=== PATIENT | male | born 1965 | race Caucasian/White ===

== ENCOUNTER 2023-10-20 06:35 | Inpatient (IN) | payer OTHER, SELFPAY ==
[2023-10-20] VITALS (21 sets, daily range): BP systolic 109–141; BP diastolic 84–98; PULSE 73–117; RESP 14–25; TEMP 36.6–36.9; O2SAT 97–100; BMI 20.5
--- NOTE | ~2023-10-20 | CT_ITS ---
EXAMINATION: CTA brain carotid DATE: 10/22/2023 08:48 INDICATION: Acute stroke. TECHNIQUE: Computed tomographic angiography (CTA) of the head was performed without and with 100 mL O mnipaque-350 intravenous contrast. CTA of the neck was performed with intravenous contrast. Automated exposure control and iterative reconstruction technique were employed. The dose-length product was 1 521.13 mGy-cm. Maximum intensity projection and volume rendered 3D-reconstructions were created by jean villeda technologist on a separate workstation. COMPARISON: Head CT 10/20/2023, brain MRI 10/20/2023 FINDINGS: HEAD CTA: There is an acute infarct involving the left basal ganglia and left internal capsule. There is an old infarct in the right thalamus. There are scattered areas of low attenuation in the cerebra l white matter. There is no intracranial hemorrhage or abnormal mass lesion. The ventricles are moo l in size. There is mucosal thickening in the paranasal sinuses. The orbits are normal. The mastoid a ir cells are normal. Left vertebral artery is dominant. There is no significant stenosis of basilar a rtery or the posterior cerebral arteries. There is no significant stenosis of the intracranial finance intern al carotid arteries or anterior or middle cerebral arteries. Anterior communicating artery is normal. Posterior communicating arteries are not identified. There is no aneurysm. NECK CTA: There is moderate emphysema. There are patchy airspace opacities in the lungs with cavitati on in left lung upper lobe. There is no cervical lymphadenopathy. There is no significant stenosis of the vertebral arteries. There is plaque in the proximal internal carotid arteries. There is 0% steno sis of the proximal right internal carotid artery relative to normal distal artery lumen diameter (NA SCET criteria). There is 0% stenosis of the proximal left internal carotid artery relative to normal distal artery lumen diameter. There is extensive dental disease. There is severe cervical spondylosis . IMPRESSION: 1. Acute infarct involving the left basal ganglia and left internal capsule. 2. Old infarct in right thalamus. 3. Mild nonspecific cerebral white matter disease, which likely represents chronic small vessel ische mel disease. 4. No aneurysm or significant intracranial calcinosis. 5. 0% stenosis of the proximal internal carotid arteries relative to normal distal artery lumen diame ters (NASCET criteria). 6. Multifocal lung disease, consistent with infection or less likely malignancy. 7. Moderate emphysema. Reviewed, dictated and finalized at location A. IMPRESSION: 1. Acute infarct involving the left basal ganglia and left internal capsule. 2. Old infarct in right thalamus. 3. 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 4. No aneurysm or significant intracranial calcinosis. 5. 0% stenosis of the proximal internal carotid arteries relative to normal dis kelli artery lumen diameters (NASCET criteria). 6. Multifocal lung disease, consistent with infection or less likely malignancy . 7. Moderate emphysema.
--- NOTE | ~2023-10-20 | CT_ITS ---
EXAMINATION: CT diagnostic chest wo con DATE: 10/20/2023 14:54 INDICATION: abnormal findings on CXR TECHNIQUE: Computed tomography (CT) of the chest was performed without intravenous contrast. Addition al 3D reconstructions utilizing coronal maximum intensity projection (MIP) were performed. Automated exposure control and iterative reconstruction technique were employed. The dose-length product was 16 3.19 mGy-cm. COMPARISON: None FINDINGS: Mild to moderate upper lung predominant emphysema. Volume loss in the left upper lobe with elevation the left hemidiaphragm and compensatory hyperexpansion of the left lower lobe. A couple small calcifi ed nodules in the left upper lobe along with calcified right lymph node consistent with old granuloma tous disease. There is a 5.1 x 3.9 cm cavitary mass in the left upper lobe with relatively smooth uni form thickened peripheral wall. There is adjacent left apical pleural-parenchymal scarring with incre ased subpleural fat. There are scattered linear and bandlike regions of discoid atelectasis in both l ungs. Multiple scattered small nodular opacities, many with tree-in-bud pattern most prominent in the left lower and right middle lobes. There are few more discrete larger nodules which include a 1.3 cm nodules in the right middle lobe, a 12 x 6 mm nodule in the right upper lobe and a 1.4 cm nodule in the lingula along a linear band of atelectasis/scarring. There is diffuse bronchial wall thickening t hroughout the lungs. Tiny left pleural effusion. Heart size is normal. Small pericardial effusion. Ec tatic ascending thoracic aorta measuring up to 3.8 cm. There are few mildly prominent but still moo l-sized likely reactive mediastinal lymph nodes, the largest precarinal lymph node measuring 8 mm in maximal short axis diameter. Visualized upper abdomen is unremarkable. Mild thoracic and moderate upp er lumbar spondylosis with chronic appearing mild anterior wedging at L1. IMPRESSION: 1. Mild to moderate emphysema. 2. 5.1 x 3.9 cm thick-walled cavitary mass in the left upper lobe along with multiple scattered bilat eral pulmonary nodules, many with tree-in-bud pattern which are almost infectious/inflammatory in yajaira ology. Difficult to exclude malignancy for any individual lesion and would recommend 3 month follow-u p low-dose noncontrast chest CT. Line 3. Tiny left pleural effusion and small pericardial effusion. Reviewed, dictated and finalized at location A. IMPRESSION: 1. Mild to moderate emphysema. 2. 5.1 x 3.9 cm thick-walled cavitary mass in the left upper lobe along with mu ltiple scattered bilateral pulmonary nodules, many with tree-in-bud pattern whi ch are almost infectious/inflammatory in etiology. Difficult to exclude maligna ncy for any individual lesion and would recommend 3 month follow-up low-dose no ncontrast chest CT. Line 3. Tiny left pleural effusion and small pericardial effusion.
--- NOTE | ~2023-10-20 | MR_ITS ---
EXAMINATION: MR brain/brain stem wo/w con DATE: 10/20/2023 15:25 INDICATION: CVA workup TECHNIQUE: Magnetic resonance imaging (MRI) of the brain and brainstem was performed with 12 mL Multi Mayank intravenous contrast. Sequences included sagittal and axial T1-weighted SE, axial diffusion-asher ghted FS EPI ASSET, axial T2*-weighted GRE, axial T2-weighted FLAIR Propeller, and axial T2-weighted Propeller. Postcontrast axial and coronal T1-weighted SE was obtained. Apparent diffusion coefficient (ADC) maps were created. COMPARISON: CT brain, same date. FINDINGS: Focal diffusion restriction in the posterior aspect of the lentiform nucleus, extending cephalad aashish g the periventricular white matter of the left lateral ventricle. Focal low T1 and T2 signal in the s uperior right thalamus with blooming in the susceptibility weighted sequences, consistent with old he morrhage. Normal white matter signal. No evidence of advanced or lobar predominant parenchymal volume loss. The basilar cisterns are patent. Flow voids are preserved. Ethmoid and maxillary mucosal thick ening. Globes and orbital contents are within normal limits. IMPRESSION: Focal acute left basal ganglia and periventricular white matter infarct. Focal old right thalamic hem orrhage. Reviewed, dictated and finalized at location K. IMPRESSION: Focal acute left basal ganglia and periventricular white matter infarct. 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
--- NOTE | ~2023-10-20 | XR_ITS ---
EXAMINATION: XR chest 1V portable DATE: 10/25/2023 10:39 INDICATION: Pneumonia. TECHNIQUE: A single frontal view of the chest was obtained. COMPARISON: Chest single view 10/20/2023, chest CT 10/20/2023 FINDINGS: There are patchy airspace opacities in right lung. There are airspace opacities in left upp er lung zone with cavitation and volume loss. There are mild airspace opacities in left lower lung zo ne. No pleural effusion or pneumothorax. The heart size is normal. IMPRESSION: 1. Stable diffuse lung disease, likely pneumonia. Reviewed, dictated and finalized at location A.
--- NOTE | ~2023-10-20 | US_ITS ---
EXAMINATION: US carotid duplex BI DATE: 10/20/2023 17:09 INDICATION: Right-sided weakness TECHNIQUE: Grayscale, color Doppler, and pulsed Doppler images of the cervical carotid arteries were obtained. The degree of vessel stenosis is placed in one of the following categories: normal, <50%, 5 0-69%, >=70% but less than near-occlusion, near-occlusion, or total occlusion. Note that percent sten osis relative to normal distal artery lumen diameter is indirectly measured from velocity measurement s as described by Easton, et al. Radiology 2003; 229:340-346. COMPARISON: None. FINDINGS: RIGHT: The right common carotid artery (CCA) peak systolic velocity (PSV) is 85 cm/s. The right internal car otid artery (ICA) PSV is 72 cm/s. The right ICA end-diastolic velocity (EDV) is 27 cm/s. The right IC A/CCA PSV ratio is 0.9. Grayscale and color Doppler images yield an estimate of less than 50% diamete r reduction from plaque in the ICA. The external carotid artery (ECA) PSV is 71 cm/s. There is antegr caryn flow in the right vertebral artery. LEFT: The left CCA PSV is 98 cm/s. The left ICA PSV is 59 cm/s. The left ICA EDV is 24 cm/s. The left ICA/C CA PSV ratio is 0.6. Grayscale and color Doppler images yield an estimate of less than 50% diameter r eduction from plaque in the ICA. The ECA PSV is 82 cm/s. There is antegrade flow in the left vertebra l artery. IMPRESSION: 1. <50% stenosis in the right internal carotid artery. 2. <50% stenosis in the left internal carotid artery. Reviewed, dictated and finalized at location F.
--- NOTE | ~2023-10-20 | CT_ITS ---
EXAMINATION: CT abdomen pelvis w con INDICATION: Hematochezia TECHNIQUE: Computed tomographic images of the abdomen and pelvis were obtained after the administrati on of 100 cc of Omnipaque 350 intravenous contrast. The dose-length product (DLP) was 209.00 mGy-cm. Automated exposure control and iterative reconstruction technique were employed. COMPARISON: 10/20/2023 FINDINGS: Nodules of the visualized lung bases are unchanged from comparison CT. The liver, spleen, p ancreas, gallbladder, and adrenal glands are normal. The kidneys are unremarkable. No pathologically enlarged abdominal or pelvic lymph nodes are identified. No free intraperitoneal gas or evidence of b owel obstruction. There is an approximately 5 cm segment of wall thickening in the rectum. There is m oderate lumbar spondylosis. IMPRESSION: 1. Approximately 5 cm segment of wall thickening in the rectum. Finding could be infectious or inflam matory however malignancy could have a similar appearance. Consider direct visualization. 2. Multiple stable nodules of the visualized lung bases with follow-up recommendations unchanged. Reviewed, dictated and finalized at location A. IMPRESSION: 1. Approximately 5 cm segment of wall thickening in the rectum. Finding could b e infectious or inflammatory however malignancy could have a similar appearance . Consider direct visualization. 2. Multiple stable nodules of the visualized lung bases with follow-up recommen dations unchanged.
--- NOTE | ~2023-10-20 | CT_ITS ---
EXAMINATION: CT brain wo con DATE: 10/20/2023 06:58 INDICATION: Right hemiparesis. Right-sided numbness and tingling. TECHNIQUE: Computed tomography (CT) of the head was performed without intravenous contrast. The mA wa s adjusted according to patient size. Iterative reconstruction technique was employed. The dose-lengt h product was 605.33 mGy-cm. COMPARISON: None FINDINGS: There is no intracranial hemorrhage or abnormal intracranial mass lesion. There is an infar ct in right thalamus. There is an infarct in left caudate nucleus. There are scattered areas of low a ttenuation in the cerebral white matter. The ventricles are normal in size. There is mild mucosal thi ckening in the paranasal sinuses. There is a right optic nerve drusen. The mastoid air cells are norm al. IMPRESSION: 1. Age-indeterminate infarcts in right thalamus and left caudate nucleus. 2. Mild nonspecific cerebral white matter disease, which likely represents chronic small vessel ische mle disease. Reviewed, dictated and finalized at location A. IMPRESSION: 1. Age-indeterminate infarcts in right thalamus and left caudate nucleus. 2. 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
--- NOTE | ~2023-10-20 | XR_ITS ---
EXAMINATION: XR chest 1V DATE: 10/20/2023 07:02 INDICATION: Right hemiparesis. Right-sided numbness and tingling. TECHNIQUE: A single frontal view of the chest was obtained. COMPARISON: None. FINDINGS: There is volume loss of left hemithorax. There are airspace opacities in the upper lobes, l eft worse than right. There are mild airspace opacities at left lung base. A calcified right lung nod ule is consistent with old granulomatous disease. No pleural effusion or pneumothorax. The heart size is normal. IMPRESSION: 1. Airspace opacities in the upper lobes and all left lung base, consistent with pneumonia versus chr onic lung disease. Consider CT. Reviewed, dictated and finalized at location A. IMPRESSION: 1. Airspace opacities in the upper lobes and all left lung base, consistent wit h pneumonia versus chronic lung disease. Consider CT.
--- NOTE | 2023-10-20 06:42 | ECG_ITS ---
Measurements Intervals [place] Rate: 92 P: 76 ID: [id number] QRS: -54 QRSD: 92 T: 78 QT: 362 QTc: 448 Interpretive Statements SINUS RHYTHM LEFT AXIS DEVIATION INCOMPLETE RIGHT BUNDLE BRANCH BLOCK DELAYED PRECORDIAL R/S TRANSITION BORDERLINE ECG NO PREVIOUS ECG AVAILABLE FOR COMPARISON Electronically Signed On 10-20-2023 8:02:56 CDT by Francisco Mullen D.O.
--- NOTE | 2023-10-20 06:53 | PC.NURSE ---
Pt in imaging at this time.
--- NOTE | 2023-10-20 07:08 | ED.GENADULT ---
HPI - General Adult General Chief complaint: Unspecified Stated complaint: neuro symptoms Time Seen by Provider: 10/20/23 07:02 History of Present Illness HPI narrative: Pt awoke this morning with weakness and uncoordination of right arm and leg and some slurred speech. Pt was fine when he went to bed last night at 1999. Pt denies CA. Pt has some numbness in right side as well. Pt has hx of htn and says may have undiagnosed COPD as he is a smoker. Related Data Allergies Allergy/AdvReac Type Severity Reaction Status Date / Time No Known Allergies Allergy Mild Unverified 01/08/09 17:00 Review of Systems Review of Systems: All systems reviewed & are unremarkable except as noted in HPI and below PMFSH Past Medical History Medical History HTN (hypertension) Smoker Family History Family History (Updated 02/21/16 @ 23:19 by DOCTOR UNKNOWN) Father Hypertension Mother Family history of diabetes mellitus in first degree relative Social History Social History Smoking status: Current every day smoker Tobacco type: cigarettes Alcohol intake: current Drinks per week: 63 Substance use: never Substance use type: does not use Do You Feel Safe in your Home?: Yes Lack of Transportation: No Lack of Food: Never True Current Housing: I Have Housing Concerned About Future Housing: No Difficulty Paying Gas/Electric Bills: No Difficulty Paying for Meds: No Currently Unemployed: No Education: High School Diploma/GED Difficulty w/ Childcare or Family Care: No Spiritual care concerns: No Exam Const: General: cooperative, healthy appearing, comfortable and no acute distress Nutritional Appearance: average body habitus Orientation/consciousness: patient oriented x3 Limitations: no limitations HENMT: Head: normal to inspection Mouth: Yes Normal oral and palatal mucosa present Neck: Neck: normal visual inspection Lymphatic: no lymphadenopathy noted Resp: Effort & Inspection: normal respiratory effort and able to speak in complete sentences Auscultation: wheezes Cardio: Rate: tachycardic Rhythm: regular rhythm GI: GI Palp: No abdominal tenderness Auscultation: normal bowel sounds Skin: General skin exam: normal color and no rashes or lesions noted Neuro: General: patient oriented x3, moves all extremities, Normal light touch and pain sensation, no focal motor deficits and CN's II-XI intact bilaterally Cognition (Neuro): normal cognition Speech: Abnormal speech present slurred Details: slurred Extrem: General: normal to inspection and no clubbing, cyanosis or edema Psych: Appearance: grossly normal Mental Status: mental status grossly normal Speech and movement: Slurred speech present Affect: normal affect Attitude: cooperative Thought process: Normal thought process present Thought content: Yes Normal thought content present Insight: Good insight present (Psych) Judgement: Good judgement present (Psych) Course Vital Signs Vital signs: Vital Signs Temperature 98.4 F 10/20/23 06:34 Pulse Rate 105 H 10/20/23 06:34 Respiratory Rate 25 H 10/20/23 06:34 Blood Pressure 109/88 10/20/23 06:34 Pulse Oximetry 99 10/20/23 06:34 Oxygen Delivery Room Air 10/20/23 06:34 Temperature 98.4 F 10/20/23 06:34 Pulse Rate 80 10/20/23 12:00 Respiratory Rate 19 10/20/23 09:45 Blood Pressure 141/84 H 10/20/23 08:15 Pulse Oximetry 97 10/20/23 09:45 Oxygen Delivery Room Air 10/20/23 11:00 Medical Decision Making [facility] Narrative Medical decision making narrative: cva vs tia, pt out of window for tpa and symptoms very mild. will get stroke work up here and admit for further evaluation and neuro consult. CT ekg and labs ok other than mild hyponatremia. discussed with dr diehl and agrees to conslut. discussed with dr rios agrees to admit. Vital Signs Vital Signs: Vital Signs Temperature 98.4 F 10/20/23 06:34 Pulse Rate 105 H 03
--- NOTE | 2023-10-20 07:12 | PC.NURSE ---
Report received from TEREAS Fletcher
[2023-10-20 07:17] LABS: Basophils Absolute Auto 0.1 K/mm3 (0.0-0.1); Basophils Percent Auto 0.8 % (0.2-1.2); Eosinophils Percent Auto 0.3 % (0-4.4); Hematocrit 44.3 % (42.0-52.0); Hemoglobin 14.3 g/dL (14.0-18.0); Immature Granulocyte Absolute 0.03 K/mm3 (0.00-0.031); Immature Granulocyte Percent A 0.4 % (0-0.5); Lymphocytes Absolute Auto 0.78 K/mm3 (0.9-3.2); Lymphocytes Percent Auto 9.9 % (18.3-44.2); Mean Corpuscular HGB Conc 32.3 g/dl (32-36); Mean Corpuscular Volume 86.9 fl (80-100); Mean Platelet Volume 9.3 fl (7.4-10.4); Monocytes Percent Auto 12.4 % (2.6-8.5); Neutrophils Percent Auto 76.2 % (45.5-73.1); Platelet Count Result 307 k/mm3 (150-375); Red Cell Distribution Width 13.1 % (11.5-14.5); White Blood Count 7.8 K/mm3 (4.5-10.0)
[2023-10-20 07:20] LABS: INR 0.8; Prothrombin Time 11.7 Seconds (11.1-14.7)
[2023-10-20 07:21] LABS: Partial Thromboplastin Time 33.6 Seconds (22.3-36.8)
[2023-10-20 08:25] LABS: Alanine Aminotransferase 12 U/L (6-50); Albumin Level 3.8 g/dL (3.5-5.1); Alkaline Phosphatase 67 U/L (38-126); Anion Gap 5 mmol/L (4-12); Aspartate Amino Transferase 27 U/L (17-59); Bilirubin,Total 0.5 mg/dL (0.2-1.3); Blood Urea Nitrogen 8 mg/dL (9-20); Calcium 8.6 mg/dL (8.4-10.2); Carbon Dioxide 25 mmol/L (22-30); Chloride 98 mmol/L (98-107); Estimated CRCL calculation 111 ml/min; Estimated Glomerular Filt Rate > 60; Glucose 100 mg/dL (65-110); Sodium 128 mmol/L (137-145)
[2023-10-20 08:36] LABS: Troponin I < 0.012 ng/mL (0.000-0.034)
--- NOTE | 2023-10-20 11:00 | ADMGEN ---
This patient, Griffin Rodriguez, was admitted to Medical Room 340-01. Patient/family oriented to hospital policies and general routines including ID bracelet, bed and alarms, visiting hours, pain management, procedures, bathroom and other care routines, personal items, smoking policy, room service/diet, and visiting hours. Information on how to activate the Rapid Response Team has been discussed. Patient/Family are encouraged to report perceived risks to care and to ask questions if they do not understand what they are told or what they should do.
--- NOTE | 2023-10-20 11:31 | WPDNEURCNPN ---
Assessment and Plan Assessment and plan (1) Acute CVA (cerebrovascular accident): Code(s): I63.9 - Cerebral infarction, unspecified Status: Acute Plan Admitted to the hospital for the incoordination of the right side with no change in the mental status will benefit from the MRI of the brain, Doppler study of the carotid, echocardiogram, to rule out the possibility of left hemispheric stroke before any further recommendations are made. Initial CT scan did document infarct in right thalamus and left caudate nucleus but no bleed her major space-occupying lesion. Consult date: 10/20/23 HPI: Griffin Rodriguez is a 57 year old male Has been admitted to the hospital through the emergency room where he presented with the complaints of weakness and incoordination of the right upper extremity and right lower extremity in addition to slurred speech reportedly was fine when he went to the bed last night at 8:00 p.m. he gave no history of headaches but also complained of numbness on the right side as well he does have ongoing history of COPD with history of chronic smoking. He is not allergic to any medication. And currently alcohol intake. On initial evaluation in the emergency room his vital signs were with blood pulse rate of 105 blood pressure 141/84 CBC was normal BMP with sodium of 128 was admitted to the hospital with the diagnosis of acute cerebrovascular accident has been taking amlodipine 5mg daily in addition to lisinopril 20mg daily which were co PMFSH Family History Family History (Updated 02/21/16 @ 23:19 by DOCTOR UNKNOWN) Father Hypertension Mother Family history of diabetes mellitus in first degree relative Social History Social History Smoking status: Current every day smoker Tobacco type: cigarettes Alcohol intake: current Drinks per week: 63 Substance use: never Substance use type: does not use Do You Feel Safe in your Home?: Yes Lack of Transportation: No Lack of Food: Never True Current Housing: I Have Housing Concerned About Future Housing: No Difficulty Paying Gas/Electric Bills: No Difficulty Paying for Meds: No Currently Unemployed: No Education: High School Diploma/GED Difficulty w/ Childcare or Family Care: No Spiritual care concerns: No Meds Home Medications and Allergies Allergies Allergy/AdvReac Type Severity Reaction Status Date / Time No Known Allergies Allergy Mild Unverified 01/08/09 17:00 Vital Signs Vital Signs - 24 hr 10/20/23 06:34 10/20/23 07:11 10/20/23 07:11 Temperature 36.9 C Pulse Rate 105 H 95 98 Respiratory Rate 25 H 18 Blood Pressure 109/88 121/98 H Pulse Oximetry 99 97 Oxygen Delivery Room Air 10/20/23 07:09 10/20/23 07:10 10/20/23 07:15 Temperature Pulse Rate 93 98 117 H Respiratory Rate 14 22 H 22 H Blood Pressure 121/98 H Pulse Oximetry 98 98 Oxygen Delivery 10/20/23 07:30 10/20/23 07:45 10/20/23 08:00 Temperature Pulse Rate 104 H 87 99 Respiratory Rate 18 21 H 20 Blood Pressure Pulse Oximetry Oxygen Delivery 10/20/23 08:15 10/20/23 08:30 10/20/23 08:45 Temperature Pulse Rate 97 101 H 99 Respiratory Rate 25 H 18 19 Blood Pressure 141/84 H Pulse Oximetry 99 100 97 Oxygen Delivery 10/20/23 09:00 10/20/23 09:16 10/20/23 09:30 Temperature Pulse Rate 96 101 H 102 H Respiratory Rate 23 H 23 H 25 H Blood Pressure Pulse Oximetry 98 98 Oxygen Delivery 10/20/23 09:45 10/20/23 11:00 Temperature Pulse Rate 91 Respiratory Rate 19 Blood Pressure Pulse Oximetry 97 Oxygen Delivery Room Air Exam Narrative: revealed him to be awake alert cooperative in no obvious acute distress, his speech was rather slurred though he follow the verbal commands appropriately. Head was normocephalic with no cranial bruit ear nose throat examination was normal neck was supple with no cervical bruit no thyromegaly no lymphadenopathy, heart regular
--- NOTE | 2023-10-20 12:23 | PM.IMHP ---
H&P: HPI History of Present Illness Date/Time: 10/20/23 12:23 Chief Complaint: Weakness, Dysarthria Narrative: 57 y/o M presents here with R sided weakness and dysarthria with PMH of HTN and current smoker. Patient presents here with right sided weakness affecting his RUE and RLE as well as dysarthria. Patient went to bed last night (10/19) at 2000 without deficits. Woke this morning at 0430 and noted symptoms at 0500. Patient attempted to lift a coffee cup and had difficulty. Reports some associated numbness - right foot and RUE. Reports some aphasia that is overcome with speaking slowly. Denies choking or difficulty swallowing. Endorsing mild gait disturbance. No previous hx of CVA. Has hx of HTN and believes he has undiagnosed COPD, current smoker - 1-2 PPD x 15 yrs. Patient has baseline SOB and cough. SOB worsens when patient lays flat due to rhinorrhea. No unintentional weight loss. No past history of IVDU. Reports FH of cancer - sister (stomach, breast, third one unknown), great grandma (maternal, unknown type), grandma (maternal, unknown type). Denies night sweats, no long incarcerations (one overnight stay at local group home), and has not needed to utilize a homeless correction before. 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 Initial VS at presentation: 98.4? F, HR 105, RR 25, 109/88, 99% on RA. ED workup showed: No leukocytosis, no anemia, sodium 128, creatinine 0.6, and initial troponin negative. CXR showed airspace opacities in the upper lobes and all left lung base. CT Head showed age-indeterminate infarcts in the right thalamus and left caudate nucleus and mild nonspecific cerebral white matter disease. EKG showed sinus rhythm with a rate of 92, left axis deviation, incomplete RBBB, and delayed precordial RS transition. Review of Systems Review of Systems: All systems reviewed & are unremarkable except as noted in HPI and below PMFSH Past Medical History Medical History HTN (hypertension) Smoker Family History Family History (Updated 02/21/16 @ 23:19 by DOCTOR UNKNOWN) Father Hypertension Mother Family history of diabetes mellitus in first degree relative Social History Social History Smoking status: Current every day smoker Tobacco type: cigarettes Alcohol intake: current Drinks per week: 63 Substance use: never Substance use type: does not use Do You Feel Safe in your Home?: Yes Lack of Transportation: No Lack of Food: Never True Current Housing: I Have Housing Concerned About Future Housing: No Difficulty Paying Gas/Electric Bills: No Difficulty Paying for Meds: No Currently Unemployed: No Education: High School Diploma/GED Difficulty w/ Childcare or Family Care: No Spiritual care concerns: No Meds Home Medications and Allergies Allergies Allergy/AdvReac Type Severity Reaction Status Date / Time No Known Allergies Allergy Mild Unverified 01/08/09 17:00 Vital Signs Vital Signs - 24 hr 10/20/23 06:34 10/20/23 07:11 10/20/23 07:11 Temperature 98.4 F Pulse Rate 105 H 95 98 Respiratory Rate 25 H 18 Blood Pressure 109/88 121/98 H Pulse Oximetry 99 97 Oxygen Delivery Room Air 10/20/23 07:09 10/20/23 07:10 10/20/23 07:15 Temperature Pulse Rate 93 98 117 H Respiratory Rate 14 22 H 22 H Blood Pressure 121/98 H Pulse Oximetry 98 98 Oxygen Delivery 10/20/23 07:30 10/20/23 07:45 10/20/23 08:00 Temperature Pulse Rate 104 H 87 99 Respiratory Rate 18 21 H 20 Blood Pressure Pulse Oximetry Oxygen Delivery 10/20/23 08:15 10/20/23 08:30 10/20/23 08:45 Temperature Pulse Rate 97 101 H 99 Respiratory Rate 25 H 18 19 Blood Pressure 141/84 H Pulse Oximetry 99 100 97 Oxygen Delivery 10/20/23 09:00 10/20/23 09:16 10/20/23 09:30 Temperature Pulse Rate 96 101 H 102 H Respiratory Rate 23 H 23 H 25 H Blood Pressure Pulse Oximetry 98 98 Oxygen Deli
--- NOTE | 2023-10-20 12:42 | ECHO_ITS ---
Patient Info Name: Griffin Rodriguez Age: 57 years : 1965 Gender: Male Ht: 69 in Wt: 150 lbs BSA: 1.82 m2 HR: 91 bpm BP: 141 / 84 mmHg Heart Rhythm: Sinus Rhythm Technical Quality: Fair Exam Date: 10/20/2023 1:15 PM Exam Location: Echo Lab Patient Status: Inpatient Admit Date: 10/20/2023 Staff Ordering Physician: Sandy Tinajero APRN [facility] Clinical Supervisor: Mitch Newberry RDCS Attending Provider: Ismael Bahena MD Referring Physician: Lior ROD; Exam Type: CA echo dop bubble study w con Study Info Indications - CVA workup Complete two-dimensional, color flow and Doppler transthoracic echocardiogram is performed with contrast to opacify the left ventricle and to improve the deliniation of the left ventricle endocardial borders. Complete two-dimensional, color flow and Doppler transthoracic echocardiogram is performed with agitated saline. Contrast/Agitated Saline Contrast/Ag. Saline: Definity Amount: 2.00 ml Summary 1. Definity contrast administered improved wall motion interpretation. 2. Left ventricular chamber dimension is normal. 3. Left ventricular systolic function is normal, estimated at 65-70%. 4. The left ventricular diastolic function is grade I diastolic dysfunction. 5. E/e' 7 is not elevated. 6. There is mild tricuspid valve regurgitation. 7. No pulmonary hypertension, estimated pulmonary arterial systolic pressure is 20 mmHg. Left Ventricle E/e' 7 is not elevated. Definity contrast administered improved wall motion interpretation. Left ventricular chamber dimension is normal. Left ventricular systolic function is normal, estimated at 65-70%. The left ventricular diastolic function is grade I diastolic dysfunction. Right Ventricle Right ventricular systolic function is normal and with normal TAPSE 2.5 cm. Right ventricular chamber dimension is normal. Left Atria Left atrial chamber dimension is normal. Right Atria Right atrial chamber dimension is normal. Atrial Septum Agitated saline injection with and without valsalva maneuver opacified right side cardiac chambers without shunt to left side cardiac chambers. Intact interatrial septum visualized by 2D and agitated saline imaging. Aortic Valve The aortic valve is trileaflet. There is no aortic valve stenosis. There is no aortic valve regurgitation. Pulmonic Valve There is no pulmonic regurgitation. Mitral Valve There is no mitral valve stenosis. There is no mitral valve regurgitation. Tricuspid Valve There is mild tricuspid valve regurgitation. No pulmonary hypertension, estimated pulmonary arterial systolic pressure is 20 mmHg. Pericardium/Pleural There is no pericardial effusion. Inferior Vena Cava Normal inferior vena cava with >50% collapse upon inspiration consistent with normal right atrial pressure, 5 mmHg. Aorta The aortic root size at the sinus of Valsalva is normal. Left Ventricular Outflow Tract Name Value Normal LVOT 2D LVOT Diameter 1.9 cm LVOT Doppler LVOT Peak Gradient 3 mmHg LVOT Mean Gradient 2 mmHg LVOT VTI 18 cm LVOT VTI/AV VTI Ratio 0.9
[2023-10-20] MEDS: SODIUM CHLORIDE 0.9% IV 1,000 ML 125 ML IV CONT (12:46)
[2023-10-20] MEDS: PERFLUTREN LIPID MICROSPHERES 1.5 ML VIAL DILUTED TO 10 ML TOTAL VOLUME IV PUSH (14:00)
--- NOTE | 2023-10-20 14:24 | IVDEFINITY ---
Prior to administration of IV Definity the patient was educated on the risks and benefits of the imaging enhancing agent including potential adverse side effects. The patient verbalized understanding. Allergies were verified. No exclusion criteria were identified and at least one of the following inclusion criteria were met: 1) physician request, 2) patient technically difficult to image (per the [place] [employer] guidelines of two or more segments not discernable within the apical view), or 3) questionable left ventricular function. ?
[2023-10-20] MEDS: ENOXAPARIN 40 MG/0.4 ML SYRINGE SUB-Q (18:42)
[2023-10-20] MEDS: MEROPENEM 1 GM/NS 100 ML 1 GM/100 ML BAG IVPB (20:11)
[2023-10-20] MEDS: VANCOMYCIN 1,500 MG/NS 500 ML 1,500 MG/500 ML BAG 250 MG IVPB (20:12)
[2023-10-20 20:45] LABS: Alanine Aminotransferase 12 U/L (6-50); Albumin Level 3.5 g/dL (3.5-5.1); Alkaline Phosphatase 64 U/L (38-126); Aspartate Amino Transferase 26 U/L (17-59); Bilirubin,Total 0.4 mg/dL (0.2-1.3)
[2023-10-20 21:26] LABS: HIV 1/2 Ab P24 Ag Result Negative (Negative)
--- NOTE | 2023-10-20 23:18 | PC.NURSE ---
UA sent lab. Main lab called, spoke to Joan regarding adding urine drug screen to existing sample. States she will be able to perform with current sample.
[2023-10-20 23:31] LABS: MRSA (PCR) NOT DETECTED (NOT DETECTE)
[2023-10-20 23:53] LABS: Barbiturate Screen Urine Negative (Negative); Benzodiazepines Screen Urine Negative (Negative)
[2023-10-20 23:57] LABS: Amphetamine Screen Urine Negative (Negative); Cannabinoid Screen Urine Negative (Negative); Cocaine Screen Urine Negative (Negative); Methadone Screen Urine Negative (Negative); Opiate Screen Urine Negative (Negative); Phencyclidine Screen Urine Negative (Negative)
[2023-10-21] VITALS (9 sets, daily range): BP systolic 128–162; BP diastolic 87–95; PULSE 65–92; RESP 16–20; TEMP 36.2–36.7; O2SAT 98–99
[2023-10-21] MEDS: MEROPENEM 1 GM/NS 100 ML 1 GM/100 ML BAG IVPB (03:48)
[2023-10-21 06:21] LABS: Basophils Percent Auto 0.5 % (0.2-1.2); Eosinophils Absolute Auto 0.1 K/mm3 (0-0.3); Eosinophils Percent Auto 0.6 % (0-4.4); Hematocrit 40.6 % (42.0-52.0); Hemoglobin 12.6 g/dL (14.0-18.0); Immature Granulocyte Absolute 0.04 K/mm3 (0.00-0.031); Immature Granulocyte Percent A 0.5 % (0-0.5); Lymphocytes Absolute Auto 1.06 K/mm3 (0.9-3.2); Lymphocytes Percent Auto 13.1 % (18.3-44.2); Mean Corpuscular Hemoglobin 27.7 pg (26-34); Mean Corpuscular Volume 89.2 fl (80-100); Monocytes Percent Auto 12.9 % (2.6-8.5); Neutrophils Absolute Auto 5.9 K/mm3 (1.3-6.7); Neutrophils Percent Auto 72.4 % (45.5-73.1); Platelet Count Result 251 k/mm3 (150-375); Red Blood Count 4.55 M/mm3 (4.6-6.20); Red Cell Distribution Width 13.4 % (11.5-14.5); White Blood Count 8.1 K/mm3 (4.5-10.0)
[2023-10-21 06:38] LABS: Alanine Aminotransferase 11 U/L (6-50); Albumin Level 3.1 g/dL (3.5-5.1); Alkaline Phosphatase 60 U/L (38-126); Anion Gap 1 mmol/L (4-12); Aspartate Amino Transferase 25 U/L (17-59); Bilirubin,Total 0.3 mg/dL (0.2-1.3); Blood Urea Nitrogen 9 mg/dL (9-20); Calcium 7.9 mg/dL (8.4-10.2); Carbon Dioxide 28 mmol/L (22-30); Chloride 101 mmol/L (98-107); Cholesterol 100 mg/dL (0-200); Estimated CRCL calculation 92 ml/min; Estimated Glomerular Filt Rate > 60; Glucose 86 mg/dL (65-110); HDL Direct 51 mg/dL; Potassium 3.9 mmol/L (3.4-5.0); Sodium 130 mmol/L (137-145); Triglycerides 100 mg/dL (<150)
[2023-10-21 06:49] LABS: LDL Cholesterol Direct 38 mg/dL
[2023-10-21 07:29] LABS: Hemoglobin A1C 5.2 % (<5.7)
[2023-10-21] MEDS: predniSONE 20 MG TABLET 40 MG PO (08:07)
[2023-10-21] MEDS: ATORVASTATIN 40 MG TABLET PO (08:07)
[2023-10-21] MEDS: CLOPIDOGREL BISULFATE 75 MG TABLET PO (08:07)
[2023-10-21] MEDS: ASPIRIN 81 MG ENTERIC TABLET PO (08:07)
[2023-10-21] MEDS: VANCOMYCIN 1,250 MG/NS 250 ML 1,250 MG/250 ML BAG 166.67 MG IVPB (08:08)
[2023-10-21] MEDS: ENOXAPARIN 40 MG/0.4 ML SYRINGE SUB-Q (08:11)
--- NOTE | 2023-10-21 10:06 | WPDNEUROPN ---
Progress Note: A&P Assessment and Plan (1) Acute CVA (cerebrovascular accident): Code(s): I63.9 - Cerebral infarction, unspecified Status: Acute (2) HTN (hypertension): Code(s): I10 - Essential (primary) hypertension Status: Acute (3) Smoker: Code(s): F17.200 - Nicotine dependence, unspecified, uncomplicated Status: Acute Plan Mr. Rodriguez is a year old male with a history of HTN and chronic smoking presenting for evaluation of acute onset R sided weakness, found to have L basal ganglia lacunar infarct. He is chronic heavy smoker which is likely a contributing factor. His A1c and LDL are within appropriate range, and he has not been particularly hypertensive during the admission. Suspect likely small vessel stroke, but also considering cryptogenic as other than the smoking, other risk factors are fairly well controlled. - Recommend aspirin 81mg daily - Plavix 75mg daily for 3 weeks only - Obtain CTA brain/carotid - If CTA is unrevealing, recommend 30 day event monitor prior to discharge Subjective Date/time seen: 10/21/23 10:06 Interval history: Mr. Rodriguez is a year old male with a history of HTN and chronic smoking presenting for evaluation of acute onset R sided weakness. Patient went to bed the night prior to admission feeling normal. He woke up the following morning and noted new R sided weakness, R sided numbness, and some speech difficulties. He presented to [facility] where he had a CT head which showed age indeterminate infarcts in the R thalamus and L caudate nucleus. Per ED note, he did not receive thrombolytic treatment due to being outside the window of therapy (wake up symptoms and CTH findings), and mild symptoms. EKG showed sinus rhythm. BP at the highest has been 141 systolic, but otherwise has been normotensive during admission. A1c is 5.2 nd LDL is 38. MRI brain confirmed L basal ganglia infarct (about 12x9mm in size). Patient is a chronic smoker, smoking 1-2 ppd for the past 15 years. He does not take any blood thinners or statins. Surface echocardiogram has been done which shows no evidence of shunt. Carotid doppler study shows <50% stenosis bilaterally. Patient continues to have some mild weakness in the RUE. He is right handed. 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 He has decided that he will no longer be smoking. He denies any family history of early stroke or ME. No clotting disorders in the family. No recurrent miscarriages in the family. Review of Systems Review of Systems: All systems reviewed & are unremarkable except as noted in HPI and below Exam Const: General: no acute distress and well nourished Nutritional Appearance: well nourished HENMT: Head: normocephalic and atraumatic Ears: hearing grossly normal bilaterally and external ears normal Face/Nose/Sinus: Normal external nose present and normal facial exam Face and sinus: normal facial exam Mouth: Yes Normal oral and palatal mucosa present Eyes: General: appearance normal, both eyes and all related structures Eyelids: eyelids normal Conjunctivae: conjunctivae normal Pupils: Equal, round and reactive pupils present EOM: EOMs intact bilaterally and No Nystagmus present Neck: Neck: normal visual inspection Resp: Effort & Inspection: normal respiratory effort Skin: General skin exam: normal color and no rashes or lesions noted Neuro: Cranial nerves: Yes Equal, round and reactive pupils present, Yes Bilaterally intact EOM present, Yes Nystagmus not present, Yes Midline tongue present, Yes Normal hearing present and No Nystagmus present Cognition (Neuro): normal cognition Speech: normal speech Gait exam (Neuro): Normal gait present Motor exam (neuro): Normal motor muscle tone present throughout and Motor abnormalities not present Sensory Exam: normal sensation Coordination: [id number] test normal Other: R nasolabial flattening Dysarthria RUE 4+/5, LUE 5/5 bilateral lower extremities 5/5
[2023-10-21] MEDS: AZITHROMYCIN 500 MG/NS 250 ML 500 MG/250 ML BAG 250 MG IVPB (12:18)
[2023-10-21] MEDS: AMPICILLIN SULB 3 GM/NS 100 ML 3 GM/100 ML VIAL IVPB ×2 (12:19→17:12)
--- NOTE | 2023-10-21 12:50 | PM.IMPN ---
Progress Note: A&P Assessment and Plan (1) Acute CVA (cerebrovascular accident): Code(s): I63.9 - Cerebral infarction, unspecified Status: Acute Assessment and Plan: New deficits of RUE weakness, RLE weakness, numbness and dysarthria discovered at 0500 on 10/20/23. LKN: 2000 on 10/20. Imaging showed age-indeterminate infarcts in right thalamus and left caudate nucleus. - not candidate for thrombolytics due to timeframe - CXR: airspace opacities in the upper lobes and all left lung base, consistent with pneumonia versus chronic lung disease.? - neurology consulted and appreciate recommendations. - brain MRI w/wo: Focal acute left basal ganglia and periventricular white matter infarct. 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 - echo w/Bubble no PFO seen, EF of 65-70%, grade 1 diastolic dysfunction - US carotid bilateral less than 50% stenosis bilaterally - neuro checks Q4 - speech/swallow eval and recommended minced moist diet. - PT/OT to eval and treat and has cleared patient - A1c 5.2 and LDL less than 70 - start Plavix 75 mg PO x3 weeks - start ASA 81 mg - consider 30 day event monitoring at discharge if there are abnormalities on tele (2) Abnormal CXR: Code(s): R93.89 - Abnormal findings on diagnostic imaging of other specified body structures Status: Acute Assessment and Plan: - CXR: airspace opacities in the upper lobes and all left lung base, consistent with pneumonia versus chronic lung disease. Consider CT. - Chest CT noncon: Mild to moderate emphysema. 5.1 x 3.9 cm thick-walled cavitary mass in the left upper lobe along with multiple scattered bilateral pulmonary nodules, many with tree-in-bud pattern which are almost infectious/inflammatory in etiology. Difficult to exclude malignancy for any individual lesion and would recommend 3 month follow-up low-dose noncontrast chest CT. Tiny left pleural effusion and small pericardial effusion. - smoking hx: 1-2 PPD x 15 yrs - MRSA (neg) - Sputum culture pending - Urine legionella antigen, Urine pneumococcal antigen, Mycoplasma IgM - Vancomycin and meropenem changed to Unasyn and doxycycline due to negative MRSA swab per [facility] recommendations - DuoNeb PRN and prednisone 40 mg PO x 7 days. - will need follow-up CT in 3 months, schedule outpatient - HIV (Pending), UDS (Neg) - Due to cavitary lesions will consult pulmonology. (3) HTN (hypertension): Code(s): I10 - Essential (primary) hypertension Status: Acute Assessment and Plan: - monitor Subjective Date/time seen: 10/21/23 12:50 Interval history: patient states that he has had increased cough for months but has worsened over the past week or so. He is having increased sputum production causing him to have difficulty sleeping at night. It sounds like he does have somewhat of a chronic cough. 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 He denies any chest pain or shortness of breath. He is ambulating without any issues. He denies any fevers or night sweats. He presented to the ED due to right-sided weakness which has improved. He does have some slurred speech which is new since his stroke diagnosis. Neurology following patient. Consulted with pulmonology about the case and they agreed to follow. Exam Narrative: GENERAL: Comfortable, no acute distress HENMT: moist mucous membranes EYES: EOM intact b/l NECK: no lymphadenopathy RESPIRATORY: diffuse crackles throughout lung zones, no increased respiratory effort CARDIO: Regular rate and rhythm GI: soft, nontender, bowel sounds present SKIN/EXTREMITIES: no rashes, no edema, no redness or tenderness NEURO: PROM intact, answers questions appropriately, A&O x4 Objective Data Vital Signs Vital Signs: Vital Signs - 24 hr 10/20/23 14:00 10/20/23 16:00 10/20/23 21:56 Temperature 97.8 F 98.4 F Pulse Rate 81 75
[2023-10-21] MEDS: SODIUM CHLORIDE 0.9% IV 1,000 ML 125 ML IV CONT (17:12)
[2023-10-21 20:08] LABS: CRP 4.2 mg/dL (<1.0)
[2023-10-21 20:20] LABS: D Dimer 0.59 ug/mL (<0.48)
--- NOTE | 2023-10-21 22:08 | PM.EVENT ---
Event Note Event Note Event Note: Cross Coverage 22:00 -nursing staff reached out to notify team that patient had a large bloody bowel movement. Briefly tachycardic while using restroom, heart rate now 72. Blood pressure 162/88. No prior history of GI bleed. Adding pantoprazole IVP b.i.d., CT brain with contrast ordered previously, adding abdomen/pelvis with contrast, GI consulted. CBC ordered: 14.3 (initial workup) -> 12.6 (this a.m.)-> 12.6 (repeat). Repeat CBC at 5:[address] Holding daily aspirin and Plavix. No prior colonoscopy.
[2023-10-21 22:33] LABS: Hemoglobin 12.6 g/dL (14.0-18.0); Mean Corpuscular HGB Conc 32.3 g/dl (32-36); Mean Corpuscular Hemoglobin 28.2 pg (26-34); Mean Corpuscular Volume 87.2 fl (80-100); Mean Platelet Volume 9.1 fl (7.4-10.4); Platelet Count Result 286 k/mm3 (150-375); Red Blood Count 4.47 M/mm3 (4.6-6.20); Red Cell Distribution Width 13.3 % (11.5-14.5); White Blood Count 8.1 K/mm3 (4.5-10.0)
[2023-10-21] MEDS: PANTOPRAZOLE SODIUM IV 40 MG VIAL IV PUSH (23:49)
--- NOTE | 2023-10-21 23:59 | PC.NURSE ---
pt to ct at this time via wc
[2023-10-22] VITALS (11 sets, daily range): BP systolic 151–159; BP diastolic 76–92; PULSE 65–112; RESP 14–20; TEMP 36.4–36.7; O2SAT 97–99
[2023-10-22] MEDS: AMPICILLIN SULB 3 GM/NS 100 ML 3 GM/100 ML VIAL IVPB ×5 (00:19→23:43)
--- NOTE | 2023-10-22 00:20 | PC.NURSE ---
patient returned from CT.
--- NOTE | 2023-10-22 00:21 | PC.NURSE ---
2345: DIRECTOR NEWS MADE AWARE OF TB WORK UP AIRBORNE ISOLATION ORDER.
--- NOTE | 2023-10-22 03:32 | PC.NURSE ---
0333: Tube Coater spoke with YULIANA Castro. Per Gloria patients condition does not necessitate placement in AII[facility]. Will place isolation kit outside room; N95 encouraged.
[2023-10-22 06:04] LABS: Hematocrit 39.7 % (42.0-52.0); Hemoglobin 12.6 g/dL (14.0-18.0); Mean Corpuscular HGB Conc 31.7 g/dl (32-36); Mean Corpuscular Hemoglobin 27.6 pg (26-34); Mean Corpuscular Volume 87.1 fl (80-100); Mean Platelet Volume 8.9 fl (7.4-10.4); Platelet Count Result 262 k/mm3 (150-375); Red Blood Count 4.56 M/mm3 (4.6-6.20); Red Cell Distribution Width 13.2 % (11.5-14.5); White Blood Count 6.5 K/mm3 (4.5-10.0)
[2023-10-22] MEDS: SODIUM CHLOR 3% 15 ML NEB (RESPIRATORY THERAPY) 6 ML INHALATION (06:09)
[2023-10-22 06:20] LABS: Alanine Aminotransferase 11 U/L (6-50); Albumin Level 3.2 g/dL (3.5-5.1); Alkaline Phosphatase 55 U/L (38-126); Anion Gap 3 mmol/L (4-12); Aspartate Amino Transferase 26 U/L (17-59); Bilirubin,Total 0.5 mg/dL (0.2-1.3); Blood Urea Nitrogen 7 mg/dL (9-20); Carbon Dioxide 28 mmol/L (22-30); Chloride 99 mmol/L (98-107); Estimated CRCL calculation 106 ml/min; Estimated Glomerular Filt Rate > 60; Glucose 90 mg/dL (65-110); Potassium 3.5 mmol/L (3.4-5.0); Sodium 130 mmol/L (137-145)
[2023-10-22] MEDS: SODIUM CHLORIDE 0.9% IV 1,000 ML 125 ML IV CONT ×2 (06:49→17:02)
[2023-10-22] MEDS: ATORVASTATIN 40 MG TABLET PO (09:13)
[2023-10-22] MEDS: ENOXAPARIN 40 MG/0.4 ML SYRINGE SUB-Q (09:13)
[2023-10-22] MEDS: AZITHROMYCIN 500 MG/NS 250 ML 500 MG/250 ML BAG 250 MG IVPB (09:13)
[2023-10-22] MEDS: predniSONE 20 MG TABLET 40 MG PO (09:13)
[2023-10-22] MEDS: PANTOPRAZOLE SODIUM IV 40 MG VIAL IV PUSH ×2 (09:14→21:33)
--- NOTE | 2023-10-22 11:45 | WPDGICN ---
Assessment and Plan Assessment and plan (1) GI bleed: Code(s): K92.2 - Gastrointestinal hemorrhage, unspecified Status: Acute Assessment and Plan: -Episode of hematochezia around 10:00 p.m. last night 10/21/23 after start of plavix and ASA for an acute CVA -CT of the abdomen pelvis with contrast noted 5 cm rectal wall thickening that could be infectious, inflammatory or underlying malignancy should be excluded. No chronic diarrhea to suggest underlying colitis. He has never had a colonoscopy. Had no concerning red flag symptoms prior to admission. -Recommend colonoscopy to assess for underlying malignancy, will plan on this Wednesday. Will have him complete bowel prep Monday 10/23 and NPO after midnight. -Monitor H&H -Plavix and ASA on hold -No further bleeding at this time. Recommend monitoring. (2) Hematochezia: Code(s): K92.1 - Melena Status: Acute Assessment and Plan: -No further bleeding at this time -Likely due to findings noted on CT imaging -Will assess with colonoscopy (3) Acute blood loss anemia: Code(s): D62 - Acute posthemorrhagic anemia Status: Acute Assessment and Plan: -Hgb drop from 14-12, likely due to acute blood loss from rectal bleeding episode -No further bleeding -Monitor H&H (4) Abnormal findings on diagnostic imaging of digestive system: Code(s): R93.3 - Abnormal findings on diagnostic imaging of other parts of digestive tract Status: Acute Assessment and Plan: CT abd/pelvis with 5 cm rectal wall thickening (5) Acute CVA (cerebrovascular accident): Code(s): I63.9 - Cerebral infarction, unspecified Status: Acute Assessment and Plan: -Neurology following -Work up pending (6) Abnormal CXR: Code(s): R93.89 - Abnormal findings on diagnostic imaging of other specified body structures Status: Acute Assessment and Plan: -Has large cavitary mass in left upper lobe, underlying malignancy to be excluded -Work up in progress for etiologies, pulmonology has also been consulted. (7) HTN (hypertension): Code(s): I10 - Essential (primary) hypertension Status: Acute (8) Emphysema lung: Code(s): J43.9 - Emphysema, unspecified Status: Acute (9) Smoker: Code(s): F17.200 - Nicotine dependence, unspecified, uncomplicated Status: Acute GI Consult Note Consult date/time: 10/22/23 11:45 Reason for consult: acute hematochezia HPI: Griffin Rodriguez is a 57 year old male asked to be seen at the request of the hospitalist for acute blood in the stools around 10:00 p.m. last night. He has a past medical history of hypertension. He presented to the ER for acute onset of right-sided weakness and found to have a left basal ganglia lacunar infarct along with CT chest noting 5.1 x 3.9 cm cavitary mass in left upper lobe along with scattered nodules-pulmonology has been consulted. He was started on Asa 81 mg daily and Plavix, neurology is following. Around 10:00 p.m. yesterday evening have patient had a large bright red bloody bowel movement-CT of the abdomen pelvis obtained with contrast that noted 5 cm segment of wall thickening in the rectum, findings could be infectious or inflammatory however malignancy could have similar appearance. He did have acute drop in his hemoglobin from 14-12. He has never had a colonoscopy. Leading up to this event he had not been noticing any bloody stools and denied any changes in bowel habits, chronic constipation, diarrhea, thin-appearing stools, rectal pain or abdominal pain. Has had no further BM since 10 pm last night, plavix is on hold. He denies any unintentional weight loss or appetite loss. No family history of colon cancer that he is aware of. REPLACED BY [facility] Past Medical History Medical History HTN (hypertension) Smoker Family History Family History (Updated 02/21/16 @ 23:19 by DOCTOR UNKNOWN) Father Hypertension Mother Fa
--- NOTE | 2023-10-22 13:23 | WPDNEUROPN ---
Progress Note: A&P Assessment and Plan (1) Left basal ganglia embolic stroke: Code(s): I63.9 - Cerebral infarction, unspecified Status: Acute Plan Has aspirin and Plavix are on hold in view of the lower GI bleed. I agree with this approach for now. He is on statin that he may continue. He needs to stop smoking. Once the issues the bowel are clear we can consider use of at least 1 anti-platelet if okay with GI services. Which should be glad to follow. Subjective Date/time seen: 10/22/23 13:23 Interval history: The patient is 57 years old history of a right-sided weakness predominantly affecting his right upper limb. MRI of the brain has shown a left basal ganglia infarct. CT angiogram head and neck did not show any significant abnormalities. Echocardiogram also did not show any abnormality. He has had some blood in the stool last night and has aspirin and Plavix are on hold. Please refer to the detailed consultation note from Neurology Service earlier. Patient has been a smoker and he had admits that he smokes up to 2 packs of cigarettes a day. He also history of drinking alcohol up to 4-5 beers a day. Carotid Doppler study showed less than 50% narrowing on both sides. At this time he feels that symptoms are slightly better but there is a plan for a colonoscopy or GI workup in view of the lower GI bleed. I believe that there is some finding of a thickening of the rectum rectal wall on the radiological studies awaiting further evaluation. Review of Systems Review of Systems: All systems reviewed & are unremarkable except as noted in HPI and below Exam Narrative: Follicles is alert oriented to self time place and person speech is fluent and articulate. Minimal dysarthria. Extraocular movements and visual pope were within acceptable normal range. Motor system normal power in left upper and both lower limbs however the loss of rapid alternating movement of the right hand compared to the left side. Power grade 4 +over 5. Deep tendon reflexes did not show any significant asymmetry. Plantars downgoing. MRI of the brain was reviewed which shows the basal ganglia infarct in the left side but 9 x 12 mm size. Objective Data Vital Signs Vital Signs: Vital Signs - 24 hr 10/21/23 14:00 10/21/23 16:00 10/21/23 20:31 Temperature 36.2 C L Pulse Rate 79 79 Respiratory Rate 20 Blood Pressure 128/95 H Pulse Oximetry 98 Oxygen Delivery Room Air 10/21/23 20:31 10/21/23 20:00 10/22/23 00:00 Temperature 36.7 C Pulse Rate 72 69 72 Respiratory Rate 18 Blood Pressure 162/88 H Pulse Oximetry 98 Oxygen Delivery 10/22/23 04:57 10/22/23 06:00 10/22/23 06:09 Temperature 36.7 C Pulse Rate 65 76 67 Respiratory Rate 18 18 Blood Pressure 152/76 H Pulse Oximetry 97 Oxygen Delivery 10/22/23 06:19 10/22/23 08:00 Temperature Pulse Rate 73 66 Respiratory Rate Blood Pressure Pulse Oximetry Oxygen Delivery Intake/Output Intake/Output: Intake & Output 10/19/23 10/20/23 10/21/23 10/22/23 23:59 23:59 23:59 23:59 Intake Total 1840 19990 Output Total 192 1700 Balance 1840 75 750 Meds/Results Medications: Active Medications Generic Name Dose Route Start Last Admin Trade Name Freq PRN Reason Stop Dose Admin Albuterol/Ipratropium 3 ml 10/20/23 23:06 Ipratropium 0.5 Mg/Albuterol Sulfate 2.5 Mg Ampul.Neb 3 Ml INHALATION Q6HRT PRN Shortness Of Breath Or Wheezing Aspirin 81 mg 10/21/23 09:00 10/21/23 08:07 Aspirin 81 Mg Enteric Tablet PO 81 mg QAM TIAGO Administration Atorvastatin Calcium 40 mg 10/21/23 09:00 10/22/23 09:13 Atorvastatin 40 Mg Tablet PO 40 mg DAILY TIAGO Administration Bisacodyl 20 mg 10/24/23 16:00 Bisacodyl 5 Mg Tablet Ec PO 10/24/23 16:01 ONCE ONE Clopidogrel Bisulfate 75 mg 10/21/23 09:00 10/21/23 08:07 Clopidogrel Bisulfate 75 Mg Tablet PO 75 mg QAM [facility] Administ
--- NOTE | 2023-10-22 13:55 | PM.CNPUL ---
Assessment and Plan Assessment and plan (1) Cavitary lesion of lung: Code(s): J98.4 - Other disorders of lung Status: Acute Assessment and Plan: RADHA cavitary lesion with satellite nodules; will treated as infection followed by chest CT follow-up in 3 months. Patient is informed that he cannot fail to show up for follow up. IF he does, he might miss a window of opportunity to catch lung cancer. Other options that must be considered include mycobacterial disease; he sent sputum studies, is on treatment for M TB; QuantiFERON gold tomorrow am continue antibiotics; he is on ampicillin and azithromycin; needs anaerobic coverage with the cavity, could be staph (2) Emphysema lung: Code(s): J43.9 - Emphysema, unspecified Status: Acute Assessment and Plan: Probable emphysema due to smoking. alpha-1 testing-sent (3) Smoker: Code(s): F17.200 - Nicotine dependence, unspecified, uncomplicated Status: Acute Assessment and Plan: Not smoking while in the hospital; will need information regarding cessation to avoid relapse after discharge QuantiFERON gold blood test Sputum studies for mycobacteria, fungus, Gram stain C&S CT chest in 3 months no contrast follow-up current chest CT with cavitary RADHA lesion and multiple small nodules in the bases differential diagnosis= infection vs cancer He had hematochezias, getting C-scope Wednesday; has to be off anticoagulants before then, had an ischemic stroke. History of Present Illness History of Present Illness Consult date: 10/22/23 Requesting physician: Francesca Eid PA-C Chief complaint: cavitary lung lesions, nodules, pneumonia Narrative: patient was seen October 22, 2023 at 20:05 Room 340 NEW: Griffin Rodriguez is a 57-year-old man with heavy smoking, admitted with a stroke with R sided weakness dysarthria; has abnormal chest CT with infiltrates RADHA and scattered nodules. He has been a heavy smoker; up to 2 ppd for years. He has had increased shortness of breath and coughing over the last 6 months. His sputum is usually yellow color, sometimes darker. He has never coughed blood. He does not have any pleuritic chest discomfort. He denies any weight loss, fever, chills, night sweats. He very rarely has wheezing. He does not awaken during the night feeling short of breath. 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 He lives alone, has a dog and a cat. He does nto smoke marijuana, does not vape. There is no family history of lung cancer. His dad of emphysema at age 82. The patient does not get recurrent respiratory infections, does not recall ever requiring a visit at an urgent care or ER for respiratory infection, bronchitis or COPD exacerbation. He does not have any difficulty swallowing. Appetite has been stable.He has no exposure to moist environments. He takes care of his sister's chickens from time to time, she has never had infection from exposure to the chickens. No travel. No time in [facility], no exposure to anyone with TB, never mcgregor a TB skin test. He had hematochezia last night, GI consultation recommends C-scope this WednesdayOctober 24. Plavix and asa stopped in anticipation of the colonoscopy. He had hypertension, was on medication through Dr Ball, lisinopril 20 mg and amlodipine 5 mg. He says that the dose was increased by one of Dr Ball's associates, leading to a drop in his blood pressure below normal. 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 His blood pressure remained in the normal range, not high enough to warrant restarting any medication. He has not followed up with Dr. Ball
--- NOTE | 2023-10-22 14:55 | PM.IMPN ---
Progress Note: A&P Assessment and Plan (1) Acute CVA (cerebrovascular accident): Code(s): I63.9 - Cerebral infarction, unspecified Status: Acute Assessment and Plan: New deficits of RUE weakness, RLE weakness, numbness and dysarthria discovered at 0500 on 10/20/23. LKN: 2000 on 10/20. Imaging showed age-indeterminate infarcts in right thalamus and left caudate nucleus. - not candidate for thrombolytics due to timeframe - CXR: airspace opacities in the upper lobes and all left lung base, consistent with pneumonia versus chronic lung disease.? - neurology consulted and appreciate recommendations. - brain MRI w/wo: Focal acute left basal ganglia and periventricular white matter infarct. 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 - echo w/Bubble no PFO seen, EF of 65-70%, grade 1 diastolic dysfunction - US carotid bilateral less than 50% stenosis bilaterally - neuro checks Q4 - speech/swallow eval and recommended minced moist diet. - PT/OT to eval and treat and has cleared patient - A1c 5.2 and LDL less than 70 - start Plavix 75 mg PO x3 weeks - start ASA 81 mg - consider 30 day event monitoring at discharge if there are abnormalities on tele (2) Abnormal CXR: Code(s): R93.89 - Abnormal findings on diagnostic imaging of other specified body structures Status: Acute Assessment and Plan: - CXR: airspace opacities in the upper lobes and all left lung base, consistent with pneumonia versus chronic lung disease. Consider CT. - Chest CT noncon: Mild to moderate emphysema. 5.1 x 3.9 cm thick-walled cavitary mass in the left upper lobe along with multiple scattered bilateral pulmonary nodules, many with tree-in-bud pattern which are almost infectious/inflammatory in etiology. Difficult to exclude malignancy for any individual lesion and would recommend 3 month follow-up low-dose noncontrast chest CT. Tiny left pleural effusion and small pericardial effusion. - smoking hx: 1-2 PPD x 15 yrs - MRSA (neg) - Sputum culture pending - Urine legionella antigen, Urine pneumococcal antigen, Mycoplasma IgM - Vancomycin and meropenem changed to Unasyn and doxycycline due to negative MRSA swab per [facility] recommendations - DuoNeb PRN and prednisone 40 mg PO x 7 days. - will need follow-up CT in 3 months, schedule outpatient - HIV (Neg), UDS (Neg) - Due to cavitary lesions will consult pulmonology. (3) GI bleed: Code(s): K92.2 - Gastrointestinal hemorrhage, unspecified Status: Acute Assessment and Plan: Patient had large bloody bowel movement causing tachycardia up into the 170s. CT of the abdomen pelvis with contrast noted 5 cm rectal wall thickening that could be infectious, inflammatory or underlying malignancy should be excluded.? No chronic diarrhea to suggest underlying colitis. He has never had a colonoscopy. Had no concerning red flag symptoms prior to admission. GI consulted. Recommending colonoscopy to assess underlying malignancy. Monitor H&H Plavix and aspirin on hold. No further symptoms at this time but will continue to monitor. (4) HTN (hypertension): Code(s): I10 - Essential (primary) hypertension Status: Acute Assessment and Plan: - monitor Subjective Date/time seen: 10/22/23 14:55 Interval history: Patient had episode of large bloody stool overnight. Patient's aspirin and Plavix were put on hold. Patient has not had a colonoscopy in the past. GI was consulted and they are recommending colonoscopy in a couple days. Patient continues to have a cough but states that this has improved. He denies any shortness a breath or chest pain. CT of the abdomen pelvis did show some thickening near the rectum rather is concern of malignancy verses infection. Exam Narrative: GENERAL: Comfortable, no acute distress HENMT: moist mucous membranes EYES: EOM intact b/l NECK: no lymphadenopathy RESPIRATORY: diffuse crackles throughout lung zones,
[2023-10-23] VITALS (11 sets, daily range): BP systolic 152–157; BP diastolic 94–107; PULSE 59–88; RESP 16–20; TEMP 36.5–36.7; O2SAT 98–99
[2023-10-23] MEDS: SODIUM CHLOR 3% 15 ML NEB (RESPIRATORY THERAPY) 6 ML INHALATION (02:51)
[2023-10-23] MEDS: AMPICILLIN SULB 3 GM/NS 100 ML 3 GM/100 ML VIAL IVPB ×4 (06:21→23:57)
[2023-10-23] MEDS: predniSONE 20 MG TABLET 40 MG PO (08:27)
[2023-10-23] MEDS: ATORVASTATIN 40 MG TABLET PO (08:27)
[2023-10-23] MEDS: AZITHROMYCIN 500 MG/NS 250 ML 500 MG/250 ML BAG 250 MG IVPB (08:27)
--- NOTE | 2023-10-23 08:29 | PM.IMPN ---
Progress Note: A&P Assessment and Plan (1) Acute CVA (cerebrovascular accident): Code(s): I63.9 - Cerebral infarction, unspecified Status: Acute Assessment and Plan: New deficits of RUE weakness, RLE weakness, numbness and dysarthria discovered at 0500 on 10/20/23. LKN: 2000 on 10/20. Imaging showed age-indeterminate infarcts in right thalamus and left caudate nucleus. - not candidate for thrombolytics due to timeframe - CXR: airspace opacities in the upper lobes and all left lung base, consistent with pneumonia versus chronic lung disease.? - neurology consulted and appreciate recommendations. - brain MRI w/wo: Focal acute left basal ganglia and periventricular white matter infarct. 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 - echo w/Bubble no PFO seen, EF of 65-70%, grade 1 diastolic dysfunction - US carotid bilateral less than 50% stenosis bilaterally - speech/swallow eval and recommended minced moist diet. - PT/OT to eval and treat and has cleared patient - A1c 5.2 and LDL less than 70 - Plavix 75 mg and ASA 81 mg on hold due to hematochezia event. Colonoscopy on Wednesday. - consider 30 day event monitoring at discharge if there are abnormalities on tele - hematologic disorder workup; with possible malignancy, this could have provokes cva. (2) Abnormal CXR: Code(s): R93.89 - Abnormal findings on diagnostic imaging of other specified body structures Status: Acute Assessment and Plan: - CXR: airspace opacities in the upper lobes and all left lung base, consistent with pneumonia versus chronic lung disease. Consider CT. - Chest CT noncon: Mild to moderate emphysema. 5.1 x 3.9 cm thick-walled cavitary mass in the left upper lobe along with multiple scattered bilateral pulmonary nodules, many with tree-in-bud pattern which are almost infectious/inflammatory in etiology. Difficult to exclude malignancy for any individual lesion and would recommend 3 month follow-up low-dose noncontrast chest CT. Tiny left pleural effusion and small pericardial effusion. - smoking hx: 1-2 PPD x 15 yrs - MRSA (neg) - Sputum culture growth of normal oropharyngeal dickson. - Urine legionella antigen, Urine pneumococcal antigen, Mycoplasma IgM pending - Vancomycin and meropenem changed to Unasyn and doxycycline due to negative MRSA swab per [facility] recommendations - DuoNeb PRN and prednisone 40 mg PO x 7 days. - will need follow-up CT in 3 months, schedule outpatient - HIV (Neg), UDS (Neg) - Due to cavitary lesions will consult pulmonology. (3) GI bleed: Code(s): K92.2 - Gastrointestinal hemorrhage, unspecified Status: Acute Assessment and Plan: Patient had large bloody bowel movement causing tachycardia up into the 170s. CT of the abdomen pelvis with contrast noted 5 cm rectal wall thickening that could be infectious, inflammatory or underlying malignancy should be excluded.? No chronic diarrhea to suggest underlying colitis. He has never had a colonoscopy. Had no concerning red flag symptoms prior to admission. GI consulted. Recommending colonoscopy to assess underlying malignancy. Monitor H&H Plavix and aspirin on hold. No further symptoms at this time but will continue to monitor. (4) HTN (hypertension): Code(s): I10 - Essential (primary) hypertension Status: Acute Assessment and Plan: - monitor Subjective Date/time seen: 10/23/23 08:29 Interval history: Patient doing well today. Plan on colonoscopy on Wednesday. Continue antibiotic therapy. Patient continued to have cough and sputum production. Nebulizer therapy helping. Exam Narrative: GENERAL: Comfortable, no acute distress HENMT: moist mucous membranes EYES: EOM intact b/l NECK: no lymphadenopathy RESPIRATORY: Distant breath sounds, no increased respiratory effort CARDIO: Regular rate and rhythm GI: soft, nontender, bowel sounds present SKIN/EXTREMITIES: no rashes, no edema, no re
[2023-10-23] MEDS: PANTOPRAZOLE SODIUM IV 40 MG VIAL IV PUSH ×2 (08:35→20:58)
--- NOTE | 2023-10-23 10:41 | WPDGIPROGNO ---
Progress Note: A&P Assessment and Plan (1) Hematochezia: Code(s): K92.1 - Melena Status: Acute Assessment and Plan: no more rectal bleeding but CT concerning for rectal wall thickening also he needs to be on plavix given acute CVA- on hold for now colonoscopy Wednesday- never had one (2) Left basal ganglia embolic stroke: Code(s): I63.9 - Cerebral infarction, unspecified Status: Acute Assessment and Plan: confirmed by imaging, neurology on board (3) Abnormal findings on diagnostic imaging of digestive system: Code(s): R93.3 - Abnormal findings on diagnostic imaging of other parts of digestive tract Status: Acute Assessment and Plan: colonoscopy (4) GI bleed: Code(s): K92.2 - Gastrointestinal hemorrhage, unspecified Status: Acute (5) Cavitary lesion of lung: Code(s): J98.4 - Other disorders of lung Status: Acute Assessment and Plan: noted by CT scan hiv neg Subjective Date/time seen: 10/23/23 10:41 Interval history: no major changes, speech is better but not back to normal no more rectal bleeding, last BM was normal Review of Systems Review of Systems: All systems reviewed & are unremarkable except as noted in HPI and below Exam Const: General: comfortable and no acute distress HENMT: Other: poor oral dentition Eyes: General: appearance normal, both eyes and all related structures Sclera: sclerae normal Neck: Neck: supple Resp: Auscultation: diminished lung sounds Cardio: Rate: regular rate Rhythm: regular rhythm GI: GI Palp: Yes Soft to palpation, No Tenderness to palpation present (GI) and No Guarding due to palpation present (GI) Auscultation: normal bowel sounds Skin: General skin exam: normal color Neuro: Other: slurred speech Extrem: General: normal to inspection Psych: Mental Status: mental status grossly normal Affect: normal affect Objective Data Vital Signs Vital Signs: Vital Signs - 24 hr 10/22/23 12:00 10/22/23 15:19 10/22/23 16:00 Temperature 97.9 F Pulse Rate 72 74 112 H Respiratory Rate 14 Blood Pressure 151/92 H Pulse Oximetry 98 Oxygen Delivery 10/22/23 21:58 10/22/23 20:00 10/22/23 20:00 Temperature 97.5 F L Pulse Rate 69 70 Respiratory Rate 20 Blood Pressure 159/90 H Pulse Oximetry 99 Oxygen Delivery Room Air 10/23/23 00:00 10/23/23 02:56 10/23/23 03:05 Temperature Pulse Rate 62 69 67 Respiratory Rate 18 18 Blood Pressure Pulse Oximetry Oxygen Delivery 10/23/23 05:26 10/23/23 06:00 Temperature 97.7 F Pulse Rate 62 66 Respiratory Rate 20 Blood Pressure 157/94 H Pulse Oximetry 99 Oxygen Delivery Intake/Output Intake/Output: Intake & Output 10/20/23 10/21/23 10/22/23 10/23/23 23:59 23:59 23:59 23:59 Intake Total 1840 1999 3990 340 Output Total 1925 2300 1700 Balance 1840 75 7180 -5760 Meds/Results Medications: Active Medications Generic Name Dose Route Start Last Admin Trade Name Freq PRN Reason Stop Dose Admin Albuterol/Ipratropium 3 ml 10/20/23 23:06 Ipratropium 0.5 Mg/Albuterol Sulfate 2.5 Mg Ampul.Neb 3 Ml INHALATION Q6HRT PRN Shortness Of Breath Or Wheezing Aspirin 81 mg 10/21/23 09:00 10/21/23 08:07 Aspirin 81 Mg Enteric Tablet PO 81 mg QAM TIAGO Administration Atorvastatin Calcium 40 mg 10/21/23 09:00 10/23/23 08:27 Atorvastatin 40 Mg Tablet PO 40 mg DAILY TIAGO Administration Bisacodyl 20 mg 10/24/23 16:00 Bisacodyl 5 Mg Tablet Ec PO 10/24/23 16:01 ONCE ONE Clopidogrel Bisulfate 75 mg 10/21/23 09:00 10/21/23 08:07 Clopidogrel Bisulfate 75 Mg Tablet PO 75 mg QAM TIAGO Administration Enoxaparin Sodium 40 mg 10/20/23 12:55 10/23/23 07:23 Enoxaparin 40 Mg/0.4 Ml Syringe SUB-Q Not Given DAILY TIAGO Azithromycin 500 mg in 250 mls @ 250 mls/hr 10/21/23 09:00 10/23/23 08:27 Zithromax IVPB
[2023-10-23 13:38] LABS: NIL 0.07 IU/mL; Quantiferon TB Plus, 1T NEGATIVE (NEGATIVE); TB1-NIL 0.09 IU/mL; TB2-NIL 0.06 IU/mL
--- NOTE | 2023-10-23 19:48 | PM.PNPUL ---
Progress Note: A&P Assessment and Plan (1) Cavitary lesion of lung: Code(s): J98.4 - Other disorders of lung Status: Acute Assessment and Plan: RADHA cavitary lesion with satellite nodules; will treated as infection followed by chest CT follow-up in 3 months. Patient is informed that he cannot fail to show up for follow up. IF he does, he might miss a window of opportunity to catch lung cancer. Other options that must be considered include mycobacterial disease; he sent sputum studies, is on treatment for M TB; QuantiFERON gold sent 10/13/2023 continue antibiotics; he is on ampicillin and azithromycin (2) Emphysema lung: Code(s): J43.9 - Emphysema, unspecified Status: Acute Assessment and Plan: Probable emphysema due to smoking. alpha-1 testing-sent (3) Smoker: Code(s): F17.200 - Nicotine dependence, unspecified, uncomplicated Status: Acute Assessment and Plan: Not smoking while in the hospital; will need information regarding cessation to avoid relapse after discharge QuantiFERON gold blood test sent. Sputum studies for mycobacteria, fungus, Gram stain C&S CT chest in 3 months no contrast follow-up current chest CT with cavitary RADHA lesion and multiple small nodules in the bases differential diagnosis= infection vs cancer He had hematochezia yesterday, getting C-scope Wednesday; has to be off anticoagulants before then, had an ischemic stroke. Subjective Date/time seen: 10/23/23 19:48 Interval history: 10/23/2023 He feels better today, was able to expectorate samples of sputum for studies. He is 57 years old, had left basal ganglia embolic stroke, had hematochezia, getting C-scope Wednesday. 10/22/2023 new consult; Griffin Rodriguez is a 57-year-old man with heavy smoking, admitted with a stroke with R sided weakness dysarthria; has abnormal chest CT with infiltrates RADHA and scattered nodules. He has been a heavy smoker; up to 2 ppd for years. He has had increased shortness of breath and coughing over the last 6 months.? His sputum is usually yellow color, sometimes darker.? He has never coughed blood.? He does not have any pleuritic chest discomfort.? He denies any weight loss, fever, chills, night sweats.? He very rarely has wheezing.? He does not awaken during the night feeling short of breath.? 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 He lives alone, has a dog and a cat. He does nto smoke marijuana, does not vape. There is no family history of lung cancer. His dad of emphysema at age 82.? The patient does not get recurrent respiratory infections, does not recall ever requiring a visit at an urgent care or ER for respiratory infection, bronchitis or COPD exacerbation.? He does not have any difficulty swallowing.? Appetite has been stable.He has no exposure to moist environments. He takes care of his sister's chickens from time to time, she has never had infection from exposure to the chickens. No travel. No time in alf, no exposure to anyone with TB, never mcgregor a TB skin test. He had hematochezia last night, GI consultation recommends C-scope this WednesdayOctober 24. Plavix and asa stopped in anticipation of the colonoscopy. He had hypertension, was on medication through Dr Ball, lisinopril 20 mg and amlodipine 5 mg.? He says that the dose was increased by one of Dr Ball's associates, leading to a drop in his blood pressure below normal. 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 His blood pressure remained in the normal range, not high enough to warrant restarting a
[2023-10-23 22:30] LABS: Pneumococcal Antigen Urine Not Detected (Not Detected)
[2023-10-24] VITALS (11 sets, daily range): BP systolic 139–164; BP diastolic 84–103; PULSE 47–98; RESP 16–20; TEMP 36.3–36.7; O2SAT 97–99
[2023-10-24 05:37] LABS: Legionella pneumophila Ag Ur Not Detected (Not Detected)
[2023-10-24] MEDS: AMPICILLIN SULB 3 GM/NS 100 ML 3 GM/100 ML VIAL IVPB ×4 (05:39→23:22)
[2023-10-24] MEDS: SODIUM CHLOR 3% 15 ML NEB (RESPIRATORY THERAPY) 6 ML INHALATION (05:46)
[2023-10-24 06:17] LABS: Hematocrit 40.1 % (42.0-52.0); Hemoglobin 12.6 g/dL (14.0-18.0); Mean Corpuscular HGB Conc 31.4 g/dl (32-36); Mean Corpuscular Hemoglobin 27.5 pg (26-34); Mean Corpuscular Volume 87.4 fl (80-100); Platelet Count Result 282 k/mm3 (150-375); Red Blood Count 4.59 M/mm3 (4.6-6.20); Red Cell Distribution Width 12.9 % (11.5-14.5); White Blood Count 6.7 K/mm3 (4.5-10.0)
[2023-10-24 06:23] LABS: Anion Gap 5 mmol/L (4-12); Blood Urea Nitrogen 9 mg/dL (9-20); Calcium 8.3 mg/dL (8.4-10.2); Carbon Dioxide 30 mmol/L (22-30); Chloride 97 mmol/L (98-107); Estimated CRCL calculation 106 ml/min; Estimated Glomerular Filt Rate > 60; Glucose 92 mg/dL (65-110); Potassium 3.3 mmol/L (3.4-5.0); Sodium 132 mmol/L (137-145)
[2023-10-24] MEDS: predniSONE 20 MG TABLET 40 MG PO (08:12)
[2023-10-24] MEDS: ATORVASTATIN 40 MG TABLET PO (08:12)
[2023-10-24] MEDS: AZITHROMYCIN 500 MG/NS 250 ML 500 MG/250 ML BAG 250 MG IVPB (08:17)
[2023-10-24] MEDS: PANTOPRAZOLE SODIUM IV 40 MG VIAL IV PUSH ×2 (08:17→21:29)
[2023-10-24] MEDS: POTASSIUM CHLORIDE 20 MEQ PACKET (FOR LIQUID) 40 MEQ PO (08:31)
--- NOTE | 2023-10-24 11:37 | PM.PNPUL ---
Progress Note: A&P Assessment and Plan (1) Cavitary lesion of lung: Code(s): J98.4 - Other disorders of lung Status: Acute Assessment and Plan: RADHA cavitary lesion with satellite nodules; will treated as infection followed by chest CT follow-up in 3 months. Patient is informed that he cannot fail to show up for follow up. IF he does, he might miss a window of opportunity to catch lung cancer. Other options that must be considered include mycobacterial disease; he sent sputum studies, is on treatment for M TB; QuantiFERON gold sent 10/13/2023 - negative; continue antibiotics; he is on ampicillin and azithromycin (2) Emphysema lung: Code(s): J43.9 - Emphysema, unspecified Status: Acute Assessment and Plan: Probable emphysema due to smoking. Advair started 10/22. Alpha-1 testing-sent; this evaluates for inherited emphysema. (3) Smoker: Code(s): F17.200 - Nicotine dependence, unspecified, uncomplicated Status: Acute Assessment and Plan: Not smoking while in the hospital; will need information regarding cessation to avoid relapse after discharge QuantiFERON gold blood test is negative. Sputum studies for mycobacteria, fungus, Gram stain C&S - so far are negative. CT chest in 3 months no contrast follow-up current chest CT with cavitary RADHA lesion and multiple small nodules in the bases differential diagnosis= infection vs cancer He had hematochezia 10/21; geting C-scope Wednesday; has to be off anticoagulants before then, had an ischemic stroke. Plan Can switch IV antibiotics to oral; he is on IV Unasyn and IV azithromycin. Needs to have chest CT in 3 months to follow RADHA cavitary lesion with satellite nodules; differential diagnosis includes infection such as bacterial infections, mycobacterial infections or fungal infection as well as malignancy. He will need PFTs when he is an out patient. Subjective Date/time seen: 10/24/23 11:37 Interval history: 10/24/23; Uneventful night, had less sputum today, could not cough any secretions for testing today. Room air. He is having a colonoscopy tomorrow. QuantiFERON gold on 10/19 is negative. Sputum 327 showed rare Gram-positive cocci in chains, AFBs negative. 10/23/23 He feels better today, was able to expectorate samples of sputum for studies. He is 57 years old, had left basal ganglia embolic stroke, had hematochezia, getting C-scope Wednesday. 10/22/23 new consult; Griffin Rodriguez is a 57-year-old man with heavy smoking, admitted with a stroke with R sided weakness dysarthria; has abnormal chest CT with infiltrates RADHA and scattered nodules. He has been a heavy smoker; up to 2 ppd for years. He has had increased shortness of breath and coughing over the last 6 months.? His sputum is usually yellow color, sometimes darker.? He has never coughed blood.? He does not have any pleuritic chest discomfort.? He denies any weight loss, fever, chills, night sweats.? He very rarely has wheezing.? He does not awaken during the night feeling short of breath.? 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 He lives alone, has a dog and a cat. He does nto smoke marijuana, does not vape. There is no family history of lung cancer. His dad of emphysema at age 82.? The patient does not get recurrent respiratory infections, does not recall ever requiring a visit at an urgent care or ER for respiratory infection, bronchitis or COPD exacerbation.? He does not have any difficulty swallowing.? Appetite has been stable.He has no exposure to moist environments. He
--- NOTE | 2023-10-24 13:02 | PM.IMPN ---
Progress Note: A&P Assessment and Plan (1) Acute CVA (cerebrovascular accident): Code(s): I63.9 - Cerebral infarction, unspecified Status: Acute Assessment and Plan: New deficits of RUE weakness, RLE weakness, numbness and dysarthria discovered at 0500 on 10/20/23. LKN: 2000 on 10/20. Imaging showed age-indeterminate infarcts in right thalamus and left caudate nucleus. - not candidate for thrombolytics due to timeframe - CXR: airspace opacities in the upper lobes and all left lung base, consistent with pneumonia versus chronic lung disease.? - neurology consulted and appreciate recommendations. - brain MRI w/wo: Focal acute left basal ganglia and periventricular white matter infarct. 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 - echo w/Bubble no PFO seen, EF of 65-70%, grade 1 diastolic dysfunction - US carotid bilateral less than 50% stenosis bilaterally - speech/swallow eval and recommended minced moist diet. - PT/OT to eval and treat and has cleared patient - A1c 5.2 and LDL less than 70 - Plavix 75 mg and ASA 81 mg on hold due to hematochezia event. Colonoscopy on Wednesday. - consider 30 day event monitoring at discharge if there are abnormalities on tele - hematologic disorder workup; with possible malignancy, this could have provokes cva. (2) Abnormal CXR: Code(s): R93.89 - Abnormal findings on diagnostic imaging of other specified body structures Status: Acute Assessment and Plan: - CXR: airspace opacities in the upper lobes and all left lung base, consistent with pneumonia versus chronic lung disease. Consider CT. - Chest CT noncon: Mild to moderate emphysema. 5.1 x 3.9 cm thick-walled cavitary mass in the left upper lobe along with multiple scattered bilateral pulmonary nodules, many with tree-in-bud pattern which are almost infectious/inflammatory in etiology. Difficult to exclude malignancy for any individual lesion and would recommend 3 month follow-up low-dose noncontrast chest CT. Tiny left pleural effusion and small pericardial effusion. - smoking hx: 1-2 PPD x 15 yrs - MRSA (neg) - Sputum culture growth of normal oropharyngeal dickson. - Urine legionella antigen, Urine pneumococcal antigen, Mycoplasma IgM pending - Vancomycin and meropenem changed to Unasyn and doxycycline due to negative MRSA swab per [facility] recommendations - DuoNeb PRN and prednisone 40 mg PO x 7 days. - will need follow-up CT in 3 months, schedule outpatient - HIV (Neg), UDS (Neg) - Due to cavitary lesions will consult pulmonology. (3) GI bleed: Code(s): K92.2 - Gastrointestinal hemorrhage, unspecified Status: Acute Assessment and Plan: Patient had large bloody bowel movement causing tachycardia up into the 170s. CT of the abdomen pelvis with contrast noted 5 cm rectal wall thickening that could be infectious, inflammatory or underlying malignancy should be excluded.? No chronic diarrhea to suggest underlying colitis. He has never had a colonoscopy. Had no concerning red flag symptoms prior to admission. GI consulted. Monitor H&H Plavix and aspirin on hold. No further symptoms at this time but will continue to monitor. Plan for colonoscopy tomorrow. (4) HTN (hypertension): Code(s): I10 - Essential (primary) hypertension Status: Acute Assessment and Plan: - monitor Subjective Date/time seen: 10/24/23 13:02 Interval history: patient doing well today with no complaints at this time. Plan for colonoscopy tomorrow. If pulmonology and GI cleared the patient he may be able to discharge tomorrow on p.o. antibiotics. Will need to follow up with pulmonology as an outpatient as well as GI. He denies any chest pain, shortness a breath, nausea, vomiting, abdominal pain or change in bowel habits. Exam Narrative: GENERAL: Comfortable, no acute distress HENMT: moist mucous membranes EYES: EOM intact b/l NECK: no lymphadenopathy RESPIRATORY: Dista
--- NOTE | 2023-10-24 13:57 | WPDGIPROGNO ---
Progress Note: A&P Assessment and Plan (1) Hematochezia: Code(s): K92.1 - Melena Status: Acute Assessment and Plan: no more rectal bleeding but CT concerning for rectal wall thickening also he needs to be on plavix given acute CVA- on hold for now colonoscopy tomorrow- never had one (2) Left basal ganglia embolic stroke: Code(s): I63.9 - Cerebral infarction, unspecified Status: Acute Assessment and Plan: confirmed by imaging, neurology on board (3) Abnormal findings on diagnostic imaging of digestive system: Code(s): R93.3 - Abnormal findings on diagnostic imaging of other parts of digestive tract Status: Acute Assessment and Plan: colonoscopy (4) GI bleed: Code(s): K92.2 - Gastrointestinal hemorrhage, unspecified Status: Acute Assessment and Plan: resolved stable h/h (5) Cavitary lesion of lung: Code(s): J98.4 - Other disorders of lung Status: Acute Assessment and Plan: noted by CT scan hiv neg Subjective Date/time seen: 10/24/23 13:57 Interval history: no more episode of GIB since last time he is comfortable still some slurred speech, slowly better Review of Systems Review of Systems: All systems reviewed & are unremarkable except as noted in HPI and below Exam Const: General: comfortable and no acute distress HENMT: Other: poor oral dentition Eyes: General: appearance normal, both eyes and all related structures Sclera: sclerae normal Neck: Neck: supple Resp: Auscultation: diminished lung sounds Cardio: Rate: regular rate Rhythm: regular rhythm GI: GI Palp: Yes Soft to palpation, No Tenderness to palpation present (GI) and No Guarding due to palpation present (GI) Auscultation: normal bowel sounds Skin: General skin exam: normal color Neuro: Other: slurred speech Extrem: General: normal to inspection Psych: Mental Status: mental status grossly normal Affect: normal affect Objective Data Vital Signs Vital Signs: Vital Signs - 24 hr 10/23/23 14:25 10/23/23 16:00 10/23/23 20:59 Temperature 98.0 F Pulse Rate 69 59 L 68 Respiratory Rate 16 20 Blood Pressure 153/107 H 152/98 H Pulse Oximetry 99 98 Oxygen Delivery 10/23/23 20:00 10/23/23 20:00 10/24/23 00:00 Temperature Pulse Rate 77 58 L Respiratory Rate Blood Pressure Pulse Oximetry Oxygen Delivery Room Air 10/24/23 04:00 10/24/23 05:51 10/24/23 05:36 Temperature 98.1 F Pulse Rate 47 L 70 78 Respiratory Rate 20 18 Blood Pressure 164/93 H Pulse Oximetry 97 Oxygen Delivery 10/24/23 08:00 10/24/23 12:00 Temperature Pulse Rate 98 74 Respiratory Rate Blood Pressure Pulse Oximetry Oxygen Delivery Intake/Output Intake/Output: Intake & Output 10/21/23 10/22/23 10/23/23 10/24/23 23:59 23:59 23:59 23:59 Intake Total 1999 3990 1970 1510 Output Total 19240 1999 Balance 75 1690 -30 1510 Meds/Results Medications: Active Medications Generic Name Dose Route Start Last Admin Trade Name Freq PRN Reason Stop Dose Admin Albuterol/Ipratropium 3 ml 10/20/23 23:06 Ipratropium 0.5 Mg/Albuterol Sulfate 2.5 Mg Ampul.Neb 3 Ml INHALATION Q6HRT PRN Shortness Of Breath Or Wheezing Aspirin 81 mg 10/21/23 09:00 10/21/23 08:07 Aspirin 81 Mg Enteric Tablet PO 81 mg QAM TIAGO Administration Atorvastatin Calcium 40 mg 10/21/23 09:00 10/24/23 08:12 Atorvastatin 40 Mg Tablet PO 40 mg DAILY TIAGO Administration Bisacodyl 20 mg 10/24/23 16:00 Bisacodyl 5 Mg Tablet Ec PO 10/24/23 16:01 ONCE ONE Clopidogrel Bisulfate 75 mg 10/21/23 09:00 10/21/23 08:07 Clopidogrel Bisulfate 75 Mg Tablet PO 75 mg QAM TIAGO Administration Enoxaparin Sodium 40 mg 10/20/23 12:55 10/24/23 07:26 Enoxaparin 40 Mg/0.4 Ml Syringe SUB-Q Not Given DAILY [facility] Azithromycin 500 mg in 250 mls @ 250 mls/hr 10/21/23 09:0
[2023-10-24] MEDS: BISACODYL 5 MG TABLET EC 20 MG PO (16:51)
[2023-10-24] MEDS: polyethylene glycoL 3350 238 GM BOTTLE PO (16:52)
[2023-10-24] MEDS: FLUTICASONE/SALMETEROL 115-21 MCG INHALER 1 PUFF 2 PUFF INHALATION (20:30)
[2023-10-24 22:45] LABS: Homocysteine 8.2 umol/L (<11.4)
[2023-10-25] VITALS (16 sets, daily range): BP systolic 84–160; BP diastolic 57–102; PULSE 58–91; RESP 16–25; TEMP 36.2–36.6; O2SAT 96–100
[2023-10-25] MEDS: MAGNESIUM CITRATE 300 ML BTL PO (02:37)
[2023-10-25] MEDS: AMPICILLIN SULB 3 GM/NS 100 ML 3 GM/100 ML VIAL IVPB ×4 (05:14→23:47)
[2023-10-25 06:15] LABS: Hemoglobin 13.6 g/dL (14.0-18.0); Mean Corpuscular HGB Conc 30.9 g/dl (32-36); Mean Corpuscular Hemoglobin 27.2 pg (26-34); Mean Platelet Volume 8.8 fl (7.4-10.4); Platelet Count Result 361 k/mm3 (150-375); Red Cell Distribution Width 12.7 % (11.5-14.5); White Blood Count 7.2 K/mm3 (4.5-10.0)
[2023-10-25 06:33] LABS: Anion Gap 8 mmol/L (4-12); Blood Urea Nitrogen 4 mg/dL (9-20); Calcium 8.4 mg/dL (8.4-10.2); Carbon Dioxide 26 mmol/L (22-30); Chloride 97 mmol/L (98-107); Estimated CRCL calculation 106 ml/min; Estimated Glomerular Filt Rate > 60; Glucose 101 mg/dL (65-110); Potassium 2.8 mmol/L (3.4-5.0); Sodium 131 mmol/L (137-145)
[2023-10-25] MEDS: FLUTICASONE/SALMETEROL 115-21 MCG INHALER 1 PUFF 2 PUFF INHALATION ×2 (07:49→20:28)
[2023-10-25] MEDS: KCL 40 MEQ/D5/0.9% SOD CHL 1,000 ML 100 ML IV CONT ×2 (07:55→18:42)
[2023-10-25] MEDS: ATORVASTATIN 40 MG TABLET PO (08:30)
[2023-10-25] MEDS: PANTOPRAZOLE SODIUM IV 40 MG VIAL IV PUSH ×2 (08:30→21:22)
[2023-10-25] MEDS: AZITHROMYCIN 500 MG/NS 250 ML 500 MG/250 ML BAG 250 MG IVPB (08:30)
[2023-10-25] MEDS: predniSONE 20 MG TABLET 40 MG PO (08:30)
[2023-10-25] MEDS: POTASSIUM CHLORIDE 20 MEQ PACKET (FOR LIQUID) 40 MEQ PO (08:30)
--- NOTE | 2023-10-25 12:48 | PM.PNPUL ---
Progress Note: A&P Assessment and Plan (1) Cavitary lesion of lung: Code(s): J98.4 - Other disorders of lung Status: Acute Assessment and Plan: RADHA cavitary lesion with satellite nodules; will treated as infection followed by chest CT follow-up in 3 months. Patient is informed that he cannot fail to show up for follow up. IF he does, he might miss a window of opportunity to catch lung cancer. Other options that must be considered include mycobacterial disease; he sent sputum studies, is on treatment for M TB; QuantiFERON gold sent 10/13/2023 - negative; continue antibiotics; he is on ampicillin and azithromycin 10/24/23: Plan: Not smoking while in the hospital; will need information regarding cessation to avoid relapse after discharge QuantiFERON gold blood test is negative. Sputum studies for mycobacteria, fungus, Gram stain C&S - so far are negative. CT chest in 3 months no contrast follow-up current chest CT with cavitary RADHA lesion and multiple small nodules in the bases differential diagnosis= infection vs cancer He had hematochezia 10/21; geting C-scope Wednesday; has to be off anticoagulants before then, had an ischemic stroke. 10/25/2023: Patient has no respiratory complaints. He denies fever, chills, rigors, cough, phlegm production or hemoptysis. afebrile, white blood cell count 7.2, creatinine 0.6. Patient with diffuse infiltrates right lung and left upper lobe. With no significant change from 10/20/2023. Today is day 5 of steroids and would discontinue. Plan: From a pulmonary perspective patient can be discharged on these pulmonary medications: Augmentin 875-125 at 1 puff twice a day times 21 days. Beta agonist and muscarinic antagonist that insurance will cover (Anoro Ellipta 62.5/25 at 1 puff Q day, stiolto respimat 2.5/2.5 at 1 puff BID, bevespi aerosphere 9 mcg/4.8 at 2 puffs BID, combivent respimat at 2 puffs Q 4 HR or separate albuterol and atrovent inhalers at 2 puffs Q 4 HR) Rescue albuterol 2 puffs q.4 hours p.r.n. shortness of breath or wheezing follow-up in the Pulmonary [facility] in 3-4 weeks. I gave him our business card and informed our obgyn hospitalist physician. Discussed with Francesca Edi, will sign off, call with questions (2) Emphysema lung: Code(s): J43.9 - Emphysema, unspecified Status: Acute Assessment and Plan: Probable emphysema due to smoking. Advair 115/21 started 10/22. Alpha-1 testing-sent; this evaluates for inherited emphysema. 10/25/23: Patient does not have a history of frequent exacerbations and will discharge on long-acting beta agonist and long-acting muscarinic antagonist combination. (3) Smoker: Code(s): F17.200 - Nicotine dependence, unspecified, uncomplicated Status: Acute Assessment and Plan: 10/24/23: Not smoking while in the hospital; will need information regarding cessation to avoid relapse after discharge QuantiFERON gold blood test is negative. Sputum studies for mycobacteria, fungus, Gram stain C&S - so far are negative. CT chest in 3 months no contrast follow-up current chest CT with cavitary RADHA lesion and multiple small nodules in the bases differential diagnosis= infection vs cancer He had hematochezia 10/21; geting C-scope Wednesday; has to be off anticoagulants before then, had an ischemic stroke. Subjective Date/time seen: 10/25/23 12:48 Interval history: 10/25/2023: Patient has no respiratory complaints. He denies fever, chills, rigors, cough, phlegm production or hemoptysis. afebrile, white blood cell count 7.2, creatinine 0.6. Patient with diffuse infiltrates right lung and left upper lobe. With no significant change from 10/20/2023. 10/24/23; Uneventful night, had less sput
[2023-10-25 13:44] LABS: Potassium 4.3 mmol/L (3.4-5.0)
--- NOTE | 2023-10-25 14:21 | WPDANESEPPF ---
Anes - Initial Pre Proc Eval Procedure: Operation Date: 10/25/23 17:00 Proposed Procedures p Colonoscopy - Eamon Johnson MD Date/Time: 10/25/23 14:21 Surgeon: Ismael Bahena MD Pre Op Diagnosis: cavitary lung lesions, nodules, pneumonia Patient Data Age: 57 Gender: M Height: 1.75 m Weight: 63.2 kg Last Vital Signs Temp 36.2 C L 10/25/23 05:47 Pulse 58 L 10/25/23 08:00 Resp 18 10/25/23 07:49 BP 152/81 H 10/25/23 05:47 Pulse Ox 97 10/25/23 07:49 O2 Del Method Room Air 10/25/23 07:49 FiO2 21 10/25/23 07:49 Allergies Allergy/AdvReac Type Severity Reaction Status Date / Time No Known Allergies Allergy Mild Unverified 10/25/23 15:06 Home Medications Medication Instructions Recorded Confirmed Type No Home Medications 10/21/23 10/21/23 History Laboratory Tests 10/21/23 10/25/23 10/25/23 19:36 05:55 13:32 WBC 7.2 K/mm3 (4.5-10.0) RBC 5.00 M/mm3 (4.6-6.20) Hgb 13.6 L g/dL (14.0-18.0) Hct 44.0 % (42.0-52.0) MCV 88.0 fl (80-100) MCH 27.2 pg (26-34) MCHC 30.9 L g/dl (32-36) RDW 12.7 % (11.5-14.5) Plt Count 361 k/mm3 (150-375) MPV 8.8 fl (7.4-10.4) Sodium 131 L mmol/L (137-145) Potassium 2.8 L* mmol/L 4.3 mmol/L (3.4-5.0) (3.4-5.0) Chloride 97 L mmol/L (98-107) Carbon Dioxide 26 mmol/L (22-30) Anion Gap 8 mmol/L (4-12) BUN 4 L D mg/dL (9-20) Creatinine 0.60 L mg/dL (0.7-1.3) Estim Creat Clear Calc 106 ml/min Estimated GFR > 60 (59 - ) Glucose 101 mg/dL (65-110) Calcium 8.4 mg/dL (8.4-10.2) Homocysteine 8.2 umol/L (<11.4) Patient hx anesthesia problems: none Family hx anesthesia problems: none Results Review: All pre-operative results and documents have been reviewed as part of the pre-operative evaluation. [facility] Past Medical History Medical History COPD (chronic obstructive pulmonary disease) HTN (hypertension) Left basal ganglia embolic stroke Smoker Family History Family History (Updated 02/21/16 @ 23:19 by DOCTOR UNKNOWN) Father Hypertension Mother Family history of diabetes mellitus in first degree relative Social History Social History (Updated 10/25/23 @ 15:27 by Graeme Ramos, ) Smoking status: Current every day smoker Tobacco type: cigarettes Additional smoking assessment comments: 2 PPD x 40 years Alcohol intake: current Alcohol use details: 3-5 drinks/day Substance use: never Substance use type: does not use Do You Feel Safe in your Home?: Yes Lack of Transportation: No Lack of Food: Never True Current Housing: I Have Housing Concerned About Future Housing: No Difficulty Paying Gas/Electric Bills: No Difficulty Paying for Meds: No Currently Unemployed: No Education: High School Diploma/GED Difficulty w/ Childcare or Family Care: No Spiritual care concerns: No Anes - Eval Final PreProcedure Day of Procedure 10/25/23 14:21 Patient weight: normal Heart: regular rate and rhythm Lungs: clear to auscultation and normal air movement Airway: Mallampati scale class II and special considerations poor dentition Neurological: alert and oriented Last oral intake: >/= 8 hours ASA classification: IV Emergent: no Anesthetic plan: proceed Anesthesia type and monitoring: general GIVS and standard monitoring Results Review: All pre-operative results and documents have been reviewed as part of the pre-operative evaluation. Informed Consent: The patient's anesthetic plan and its attendant risks and benefits were discussed with the patient/family/POA. Questions were solicited and answers provided to the satisfaction of the patient/family/POA.
[2023-10-25 14:31] LABS: Mycoplasma IgM Antibody Titer 209 U/mL (<770)
[2023-10-25] MEDS: LACTATED RINGERS 1,000 ML 150 ML IV CONT (15:11)
--- NOTE | 2023-10-25 16:03 | PM.IMPN ---
Progress Note: A&P Assessment and Plan (1) Acute CVA (cerebrovascular accident): Code(s): I63.9 - Cerebral infarction, unspecified Status: Acute Assessment and Plan: New deficits of RUE weakness, RLE weakness, numbness and dysarthria discovered at 0500 on 10/20/23. LKN: 2000 on 10/20. Imaging showed age-indeterminate infarcts in right thalamus and left caudate nucleus. - not candidate for thrombolytics due to timeframe - CXR: airspace opacities in the upper lobes and all left lung base, consistent with pneumonia versus chronic lung disease.? - neurology consulted and appreciate recommendations. - brain MRI w/wo: Focal acute left basal ganglia and periventricular white matter infarct. 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 - echo w/Bubble no PFO seen, EF of 65-70%, grade 1 diastolic dysfunction - US carotid bilateral less than 50% stenosis bilaterally - speech/swallow eval and recommended minced moist diet. - PT/OT to eval and treat and has cleared patient - A1c 5.2 and LDL less than 70 - Plavix 75 mg and ASA 81 mg on hold due to hematochezia event. Restart plavix after colonoscopy. - hematologic disorder workup; with possible malignancy, this could have provokes cva. (2) Abnormal CXR: Code(s): R93.89 - Abnormal findings on diagnostic imaging of other specified body structures Status: Acute Assessment and Plan: - CXR: airspace opacities in the upper lobes and all left lung base, consistent with pneumonia versus chronic lung disease. Consider CT. - Chest CT noncon: Mild to moderate emphysema. 5.1 x 3.9 cm thick-walled cavitary mass in the left upper lobe along with multiple scattered bilateral pulmonary nodules, many with tree-in-bud pattern which are almost infectious/inflammatory in etiology. Difficult to exclude malignancy for any individual lesion and would recommend 3 month follow-up low-dose noncontrast chest CT. Tiny left pleural effusion and small pericardial effusion. - smoking hx: 1-2 PPD x 15 yrs - MRSA (neg) - Sputum culture growth of normal oropharyngeal dickson. - Urine legionella antigen, Urine pneumococcal antigen, Mycoplasma IgM normal - Vancomycin and meropenem changed to Unasyn and doxycycline due to negative MRSA swab per ID Pharm recommendations - DuoNeb PRN and prednisone 40 mg PO x 7 days. - will need follow-up CT in 3 months, schedule outpatient - HIV (Neg), UDS (Neg) - Due to cavitary lesions will consult pulmonology. - Pulmonology recommending 3 weeks of outpatient abx and follow up with them. (3) GI bleed: Code(s): K92.2 - Gastrointestinal hemorrhage, unspecified Status: Acute Assessment and Plan: Patient had large bloody bowel movement causing tachycardia up into the 170s. CT of the abdomen pelvis with contrast noted 5 cm rectal wall thickening that could be infectious, inflammatory or underlying malignancy should be excluded.? No chronic diarrhea to suggest underlying colitis. He has never had a colonoscopy. Had no concerning red flag symptoms prior to admission. GI consulted. Monitor H&H Plavix and aspirin on hold. No further symptoms at this time but will continue to monitor. Plan for colonoscopy today (4) HTN (hypertension): Code(s): I10 - Essential (primary) hypertension Status: Acute Assessment and Plan: - monitor Subjective Date/time seen: 10/25/23 16:03 Interval history: Patient doing well. Colonoscopy today. Can discharge once cleared by GI. Exam Narrative: GENERAL: Comfortable, no acute distress HENMT: moist mucous membranes EYES: EOM intact b/l NECK: no lymphadenopathy RESPIRATORY: Distant breath sounds, no increased respiratory effort CARDIO: Regular rate and rhythm GI: soft, nontender, bowel sounds present SKIN/EXTREMITIES: no rashes, no edema, no redness or tenderness NEURO: PROM intact, answers questions appropriately, A&O x4 Objective Data Vital Signs Vital Sign
[2023-10-25 17:42] LABS: Factor VIII Activity 131 % normal (50-180)
[2023-10-26] VITALS: PULSE 63
[2023-10-26 04:00] VITALS: PULSE 49
[2023-10-26 04:58] LABS: APC Ratio 4.8 ratio (>=2.1)
[2023-10-26] MEDS: AMPICILLIN SULB 3 GM/NS 100 ML 3 GM/100 ML VIAL IVPB ×2 (05:52→12:43)
[2023-10-26 06:04] VITALS: BP 145/85; PULSE 61; RESP 18; TEMP 36.2; O2SAT 100
[2023-10-26 07:19] VITALS: PULSE 78; RESP 20; O2SAT 99
[2023-10-26] MEDS: FLUTICASONE/SALMETEROL 115-21 MCG INHALER 1 PUFF 2 PUFF INHALATION (07:19)
--- NOTE | 2023-10-26 07:41 | WPDANESPN ---
Anes - Prog Note Post-Op Date/Time: 10/26/23 07:41 Cardiovascular status: normal Respiratory status: normal Airway patency: baseline Mental status: baseline Post-Op hydration status: normal Vital Signs: Last Vital Signs Temp 97.1 F L 10/26/23 06:04 Pulse 78 10/26/23 07:19 Resp 20 10/26/23 07:19 BP 145/85 H 10/26/23 06:04 Pulse Ox 99 10/26/23 07:19 O2 Del Method Room Air 10/26/23 07:19 FiO2 21 10/25/23 20:28 Pain Score (VAS): 0/10 I/O: Intake & Output 10/25/23 10/25/23 10/26/23 15:59 23:59 07:59 Intake Total 1050 100 350 Output Total 700 Balance 1050 -600 350 Laboratory Tests 10/25/23 05:55 10/25/23 13:32 10/20/23 10/21/23 10/25/23 20:12 19:36 13:32 Prot C Funct Activity 72 APC Resistance Ratio 4.8 Protein S Activity 65 L Factor VIII Activity 131 Factor IX Activity 100 Potassium 4.3 Mycoplasma pneumon IgM 209 Microbiology 10/24/23 06:30 Sputum Acid Fast Bacilli Culture - Preliminary Post-procedural complaints: none Patient Feedback: Patient satisfied with anesthetic care.
[2023-10-26 09:01] VITALS: PULSE 91
[2023-10-26] MEDS: ENOXAPARIN 40 MG/0.4 ML SYRINGE SUB-Q (09:01)
[2023-10-26] MEDS: predniSONE 20 MG TABLET 40 MG PO (09:01)
[2023-10-26] MEDS: PANTOPRAZOLE SODIUM IV 40 MG VIAL IV PUSH (09:01)
[2023-10-26] MEDS: ATORVASTATIN 40 MG TABLET PO (09:01)
[2023-10-26 10:50] LABS: Alpha-1-Antitrypsin, QN 166 mg/dL (83-199)
--- NOTE | 2023-10-26 12:28 | PM.DS ---
DS: Admitting Diagnosis Discharge Date 10/26/23 Admitting Diagnosis Right-sided numbness and tingling on upper lower extremity DS: Discharge Diagnosis Discharge Diagnosis (1) Acute CVA (cerebrovascular accident): Code(s): I63.9 - Cerebral infarction, unspecified Status: Acute (2) Abnormal CXR: Code(s): R93.89 - Abnormal findings on diagnostic imaging of other specified body structures Status: Acute (3) GI bleed: Code(s): K92.2 - Gastrointestinal hemorrhage, unspecified Status: Acute (4) HTN (hypertension): Code(s): I10 - Essential (primary) hypertension Status: Acute DS: Summary Hospital Course Hospital Course: This is a 57-year-old male that presented to the ED on 10/20/2023 due to right-sided weakness and dysarthria. Patient has past medical history of daily alcohol use, current smoker of 1-2 packs a day and hypertension. Patient had gone to bed the night before and woke up with deficits. Reports some aphasia that is overcome with speaking slowly. Denies choking or difficulty swallowing. Endorsing mild gait disturbance. No previous hx of CVA. Has hx of HTN and believes he has undiagnosed COPD, current smoker - 1-2 PPD x 15 yrs. Patient has baseline SOB and cough.?ED workup showed:? No leukocytosis, no anemia, sodium 128, creatinine 0.6, and initial troponin negative.? CXR showed airspace opacities in the upper lobes and all left lung base CT was recommended.. CT Head showed age-indeterminate infarcts in the right thalamus and left caudate nucleus and mild nonspecific cerebral white matter disease. Brain MRI w/wo: Focal acute left basal ganglia and periventricular white matter infarct. 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 Neurology was consulted. Patient started on Plavix and a 1 mg aspirin. His A1c was 5.2 and LDL less than 70. Speech/ swallow evaluation recommended min 7 moist diet. Bilateral carotid ultrasound with less than 50% stenosis. Echo with bubble study showed EF of 65-70%, grade 1 diastolic dysfunction no PFO. CXR: airspace opacities in the upper lobes and all left lung base, consistent with pneumonia versus chronic lung disease. Consider CT. Chest CT noncon: Mild to moderate emphysema. 5.1 x 3.9 cm thick-walled cavitary mass in the left upper lobe along with multiple scattered bilateral pulmonary nodules, many with tree-in-bud pattern which are almost infectious/inflammatory in etiology. Difficult to exclude malignancy for any individual lesion and would recommend 3 month follow-up low-dose noncontrast chest CT. Tiny left pleural effusion and small pericardial effusion. Patient started on vancomycin and meropenem. Pulmonology consulted due to cavitary lesions. QuantiFERON gold test ordered and came back negative. Sputum cultures with acid-fast bacilli ordered. he was started on prednisone x7 days. HIV and urine drug screen negative. Urine Legionella, pneumococcal antigen and mycoplasma all negative. There was concern for malignancy. Patient's antibiotics were deescalated to Unasyn and doxycycline. MRSA swab was negative. Discussed case with ID pharmacist. Pulmonology recommending outpatient antibiotic therapy for 3 weeks. Overnight on 10/21/2023 patient had a massive bowel movement with hematochezia. CT of the abdomen pelvis with contrast noted 5 cm rectal wall thickening that could be infectious, inflammatory or underlying malignancy should be excluded.? No chronic diarrhea to suggest underlying colitis. He has never had a colonoscopy. Had no concerning red flag symptoms prior to admission. GI was consulted. Patient underwent colonoscopy on 10/25/2023. Patient had 10 large polyps seen during colonoscopy. There was some concern for FAP. Polyps were able to be removed and biopsied. GI will follow up with biopsy results as an outpatient. Patient's hemoglobin remained stable during hospitalization. Patient's labs and vital signs are stable and he is medically cleared fo
[2023-10-26 13:25] LABS: Glucose Point of Care 108 mg/dl (65-105)
[2023-10-26 13:54] LABS: NIL 0.05 IU/mL; Quantiferon TB Plus, 1T NEGATIVE (NEGATIVE); TB1-NIL 0.08 IU/mL; TB2-NIL 0.08 IU/mL
--- NOTE | 2023-10-26 14:01 | WPDGIPROGNO ---
Progress Note: A&P Assessment and Plan (1) Adenomatous colon polyp: Code(s): D12.6 - Benign neoplasm of colon, unspecified Status: Acute Assessment and Plan: large polyps found, largest one at rectosigmoid- removed with EMR and used tattoo. if bx shows malignancy then will refer to surgery, if negative then will need another colonoscopy in 4-5 months recommend to see donation worker- ? wonder if could have FAP, etc (2) Abnormal findings on diagnostic imaging of digestive system: Code(s): R93.3 - Abnormal findings on diagnostic imaging of other parts of digestive tract Status: Acute Assessment and Plan: from large rectosigmoid polyp (3) Hematochezia: Code(s): K92.1 - Melena Status: Acute Assessment and Plan: resolved hold plavix for 7 days (4) Acute CVA (cerebrovascular accident): Code(s): I63.9 - Cerebral infarction, unspecified Status: Acute (5) Cavitary lesion of lung: Code(s): J98.4 - Other disorders of lung Status: Acute Assessment and Plan: by pulmonary Subjective Date/time seen: 10/26/23 14:01 Interval history: multiple and large polyps yesterday, colonoscopy took about 1h45 min no more rectal bleeding he is going home Review of Systems Review of Systems: All systems reviewed & are unremarkable except as noted in HPI and below Exam Const: General: comfortable and no acute distress HENMT: Other: poor oral dentition Eyes: General: appearance normal, both eyes and all related structures Sclera: sclerae normal Neck: Neck: supple Resp: Auscultation: clear to auscultation bilaterally Cardio: Rate: regular rate Rhythm: regular rhythm GI: GI Palp: Yes Soft to palpation, No Tenderness to palpation present (GI) and No Guarding due to palpation present (GI) Auscultation: normal bowel sounds Skin: General skin exam: normal color Neuro: Other: slurred speech Extrem: General: normal to inspection Psych: Mental Status: mental status grossly normal Affect: normal affect Objective Data Vital Signs Vital Signs: Vital Signs - 24 hr 10/25/23 15:08 10/25/23 17:41 10/25/23 17:51 Temperature 97.9 F 97.2 F L Pulse Rate 62 82 91 Respiratory Rate 20 25 H 25 H Blood Pressure 160/96 H 84/57 L 108/72 Pulse Oximetry 100 100 100 Oxygen Delivery Room Air Room Air Room Air Fraction of Inspired Oxygen 10/25/23 18:01 10/25/23 18:11 10/25/23 18:21 Temperature Pulse Rate 84 80 83 Respiratory Rate 23 H 22 H 22 H Blood Pressure 130/99 H 153/97 H 151/92 H Pulse Oximetry 100 100 100 Oxygen Delivery Room Air Room Air Room Air Fraction of Inspired Oxygen 10/25/23 18:26 10/25/23 20:28 10/25/23 20:28 Temperature Pulse Rate 67 84 Respiratory Rate 18 16 Blood Pressure 152/102 H Pulse Oximetry 100 96 Oxygen Delivery Room Air Room Air Fraction of Inspired Oxygen 21 10/25/23 21:26 10/25/23 20:00 10/25/23 20:00 Temperature 97.6 F Pulse Rate 72 75 72 Respiratory Rate 18 18 Blood Pressure 133/77 Pulse Oximetry 100 100 Oxygen Delivery Room Air Fraction of Inspired Oxygen 21 10/26/23 00:00 10/26/23 04:00 10/26/23 06:04 Temperature 97.1 F L Pulse Rate 63 49 L 61 Respiratory Rate 18 Blood Pressure 145/85 H Pulse Oximetry 100 Oxygen Delivery Fraction of Inspired Oxygen 10/26/23 07:19 10/26/23 07:19 10/26/23 09:01 Temperature Pulse Rate 78 91 Respiratory Rate 20 Blood Pressure Pulse Oximetry 99 Oxygen Delivery Room Air Room Air Fraction of Inspired Oxygen Intake/Output Intake/Output: Intake & Output 10/23/23 10/24/23 10/25/23 10/26/23 23:59 23:59 23:59 23:59 Intake Total 1969 2430 1600 830 Output Total 1999 Balance -30 2430 900 830 Meds/Results Medications: Active Medications Generic Name Dose Route Start Last Admin Trade Name Freq PRN Reason Stop Dose Admin Albuterol/Ipratropium 3 ml 10/20/23 23:06
[2023-10-27 12:42] LABS: Lipoprotein A 10 nmol/L (<75)
[2023-10-28 04:24] LABS: Antithrombin III Activity 70 % normal (80-135)
[2023-10-28 12:32] LABS: Anti Cardio Antibody IgM 8.8 MPL-U/mL (<20.0); Anti Cardiolipin Antibody IgA 5.3 APL-U/mL (<20.0); Anti Cardiolipin Antibody IgG <2.0 GPL-U/mL (<20.0)
[2023-10-28 21:38] LABS: Hexagonal Phase Confirm Weak Positive (Negative)
[2023-10-28 22:09] LABS: Lupus dRVVT Screen 33 sec (<=45); PTT-LA Screen 43 sec (<=40)
[2023-10-30 18:27] LABS: Factor V (Leiden) Mutation NEGATIVE
== END 2023-10-26 14:39 | disposition home or self-care (01) | DRG 45 ==
LOC: ANHED 09:00 → ANH3MED 09:29
PROVIDERS: Anesthesiology; Emergency Medicine; Internal Medicine Critical Care Medicine; Internal Medicine Gastroenterology; Student in an Organized Health Care Education/Training Program; Admitting Provider Family Medicine; Emergency Provider Emergency Medicine; PCP Family Medicine; Visit Provider Hospitalist
PROC: 0DJD8ZZ Inspection of Lower Intestinal Tract, Via Natural or Artificial Opening Endoscopic (ICD-10-PCS; CPT 45378; principal; 2023-10-25 17:00)
DX: I63.9 Cerebral infarction, unspecified (principal); R47.81 Slurred speech; R20.0 Anesthesia of skin; R47.1 Dysarthria and anarthria; G81.91 Hemiplegia, unspecified affecting right dominant side; K57.30 Diverticulosis of large intestine without perforation or abscess without bleeding; J18.9 Pneumonia, unspecified organism; K63.5 Polyp of colon; I10 Essential (primary) hypertension; J43.9 Emphysema, unspecified; D62 Acute posthemorrhagic anemia; K62.5 Hemorrhage of anus and rectum; F17.210 Nicotine dependence, cigarettes, uncomplicated; R93.3 Abnormal findings on diagnostic imaging of other parts of digestive tract; R93.89 Abnormal findings on diagnostic imaging of other specified body structures; J98.4 Other disorders of lung; J90 Pleural effusion, not elsewhere classified; I31.39 Other pericardial effusion (noninflammatory)
CPT/HCPCS: 36415; 70450; 70496; 70498; 70553; 71045; 71250; 74177; 80048; 80053; 80061; 80076; 80307; 81240; 81241; 81291; 82103; 82104; 82948; 83036; 83090; 83695; 84132; 84484; 85025; 85027; 85240; 85250; 85260; 85300; 85303; 85306; 85307; 85380; 85610; 85613; 85730; 86140; 86147; 86480; 86703; 86738; 87015; 87070; 87116; 87118; 87205; 87206; 87449; 87641; 87899; 88305; 92507; 92522; 92610; 93005; 93880; 94640; 96361; 96365; 96366; 96367; 96375; 97161; 97165; 99285; A9270; A9577; C8929; C9113; G0378; G0379; G0432; J0295; J0456; J1650; J2185; J2704; J3370; J3480; J7030; J7120; J7512; Q9957; Q9967

== ENCOUNTER 2023-10-28 17:55 | Inpatient (IN) | payer OTHER, SELFPAY ==
[2023-10-28] VITALS (7 sets, daily range): BP systolic 69–151; BP diastolic 57–96; PULSE 80–145; RESP 18–22; TEMP 36.4–36.9; O2SAT 100; BMI 20.1
--- NOTE | ~2023-10-28 | CT_ITS ---
EXAMINATION: CT abdomen pelvis w con DATE: 10/28/2023 19:16 INDICATION: Bloody diarrhea TECHNIQUE: Computed tomography (CT) of the abdomen and pelvis was performed with 100 mL Omnipaque-350 intravenous contrast. Automated exposure control and iterative reconstruction technique were employe d. The dose-length product was 189.50 mGy-cm. COMPARISON: None FINDINGS: Interval appearance of chronic reticulonodular opacities at bilateral lung bases likely sequela of ch ronic infection. Presents inferior heart appears normal. Very small pericardial effusion. No pleural effusion. Small calcification in the spleen consistent with old granulomatous disease. Liver, pancrea s, bilateral adrenal glands and kidneys are normal. Small bowel and appendix are normal. No bowel obs truction. There is fluid throughout the colon consistent with diarrhea. There is some heterogeneous i ncreased attenuation within the lumen of the mid to distal sigmoid colon which could represent clot/h emorrhage in the provided history of bloody diarrhea. There are 3 linear metallic densities, one in t he distal transverse colon, one in the proximal transverse colon and 1 in the proximal sigmoid colon likely representing hemostasis clips placed during recent colonoscopy with polypectomy. See procedure note dated 10/25/23. Bladder and prostate are unremarkable. No pneumatosis or free intraperitoneal gas or fluid. No pathologically enlarged abdominal or pelvic lymphadenopathy. Mild lumbar levocurvature with moderate to severe spondylosis. IMPRESSION: 1. Fluid throughout the colon consistent with reported history of bloody diarrhea with increased atte nuation distally which could represent some intraluminal hemorrhage. 2. 3 linear metallic densities within the mid to distal colon likely hemostasis clips related to repo rted prior colonoscopy with polypectomies. Reviewed, dictated and finalized at location A. IMPRESSION: 1. Fluid throughout the colon consistent with reported history of bloody diarrh ea with increased attenuation distally which could represent some intraluminal hemorrhage. 2. 3 linear metallic densities within the mid to distal colon likely hemostasis clips related to reported prior colonoscopy with polypectomies.
[2023-10-28 18:36] LABS: Basophils Absolute Auto 0.1 K/mm3 (0.0-0.1); Basophils Percent Auto 0.6 % (0.2-1.2); Eosinophils Absolute Auto 0.1 K/mm3 (0-0.3); Hematocrit 35.3 % (42.0-52.0); Hemoglobin 11.2 g/dL (14.0-18.0); Immature Granulocyte Absolute 0.23 K/mm3 (0.00-0.031); Immature Granulocyte Percent A 1.8 % (0-0.5); Lymphocytes Absolute Auto 1.58 K/mm3 (0.9-3.2); Lymphocytes Percent Auto 12.5 % (18.3-44.2); Mean Corpuscular HGB Conc 31.7 g/dl (32-36); Mean Corpuscular Hemoglobin 27.8 pg (26-34); Mean Corpuscular Volume 87.6 fl (80-100); Mean Platelet Volume 8.8 fl (7.4-10.4); Monocytes Absolute Auto 1.5 K/mm3 (0.1-0.6); Monocytes Percent Auto 12.2 % (2.6-8.5); Neutrophils Absolute Auto 9.1 K/mm3 (1.3-6.7); Neutrophils Percent Auto 71.9 % (45.5-73.1); Platelet Count Result 453 k/mm3 (150-375); Red Blood Count 4.03 M/mm3 (4.6-6.20); Red Cell Distribution Width 12.6 % (11.5-14.5); White Blood Count 12.7 K/mm3 (4.5-10.0)
[2023-10-28] MEDS: SODIUM CHLORIDE 0.9% IV 500 ML 999 ML IV CONT (18:38)
--- NOTE | 2023-10-28 18:43 | ED.GIBLEED ---
HPI - GI Bleed General Chief complaint: GI Bleed Stated complaint: blood in stool Time Seen by Provider: 10/28/23 18:10 Source: patient Mode of arrival: EMS Limitations: no limitations History of Present Illness HPI Narrative: This is a 57-year-old male that presents to the emergency department for blood in his stool. Reports to bloody bowel movements since this afternoon. Reports bright red blood. He was recently hospitalized for a CVA and started on Plavix and baby aspirin. He was also having trouble with GI bleeding during the admission. He had a colonoscopy a couple of days ago. This showed some polyps that were removed. Denies fevers or vomiting. Related Data Allergies Allergy/AdvReac Type Severity Reaction Status Date / Time No Known Allergies Allergy Mild Unverified 10/28/23 18:06 Review of Systems Review of Systems: CONSTITUTIONAL: Denies fever GASTROINTESTINAL: Reports diarrhea. Denies abdominal pain, nausea, vomiting All systems reviewed & are unremarkable except as noted in HPI and below PMFSH Past Medical History Medical History Adenomatous colon polyp COPD (chronic obstructive pulmonary disease) HTN (hypertension) Left basal ganglia embolic stroke Smoker Family History Family History (Updated 02/21/16 @ 23:19 by DOCTOR UNKNOWN) Father Hypertension Mother Family history of diabetes mellitus in first degree relative Social History Social History (Updated 10/25/23 @ 15:27 by Graeme Ramos DO) Smoking status: Current every day smoker Tobacco type: cigarettes Additional smoking assessment comments: 2 PPD x 40 years Alcohol intake: current Alcohol use details: 3-5 drinks/day Substance use: never Substance use type: does not use Do You Feel Safe in your Home?: Yes Lack of Transportation: No Lack of Food: Never True Current Housing: I Have Housing Concerned About Future Housing: No Difficulty Paying Gas/Electric Bills: No Difficulty Paying for Meds: No Currently Unemployed: No Education: High School Diploma/GED Difficulty w/ Childcare or Family Care: No Spiritual care concerns: No Exam Narrative: GENERAL: Well-appearing, well-nourished, and in no acute distress. HEAD: Normocephalic, atraumatic. EYES: EOMI. CHEST: Clear to auscultation. No respiratory distress. No wheezes rales or rhonchi HEART: Regular rate and rhythm. No murmur heard. Normal peripheral pulses. ABDOMEN: Soft, nontender, nondistended, normal active bowel sounds. EXTREMITIES: Normal range of motion. No edema. SKIN: Warm, dry, no rash. NEURO: No focal deficits. Alert and oriented x3. PSYCH: Normal mood and affect RECTAL: Bright red blood in the rectum, without active bleeding Course Course Emergency Course: Patient updated on his workup and recommendation for admission Consultations Consultation #1: Spoke with Dr. Johnson about patient and workup who will consult Date: 10/28/23 Consultation #2: Spoke with hospitalist about patient and workup who accepts admission Date: 10/28/23 Vital Signs Vital signs: Vital Signs Temperature 97.5 F L 10/28/23 18:06 Pulse Rate 114 H 10/28/23 18:06 Respiratory Rate 20 10/28/23 18:06 Blood Pressure 111/92 H 10/28/23 18:06 Pulse Oximetry 100 10/28/23 18:06 Oxygen Delivery Room Air 10/28/23 18:06 Temperature 98.4 F 10/28/23 18:43 Pulse Rate 114 H 10/28/23 18:43 Respiratory Rate 20 10/28/23 18:43 Blood Pressure 97/72 L 10/28/23 18:43 Pulse Oximetry 100 10/28/23 18:43 Oxygen Delivery Room Air 10/28/23 18:06 MDM - GI Bleed MDM Narrative Medical decision making narrative: Patient presents to the ER for GI bleeding. Recently admitted for CVA. Started on Aspirin and Plavix. He did experience GI bleeding while inpatient and had colonoscopy 2 days ago which showed polyps that he had removed. Patient orthostatic upon arrival. Given IV fluids with improvement. He is afebrile and
[2023-10-28 18:47] LABS: INR 0.9; Prothrombin Time 12.8 Seconds (11.1-14.7)
[2023-10-28 18:48] LABS: Partial Thromboplastin Time 25.3 Seconds (22.3-36.8)
[2023-10-28 18:50] LABS: Alanine Aminotransferase 26 U/L (6-50); Albumin Level 3.2 g/dL (3.5-5.1); Alkaline Phosphatase 47 U/L (38-126); Anion Gap 6 mmol/L (4-12); Aspartate Amino Transferase 28 U/L (17-59); Bilirubin,Total 0.5 mg/dL (0.2-1.3); Blood Urea Nitrogen 12 mg/dL (9-20); Calcium 8.2 mg/dL (8.4-10.2); Carbon Dioxide 22 mmol/L (22-30); Chloride 97 mmol/L (98-107); Estimated CRCL calculation 74 ml/min; Estimated Glomerular Filt Rate > 60; Glucose 123 mg/dL (65-110); Potassium 3.6 mmol/L (3.4-5.0); Sodium 125 mmol/L (137-145)
[2023-10-28] MEDS: SODIUM CHLORIDE 0.9% IV 1,000 ML 999 ML IV CONT (19:40)
--- NOTE | 2023-10-28 20:54 | PM.IMHP ---
H&P: HPI History of Present Illness Date/Time: 10/28/23 20:54 Chief Complaint: Rectal bleeding Narrative: Patient is a 57-year-old male with history of COPD, history of CVA, history of GI bleed in the past had a colonoscopy done which was negative patient was discharged home on aspirin Plavix due to his CVA came back to the hospital 3 weeks after complaining of bloody s denies nausea no vomiting no fever chills no headaches no dizziness. On the colonoscopy patient was found to have large polyp which was nonmalignant patient was advised to follow-up with the GI for a colonoscopy 4-5 months after. Patient castro appears comfortable in bed no new complaints has been compliant with medications Review of Systems Review of Systems: No fevers chills nausea vomiting. No double vision no blurry vision. No difficulty hearing or sinus complaints. No chest pain shortness of breath fever palpitation dizziness ankle swelling. No coughing wheezing chills. No nausea constipation complains of blood in the stool No urgency frequency of urination. No hematuria. No skin rash eczema. No anxiety depression difficulty sleeping. No bleeding gums enlarged glands. No muscle ache back pain joint stiffness. No loss of strength numbness headache tremor or loss of memory. PMFSH Past Medical History Medical History Adenomatous colon polyp COPD (chronic obstructive pulmonary disease) HTN (hypertension) Left basal ganglia embolic stroke Smoker Family History Family History (Updated 02/21/16 @ 23:19 by DOCTOR UNKNOWN) Father Hypertension Mother Family history of diabetes mellitus in first degree relative Social History Social History (Updated 10/25/23 @ 15:27 by Graeme Ramos, ) Smoking status: Current every day smoker Tobacco type: cigarettes Additional smoking assessment comments: 2 PPD x 40 years Alcohol intake: current Alcohol use details: 3-5 drinks/day Substance use: never Substance use type: does not use Do You Feel Safe in your Home?: Yes Lack of Transportation: No Lack of Food: Never True Current Housing: I Have Housing Concerned About Future Housing: No Difficulty Paying Gas/Electric Bills: No Difficulty Paying for Meds: No Currently Unemployed: No Education: High School Diploma/GED Difficulty w/ Childcare or Family Care: No Spiritual care concerns: No Meds Home Medications and Allergies Home Medications Medication Instructions Recorded Confirmed Type albuterol sulfate 90 mcg/actuation 1 inh inhalation QID PRN shortness 10/25/23 Rx aerosol inhaler of breath or wheezing #8.5 grams amoxicillin 875 mg-potassium 1 tablet PO Q12H 3 weeks #42 tabs 10/25/23 Rx clavulanate 125 mg tablet aspirin 81 mg tablet,delayed 81 mg PO QAM #30 tabs 10/25/23 Rx release clopidogrel 75 mg tablet 75 mg PO QAM #21 tabs 10/25/23 Rx prednisone 20 mg tablet 40 mg PO DAILY@0800 #2 tabs 10/25/23 Rx fluticasone propionate 115 2 puff inhalation Q12H #12 grams 10/27/23 Rx mcg-salmeterol 21 mcg/actuation HFA inhaler (Advair HFA) Allergies Allergy/AdvReac Type Severity Reaction Status Date / Time No Known Allergies Allergy Mild Unverified 10/28/23 18:06 Vital Signs Vital Signs - 24 hr 10/28/23 18:06 10/28/23 18:29 10/28/23 18:29 Temperature 36.4 C L Pulse Rate 114 H 117 H 135 H Respiratory Rate 20 Blood Pressure 111/92 H 88/73 L 83/58 L Pulse Oximetry 100 Oxygen Delivery Room Air 10/28/23 18:30 10/28/23 18:43 Temperature 36.9 C Pulse Rate 145 H 114 H Respiratory Rate 20 Blood Pressure 69/57 L 97/72 L Pulse Oximetry 100 Oxygen Delivery Exam Narrative: GENERAL: Well appearing, no acute distress. HEAD: Normocephalic, atraumatic. NECK: Supple. No adenopathy, no masses. RESPIRATORY: respirations nonlabored. , no rales, wheezing. CARDIOVASCULAR: Regular rate and rhythm without murmurs, . Peripheral pulses 2+
[2023-10-28] MEDS: DEXTROSE 5%/0.45% SOD CHL 1,000 ML 100 ML IV CONT (21:00)
[2023-10-28] MEDS: PANTOPRAZOLE SODIUM IV 40 MG VIAL IV PUSH (21:07)
[2023-10-29] VITALS (37 sets, daily range): BP systolic 71–122; BP diastolic 40–104; PULSE 55–114; RESP 16–35; TEMP 35.9–37.2; O2SAT 91–100
[2023-10-29 00:47] LABS: Hematocrit 29.2 % (42.0-52.0); Hemoglobin 9.4 g/dL (14.0-18.0)
--- NOTE | 2023-10-29 01:01 | ADMGEN ---
This patient, Griffin Rodriguez, was admitted to 3 Med Surg Room 307-02. Patient/family oriented to hospital policies and general routines including ID bracelet, bed and alarms, visiting hours, pain management, procedures, bathroom and other care routines, personal items, smoking policy, room service/diet, and visiting hours. Information on how to activate the Rapid Response Team has been discussed. Patient/Family are encouraged to report perceived risks to care and to ask questions if they do not understand what they are told or what they should do.
[2023-10-29] MEDS: IPRATROPIUM 0.5 MG/ALBUTEROL SULFATE 2.5 MG AMPUL.NEB 3 ML INHALATION ×4 (02:11→21:27)
--- NOTE | 2023-10-29 03:45 | PC.NURSE ---
Pt sitting on the toilet, pale in face, body started to tense up and shake, no loss of consciousness, rapid response called and assisted back into bed via wheelchair.
[2023-10-29] MEDS: SODIUM CHLORIDE 0.9% IV 1,000 ML 999 ML IV CONT (03:59)
[2023-10-29 04:03] LABS: Hematocrit 28.1 % (42.0-52.0); Hemoglobin 8.4 g/dL (14.0-18.0); Mean Corpuscular HGB Conc 29.9 g/dl (32-36); Mean Corpuscular Hemoglobin 27.5 pg (26-34); Mean Corpuscular Volume 91.8 fl (80-100); Mean Platelet Volume 8.6 fl (7.4-10.4); Platelet Count Result 412 k/mm3 (150-375); Red Blood Count 3.06 M/mm3 (4.6-6.20); Red Cell Distribution Width 12.8 % (11.5-14.5); White Blood Count 11.8 K/mm3 (4.5-10.0)
--- NOTE | 2023-10-29 04:18 | PM.IMPN ---
Progress Note: A&P Assessment and Plan (1) Orthostatic hypotension: Code(s): I95.1 - Orthostatic hypotension Status: Acute (2) Acute GI bleeding: Code(s): K92.2 - Gastrointestinal hemorrhage, unspecified Status: Acute Assessment and Plan: Patient was given a bolus of IV fluids of normal saline. 2 units of blood transfusion type and crossmatch are being given right now. Also a drip for octreotide has been started continues A GI has been consulted. Dr. Dyer on the case has been notified Continue to monitor H&H last hemoglobin 8.4 hematocrit 28.1 Time Spent With Patient Time: 45 minutes [id number] right and the rapid response Subjective Date/time seen: 10/29/23 04:18 Interval history: Rapid response was called in for this patient because patient became very hypotensive and unresponsive while he was sitting on his bathroom seat. Patient has been to the toilet about 3 times since morning with fresh rectal bleeding. Exam Narrative: GENERAL: Well appearing, no acute distress. HEAD: Normocephalic, atraumatic. NECK: Supple. No adenopathy, no masses. RESPIRATORY: respirations nonlabored. , no rales, wheezing. CARDIOVASCULAR: Regular rate and rhythm without murmurs, . Peripheral pulses 2+ and equal bilaterally. ABDOMINAL: Soft, nontender, nondistended, no hepatosplenomegaly. Normoactive BS. MUSCULOSKELETAL: no Epigastric and no hypochondrial tenderness SKIN: Warm, dry, patient appears pale NEURO: A&O X3. Moves all extremities Objective Data Vital Signs Vital Signs: Vital Signs - 24 hr 10/28/23 18:06 10/28/23 18:29 10/28/23 18:29 Temperature 36.4 C L Pulse Rate 114 H 117 H 135 H Respiratory Rate 20 Blood Pressure 111/92 H 88/73 L 83/58 L Pulse Oximetry 100 Oxygen Delivery Room Air 10/28/23 18:30 10/28/23 18:43 10/28/23 21:27 Temperature 36.9 C Pulse Rate 145 H 114 H 80 Respiratory Rate 20 20 Blood Pressure 69/57 L 97/72 L 120/85 Pulse Oximetry 100 100 Oxygen Delivery 10/28/23 21:52 10/28/23 23:15 10/29/23 01:50 Temperature 36.8 C Pulse Rate 81 98 Respiratory Rate 18 22 H Blood Pressure 125/79 151/96 H Pulse Oximetry 100 100 Oxygen Delivery Room Air 10/29/23 02:12 10/29/23 02:20 10/29/23 03:40 Temperature Pulse Rate 86 88 55 L Respiratory Rate 18 18 28 H Blood Pressure 110/80 Pulse Oximetry 91 Oxygen Delivery 10/29/23 03:53 Temperature Pulse Rate 86 Respiratory Rate 16 Blood Pressure 108/66 Pulse Oximetry 98 Oxygen Delivery Intake/Output Intake/Output: Intake & Output 10/26/23 10/27/23 10/28/23 10/29/23 23:59 23:59 23:59 23:59 Intake Total 1500 Output Total 201 Balance 1500 -201 Meds/Results Medications: Active Medications Generic Name Dose Route Start Last Admin Trade Name Freq PRN Reason Stop Dose Admin Albuterol/Ipratropium 3 ml 10/29/23 02:00 10/29/23 02:11 Ipratropium 0.5 Mg/Albuterol Sulfate 2.5 Mg Ampul.Neb 3 Ml INHALATION 3 ml Q6HRT TIAGO Administration Dextrose/Sodium Chloride 1,000 mls @ 100 mls/hr 10/28/23 20:50 10/28/23 21:00 Dextrose 5% Sodium Chloride 0.45% IV CONT 100 mls/hr .Q10H TIAGO Administration Sodium Chloride 250 mls @ 30 mls/hr 10/29/23 03:57 Normal Saline Iv IV CONT 10/29/23 12:16 .Q8H20M STA Sodium Chloride 1,000 mls @ 999 mls/hr 10/29/23 03:58 10/29/23 03:59 Normal Saline Iv IV CONT 10/29/23 04:58 999 mls/hr .Q1H1M ONE Administration Octreotide Acetate 500 mcg/ 100 mls @ 10 mls/hr 10/29/23 04:05 Dextrose IV CONT .Q10H TIAGO 50 MCG/HR Morphine Sulfate 2 mg 10/28/23 20:48 Morphine Sulfate (*Crx) 2 Mg/Ml Inj IV PUSH Q4H PRN Pain Rated 7-10 Pantoprazole Sodium 40 mg 10/28/23 21:00 10/28/23 21:07 Pantoprazole Sodium Iv 40 Mg Vial IV PUSH 40 mg Q12HR TIAGO Administration Radiology Results: ITS Impressions Abdomen/Pelvis CT 10/28/23 19:32 IMPRESSION:
[2023-10-29 04:36] LABS: Alanine Aminotransferase 21 U/L (6-50); Albumin Level 2.6 g/dL (3.5-5.1); Alkaline Phosphatase 42 U/L (38-126); Anion Gap 7 mmol/L (4-12); Aspartate Amino Transferase 26 U/L (17-59); Bilirubin,Total 0.4 mg/dL (0.2-1.3); Blood Urea Nitrogen 9 mg/dL (9-20); Calcium 7.3 mg/dL (8.4-10.2); Carbon Dioxide 21 mmol/L (22-30); Chloride 101 mmol/L (98-107); Estimated CRCL calculation 90 ml/min; Estimated Glomerular Filt Rate > 60; Glucose 150 mg/dL (65-110); Potassium 3.4 mmol/L (3.4-5.0); Sodium 129 mmol/L (137-145)
[2023-10-29] MEDS: TUBING, BLOOD PLUM PUMP TUBING 1 EACH XX (05:03)
[2023-10-29] MEDS: SODIUM CHLORIDE 0.9% IV 250 ML 30 ML IV CONT ×2 (05:03→16:20)
[2023-10-29 07:10] LABS: Anion Gap 11 mmol/L (4-12); Blood Urea Nitrogen 10 mg/dL (9-20); Calcium 7.6 mg/dL (8.4-10.2); Carbon Dioxide 17 mmol/L (22-30); Chloride 100 mmol/L (98-107); Estimated CRCL calculation 80 ml/min; Estimated Glomerular Filt Rate > 60; Glucose 155 mg/dL (65-110); Potassium 3.3 mmol/L (3.4-5.0); Sodium 128 mmol/L (137-145)
[2023-10-29 07:16] LABS: Glucose Point of Care 143 mg/dl (65-105)
[2023-10-29] MEDS: SODIUM CHLORIDE 0.9% IV 1,000 ML 150 ML IV CONT ×3 (08:04→21:24)
[2023-10-29] MEDS: PANTOPRAZOLE SODIUM IV 40 MG VIAL IV PUSH ×2 (08:04→21:22)
--- NOTE | 2023-10-29 10:00 | PC.NURSE ---
Pt. down to GI lab for colonoscopy.
[2023-10-29] MEDS: LACTATED RINGERS 1,000 ML 150 ML IV CONT ×2 (10:17→14:20)
--- NOTE | 2023-10-29 10:48 | SUR.PREOP ---
Patient brought down to GI lab. Blood pressure low and ordered to give second unit of blood.
--- NOTE | 2023-10-29 12:36 | WPDANESEPPF ---
Anes - Initial Pre Proc Eval Procedure: Operation Date: 10/29/23 14:30 Proposed Procedures p Colonoscopy - Eamon Johnson MD Date/Time: 10/29/23 12:36 Surgeon: Stevo Bentley MD Pre Op Diagnosis: GI Bleed,Anemia Patient Data Age: 57 Gender: M Height: 1.75 m Weight: 61.9 kg Last Vital Signs Temp 97.3 F L 10/29/23 11:28 Pulse 95 10/29/23 11:28 Resp 18 10/29/23 11:28 BP 75/48 L 10/29/23 11:28 Pulse Ox 100 10/29/23 11:28 O2 Del Method Room Air 10/29/23 10:18 Allergies Allergy/AdvReac Type Severity Reaction Status Date / Time No Known Allergies Allergy Mild Verified 10/29/23 10:18 Home Medications Medication Instructions Recorded Confirmed Type albuterol sulfate 90 mcg/actuation 1 inh inhalation QID PRN shortness 10/25/23 10/28/23 Rx aerosol inhaler of breath or wheezing #8.5 grams amoxicillin 875 mg-potassium 1 tablet PO Q12H 3 weeks #42 tabs 10/25/23 10/28/23 Rx clavulanate 125 mg tablet aspirin 81 mg tablet,delayed 81 mg PO QAM #30 tabs 10/25/23 10/28/23 Rx release clopidogrel 75 mg tablet 75 mg PO QAM #21 tabs 10/25/23 10/28/23 Rx fluticasone propionate 115 2 puff inhalation Q12H #12 grams 10/27/23 10/28/23 Rx mcg-salmeterol 21 mcg/actuation HFA inhaler (Advair HFA) Laboratory Tests 10/28/23 10/29/23 10/29/23 18:26 00:39 03:49 WBC 12.7 H K/mm3 (4.5-10.0) RBC 4.03 L M/mm3 (4.6-6.20) Hgb 11.2 L g/dL 9.4 L g/dL (14.0-18.0) (14.0-18.0) Hct 35.3 L % 29.2 L % (42.0-52.0) (42.0-52.0) MCV 87.6 fl (80-100) MCH 27.8 pg (26-34) MCHC 31.7 L g/dl (32-36) RDW 12.6 % (11.5-14.5) Plt Count 453 H k/mm3 (150-375) MPV 8.8 fl (7.4-10.4) Immature Gran % (Auto) 1.8 H % (0-0.5) Neut % (Auto) 71.9 % (45.5-73.1) Lymph % (Auto) 12.5 L % (18.3-44.2) Garrett % (Auto) 12.2 H % (2.6-8.5) Eos % (Auto) 1.0 % (0-4.4) Baso % (Auto) 0.6 % (0.2-1.2) Lymph # (Auto) 1.58 K/mm3 (0.9-3.2) Garrett # (Auto) 1.5 H K/mm3 (0.1-0.6) Eos # (Auto) 0.1 K/mm3 (0-0.3) Baso # (Auto) 0.1 K/mm3 (0.0-0.1) Abs Immat Gran (auto) 0.23 H K/mm3 (0.00-0.031) Absolute Neuts (auto) 9.1 H K/mm3 (1.3-6.7) Absolute Nucleated RBC 0.000 K/mm3 (0.0-0.012) Nucleated RBC % 0.0 % (0.0-0.2) PT 12.8 Seconds (11.1-14.7) INR 0.9 APTT 25.3 Seconds (22.3-36.8) Sodium 125 L mmol/L (137-145) Potassium 3.6 mmol/L (3.4-5.0) Chloride 97 L mmol/L (98-107) Carbon Dioxide 22 mmol/L (22-30) Anion Gap 6 mmol/L (4-12) BUN 12 D mg/dL (9-20) Creatinine 0.80 mg/dL (0.7-1.3) Estim Creat Clear Calc 74 ml/min Estimated GFR > 60 (59 - ) Glucose 123 H mg/dL (65-110) POC Capillary Glucose 143 H mg/dl (65-105) Calcium 8.2 L mg/dL (8.4-10.2) Total Bilirubin 0.5 mg/dL (0.2-1.3) AST 28 U/L (17-59) ALT 26 U/L (6-50) Alkaline Phosphatase 47 U/L (38-126) Total Protein 6.0 L g/dL (6.3-8.2) Albumin 3.2 L g/dL (3.5-5.1) Blood Type A Positive Antibody Screen Negative Crossmatch See Detail 10/29/23 10/29/23 10/29/23 03:59 03:59 03:59 WBC 11.8 H K/mm3 (4.5-10.0) RBC 3.06 L M/mm3 (4.6-6.20) Hgb Cancelled 8.4 L g/dL (14.0-18.0) Hct Cancelled 28.1 L % (42.0-52.0) MCV 91.8 fl (80-100) MCH 27.5 pg (26-34) MCHC 29.9 L g/dl (32-36) RDW 12.8 % (11.5-14.5) Plt Count 412 H k/mm3 (150-375) MPV 8.6 fl (7.4-10.4) Immature Gran % (Auto) Neut % (Auto)
[2023-10-29 13:30] LABS: Hematocrit 23.8 % (42.0-52.0); Hemoglobin 7.7 g/dL (14.0-18.0); Mean Corpuscular HGB Conc 32.4 g/dl (32-36); Mean Corpuscular Hemoglobin 28.8 pg (26-34); Mean Corpuscular Volume 89.1 fl (80-100); Mean Platelet Volume 9.1 fl (7.4-10.4); Platelet Count Result 288 k/mm3 (150-375); Red Blood Count 2.67 M/mm3 (4.6-6.20); Red Cell Distribution Width 13.5 % (11.5-14.5); White Blood Count 11.7 K/mm3 (4.5-10.0)
--- NOTE | 2023-10-29 14:20 | WPDGICN ---
Assessment and Plan Assessment and plan (1) Orthostatic hypotension: Code(s): I95.1 - Orthostatic hypotension Status: Acute Assessment and Plan: this is from rectal bleeding, most likely from recent large polypectomies (patient initially came to hospital last week with new symptom of stroke then started on plavix, colonoscopy revealed large polyps that were removed- I used clips to prevent bleeding) will proceed with urgent colonoscopy fluid resuscitation and already received blood transfusion (2) Acute GI bleeding: Code(s): K92.2 - Gastrointestinal hemorrhage, unspecified Status: Acute Assessment and Plan: s/p blood transfusion monitor for more signs of bleeding (3) Hematochezia: Code(s): K92.1 - Melena Status: Acute (4) Acute blood loss anemia: Code(s): D62 - Acute posthemorrhagic anemia Status: Acute Assessment and Plan: keep hgb>7 (5) Adenomatous colon polyp: Code(s): D12.6 - Benign neoplasm of colon, unspecified Status: Acute Assessment and Plan: path reviewed, no cancer but multiple TA polyps (6) Acute CVA (cerebrovascular accident): Code(s): I63.9 - Cerebral infarction, unspecified Status: Acute Assessment and Plan: plavix will need to be on hold GI Consult Note Consult date/time: 10/29/23 14:20 Reason for consult: rectal bleeding, syncope HPI: Griffin Rodriguez is a 57 year old male with recent hospitalization after acute CVA, he was started on plavix but then developed rectal bleeding and I was consulted, he had never had a colonoscopy, CT scan revealed thickening of rectum. Colonoscopy revealed multiple large polyps some pedunculated, after using hot snare I used clips to prevent bleeding, largest polyp at rectosigmoid about 5 cm size, removed with EMR/piece-meal hot snare. He came here with rectal bleeding again, last night he almost passed out and rapid response was called, hgb ~7 (baseline 13) and received blood transfusion, he is still passing clots with brbpr. Review of Systems Constitutional: Constitutional: Reports weakness Eyes: Eyes: Denies blurry vision ENT: Reports Normal hearing present Cardiovascular: Cardiovascular: Denies chest pain and Reports lightheadedness Respiratory: Respiratory: Denies cough Gastrointestinal: Gastrointestinal: Reports hematochezia Genitourinary: Genitourinary: Denies hematuria Musculoskeletal: Musculoskeletal: Denies neck pain Integumentary/Breasts: Skin/Breast: Denies rash Neurologic: Denies confusion Psychiatric: Psychiatric: Denies anxiety [facility] Past Medical History Medical History Adenomatous colon polyp COPD (chronic obstructive pulmonary disease) HTN (hypertension) Left basal ganglia embolic stroke Smoker Family History Family History (Updated 02/21/16 @ 23:19 by DOCTOR UNKNOWN) Father Hypertension Mother Family history of diabetes mellitus in first degree relative Social History Social History (Updated 10/25/23 @ 15:27 by Graeme Ramos, DO) Smoking status: Former smoker Tobacco type: cigarettes Smoking end date: 10/26/23 Additional smoking assessment comments: 2 PPD x 40 years Alcohol intake: former Alcohol use details: 3-5 drinks/day Substance use: never Substance use type: does not use Do You Feel Safe in your Home?: Yes Lack of Transportation: No Lack of Food: Never True Current Housing: I Have Housing Concerned About Future Housing: No Difficulty Paying Gas/Electric Bills: No Difficulty Paying for Meds: No Currently Unemployed: No Education: Trade/Vocational Certificate Difficulty w/ Childcare or Family Care: No Spiritual care concerns: No Meds Home Medications and Allergies Home Medications Medication Instructions Recorded Confirmed Type albuterol sulfate 90 mcg/actuation 1 inh inhalation QID PRN shortness 10/25/23 10/28/23 Rx aerosol inhaler of br
[2023-10-29] MEDS: EPINEPHrine INJ 1 MG/10 ML SYRINGE XX (14:43)
--- NOTE | 2023-10-29 15:22 | PM.IMPN ---
Progress Note: A&P Assessment and Plan (1) Acute GI bleeding: Code(s): K92.2 - Gastrointestinal hemorrhage, unspecified Status: Acute Assessment and Plan: 10/28/23: Patient was given a bolus of IV fluids of normal saline. 2 units of blood transfusion type and crossmatch are being given right now. Also a drip for octreotide has been started continues A GI has been consulted. Dr. Dyer on the case has been notified Continue to monitor H&H last hemoglobin 8.4 hematocrit 28.1 10/29/23: Patient was taken back to the GI lab and fentanyl for bleeding ulcers that were injected with epi and clipped Patient received a total of 3 units PRBC Continue Protonix, stop octreotide Blood pressure ranging 98/54 to 100/74 which is much improved her mid 70s over 40s earlier today GI following Most recent hemoglobin is 7.7 Will recheck a CBC 1 hour after last unit of blood Continue IV fluids Can advance diet as tolerated to full liquid (2) Orthostatic hypotension: Code(s): I95.1 - Orthostatic hypotension Status: Acute Assessment and Plan: See above Time Spent With Patient Time with patient: Greater than 35 minutes Subjective Date/time seen: 10/29/23 15:22 Interval history: This is a 57-year-old male who presented to the emergency room for evaluation of blood in his stool. He was recently hospitalized for CVA and started on Plavix and baby aspirin. During that admission he did have some issues with GI bleeding and had a colonoscopy a few days ago and had some polyps removed at that time. Initial labs shown a white blood cell count of 12.7, hemoglobin of 11.2, sodium 125, chloride 97. Abdomen pelvis CT showed fluid throughout the colon consistent with reported history of bloody diarrhea with increased attenuation distally which could represent some intraluminal hemorrhage. Patient was a rapid response on the floor due to hypotension. Blood pressures were running 70s over 40s. Patient was given IV fluids, magnesium citrate, started on octreotide and Protonix. He was given 3 units of blood today. He was taken back to the GI lab for colonoscopy and it showed 2 ulcers in the transverse colon which had blood clot or clots present in which they placed 4 resolution clips to control the bleeding, a single ulcer was visualized in the descending colon, that also had blood clots present as well and it was injected with epi and resolution clip x3 was placed, a single ulcer was visualized in the sigmoid colon and had presence of a blood clot which was injected with epi in the used 3 resolution clips there, a single ulcer was visualized in the recto sigmoid-post polypectomy ulcer with a blood clot present epi was injected and the ulcer was clipped x2, a few small diverticula were present in the sigmoid colon however those were not actively bleeding. Blood pressures are now ranging 98/54-100/74. Review of Systems Review of Systems: All systems reviewed & are unremarkable except as noted in HPI and below Constitutional: Constitutional: Reports as per HPI and Reports no additional constitutional complaints Eyes: Eyes: Reports as per HPI and Reports no additional eye complaints ENT: Reports system reviewed and no additional complaints, except as documented and Reports as per HPI Cardiovascular: Cardiovascular: Reports as per HPI and Reports no additional cardiovascular complaints Respiratory: Respiratory: Reports as per HPI and Reports no additional respiratory complaints Gastrointestinal: Gastrointestinal: Reports as per HPI and Reports no additional gastrointestinal complaints Genitourinary: Genitourinary: Reports no additional male genitourinary complaints and Reports as per HPI Musculoskeletal: Musculoskeletal: Reports no additional musculoskeletal complaints and Reports as per HPI Integumentary/Breasts: Skin/Breast: Reports system reviewed and no additional complaints, except as docu and Reports as per HPI N
--- NOTE | 2023-10-29 15:30 | SUR.OPER ---
1450: A TOTAL OF 11ML (1.1MG) EPINEPHRINE INJECTED DURING COLONOSCOPY.
[2023-10-29 18:35] LABS: Hematocrit 24.4 % (42.0-52.0); Mean Corpuscular HGB Conc 32.8 g/dl (32-36); Mean Corpuscular Hemoglobin 28.6 pg (26-34); Mean Corpuscular Volume 87.1 fl (80-100); Platelet Count Result 293 k/mm3 (150-375); Red Cell Distribution Width 13.7 % (11.5-14.5); White Blood Count 14.9 K/mm3 (4.5-10.0)
[2023-10-29] MEDS: AMOXICILLIN/CLAVULANATE K 875-125 MG TAB 1 TABLET PO (22:06)
[2023-10-30] VITALS (16 sets, daily range): BP systolic 108–115; BP diastolic 62–78; PULSE 55–90; RESP 18–20; TEMP 36.6–36.8; O2SAT 98–100
[2023-10-30] MEDS: IPRATROPIUM 0.5 MG/ALBUTEROL SULFATE 2.5 MG AMPUL.NEB 3 ML INHALATION ×4 (03:00→20:11)
[2023-10-30] MEDS: SODIUM CHLORIDE 0.9% IV 1,000 ML 150 ML IV CONT (04:58)
[2023-10-30] MEDS: FLUTICASONE/SALMETEROL 115-21 MCG INHALER 1 PUFF 2 PUFF INHALATION ×2 (07:13→20:11)
[2023-10-30] MEDS: PANTOPRAZOLE SODIUM IV 40 MG VIAL IV PUSH ×2 (08:17→20:43)
[2023-10-30] MEDS: AMOXICILLIN/CLAVULANATE K 875-125 MG TAB 1 TABLET PO ×2 (08:17→20:43)
[2023-10-30] MEDS: FERROUS SULFATE 325 MG TABLET DR PO (08:17)
--- NOTE | 2023-10-30 09:09 | PM.IMPN ---
Progress Note: A&P Assessment and Plan (1) Acute GI bleeding: Code(s): K92.2 - Gastrointestinal hemorrhage, unspecified Status: Acute Assessment and Plan: 10/28/23: Patient was given a bolus of IV fluids of normal saline. 2 units of blood transfusion type and crossmatch are being given right now. Also a drip for octreotide has been started continues A GI has been consulted. Dr. Dyer on the case has been notified Continue to monitor H&H last hemoglobin 8.4 hematocrit 28.1 10/29/23: Patient was taken back to the GI lab and fentanyl for bleeding ulcers that were injected with epi and clipped Patient received a total of 3 units PRBC Continue Protonix, stop octreotide Blood pressure ranging 98/54 to 100/74 which is much improved her mid 70s over 40s earlier today GI following Most recent hemoglobin is 7.7 Will recheck a CBC 1 hour after last unit of blood Continue IV fluids Can advance diet as tolerated to full liquid 10/30/23: Patient states that he has had a few bowel movements that look like old blood, he is not passing any bright red blood at this time. Blood pressure stable, hemoglobin 7.6 today Ferrous sulfate ordered Will go ahead and get rid of IV fluids today and advance his diet as tolerated Continue Protonix (2) Orthostatic hypotension: Code(s): I95.1 - Orthostatic hypotension Status: Acute Assessment and Plan: See above Time Spent With Patient Time with patient: 25 - 35 minutes Subjective Date/time seen: 10/30/23 09:09 Interval history: 10/29/23: This is a 57-year-old male who presented to the emergency room for evaluation of blood in his stool. He was recently hospitalized for CVA and started on Plavix and baby aspirin. During that admission he did have some issues with GI bleeding and had a colonoscopy a few days ago and had some polyps removed at that time. Initial labs shown a white blood cell count of 12.7, hemoglobin of 11.2, sodium 125, chloride 97. Abdomen pelvis CT showed fluid throughout the colon consistent with reported history of bloody diarrhea with increased attenuation distally which could represent some intraluminal hemorrhage. Patient was a rapid response on the floor due to hypotension. Blood pressures were running 70s over 40s. Patient was given IV fluids, magnesium citrate, started on octreotide and Protonix. He was given 3 units of blood today. He was taken back to the GI lab for colonoscopy and it showed 2 ulcers in the transverse colon which had blood clot or clots present in which they placed 4 resolution clips to control the bleeding, a single ulcer was visualized in the descending colon, that also had blood clots present as well and it was injected with epi and resolution clip x3 was placed, a single ulcer was visualized in the sigmoid colon and had presence of a blood clot which was injected with epi in the used 3 resolution clips there, a single ulcer was visualized in the recto sigmoid-post polypectomy ulcer with a blood clot present epi was injected and the ulcer was clipped x2, a few small diverticula were present in the sigmoid colon however those were not actively bleeding. Blood pressures are now ranging 98/54-100/74. 10/30/23: Patient denies any new complaints today. Labs today show white blood cell count of 11.4, hemoglobin is 7.6, sodium is 131. Blood pressure improved to 115/78 with maps in the 90s. We will go ahead and increase his diet to a soft diet and see how he tolerates. Review of Systems Review of Systems: All systems reviewed & are unremarkable except as noted in HPI and below Constitutional: Constitutional: Reports as per HPI and Reports no additional constitutional complaints Eyes: Eyes: Reports as per HPI and Reports no additional eye complaints ENT: Reports system reviewed and no additional complaints, except as documented and Reports as per HPI Cardiovascular: Cardiovascular: Reports as per HPI and Reports no a
[2023-10-30 09:43] LABS: Basophils Absolute Auto 0.1 K/mm3 (0.0-0.1); Basophils Percent Auto 0.6 % (0.2-1.2); Eosinophils Absolute Auto 0.2 K/mm3 (0-0.3); Eosinophils Percent Auto 1.6 % (0-4.4); Hematocrit 23.9 % (42.0-52.0); Hemoglobin 7.6 g/dL (14.0-18.0); Immature Granulocyte Absolute 0.23 K/mm3 (0.00-0.031); Lymphocytes Absolute Auto 1.77 K/mm3 (0.9-3.2); Lymphocytes Percent Auto 15.5 % (18.3-44.2); Mean Corpuscular HGB Conc 31.8 g/dl (32-36); Mean Corpuscular Hemoglobin 28.4 pg (26-34); Mean Corpuscular Volume 89.2 fl (80-100); Mean Platelet Volume 8.9 fl (7.4-10.4); Monocytes Absolute Auto 1.2 K/mm3 (0.1-0.6); Monocytes Percent Auto 10.9 % (2.6-8.5); Neutrophils Absolute Auto 7.9 K/mm3 (1.3-6.7); Neutrophils Percent Auto 69.4 % (45.5-73.1); Platelet Count Result 313 k/mm3 (150-375); Red Blood Count 2.68 M/mm3 (4.6-6.20); Red Cell Distribution Width 14.2 % (11.5-14.5); White Blood Count 11.4 K/mm3 (4.5-10.0)
[2023-10-30 09:58] LABS: Alanine Aminotransferase 17 U/L (6-50); Albumin Level 2.4 g/dL (3.5-5.1); Alkaline Phosphatase 37 U/L (38-126); Anion Gap 1 mmol/L (4-12); Aspartate Amino Transferase 20 U/L (17-59); Bilirubin,Total 0.4 mg/dL (0.2-1.3); Blood Urea Nitrogen 4 mg/dL (9-20); Calcium 7.5 mg/dL (8.4-10.2); Carbon Dioxide 25 mmol/L (22-30); Chloride 105 mmol/L (98-107); Estimated CRCL calculation 90 ml/min; Estimated Glomerular Filt Rate > 60; Glucose 74 mg/dL (65-110); Potassium 3.6 mmol/L (3.4-5.0); Sodium 131 mmol/L (137-145)
[2023-10-30 09:59] LABS: Magnesium 1.9 mg/dL (1.6-2.3)
--- NOTE | 2023-10-30 12:29 | WPDGIPROGNO ---
Progress Note: A&P Assessment and Plan (1) Hematochezia: Code(s): K92.1 - Melena Status: Acute Assessment and Plan: from post polypectomy ulcers- treated with clips and epi he had large size polyps removed just few days ago, one in particular almost 5 cm in rectosigmoid- this was cause of previous bleeding and what triggered first colonoscopy to begin with wonder if genetic condition to have large size polyps- needs genetic evaluation as outpatient hold any blood thinner for 7 days colonoscopy in 4-5 months to reassess polypectomies site ok to advance diet (2) Acute blood loss anemia: Code(s): D62 - Acute posthemorrhagic anemia Status: Acute Assessment and Plan: no more bleeding he received blood transfusion (3) Adenomatous colon polyp: Code(s): D12.6 - Benign neoplasm of colon, unspecified Status: Acute (4) Orthostatic hypotension: Code(s): I95.1 - Orthostatic hypotension Status: Acute Assessment and Plan: resolved (5) Acute CVA (cerebrovascular accident): Code(s): I63.9 - Cerebral infarction, unspecified Status: Acute Subjective Date/time seen: 10/30/23 12:29 Interval history: colonoscopy yesterday, noted post polypectomy ulcers with stigmata of bleeding, used more clips and epi injection no more episodes of hematochezia and he is doing great today Review of Systems Review of Systems: All systems reviewed & are unremarkable except as noted in HPI and below Exam Const: General: comfortable and no acute distress HENMT: Face/Nose/Sinus: Normal nares present Eyes: General: appearance normal, both eyes and all related structures Neck: Neck: supple Resp: Auscultation: clear to auscultation bilaterally Cardio: Rate: regular rate Rhythm: regular rhythm GI: Inspection: non-distended GI Palp: Yes Soft to palpation and No Tenderness to palpation present (GI) Auscultation: normal bowel sounds Skin: General skin exam: no rashes or lesions noted Neuro: Motor exam (neuro): 5/5 motor strength present throughout Extrem: General: normal to inspection Psych: Mental Status: mental status grossly normal Objective Data Vital Signs Vital Signs: Vital Signs - 24 hr 10/29/23 13:14 10/29/23 15:00 10/29/23 15:48 Temperature 97.1 F L Pulse Rate 78 79 81 Respiratory Rate 18 35 H 20 Blood Pressure 93/60 L 116/55 L 107/68 Pulse Oximetry 100 99 94 Oxygen Delivery Room Air Room Air 10/29/23 15:10 10/29/23 15:18 10/29/23 15:08 Temperature 97.6 F Pulse Rate 85 83 85 Respiratory Rate 23 H 23 H 23 H Blood Pressure 98/54 L 88/53 L 98/54 L Pulse Oximetry 99 99 98 Oxygen Delivery Room Air Room Air 10/29/23 15:23 10/29/23 15:28 10/29/23 15:38 Temperature 97.2 F L Pulse Rate 83 68 74 Respiratory Rate 21 H 22 H 21 H Blood Pressure 88/53 L 100/74 122/104 H Pulse Oximetry 100 99 94 Oxygen Delivery Room Air Room Air 10/29/23 15:38 10/29/23 15:57 10/29/23 15:38 Temperature 98.9 F 97.6 F Pulse Rate 74 72 74 Respiratory Rate 21 H 20 21 H Blood Pressure 122/104 H 96/62 L 122/104 H Pulse Oximetry 94 95 94 Oxygen Delivery Room Air 10/29/23 15:53 10/29/23 16:08 10/29/23 16:08 Temperature 97.6 F 97.6 F 97.6 F Pulse Rate 72 69 69 Respiratory Rate 20 20 20 Blood Pressure 98/62 L 94/55 L 94/55 L Pulse Oximetry 95 100 100 Oxygen Delivery 10/29/23 17:02 10/29/23 21:27 10/29/23 20:15 Temperature 97.7 F 98.4 F Pulse Rate 65 95 67 Respiratory Rate 18 18 20 Blood Pressure 98/70 L 98/67 L Pulse Oximetry 100 100 Oxygen Delivery 10/29/23 20:00 10/29/23 20:00 10/30/23 00:00 Temperature Pulse Rate 70 63 Respiratory Rate Blood Pressure Pulse Oximetry Oxygen Delivery Room Air 10/30/23 03:02 10/30/23 04:00 10/30/23 04:30 Temperature 98.3 F Pulse Rate 75 55 L 68 Respiratory Rate 18 20 Blood Pressure 115/78 Pulse Oximetry 100 Oxygen Delivery 10/30/23 07:13
--- NOTE | 2023-10-30 18:22 | WPDANESPN ---
Anes - Prog Note Post-Op Date/Time: 10/30/23 18:22 Cardiovascular status: normal Respiratory status: normal Airway patency: baseline Mental status: baseline Post-Op hydration status: normal Vital Signs: Last Vital Signs Temp 36.6 C 10/30/23 13:41 Pulse 90 10/30/23 16:00 Resp 18 10/30/23 13:41 BP 111/62 10/30/23 13:41 Pulse Ox 100 10/30/23 13:41 O2 Del Method Room Air 10/30/23 08:00 Pain Score (VAS): 0 I/O: Intake & Output 10/30/23 10/30/23 10/30/23 07:59 15:59 23:59 Intake Total 1110 580 220 Output Total 1050 1000 Balance 60 580 -780 Laboratory Tests 10/30/23 09:19 10/30/23 09:19 10/29/23 10/30/23 18:27 09:19 WBC 14.9 H 11.4 H RBC 2.80 L 2.68 L Hgb 8.0 L 7.6 L Hct 24.4 L 23.9 L MCV 87.1 89.2 MCH 28.6 28.4 MCHC 32.8 31.8 L RDW 13.7 14.2 Plt Count 293 313 MPV 9.0 8.9 Immature Gran % (Auto) 2.0 H Neut % (Auto) 69.4 Lymph % (Auto) 15.5 L [place] % (Auto) 10.9 H Eos % (Auto) 1.6 Baso % (Auto) 0.6 Lymph # (Auto) 1.77 [place] # (Auto) 1.2 H Eos # (Auto) 0.2 Baso # (Auto) 0.1 Abs Immat Gran (auto) 0.23 H Absolute Neuts (auto) 7.9 H Absolute Nucleated RBC 0.000 Nucleated RBC % 0.0 Sodium 131 L Potassium 3.6 Chloride 105 Carbon Dioxide 25 Anion Gap 1 L BUN 4 L D Creatinine 0.70 Estim Creat Clear Calc 90 Estimated GFR > 60 Glucose 74 Calcium 7.5 L Magnesium 1.9 Total Bilirubin 0.4 AST 20 ALT 17 Alkaline Phosphatase 37 L Total Protein 5.0 L Albumin 2.4 L Post-procedural complaints: none Patient Feedback: Patient satisfied with anesthetic care.
[2023-10-30] MEDS: SODIUM CHLORIDE 0.9% INJ 10 ML (20:44)
[2023-10-31] VITALS (15 sets, daily range): BP systolic 103–111; BP diastolic 66–81; PULSE 75–100; RESP 18–20; TEMP 36.4–36.9; O2SAT 94–100
[2023-10-31] MEDS: IPRATROPIUM 0.5 MG/ALBUTEROL SULFATE 2.5 MG AMPUL.NEB 3 ML INHALATION ×4 (02:02→20:15)
[2023-10-31 06:21] LABS: Alanine Aminotransferase 15 U/L (6-50); Albumin Level 2.5 g/dL (3.5-5.1); Alkaline Phosphatase 44 U/L (38-126); Anion Gap -1 mmol/L (4-12); Aspartate Amino Transferase 18 U/L (17-59); Bilirubin,Total 0.2 mg/dL (0.2-1.3); Blood Urea Nitrogen 7 mg/dL (9-20); Calcium 7.5 mg/dL (8.4-10.2); Carbon Dioxide 29 mmol/L (22-30); Chloride 101 mmol/L (98-107); Estimated CRCL calculation 80 ml/min; Estimated Glomerular Filt Rate > 60; Glucose 94 mg/dL (65-110); Magnesium 2.2 mg/dL (1.6-2.3); Potassium 3.5 mmol/L (3.4-5.0); Sodium 129 mmol/L (137-145)
[2023-10-31 06:31] LABS: Basophils Absolute Auto 0.1 K/mm3 (0.0-0.1); Basophils Percent Auto 0.4 % (0.2-1.2); Eosinophils Absolute Auto 0.2 K/mm3 (0-0.3); Eosinophils Percent Auto 1.3 % (0-4.4); Hemoglobin 7.2 g/dL (14.0-18.0); Immature Granulocyte Absolute 0.17 K/mm3 (0.00-0.031); Immature Granulocyte Percent A 1.4 % (0-0.5); Lymphocytes Absolute Auto 1.25 K/mm3 (0.9-3.2); Lymphocytes Percent Auto 10.6 % (18.3-44.2); Mean Corpuscular HGB Conc 32.7 g/dl (32-36); Mean Corpuscular Hemoglobin 28.9 pg (26-34); Mean Corpuscular Volume 88.4 fl (80-100); Mean Platelet Volume 8.9 fl (7.4-10.4); Neutrophils Absolute Auto 9.2 K/mm3 (1.3-6.7); Neutrophils Percent Auto 78.3 % (45.5-73.1); Platelet Count Result 346 k/mm3 (150-375); Red Blood Count 2.49 M/mm3 (4.6-6.20); Red Cell Distribution Width 14.1 % (11.5-14.5); White Blood Count 11.8 K/mm3 (4.5-10.0)
[2023-10-31] MEDS: FLUTICASONE/SALMETEROL 115-21 MCG INHALER 1 PUFF 2 PUFF INHALATION ×2 (07:09→20:18)
[2023-10-31] MEDS: AMOXICILLIN/CLAVULANATE K 875-125 MG TAB 1 TABLET PO ×2 (08:26→20:25)
[2023-10-31] MEDS: FERROUS SULFATE 325 MG TABLET DR PO (08:26)
[2023-10-31] MEDS: PANTOPRAZOLE SODIUM IV 40 MG VIAL IV PUSH ×2 (08:26→20:24)
--- NOTE | 2023-10-31 14:45 | PM.IMPN ---
Progress Note: A&P Assessment and Plan (1) Acute GI bleeding: Code(s): K92.2 - Gastrointestinal hemorrhage, unspecified Status: Acute Assessment and Plan: 10/28/23: Patient was given a bolus of IV fluids of normal saline. 2 units of blood transfusion type and crossmatch are being given right now. Also a drip for octreotide has been started continues A GI has been consulted. Dr. Dyer on the case has been notified Continue to monitor H&H last hemoglobin 8.4 hematocrit 28.1 10/29/23: Patient was taken back to the GI lab and fentanyl for bleeding ulcers that were injected with epi and clipped Patient received a total of 3 units PRBC Continue Protonix, stop octreotide Blood pressure ranging 98/54 to 100/74 which is much improved her mid 70s over 40s earlier today GI following Most recent hemoglobin is 7.7 Will recheck a CBC 1 hour after last unit of blood Continue IV fluids Can advance diet as tolerated to full liquid 10/30/23: Patient states that he has had a few bowel movements that look like old blood, he is not passing any bright red blood at this time. Blood pressure stable, hemoglobin 7.6 today Ferrous sulfate ordered Will go ahead and get rid of IV fluids today and advance his diet as tolerated Continue Protonix 10/31/23: Hemoglobin 7.2 today Blood pressure remains stable Continue with Protonix and ferrous sulfate GI following Tolerating advancement in his diet No bloody stools overnight. (2) Orthostatic hypotension: Code(s): I95.1 - Orthostatic hypotension Status: Acute Assessment and Plan: See above Time Spent With Patient Time with patient: 25 - 35 minutes Subjective Date/time seen: 10/31/23 14:45 Interval history: 10/29/23: This is a 57-year-old male who presented to the emergency room for evaluation of blood in his stool. He was recently hospitalized for CVA and started on Plavix and baby aspirin. During that admission he did have some issues with GI bleeding and had a colonoscopy a few days ago and had some polyps removed at that time. Initial labs shown a white blood cell count of 12.7, hemoglobin of 11.2, sodium 125, chloride 97. Abdomen pelvis CT showed fluid throughout the colon consistent with reported history of bloody diarrhea with increased attenuation distally which could represent some intraluminal hemorrhage. Patient was a rapid response on the floor due to hypotension. Blood pressures were running 70s over 40s. Patient was given IV fluids, magnesium citrate, started on octreotide and Protonix. He was given 3 units of blood today. He was taken back to the GI lab for colonoscopy and it showed 2 ulcers in the transverse colon which had blood clot or clots present in which they placed 4 resolution clips to control the bleeding, a single ulcer was visualized in the descending colon, that also had blood clots present as well and it was injected with epi and resolution clip x3 was placed, a single ulcer was visualized in the sigmoid colon and had presence of a blood clot which was injected with epi in the used 3 resolution clips there, a single ulcer was visualized in the recto sigmoid-post polypectomy ulcer with a blood clot present epi was injected and the ulcer was clipped x2, a few small diverticula were present in the sigmoid colon however those were not actively bleeding. Blood pressures are now ranging 98/54-100/74. 10/30/23: Patient denies any new complaints today. Labs today show white blood cell count of 11.4, hemoglobin is 7.6, sodium is 131. Blood pressure improved to 115/78 with maps in the 90s. We will go ahead and increase his diet to a soft diet and see how he tolerates. 10/31/23: Patient has no new complaints today. His hemoglobin today is 7.2 and stable. He is tolerating advancement in his diet. He denies any bloody stools overnight. GI continues to follow Review of Systems Review of Systems: All systems reviewed & are unremarkable
--- NOTE | 2023-10-31 17:19 | WPDGIPROGNO ---
Progress Note: A&P Assessment and Plan (1) Acute GI bleeding: Code(s): K92.2 - Gastrointestinal hemorrhage, unspecified Status: Acute Assessment and Plan: treated with colonoscopy- cause was post polypectomy ulcers after multiple large polyps removed resolved home soon (2) Post-polypectomy bleeding: Status: Acute Assessment and Plan: no more gib (3) Acute blood loss anemia: Code(s): D62 - Acute posthemorrhagic anemia Status: Acute Assessment and Plan: hgb low but stable iron supplement (4) Hematochezia: Code(s): K92.1 - Melena Status: Acute (5) Adenomatous colon polyp: Code(s): D12.6 - Benign neoplasm of colon, unspecified Status: Acute Assessment and Plan: colonoscopy again in 4-5 months (6) Acute CVA (cerebrovascular accident): Code(s): I63.9 - Cerebral infarction, unspecified Status: Acute Assessment and Plan: hold plavix for 7 days after last colonoscopy Subjective Date/time seen: 10/31/23 17:19 Interval history: no more bleeding, last BM normal and brown color Review of Systems Review of Systems: All systems reviewed & are unremarkable except as noted in HPI and below Exam Const: General: comfortable and no acute distress HENMT: Face/Nose/Sinus: Normal nares present Eyes: General: appearance normal, both eyes and all related structures Neck: Neck: supple Resp: Auscultation: clear to auscultation bilaterally Cardio: Rate: regular rate Rhythm: regular rhythm GI: Inspection: non-distended GI Palp: Yes Soft to palpation and No Tenderness to palpation present (GI) Auscultation: normal bowel sounds Skin: General skin exam: no rashes or lesions noted Neuro: Motor exam (neuro): 5/5 motor strength present throughout Extrem: General: normal to inspection Psych: Mental Status: mental status grossly normal Objective Data Vital Signs Vital Signs: Vital Signs - 24 hr 10/30/23 20:11 10/30/23 20:15 10/30/23 20:23 Temperature Pulse Rate 75 75 78 Respiratory Rate 18 18 Blood Pressure Pulse Oximetry 98 Oxygen Delivery Room Air 10/30/23 20:20 10/30/23 20:00 10/31/23 00:00 Temperature 97.9 F Pulse Rate 88 86 79 Respiratory Rate 18 Blood Pressure 108/70 Pulse Oximetry 98 Oxygen Delivery 10/30/23 20:00 10/31/23 02:02 10/31/23 02:10 Temperature Pulse Rate 86 81 Respiratory Rate 18 18 Blood Pressure Pulse Oximetry Oxygen Delivery Room Air 10/31/23 04:00 10/31/23 04:30 10/31/23 07:09 Temperature 97.6 F Pulse Rate 77 75 84 Respiratory Rate 20 18 Blood Pressure 111/66 Pulse Oximetry 98 Oxygen Delivery 10/31/23 07:45 10/31/23 08:58 10/31/23 08:00 Temperature 97.8 F Pulse Rate 91 78 78 Respiratory Rate 20 20 Blood Pressure 103/74 Pulse Oximetry 94 98 98 Oxygen Delivery Room Air Room Air 10/31/23 13:06 Temperature Pulse Rate 82 Respiratory Rate 18 Blood Pressure Pulse Oximetry Oxygen Delivery Intake/Output Intake/Output: Intake & Output 10/28/23 10/29/23 10/30/23 10/31/23 23:59 23:59 23:59 23:59 Intake Total 1500 6657 2060 920 Output Total 901 2050 Balance 1500 5756 10 920 Meds/Results Medications: Active Medications Generic Name Dose Route Start Last Admin Trade Name Freq PRN Reason Stop Dose Admin Albuterol/Ipratropium 3 ml 10/29/23 02:00 10/31/23 13:06 Ipratropium 0.5 Mg/Albuterol Sulfate 2.5 Mg Ampul.Neb 3 Ml INHALATION 3 ml Q6HRT TIAGO Administration Amoxicillin/Clavulanate Potassium 1 tablet 10/29/23 21:45 10/31/23 08:26 Amoxicillin/Clavulanate K 875-125 Mg Tab PO 1 tablet Q12HR TIAGO Administration Ferrous Sulfate 325 mg 10/30/23 09:00 10/31/23 08:26 Ferrous Sulfate [address] PO 325 mg DAILY TIAGO Administration Morphine Sulfate 2 mg 10/28/23 20:48 Morphine Sulfate (*Crx) 2 Mg/Ml Inj IV PUSH Q4H PRN Pain Rated 7-10
[2023-11-01] VITALS (10 sets, daily range): BP systolic 103; BP diastolic 74; PULSE 60–99; RESP 18; TEMP 36.7; O2SAT 99–100
[2023-11-01] MEDS: IPRATROPIUM 0.5 MG/ALBUTEROL SULFATE 2.5 MG AMPUL.NEB 3 ML INHALATION ×3 (03:06→13:20)
[2023-11-01 06:22] LABS: Basophils Absolute Auto 0.1 K/mm3 (0.0-0.1); Basophils Percent Auto 0.7 % (0.2-1.2); Eosinophils Absolute Auto 0.2 K/mm3 (0-0.3); Eosinophils Percent Auto 2.3 % (0-4.4); Hematocrit 23.3 % (42.0-52.0); Hemoglobin 7.3 g/dL (14.0-18.0); Immature Granulocyte Absolute 0.14 K/mm3 (0.00-0.031); Immature Granulocyte Percent A 1.7 % (0-0.5); Lymphocytes Absolute Auto 1.43 K/mm3 (0.9-3.2); Mean Corpuscular HGB Conc 31.3 g/dl (32-36); Mean Corpuscular Hemoglobin 28.5 pg (26-34); Mean Platelet Volume 8.8 fl (7.4-10.4); Monocytes Absolute Auto 0.9 K/mm3 (0.1-0.6); Monocytes Percent Auto 10.3 % (2.6-8.5); Neutrophils Absolute Auto 5.7 K/mm3 (1.3-6.7); Platelet Count Result 377 k/mm3 (150-375); Red Blood Count 2.56 M/mm3 (4.6-6.20); Red Cell Distribution Width 13.9 % (11.5-14.5); White Blood Count 8.4 K/mm3 (4.5-10.0)
[2023-11-01 06:32] LABS: Alanine Aminotransferase 16 U/L (6-50); Albumin Level 2.9 g/dL (3.5-5.1); Alkaline Phosphatase 45 U/L (38-126); Anion Gap 1 mmol/L (4-12); Aspartate Amino Transferase 18 U/L (17-59); Bilirubin,Total 0.2 mg/dL (0.2-1.3); Blood Urea Nitrogen 5 mg/dL (9-20); Calcium 7.9 mg/dL (8.4-10.2); Carbon Dioxide 30 mmol/L (22-30); Chloride 100 mmol/L (98-107); Estimated CRCL calculation 90 ml/min; Estimated Glomerular Filt Rate > 60; Glucose 101 mg/dL (65-110); Potassium 3.3 mmol/L (3.4-5.0); Sodium 131 mmol/L (137-145)
[2023-11-01] MEDS: FLUTICASONE/SALMETEROL 115-21 MCG INHALER 1 PUFF 2 PUFF INHALATION (08:04)
--- NOTE | 2023-11-01 08:36 | PM.DS ---
DS: Admitting Diagnosis Discharge Date 11/01/23 Admitting Diagnosis Acute GI bleed Antithrombin deficiency Acute blood loss anemia Emphysema lung Left basal ganglia embolic stroke DS: Discharge Diagnosis Discharge Diagnosis (1) Acute GI bleeding: Code(s): K92.2 - Gastrointestinal hemorrhage, unspecified Status: Acute (2) Orthostatic hypotension: Code(s): I95.1 - Orthostatic hypotension Status: Acute DS: Summary Hospital Course Reason for hospitalization: Acute GI bleed Antithrombin deficiency Acute blood loss anemia Emphysema lung Left basal ganglia embolic stroke Hospital Course: 10/29/23: This is a 57-year-old male who presented to the emergency room for evaluation of blood in his stool.? He was recently hospitalized for CVA and started on Plavix and baby aspirin.? During that admission he did have some issues with GI bleeding and had a colonoscopy a few days ago and had some polyps removed at that time.? Initial labs shown a white blood cell count of 12.7, hemoglobin of 11.2, sodium 125, chloride 97.? Abdomen pelvis CT showed fluid throughout the colon consistent with reported history of bloody diarrhea with increased attenuation distally which could represent some intraluminal hemorrhage.? Patient was a rapid response on the floor due to hypotension.? Blood pressures were running 70s over 40s.? Patient was given IV fluids, magnesium citrate, started on octreotide and Protonix.? He was given 3 units of blood today.? He was taken back to the GI lab for colonoscopy and it showed 2 ulcers in the transverse colon which had blood clot or clots present in which they placed 4 resolution clips to control the bleeding, a single ulcer was visualized in the descending colon, that also had blood clots present as well and it was injected with epi and resolution clip x3 was placed, a single ulcer was visualized in the sigmoid colon and had presence of a blood clot which was injected with epi in the used 3 resolution clips there, a single ulcer was visualized in the recto sigmoid-post polypectomy ulcer with a blood clot present epi was injected and the ulcer was clipped x2, a few small diverticula were present in the sigmoid colon however those were not actively bleeding.? Blood pressures are now ranging 98/54-100/74. 10/30/23: Patient denies any new complaints today.? Labs today show white blood cell count of 11.4, hemoglobin is 7.6, sodium is 131.? Blood pressure improved to 115/78 with maps in the 90s.? We will go ahead and increase his diet to a soft diet and see how he tolerates. 10/31/23: Patient has no new complaints today.? His hemoglobin today is 7.2 and stable.? He is tolerating advancement in his diet.? He denies any bloody stools overnight.? GI continues to follow 11/01/23: Patient denies any new complaints today. Labs today show a hemoglobin of 7.3, hematocrit 23.3, sodium 131, potassium 3.3. He is stable for discharge at this time. He will need to get a repeat CBC in 1 week and follow up with his primary care physician as well as GI in 2 weeks. He will continue on ferrous sulfate and Protonix. Final diagnosis: Acute GI bleed, acute blood loss anemia Status at Discharge Cognitive/behavioral status at discharge: Alert oriented x4 Functional status at discharge: independent ambulation Overall status at discharge: patient is progressing back to baseline Time Spent with Patient Time attestation: Total time spent providing and/or coordinating discharge services: Time spent: Greater than 30 minutes Exam Narrative: General: In no acute distress, well nourished Head: atraumatic, no encephalopathy Eyes: EOMI, PERRLA, sclera clear ENT: moist mucous membranes, nasal passages clear Neck: supple, no JVD, no adenopathy, trachea midline Cardiac: Normal S1 and S2., RRR, No murmur, gallops or friction rubs, peripheral pulses intact. Respiratory: Lungs clear to auscultation, no adventitious lung sounds, currently on room air Gas
[2023-11-01] MEDS: FERROUS SULFATE 325 MG TABLET DR PO (09:14)
[2023-11-01] MEDS: POTASSIUM CHLORIDE 20 MEQ ER TABLET 40 MEQ PO (09:14)
[2023-11-01] MEDS: AMOXICILLIN/CLAVULANATE K 875-125 MG TAB 1 TABLET PO (09:14)
[2023-11-01] MEDS: PANTOPRAZOLE SODIUM IV 40 MG VIAL IV PUSH (09:16)
--- NOTE | 2023-11-01 16:07 | WPDGIPROGNO ---
Progress Note: A&P Assessment and Plan (1) Acute GI bleeding: Code(s): K92.2 - Gastrointestinal hemorrhage, unspecified Status: Acute Assessment and Plan: treated with colonoscopy- cause was post polypectomy ulcers after multiple large polyps removed no more bleeding since day of colonoscopy home today (2) Post-polypectomy bleeding: Status: Acute Assessment and Plan: no more gib (3) Acute blood loss anemia: Code(s): D62 - Acute posthemorrhagic anemia Status: Acute Assessment and Plan: hgb low but stable iron supplement (4) Hematochezia: Code(s): K92.1 - Melena Status: Acute (5) Adenomatous colon polyp: Code(s): D12.6 - Benign neoplasm of colon, unspecified Status: Acute Assessment and Plan: will arrange another colonoscopy in 4-5 months (6) Acute CVA (cerebrovascular accident): Code(s): I63.9 - Cerebral infarction, unspecified Status: Acute Assessment and Plan: hold plavix for 7 days after last colonoscopy Subjective Date/time seen: 11/01/23 10:07 Interval history: no bleeding, he is going home today Review of Systems Review of Systems: All systems reviewed & are unremarkable except as noted in HPI and below Exam Const: General: comfortable and no acute distress HENMT: Face/Nose/Sinus: Normal nares present Eyes: General: appearance normal, both eyes and all related structures Neck: Neck: supple Resp: Auscultation: clear to auscultation bilaterally Cardio: Rate: regular rate Rhythm: regular rhythm GI: Inspection: non-distended GI Palp: Yes Soft to palpation and No Tenderness to palpation present (GI) Auscultation: normal bowel sounds Skin: General skin exam: no rashes or lesions noted Neuro: Motor exam (neuro): 5/5 motor strength present throughout Extrem: General: normal to inspection Psych: Mental Status: mental status grossly normal Objective Data Vital Signs Vital Signs: Vital Signs - 24 hr 10/31/23 20:18 10/31/23 20:18 10/31/23 20:29 Temperature Pulse Rate 84 84 100 Respiratory Rate 18 20 Blood Pressure Pulse Oximetry 99 Oxygen Delivery Room Air 10/31/23 21:24 10/31/23 20:00 11/01/23 03:06 Temperature 98.4 F Pulse Rate 99 60 Respiratory Rate 18 18 Blood Pressure 106/81 Pulse Oximetry 100 Oxygen Delivery Room Air 11/01/23 03:15 11/01/23 06:06 10/31/23 20:00 Temperature 98.0 F Pulse Rate 66 71 84 Respiratory Rate 18 18 Blood Pressure 103/74 Pulse Oximetry 100 Oxygen Delivery 11/01/23 00:00 11/01/23 04:00 11/01/23 08:05 Temperature Pulse Rate 70 71 Respiratory Rate Blood Pressure Pulse Oximetry 99 Oxygen Delivery Room Air 11/01/23 08:05 11/01/23 08:18 11/01/23 08:00 Temperature Pulse Rate 73 90 90 Respiratory Rate 18 18 18 Blood Pressure Pulse Oximetry 99 Oxygen Delivery Room Air 11/01/23 13:20 11/01/23 13:29 Temperature Pulse Rate 90 99 Respiratory Rate 18 18 Blood Pressure Pulse Oximetry Oxygen Delivery Intake/Output Intake/Output: Intake & Output 10/29/23 10/30/23 10/31/23 11/01/23 23:59 23:59 23:59 23:59 Intake Total 6657 2060 1808 898 Output Total 901 2050 Balance 5756 10 1808 898 Meds/Results Radiology Results: ITS Impressions Abdomen/Pelvis CT 10/28/23 19:32 IMPRESSION: 1. Fluid throughout the colon consistent with reported history of bloody diarrhea with increased attenuation distally which could represent some intraluminal hemorrhage. 2. 3 linear metallic densities within the mid to distal colon likely hemostasis clips related to reported prior colonoscopy with polypectomies. Labs Labs: Laboratory Results - last 24 hr 11/01/23 05:48 WBC 8.4 RBC 2.56 L Hgb 7.3 L Hct 23.3 L MCV 91.0 MCH 28.5 MCHC 31.3 L RDW 13.9 Plt Count 377 H MPV 8.8 Immature Gran % (Auto) 1.7 H Neut % (Auto) 68.0 Lymph % (Auto)
== END 2023-11-01 13:50 | disposition home or self-care (01) | DRG 810 ==
LOC: ANHED 21:02 → ANH3MEDSUR 21:48
PROVIDERS: Internal Medicine Gastroenterology; Admitting Provider Internal Medicine; Emergency Provider Physician Assistant; PCP Family Medicine; Visit Provider Nurse Practitioner Acute Care
PROC: 0DJD8ZZ Inspection of Lower Intestinal Tract, Via Natural or Artificial Opening Endoscopic (ICD-10-PCS; CPT 45378; principal; 2023-10-29 14:30)
DX: K91.840 Postprocedural hemorrhage of a digestive system organ or structure following a digestive system procedure (principal); I95.1 Orthostatic hypotension; E87.1 Hypo-osmolality and hyponatremia; J43.9 Emphysema, unspecified; D68.59 Other primary thrombophilia; D62 Acute posthemorrhagic anemia; F17.210 Nicotine dependence, cigarettes, uncomplicated; I10 Essential (primary) hypertension; D12.6 Benign neoplasm of colon, unspecified; K63.3 Ulcer of intestine; K57.30 Diverticulosis of large intestine without perforation or abscess without bleeding; Z86.73 Personal history of transient ischemic attack (TIA), and cerebral infarction without residual deficits
CPT/HCPCS: 36415; 36430; 74177; 80048; 80053; 82948; 83735; 85014; 85018; 85025; 85027; 85610; 85730; 86850; 86900; 86901; 86923; 94640; 96361; 96374; 96375; 96376; 99285; A9270; C9113; G0378; G0379; J0171; J2354; J2704; J7030; J7040; J7050; J7120; P9016; Q9967

== ENCOUNTER 2024-02-22 13:31 | Outpatient (CLI) | payer OTHER, SELFPAY ==
--- NOTE | ~2024-02-22 | CT_ITS ---
CT diagnostic chest wo con Ordering provider: Daria New MD History: 58 years Male with . J98.4 - Other disorders of lung . Comparison: October 20, 2023 Technique: CT chest without IV contrast. Radiation reduction technique utilized. The dose-length product was 179.93 mGy-cm. FINDINGS: VISUALIZED THORACIC INLET: Normal. MEDIASTINUM: Aorta/coronary arteries: Mild atheromatous disease. Heart/other: The heart is not enlarged. Trace of pericardial effusion. Lymph nodes: No mediastinal or hilar adenopathy. Paratracheal lymph node seen the largest measures 1. 6 cm. Prevascular lymph nodes are also noted with the largest 1.1 cm. LUNGS: Cavitary lesion is seen in the left upper lobe area unchanged from previous examination and me asures 3.6 x 4.6 cm. Scarring in the left upper lobe areas seen. nodule in the right upper lobe measures 1.1 cm. Another one is seen measuring 0.8 cm. Nodule seen in the right upper lobe which may be a scar measuring 4 cm. Nodule is also seen in the middle lobe levi uring 0.9 cm. Other nodules are seen in the middle and lower lobe. Cavitary lesion is seen in the lef t lower lobe posteriorly which measures 1.2 x1.7 cm. Scarring is seen bilaterally. Bilateral tiny nod ules are also seen. No infiltrates or effusions. No pneumothorax. VISUALIZED UPPER ABDOMEN: Othe PSV visualized upper abdomen is normal. MUSCULOSKELETAL: Soft tissues: The superficial soft tissues are normal. Bones: Age appropriate degenerative changes of the spine. IMPRESSION: 1. Cavitary lesion in the left upper lobe minimally changed. 2. Multiple nodules bilaterally unchanged. Cavitary Nodule is seen in the left lower lobe which is n ew. Reviewed, dictated and finalized at location A. IMPRESSION: 1. Cavitary lesion in the left upper lobe minimally changed. 2. Multiple nodules bilaterally unchanged. Cavitary Nodule is seen in the left lower lobe which is new.
--- NOTE | 2024-02-22 16:11 | WPDSIXMINUTE ---
Six Minute Walk Procedure Procedure Performed Pulmonary Stress Test (6 min walk) Six Minute Walk Six Minute Walk: This is a 6 minute walk test. The test was performed and interpreted in accordance with the 2014 ERS/ATS task force guidelines. Findings: The patient's resting room air oxygen saturation measured by pulse oximetry was 99% and heart rate was 73 bpm. Patient ambulated for 396 meters and oxygen saturation remained 96%. Heart rate at the end of the study was 114 bpm. The patient did not qualify for supplemental oxygen at rest or with ambulation. There are no prior studies for comparison.
--- NOTE | 2024-02-22 16:13 | WPDPFTINT ---
PFT Procedure Performed PFT Procedure Performed Spirometry with Pre/Post Bronchodilator Plethysmography (Lung Vol) Diffusing Cap (DLCO) Flow Vol Loop PFT Interpretation This is a pulmonary function test with pre and post-bronchodilator spirometry, plethysmography and diffusing capacity. The test was performed and results interpreted in accordance with the 2019 and 2005 ATS/ERS Task Force guidelines respectively using the Global Lung Function Initiative-2012 reference equations. Patient demonstrated good effort and cooperation. Reproducibility criteria were met. The quality of the pre bronchodilator spirometry maneuver was Grade A and post bronchodilator spirometry maneuver was Grade A. Findings: Spirometry: There is decreased maximal expiratory airflow at all lung volumes with concave expiratory flow tracing. The contour the inspiratory flow tracing is normal. The pre bronchodilator FVC is 3.38 L, 75% predicted. The pre bronchodilator FEV1 is 1.61 L, 46% predicted. The pre bronchodilator FEV1: FVC ratio is 48%. The post bronchodilator FVC is 3.66 L, representing an 8% increase. The post bronchodilator FEV1 is 1.62 L, representing 1% increase. The post bronchodilator FEV1: FVC ratio is 44%. Plethysmography: The total lung capacity is 7.51 L, 114% predicted. The functional residual capacity is 5.14 L, 152% predicted. The residual volume is 3.84 L, 187% predicted. The residual volume: Total lung capacity ratio is 51%. Diffusing capacity: The diffusing capacity unadjusted for hemoglobin and carboxyhemoglobin is 12.5, 44% predicted. The diffusing capacity adjusted for alveolar volume is 2.93, 65% predicted. Impression: There is a severe obstructive abnormality. There is no significant improvement after inhaling a single dose of albuterol. The increase in residual volume to total lung volume ratio is consistent with hyperinflation from an obstructive abnormality. The diffusing capacity unadjusted for hemoglobin and carboxyhemoglobin is moderately decreased and remains mildly decreased when adjusted for alveolar volume. There are no prior studies for comparison
== END 2024-02-22 13:32 | disposition home or self-care (01) ==
PROVIDERS: PCP Family Medicine; Visit Provider Internal Medicine Critical Care Medicine
DX: J98.4 Other disorders of lung (principal); R94.2 Abnormal results of pulmonary function studies; R91.8 Other nonspecific abnormal finding of lung field
CPT/HCPCS: 71250; 94060; 94618; 94726; 94729

== ENCOUNTER 2024-04-24 12:06 | Outpatient (CLI) | payer OTHER, SELFPAY ==
[2024-04-24 14:01] LABS: Folic Acid > 20.0 ng/mL (2.76->20)
[2024-04-27 01:49] LABS: Vitamin B1 165 nmol/L (8-30)
== END 2024-04-24 12:07 | disposition home or self-care (01) ==
LOC: ANHLAB 12:07
PROVIDERS: PCP Family Medicine; Visit Provider Family Medicine
DX: E46 Unspecified protein-calorie malnutrition (principal)
CPT/HCPCS: 36415; 82607; 82746; 84425

== ENCOUNTER 2024-04-30 13:43 | Emergency (ER) | payer OTHER, SELFPAY ==
[2024-04-30 13:59] VITALS: BP 119/87; PULSE 91; RESP 15; TEMP 36.6; O2SAT 100
--- NOTE | 2024-04-30 19:20 | ED.GENADULT ---
HPI - General Adult General Chief complaint: Recheck/Abnormal Lab/Rx Stated complaint: feeding tube came out Time Seen by Provider: 04/30/24 19:07 History of Present Illness HPI narrative: Patient is a 58-year-old gentleman who presents emergency department with chief complaint of pulled G-tube out. Patient reports that he had a CVA several months ago and has had a G-tube the patient states that he failed a swallow study about a month ago but has transition back to eating everything in taking all of his medications orally the patient states that he has not used his G-tube and about 3-4 weeks and states that he is scheduled to have a new swallow eval later this month patient states that he snagged his G-tube on a wheelchair and reports that it was pulled out the patient states that they dressed the wound and debated on whether to come to the emergency department decided to come to the emergency department to be evaluated the patient states that he is not using his G-tube and does not want G-tube replaced. Related Data Allergies Allergy/AdvReac Type Severity Reaction Status Date / Time No Known Allergies Allergy Mild Verified 04/24/24 11:25 Review of Systems Review of Systems: A 10 system review of systems was completed on the patient and is negative except for what is stated in the HPI. Nursing and ancillary documentation was reviewed. PMFSH Past Medical History Medical History Adenomatous colon polyp COPD (chronic obstructive pulmonary disease) Expressive aphasia History of stroke with current residual effects History of tobacco abuse HTN (hypertension) Left basal ganglia embolic stroke Post-polypectomy bleeding Smoker Family History Family History Father Hypertension Mother Family history of diabetes mellitus in first degree relative Sibling Hypertension Grandparent , 4 days before 101 birthday Hypertension Social History Social History Smoking status: Former smoker Tobacco type: cigarettes Smoking end date: 10/20/23 Additional smoking assessment comments: 2 PPD x 40 years Alcohol intake: former Alcohol use details: 3-5 drinks/day Substance use: never Substance use type: does not use Do You Feel Safe in your Home?: Yes Lack of Transportation: No Lack of Food: Never True Current Housing: I Have Housing Concerned About Future Housing: No Difficulty Paying Gas/Electric Bills: No Difficulty Paying for Meds: No Currently Unemployed: No Education: Trade/Vocational Certificate Difficulty w/ Childcare or Family Care: No Occupation/Education: retired Gender identity (if verbalized by the patient): Male Sexual Orientation (if Verbalized by the Patient): Straight or Heterosexual Spiritual care concerns: No Exam Narrative: GENERAL: Well-appearing, well-nourished, and in no acute distress. HEAD: Normocephalic, atraumatic. EYES: PERRLA and EOMI. ENT: Nares clear, no rhinorrhea or epistaxis. Mucous membranes moist. NECK: Supple. CHEST: Clear to auscultation. No respiratory distress. HEART: Regular rate and rhythm. No murmur heard. Normal peripheral pulses. ABDOMEN: Soft, nontender, nondistended, normal active bowel sounds. EXTREMITIES: Normal range of motion. No edema. SKIN: Warm, dry, no rash. NEURO: No new focal deficits. Alert and oriented x3. PSYCH: Normal mood and affect. Course Vital Signs Vital signs: Vital Signs Temperature 36.6 C 04/30/24 13:59 Pulse Rate 91 04/30/24 13:59 Respiratory Rate 15 04/30/24 13:59 Blood Pressure 119/87 04/30/24 13:59 Pulse Oximetry 100 04/30/24 13:59 Temperature 36.6 C 04/30/24 13:59 Pulse Rate 91 04/30/24 13:59 Respiratory Rate 15 04/30/24 13:59 Blood Pressure 119/87 04/30/24 13:59 Pulse Oximetry 100 04/30/24 13:59 Medical
[2024-04-30 19:33] VITALS: RESP 18; O2SAT 100
[2024-04-30 20:35] VITALS: BP 130/74; PULSE 82; RESP 17; TEMP 36.8; O2SAT 88
== END 2024-04-30 19:50 | disposition home or self-care (01) ==
PROVIDERS: Emergency Provider Emergency Medicine; PCP Family Medicine
DX: Z43.1 Encounter for attention to gastrostomy (principal); I10 Essential (primary) hypertension; J44.9 Chronic obstructive pulmonary disease, unspecified; I69.320 Aphasia following cerebral infarction; Z87.891 Personal history of nicotine dependence
CPT/HCPCS: 99281

== ENCOUNTER 2024-12-27 11:55 | Outpatient (CLI) | payer OTHER, SELFPAY ==
--- OUTSIDE RECORDS SUMMARY | 2024-12-27 11:58 | XMS_ITS | Clinical Summary ---
Author Organization [facility] Address [address] [place] [address] Care Team Providers Care Engineering Vice President Name Role Phone Mike Ball MD Primary Care Provider [phone] Source Comments [facility],non-owned Affiliates and Associated Physician Practices is amultiple site organization consisting of ambulatory clinics and hospital sitesin [place], [place], [place] and [place]. This disclosure is being madepursuant to the Care Everywhere program and may not contain all information available regarding this patient. Last updated 18.[facility] Allergies No known active allergies Medications * Be aware that medications may not be up to date on this document. Alwaysverify current medications with the patient. budesonide-form oterol (Symbicort) 160-4.5 MCG/ACT inhaler Inhale 2 (two) puffs by mouth 2 times daily 4 Active Additional Information Patient not taking.Reported on 05/24/2024 albuterol HFA (Proventil; Ventolin; Proair) 108 (90 Base) MCG/ACT inhaler Inhale 1 (one) puff by mouth every 4 hours as needed for Shortness of Breath or Wheezing 4 Active atorvastatin (Lipitor) 40 MG tablet 1 (one) tablet by Enteral Tube route at bedtime 4 Active Additional Information Patient taking differently:40 mgOralAT BEDTIME, Reported on 05/24/2024 multiple vitamins with minerals tablet 1 (one) tablet by Enteral Tube route once daily 4 Active Additional Information Patient taking differently:1 tabletOralDAILY, Reported on 05/24/2024 thiamine (Vitamin B-1) 100 MG tablet 1 (one) tablet by Enteral Tube route once daily 4 Active Additional Information Patient taking differently:100 mgOralDAILY, Reported on 05/24/2024 baclofen (Lioresal) 5 MG TABS Take 1 (one) tablet by mouth 3 times daily 4 Active albuterol-iprat ropium (Duo-Neb) 0.5-2.5 (3) MG/3ML nebulizer solution USE 1 AMPULE IN NEBULIZER EVERY 8 HOURS 4 Active Active Problems Problem Noted Date Diagnosed Date Thalamic hemorrhage 03/06/2024 Hemorrhagic stroke 03/05/2024 Midline shift of brain with brain compression Muscle weakness of left upper extremity 03/04/20 Cerebrovascular accident (CVA), unspecified mech anism 03/04/2024 HTN (hypertension) 03/04/2024 Left-sided weakness 03/04/2024 Facial droop 03/04/2024 Dysarthria 03/04/2024 Social History Tobacco Use Types Packs/Day Years Used Date Smoking Tobacco: Former Cigarettes Smokeless Tobacco: Never Tobacco Cessation:Counseling Given: Not Answered Alcohol Use Standard Drinks/Week Comments Yes 0 (1 standard drink = 0.6 oz pur e alcohol) daily AUDIT-C Answer Date Recorded Q1: How often do you have a drink containing alc ohol? Monthly or less 03/04/2024 Q2: How many drinks containi ng alcohol do you have on a typical day when you are drinking? 1 or 2 03/04/2024 Q3: How often do you have si x or more drinks on one occasion? Less than monthly 03/04/2024 Overall Financial Resource Strain (CARDIA) Answe r Date Recorded How hard is it for you to pa y for the very basics like food, housing, medical care, and heating? Not hard at all 03/04/2024 PHQ-2 Answer Date Recorded Patient Health Questionnaire-2 Score 0 03/12/2024 [facility] of Occupat ional Health - Occupational Stress Questionnaire Answer Date Recorded Do you feel stress - tense, restless, nervous, or anxious, or unable to sleep at night because your mind is troubled all the time - these days? Not at all 03/04/2024 Hunger Vital Sign Answer Date Recorded Within the past 12 months, y ou worried that your food would run out before you got the money to buy more. Never true 03/04/20 24 Within the past 12 months, t he food you bought just didn't last and you didn't have money to get more. Never true 03/04/2024 PRAPARE - Transportation Answer Date Re corded In the past 12 months, has l ack of transportation kept you from medical appointments or from getting medications? No 02/23 In the past 12 months, has l ack of transportation kept you from meetings, work, or from getting things needed for daily living? No 03/04/2024 Housing Stability Vital Sign Answer Rojas e Recorded In the last 12 months, was t here a time when you were not able to pay the mortgage or rent on time? No 03/04/2024 In the last 12 months, how many places have you lived? 1 03/04/2024 In the last 12 months, was t here a time when you did not have a steady place to sleep or slept in a assisted (including now)? No 03/04/2024 Sex and Gender Information Value Date Recorded Sex Assigned at Not on file Legal Sex Male 7:04 AM CDT Gender Identity Not on file Sexual Orientation Not on file Last Filed Vital Signs Vital Sign Reading Time Taken Comments Blood Pressure 125/84 05/24/2024 2:39 PM CDT Pulse 103 05/24/2024 2:39 PM CDT Temperature 36.6 C (97.9 F) 04/20/2024 1:59 PM CDT Respiratory Rate 12 05/24/2024 2:39 PM CDT Oxygen Saturation 98% 04/20/2024 1:59 PM CDT Inhaled Oxygen Concentration - - Weight 61.2 kg (135 lb) 05/24/2024 2:39 PM CDT Height 172.7 cm (5' 8) 05/24/2024 2:39 PM CDT Body Mass Index 20.53 05/24/2024 2:39 PM CDT Plan of Treatment Health Maintenance Due Date Last Done Comments COLOGUARD (AGES 45-75) - COL ON CA SCREENING 1967 COLON MONITORING 1967 COLONOSCOPY - COLON CA SCREENING 1967 CT COLONOGRAPHY - COLON CA SCREENING 1967 Colorectal Cancer Screening 1967 FIT - COLON CA SCREENING 1967 FLEX SIG - COLON CA SCREENING 1967 HIV SCREENING 11/17/1982 HEPATITIS C SCREENING 11/13/1985 DTAP/TDAP/TD VACCINES (1 - Tdap) 11/17/1986 HEPATITIS B VACCINE (1 of 3 - 19+ 3-dose series) 11/17/1986 PNEUMOCOCCAL VACCINE 50+ (1 of 1 - PCV) 11/17/2017 ZOSTER VACCINE (1 of 2) 11/17/2017 COVID-19 VACCINE (3 - 2023-2 5 season) 2024 08/09/2021, 10/06/2020 DEPRESSION SCREENING 07/26/2024 03/04/2024 INFLUENZA VACCINE (Season Ended) 2025 HIB VACCINE Aged Out No longer eligi ble based on patient's age to complete this topic HPV VACCINE Aged Out No longer eligi ble based on patient's age to complete this topic MENINGOCOCCAL (Group B) VACCINE SHARED DECISION-MAKING Aged Out No longer eligible based on patient's age to complete this topic MENINGOCOCCAL GROUPS A/C/Y/W VACCINE Aged Out No longer eligible b ased on patient's age to complete this topic Insurance [facility] Advance Directives Documents on File Type Date Recorded Patient Tip Fixer Expl anation Adv Directive/Living Will/POA 03/14/2024 11:11 AM * Full Code (Latest Code Status on File) Date Activated Date Inactivated Comments 03/04/2024 12:15 PM 03/13/2024 7:01 PM Care Teams Engineering Vice President Relationship Specialty Start Date End Date Mike Ball MD [address] [place] [address] PCP - General Family Medicine 03/09/24
[2024-12-27 12:25] LABS: Hematocrit 43.7 % (42.0-52.0); Mean Corpuscular HGB Conc 29.7 g/dl (32-36); Mean Corpuscular Hemoglobin 25.1 pg (26-34); Mean Corpuscular Volume 84.5 fl (80-100); Mean Platelet Volume 9.4 fl (7.4-10.4); Platelet Count Result 384 k/mm3 (150-375); Red Blood Count 5.17 M/mm3 (4.6-6.20); Red Cell Distribution Width 14.6 % (11.5-14.5)
[2024-12-27 12:37] LABS: Alanine Aminotransferase 19 U/L (6-50); Albumin Level 4.3 g/dL (3.5-5.1); Alkaline Phosphatase 88 U/L (38-126); Anion Gap 6 mmol/L (4-12); Aspartate Amino Transferase 25 U/L (17-59); Bilirubin,Total 0.5 mg/dL (0.2-1.3); Blood Urea Nitrogen 17 mg/dL (9-20); Calcium 9.5 mg/dL (8.4-10.2); Carbon Dioxide 30 mmol/L (22-30); Chloride 104 mmol/L (98-107); Cholesterol 92 mg/dL (0-200); Estimated Glomerular Filt Rate > 60; Glucose 90 mg/dL (65-110); HDL Direct 47 mg/dL; Sodium 140 mmol/L (137-145); Triglycerides 78 mg/dL (<150)
[2024-12-27 13:09] LABS: Prostate Specific Antigen 1.4 ng/mL (< OR = 4.0)
[2024-12-27 14:00] LABS: LDL Cholesterol Direct < 30 mg/dL
== END 2024-12-27 11:56 | disposition home or self-care (01) ==
LOC: ANHLAB 11:56
PROVIDERS: PCP Family Medicine; Visit Provider Family Medicine
DX: Z00.00 Encounter for general adult medical examination without abnormal findings (principal); I10 Essential (primary) hypertension; R35.1 Nocturia; E78.5 Hyperlipidemia, unspecified
CPT/HCPCS: 36415; 80053; 80061; 84153; 84443; 85027

== ENCOUNTER 2025-03-23 10:28 | Outpatient (CLI) | payer OTHER, SELFPAY ==
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
--- OUTSIDE RECORDS SUMMARY | 2025-03-22 11:30 | XMS_ITS | Encounter Summary ---
Author Organization [facility] Address [address] [place] [address] Care Team Providers Care Research Assoc Name Role Phone Mike Ball MD Primary Care Provider Reason for Visit * Reason Comments PT Treatment * Physical Therapy (Routine) - Authorized Specialty Diagnoses / Procedures Referred By Contac t Referred To Contact Physical Therapy Diagnoses Hemiplegia, unspecified etiology, unspecified hemiplegia type, unspecified laterality (HCC) Cerebral infarction, unspecified mechanism (HCC) Unspecified sequelae of cerebral infarction Unsteadiness on feet Other abnormalities of gait and mobility Weakness Kristian Lofton PA [address] [facility] [address] [place] [address] Phone: tel: fax: [facility] OP Physical Therapy [address] [place] [id number] Phone: tel: fax: Referral ID Status Reason Start Date Expiration Date Visits Requested Visits Authorized [id number] Authorized Evaluate and Treat 02/06/2025 04/22/2025 16 9 Encounter Details Date Type Department Care Team (Late st Contact Info) Description 03/22/2025 11:30 AM CDT Therapy [facility] Physical Therapy [address] [place] [id number] Sydney Dacosta PTA Hemiplegia, unspecified etiology, unspecified hemiplegia type, unspecified laterality (HCC) (Primary Dx); Cerebral infarction, unspecified mechanism (HCC); Unsteadiness on feet; Other abnormalities of gait and mobility Social History Tobacco Use Types Packs/Day Years Used Date Smoking Tobacco: Former Cigarettes 1 30 S tarted: 1993 Passive Smoke Exposure: Past Smokeless Tobacco: Never [facility] Utilities Answer Date Recorded In the past 12 months has th e electric, gas, oil, or water company threatened to shut off services in your home? No 02/28/2025 Social Connection and Isolation Panel Answer Date Recorded In a typical week, how many times do you talk on the phone with family, friends, or neighbors? More than three times a week 02/28/2025 How often do you get togethe r with friends or relatives? More than three times a week 02/28/2025 How often do you attend chur ch or islam services? Never 02/28/2025 Do you belong to any clubs o r organizations such as episcopalian groups, unions, fraternal or athletic groups, or school groups? No 02/28/2025 How often do you attend meet ings of the clubs or organizations you belong to? Never 02/28/2025 Are you , , di vorced, , never , or living with a partner? Never 02/28/2025 AUDIT-C Answer Date Recorded Q1: How often do you have a drink containing alcohol? Never 02/15/2025 Q2: How many drinks containi ng alcohol do you have on a typical day when you are drinking? Patient does not drink Frequency of Binge Drinking Not on file 01/24 Overall Financial Resource Strain (CARDIA) Answe r Date Recorded How hard is it for you to pa y for the very basics like food, housing, medical care, and heating? Not hard at all 02/28/2025 Hunger Vital Sign Answer Date Recorded Within the past 12 months, y ou worried that your food would run out before you got the money to buy more. Never true 02/29/20 25 Within the past 12 months, t he food you bought just didn't last and you didn't have money to get more. Never true 02/28/2025 PRAPARE - Transportation Answer Date Re corded In the past 12 months, has l ack of transportation kept you from medical appointments or from getting medications? No 12/2024 In the past 12 months, has l ack of transportation kept you from meetings, work, or from getting things needed for daily living? No 02/28/2025 Housing Stability Vital Sign Answer Rojas e Recorded In the last 12 months, was t here a time when you were not able to pay the mortgage or rent on time? No 02/28/2025 In the past 12 months, how m any times have you moved where you were living? 0 02/28/2025 At any time in the past 12 m [facility], were you homeless or living in a fdc (including now)? No 02/28/2025 Personal Safety Answer Date Recorded Have you ever been in or are you currently in a harmful physical or emotional relationship or is someone making you feel afraid or unsafe? 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 Hemiplegia, unspecified etiology, unspecified hemiplegia type, unspecified laterality (HCC) G81.90 2. Cerebral infarction, unspecified mechanism (HCC) I63.9 3. Unsteadiness on feet R26.81 4. 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 Patient will increase R LE ROM to within 10 degrees of L LE for improved ability to perform double limb support tasks in home. Long-Term Goals: to be met by 04/10/2025 Patient will be independent in HEP (new and revised). Patient will increase DGI to 07/18 with SC with new AFO donned for increased safety and independence in community ambulation. Patient will decrease FES-I to 27/64 for decreased fear of falling in home and community. Patient Goal: improved walking with lesser AD PT Eval Date: 02/13/2025 Orders : 04/10/2025 INITIAL CERTIFICATION DATES: From 02/13/2025 to 04/10/2025 (8 weeks) Date Date Date Date Date 03/13/25 03/15/25 03/20/25 03/22/25 Visit Number 2 3 4 5 ADDITIONAL HEP SHEETS ISSUED EXERCISES TO BE PERFORMED IN ORDER TIME ALLOWS: Sitting on sudanese ball: Marching Cross crawls Chopping/reaching Blue ball 15x 15x 15x/done Red ball 10x each with min cues for upright posture Red Kyrgyz x10 each Supine RTB left hip ER 10x2 Left hip: flexor and ADD stretches Tall kneeling: Reaching Double UE reaching and chopping Done with blue ball in front of pt Chopping with YTB 10x each way. N/A additional d/t SOB. SpO2, on room air 79-97% with pulse 75-112 bpm. Reaching Chopping x10 BI Chopping with RTB 15x each each direction Half kneeling (weightbearing in L LE with R LE lead) Reaching and chopping Nt tired from tall kneeling N/A 1/2 kneeling LLE lead 1/2 kneeling reaching with BUEs across midline and to improve left weight shift Theraband wall in standing: Extension Row Core pulls Palloff Press nt Back extension nt HS curls nt Leg press nt Hip machine nt Step up with L LE leading Step down lateral with R LE leading 4 in step up 10x Standing balance: Rhomberg (EO firm) Rhomberg (EC firm) Rhomberg (EO Foam) Tandem SLS Sidestepping on foam Carioca/grapevine Side step no foam 2x Gait training: Obstacle navigation/stepping over Progress Note/Re-Cert * Sydney Dacosta PTA - 03/22/2025 11:30 AM CDT Images from the original note were not included. Physical Therapy Visit/Daily Note 03/22/2025 Griffin Rodriguez 1965 ICD-10-CM 1. Hemiplegia, unspecified etiology, unspecified hemiplegia type, unspecified laterality ([facility]) G81.90 2. Cerebral infarction, unspecified mechanism (HCC) I63.9 3. Unsteadiness on feet R26.81 4. Other abnormalities of gait and mobility R26.89 KRISTIAN LOFTON Correction Officer Head Services Utilized: NO Patient is identified by name and date of on this visit. Subjective: Pt reports feeling better.following last visit. Pt reports daily compliance with HEP, most of them.I do my squats and step ups daily. Pt is reporting continued difficulty with prolonged walking. Pain today is 0/10 Changes since last visit include, I feel I can walk farther without getting short of breath. Objective: Objective Measurement/Observation: Pt ambulates with wheeled walker with left hip hike and IR, stepto sequencing and left hip ADD and needing moderate verbal cues from clinician for gait technique. Pt had audible SOB and his SpO2, on room air, ranged 85-93% with pulse of 79-110 bpm. He required 1 min for recovery during the initial gait and 20 sec during second gait. Pt received left hip stretches to decrease tone and improve mobility. He reported feeling less stiff post rx. Pt also completed supine clamshells with RTB and decreased AROM with left hip. Pt required several short therapeutic rest breaks d/t SOB. Specific exercises and treatment interventions are outlined on exercise worksheet document. Treatment Performed on This Visit: Manual Therapy (body part and techniques): none. Therapeutic Procedure/Exercise: refer to exercise flowsheet. Modalities: none. HEP given: continue with current HEP and added supine clamshells. Patient education: Correct ex and gait technique. Assessment: The patient demonstrated a good response to today's treatment as evidenced by these objective findings: Pt was able to demonstrate improved gait technique post rx. The patient is making expected progress toward STG # 2 as evidenced by changes in ability to initiate tall kneeling chops with red TB.The patient continues to demonstrate deficits with endurance and LE strength. 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 Patient will increase R LE ROM to within 10 degrees of L LE for improved ability to perform double limb support tasks in home. Long-Term Goals: to be met by 04/10/2025 Patient will be independent in HEP (new and revised). Patient will increase DGI to 07/18 with SC with new AFO donned for increased safety and independence in community ambulation. Patient will decrease FES-I to 27/64 for decreased fear of falling in home and community. Patient Goal: improved walking with lesser AD Plan: Patient would benefit from the following modification on next visit: Continue to progress as tolerated with current POC. Recommend continued therapy to focus on strengthening of BLEs and continued therapy to focus on core strengthening. If this is the last physical therapy visit, this note will serve as the discharge summary. Sydney Dacosta PTA [facility] ATTENTION PHYSICIAN If you are unable to electronically sign this document, please print this document and sign below to certify this plan of care/treatment plan. By signing this document, I certify that I have reviewedthis plan of care and support the treatment. Please fax back to . Thank you. Provider Signature: Date: documented in this encounter Plan of Treatment Not on file documented as of this encounter Visit Diagnoses Diagnosis Hemiplegia, unspecified etiology, unspecified hemiplegia type, unspecified laterality (HCC)- Primary Cerebral infarction, unspecified mechanism (HCC) Unsteadiness on feet Other abnormalities of gait and mobility documented in this encounter Care Teams Research Assoc Relationship Specialty Start Date End Date Mike Ball MD [address] [facility] [address] [place] [address] PCP - General Family Medicine 03/31/24 documented as of this encounter
--- OUTSIDE RECORDS SUMMARY | 2025-03-23 10:35 | XMS_ITS | Clinical Summary ---
Author Organization [facility] Address [address] [place] [address] Care Team Providers Care Atmospheric Physicist Name Role Phone Mike Ball MD Primary Care Provider [phone] Source Comments [facility],non-owned Affiliates and Associated Physician Practices is amultiple site organization consisting of ambulatory clinics and hospital sitesin [place], [place], [place] and [place]. This disclosure is being madepursuant to the Care Everywhere program and may not contain all information available regarding this patient. Last updated 18.[facility] Allergies No known active allergies Medications * [...] Recorded Patient Health Questionnaire-2 Score 0 03/12/2024 [facility] of Occupat ional Health - Occupational Stress [...] place to sleep or slept in a half-way (including now)? No 03/04/2024 Sex and Gender [...] 10/06/2020 DEPRESSION SCREENING 07/26/2024 03/04/2024 INFLUENZA VACCINE (#1) 2025 HIB VACCINE Aged Out No longer [...] patient's age to complete this topic Insurance [facility] Advance Directives Documents on File Type Date Recorded Patient Waiter/Waitress Formal Expl anation Adv Directive/Living Will/POA 03/14/2024 11:11 AM * Full Code (Latest Code Status on File) Date Activated Date Inactivated Comments 03/04/2024 12:15 PM 03/13/2024 7:01 PM Care Teams Atmospheric Physicist Relationship Specialty Start Date End Date Mike Ball MD [address] [place] [address] PCP - General Family Medicine 03/09/24
--- OUTSIDE RECORDS SUMMARY | 2025-03-23 10:35 | XMS_ITS | Encounter Summary ---
Author Organization [facility] Address [address] [place] [address] Care Team Providers Care Material Handler Loader Name Role Phone Mike Ball MD Primary Care Provider Encounter Details Date Type Department Care Team (Late st Contact Info) Description 02/19/2025 Results Follow-Up [facility] Pulmonology [address] [place] [address] Aileen Mcdonald MD [address] [place] [address] [address] [place] [address] CBC with auto differential, Basic metabolic panel, Protime-INR, Additional followed-up results: 19 Social History Tobacco Use Types Packs/Day Years Used Date Smoking Tobacco: Former Cigarettes 1 30 S tarted: 1993 Passive Smoke Exposure: Past Smokeless Tobacco: Never [facility] Utilities Answer Date Recorded In the past 12 months has [employer], gas, oil, or water [employer] threatened to shut off services in your home? No 12/29/2024 Social Connection and Isolation Panel Answer Date Recorded In a typical week, how many times do you talk on the phone with family, friends, or neighbors? Three times a week 12/29/2024 How often do you get togethe r with friends or relatives? Three times a week 12/29/2024 How often do you attend chur ch or yarsanism services? Never 12/29/2024 Do you belong to any clubs o r organizations such as amish groups, unions, fraternal or athletic groups, or school groups? No 12/29/2024 How often do you attend meet ings of the clubs or organizations you belong to? Never 12/29/2024 Are you , , di vorced, , never , or living with a partner? Never 12/29/2024 AUDIT-C Answer Date Recorded Q1: How often [...] food, housing, medical care, and heating? Not very hard 12/29/2024 Hunger Vital Sign Answer Date Recorded Within the past 12 months, y ou worried that your food would run out before you got the money to buy more. Never true 12/30/19 25 Within the past 12 months, t he food you bought just didn't last and you didn't have money to get more. Never true 12/29/2024 PRAPARE - Transportation Answer Date Re corded In the past 12 months, has l ack of transportation kept you from medical appointments or from getting medications? No 12/2024 In the past 12 months, has l ack of transportation kept you from meetings, work, or from getting things needed for daily living? No 12/29/2024 Housing Stability Vital Sign Answer Rojas e Recorded In the last 12 months, was t here a time when you were not able to pay the mortgage or rent on time? No 12/29/2024 In the past 12 months, how m any times have you moved where you were living? 0 12/29/2024 At any time in the past 12 m [facility], were you homeless or living in a custodial (including now)? No 12/29/2024 Personal Safety Answer Date Recorded Have you ever been in or are you currently in a harmful physical or emotional relationship or is someone making you feel afraid or unsafe? 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
--- OUTSIDE RECORDS SUMMARY | 2025-03-23 10:35 | XMS_ITS | Encounter Summary ---
Author Organization [facility] Address [address] [place] [address] Care Team Providers Care Lumber Tripper Name Role Phone Mike Ball MD Primary Care Provider Encounter Details Date Type Department Care Team (Late st Contact Info) Description 07/05/2024 Documentation [facility] OP Occup Therapy [address] [facility] [address] [place] [address] Felecia Torres, OT Social History Tobacco Use Types Packs/Day Years Used Date Smoking Tobacco: Never Assessed Sex and Gender Information Value Date Recorded Sex Assigned at Not on file Legal Sex Male 5:59 PM [employer] Gender Identity Not on file Sexual Orientation Not on file documented as of this encounter Plan of Treatment Not on file documented as of this encounter Visit Diagnoses Not on filedocumented in this encounter Additional Health Concerns Infection Onset Date Last Indicated Resolved Time COVID: Suspected 12/28/2024 12/28/2024 12/28/2024 5:51 PM CDT Ring Surveillance: C. 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 Patient may require a screening swab/n.moll 01/01/2025 01/01/2025 01/09/20 7:26 PM CDT documented as of this encounter Care Teams Lumber Tripper Relationship Specialty Start Date End Date Mike Ball MD [address] [facility] [address] [place] [address] PCP - General Family Medicine 9/6/24 documented as of this encounter
--- OUTSIDE RECORDS SUMMARY | 2025-03-23 10:36 | XMS_ITS | Clinical Summary ---
Author Organization [facility] [place] Address [address] [place] [address] Care Team Providers Care Prosthetic Dentist Name Role Phone Mike Ball MD Primary Care Provider Allergies No known active allergies Medications atorvastatin (LIPITOR) 40 mg tablet Take 1 tablet (40 mg total) by mouth daily Active baclofen (LIORESAL) 10 mg tablet Take 1 tablet (10 mg total) by mouth 3 (three) times a day 12/15/19 25 Active traMADoL (ULTRAM) 50 mg tablet Take 1 tablet (50 mg total) by mouth 2 (two) times a day as needed for pain 12/28/19 25 Active aspirin 81 mg enteric coated tablet Take 1 tablet (81 mg total) by mouth daily Active multivitamin with minerals tablet Take 1 tablet by mouth daily Active apixaban (ELIQUIS) 5 mg tablet Take 1 tablet (5 mg total) by mouth 2 (two) times a day 60 tablet 5 01/08/20 25 Active famotidine (PEPCID) 20 mg tablet Take 1 tablet (20 mg total) by mouth daily Active albuterol HFA (PROVENTIL HFA,VENTOLIN HFA,PROAIR HFA) 90 mcg/actuation inhaler Inhale 1 puff every 6 (six) hours as needed for wheezing or shortness of breath 1 each 2 03/02/20 25 Active tiotropium-ol odateroL (Stiolto Respimat) 2.5-2.5 mcg/actuation inhaler Inhale 1 puff daily 3 each 3 03/08/20 25 026 Active ipratropium-a lbuteroL (DUO-NEB) 0.5-2.5 mg/3 mL nebulizer solution Take 3 mL by nebulization every 6 (six) hours 360 mL 03/08/20 026 Active azithromycin (ZITHROMAX) 500 mg tablet Take 1 tablet (500 mg total) by mouth daily 30 tablet 11 03/08/20 026 Active rifAMPin (RIFADIN) 300 mg capsule Take 2 capsules (600 mg total) by mouth daily 60 capsule 03/08/20 25 Active ethambutoL (MYAMBUTOL) 400 mg tabletIndicat ions:Mycobact eriosis Take 2 tablets (800 mg total) by mouth daily 60 tablet 03/16/20 25 025 Active enoxaparin (LOVENOX) 80 mg/0.8 mL syringe 03/19/20 25 Active warfarin (COUMADIN) 5 mg tablet 03/19/20 25 Active albuterol HFA (PROVENTIL HFA,VENTOLIN HFA,PROAIR HFA) 90 mcg/actuation inhaler Inhale 1 puff every 6 (six) hours as needed for wheezing or shortness of breath 025 Discontinued famotidine (PEPCID) 20 mg tablet Take 1 tablet (20 mg total) by mouth daily 12/27/19 025 Discontinued(D uplicate order) apixaban (ELIQUIS) 5 mg tablet Take 2 tablets (10 mg total) by mouth 2 (two) times a day for 7 days 28 tablet 12/31/19 025 Discontinued(A lternate therapy) ipratropium-a lbuteroL (DUO-NEB) 0.5-2.5 mg/3 mL nebulizer solution USE 1 AMPULE IN NEBULIZER EVERY 8 HOURS 04/03/20 24 025 Discontinued(S top Taking at Discharge) levoFLOXacin (LEVAQUIN) 750 mg tabletIndicat ions:Pneumoni a, Community Acquired Take 1 tablet (750 mg total) by 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 Do not swallow. 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 Baseline exam and testing today. Pt unable to complete visual field. Will plan to follow up with patient in 2-3 mos to ensure no impact on vision. Call with any decline in acuity. Pneumonia of both upper lobes due to infectious organism 02/27/2025 Acute respiratory failure with hypoxia Lesion of lung 02/06/2025 COPD exacerbation 12/29/2024 Hypotension 12/29/2024 Near syncope 12/28/2024 Multifocal pneumonia 12/28/2024 Dysphagia following cerebrovascular accident (CV A) 05/12/2024 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 03/06/2024 Hemorrhagic stroke 03/05/2024 Midline shift of brain with brain compression Cerebrovascular accident (CVA) 03/04/2024 Facial droop 03/04/2024 Dysarthria 03/04/2024 HTN (hypertension) 03/04/2024 Left-sided weakness 03/04/2024 Muscle weakness of left upper extremity 03/04/20 24 Encounters Date Type Department Care Team Description 03/22/2025 11:30 AM CDT Therapy [facility] OP Physical Therapy [address] [place] [address] Sydney Dacosta, TRADEMARK ATTORNEY Hemiplegia, unspecified etiology, unspecified hemiplegia type, unspecified laterality (HCC) (Primary Dx); Cerebral infarction, unspecified mechanism (HCC); Unsteadiness on feet; Other abnormalities of gait and mobility 03/21/2025 9:00 AM CDT Office Visit [facility] Op[facility]mology [address] 2nd [address] [place] [address] Simon Wilhelm, HEBER High risk medication use (Primary Dx); Pneumonia of both upper lobes due to infectious organism 03/20/2025 11:30 AM CDT Therapy [facility] OP Physical Therapy [address] [place] [address] Maryuri Hansen, TRADEMARK ATTORNEY Hemiplegia, unspecified etiology, unspecified hemiplegia type, unspecified laterality (HCC) (Primary Dx) 03/15/2025 10:00 AM CDT Therapy [facility] OP Physical Therapy [address] [place] [address] Sydney Dacosta, TRADEMARK ATTORNEY Hemiplegia, unspecified etiology, unspecified hemiplegia type, unspecified laterality (HCC) (Primary Dx) 03/13/2025 10:45 AM CDT Therapy [facility] OP Physical Therapy [address] [place] [address] Mattie Brantley, PT Hemiplegia, unspecified etiology, unspecified hemiplegia type, unspecified laterality (HCC) (Primary Dx); Cerebral infarction, unspecified mechanism (HCC); Unsteadiness on feet; Other abnormalities of gait and mobility; Weakness 03/13/2025 10:45 AM CDT Therapy [facility] OP Physical Therapy [address] [place] [address] Cheri Cunningham, TRADEMARK ATTORNEY Hemiplegia, unspecified etiology, unspecified hemiplegia type, unspecified laterality (HCC) (Primary Dx); Weakness 03/09/2025 Orders Only [facility] [address] [place] [address] [place] [phone] Es Philip MD 03/08/2025 11:30 AM CDT Office Visit [facility] [address] [place] [phone] Aileen Mcdonald MD Mycobacterium kansasii infection (HCC) (Primary Dx); Acute pulmonary embolism, unspecified pulmonary embolism type, unspecified whether acute cor pulmonale present (HCC); Cavitary lung disease 03/08/2025 Telephone [facility] [address] [place] [phone] Dulce Messina RN 02/27/2025 4:55 PM CDT - 03/02/2025 5:00 PM CDT Hospital Encounter [address] [address] Og Mane, Mk Alvares MD Santillana, Cesar, MD Lun, Yu, MD Pneumonia of both upper lobes due to infectious organism (Primary Dx); Acute respiratory failure with hypoxia (HCC) Discharge Disposition: Discharge to home or self care 02/27/2025 10:00 AM CDT Therapy [facility] OP Occup Therapy [address] [place] [address] Vanesa Todd COTA Nontraumatic subcortical hemorrhage of cerebral hemisphere, unspecified laterality (HCC) (Primary Dx); 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); Nontraumatic intraventricular intracerebral hemorrhage, unspecified laterality (HCC) 02/27/2025 Telephone [facility] [address] [place] [phone] Aileen Mcdonald MD 02/20/2025 11:00 AM CDT Therapy [facility] OP Occup Therapy [address] [place] [address] Vanesa Todd, HERNANDEZ Nontraumatic subcortical hemorrhage of cerebral hemisphere, unspecified laterality (HCC) (Primary Dx); 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 [address] [place] [address] [place] [address] Jamie Novak MD PhD 02/17/2025 Plan of Care Documentation [facility] OP Physical Therapy [address] [place] [address] 02/16/2025 Documentation [facility] Medical [facility] Pulmonology [address] [place] [address] Dulce Messina RN 02/15/2025 11:21 AM CDT Anesthesia Event [facility] [place] [address] [place] [phone] Laurie Decker MD Taylor-White, Carlotta A., NP 02/15/2025 11:00 AM CDT - 02/15/2025 12:15 PM CDT Surgery [facility] [place] [address] [place] [address] Aileen Mcdonald MD BRONCHOSCOPY WITH BRONCHOALVEOLAR LAVAGE 02/15/2025 8:59 AM CDT - 02/15/2025 11:59 PM CDT Hospital Encounter [facility] ED CT [address] [place] [phone] Cavitary lesion of lung; Multifocal pneumonia Discharge Disposition: Discharge to home or self care 02/15/2025 8:52 AM CDT - 02/15/2025 2:35 PM CDT Hospital Encounter [facility] [place] [address] [place] [address] Aileen Mcdonald MD Lesion of lung Discharge Disposition: Discharge to home or self care 02/13/2025 11:30 AM CDT Therapy [facility] OP Physical Therapy [address] [place] [address] Mattie Brantley, PT Hemiplegia, unspecified etiology, unspecified hemiplegia type, unspecified laterality (HCC); Cerebral infarction, unspecified mechanism (HCC); Unspecified sequelae of cerebral infarction; Unsteadiness on feet; Other abnormalities of gait and mobility; Weakness 02/12/2025 9:00 AM CDT Therapy [facility] OP Occup Therapy [address] [place] [address] Vanesa Todd COTA Nontraumatic subcortical hemorrhage of cerebral hemisphere, unspecified laterality (HCC) (Primary Dx); 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); Nontraumatic intraventricular intracerebral hemorrhage, unspecified laterality (HCC) 02/07/2025 11:00 AM CDT Therapy [facility] OP Occup Therapy [address] [place] [address] Felecia Torres, OT Nontraumatic subcortical hemorrhage of cerebral hemisphere, unspecified laterality (HCC) (Primary Dx); 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) 02/07/2025 Orders Only [facility] Orthopaedic Surgery [facility] [address]th [place] [address] [place] [address] Mike Ball MD Cerebrovascular accident (CVA), unspecified mechanism (HCC) (Primary Dx); Dysphagia following cerebrovascular accident (CVA); Hemorrhagic stroke (HCC); Left-sided weakness; Muscle weakness of left upper extremity; Spasticity as late effect of cerebrovascular accident (CVA) 02/06/2025 2:15 PM CDT Office Visit [facility] Pul[facility] [address] [place] [phone] Aileen Mcdonald MD Cavitary lesion of lung (Primary Dx); Multifocal pneumonia 02/06/2025 Orders Only [facility] Pul[facility] [address] [place] [address] Aileen Mcdonald MD 02/05/2025 9:00 AM CDT Therapy [facility] OP Occup Therapy [address] [place] [address] Marcellus Snowden, OT Nontraumatic subcortical hemorrhage of cerebral hemisphere, unspecified laterality (HCC) (Primary Dx); 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); Nontraumatic intraventricular intracerebral hemorrhage, unspecified laterality (HCC) 02/01/2025 1:30 PM CDT - 02/01/2025 11:59 PM CDT Hospital [facility] [address] [place] [address] Multifocal pneumonia Discharge Disposition: Discharge to home or self care 02/01/2025 10:00 AM CDT Therapy [facility] OP Occup Therapy [address] [place] [address] Marcellus Snowden, OT Nontraumatic subcortical hemorrhage of cerebral hemisphere, unspecified laterality (HCC) (Primary Dx); 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) 01/30/2025 9:00 AM CDT Therapy [facility] OP Occup Therapy [address] [place] [address] Marcellus Snowden, OT Nontraumatic subcortical hemorrhage of cerebral hemisphere, unspecified laterality (HCC) (Primary Dx); 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); Nontraumatic intraventricular intracerebral hemorrhage, unspecified laterality (HCC) 01/24/2025 11:00 AM CDT Therapy [facility] OP Occup Therapy [address] [place] [address] Vanesa Todd, HERNANDEZ Nontraumatic subcortical hemorrhage of cerebral hemisphere, unspecified laterality (HCC) (Primary Dx); 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); Nontraumatic intraventricular intracerebral hemorrhage, unspecified laterality (HCC) 01/16/2025 2:15 PM CDT Office Visit [facility] Pul[facility]ology [address] [place] [phone] Aileen Mcdonald MD Cavitary lesion of lung (Primary Dx); Multifocal pneumonia; Acute pulmonary embolism, unspecified pulmonary embolism type, unspecified whether acute cor pulmonale present (HCC); Aspiration into airway, sequela 01/16/2025 10:00 AM CDT Therapy [facility] OP Occup Therapy [address] [place] [address] Vanesa Todd, HERNANDEZ Nontraumatic subcortical hemorrhage of cerebral hemisphere, unspecified laterality (HCC) (Primary Dx); 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); Nontraumatic intraventricular intracerebral hemorrhage, unspecified laterality (HCC) 01/11/2025 11:00 AM CDT Therapy [facility] OP Occup Therapy [address] [place] [address] Felecia Torres, OT Nontraumatic subcortical hemorrhage of cerebral hemisphere, unspecified laterality (HCC) (Primary Dx); 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) 01/11/2025 Plan of Care Documentation [facility] OP Occup Therapy [address] [place] [address] 01/09/2025 10:00 AM CDT Therapy [facility] OP Occup Therapy [address] [place] [address] Marcellus Snowden, OT Nontraumatic subcortical hemorrhage of cerebral hemisphere, unspecified laterality (HCC) (Primary Dx); 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); Nontraumatic intraventricular intracerebral hemorrhage, unspecified laterality (HCC) 12/28/2024 11:15 AM CDT - 01/01/2025 3:54 PM CDT Hospital Encounter [facility] [address] [address] Nikita Llanos MD Paruchuri, Tharun, MD Potluri, Sobhana Krishna, MD Multifocal pneumonia (Primary Dx); Near syncope; Hypotension, unspecified hypotension type; COPD exacerbation (HCC); Other acute pulmonary embolism without acute cor pulmonale (HCC) Discharge Disposition: Discharge to home or self care 12/28/2024 10:00 AM CDT Therapy [facility] OP Occup Therapy [address] [place] [address] Torres, Felecia, OT Nontraumatic subcortical hemorrhage of cerebral hemisphere, unspecified laterality (HCC) (Primary Dx); 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) 12/26/2024 10:00 AM CDT Therapy [facility] OP Occup Therapy [address] [place] [address] Torres, Felecia, OT Nontraumatic subcortical hemorrhage of cerebral hemisphere, unspecified laterality (HCC) (Primary Dx); 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) 12/21/2024 11:00 AM CDT Therapy [facility] OP Occup Therapy [address] [place] [address] Torres, Felecia, OT Nontraumatic subcortical hemorrhage of cerebral hemisphere, unspecified laterality (HCC) (Primary Dx); 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) from Last 3 Months Surgical History Surgery Date Site/Laterality Comments COLONOSCOPY 2020 PEG TUBE PLACEMENT PEG TUBE REMOVAL Medical History Medical History Date Comments COPD (chronic obstructive pulmonary disease) Hypertension history of; not on any meds Hemorrhagic stroke (HCC) 09/2023 and 02/2024 History of pneumonia Wears glasses to drive Difficulty swallowing history of aspiration Uses roller walker Cavitary lesion of lung History of pulmonary embolism History of alcohol abuse used to drink daily; quit 02/2024 Missing teeth, acquired has some missing teeth Social History Tobacco Use Types Packs/Day Years Used Date Smoking Tobacco: Former Cigarettes 1 30 S tarted: 1993 Passive Smoke Exposure: Past Smokeless Tobacco: Never Tobacco Cessation:Counseling Given: Not Answered [facility] Utilities Answer Date Recorded In the past 12 months has th e [employer], [employer], oil, or water [employer] threatened to shut off services in your [...] often do you attend chur ch or orthodox services? Never 02/28/2025 Do you belong to any clubs o r organizations such as taoism groups, unions, fraternal or athletic groups, or [...] any time in the past [facility], were you homeless or living in a [place] facility (including now)? No 02/28/2025 Personal Safety Answer Date Recorded Have you ever been in or are you currently in a harmful physical or emotional relationship or is someone making you feel afraid or unsafe? Denies 02/27/2025 Sex and Gender Information Value Date Recorded Sex Assigned at Not on file Legal Sex Male 5:59 PM [employer] Gender Identity Not on file Sexual Orientation Not on file Obstetrics History Last Filed Vital Signs Vital Sign Reading Time Taken Comments Blood Pressure 110/85 03/08/2025 11:10 AM CDT Pulse 46 03/08/2025 11:10 AM CDT Temperature 36.1 C (97 F) 03/08/2025 11:10 AM CDT Respiratory Rate 16 03/08/2025 11:10 AM CDT Oxygen Saturation 92% 03/08/2025 11:10 AM CDT Inhaled Oxygen Concentration - - Weight 57.6 kg (127 lb) 03/08/2025 11:10 AM CDT Height 172.7 cm (5' 8) 03/08/2025 11:10 AM CDT Body Mass Index 19.31 03/08/2025 11:10 AM CDT Plan of Treatment Health Maintenance Due Date Last Done Comments Colon Cancer Screening-Colonoscopy 1965 Depression Screening 1965 Hepatitis C Screening 1965 Prostate Cancer Screening-PSA 1967 DTaP/Tdap/Td Vaccine (1 - Tdap) 11/17/1978 Hepatitis B Screening 11/17/1985 Regular Well Visit/Exam 18-64 11/17/1985 Pneumococcal vaccine <65 (1 of 2 - PCV) 11/17/1986 Zoster Vaccine (1 of 2) 11/17/2017 Covid-19 Vaccine (3 - season) 2024, 10/06/2020 Influenza Vaccine (#1) 2025 Procedures Procedure Name Priority Date/Time Associated Diagnosis Comments OCT, OPTIC NERVE - OU - BOTH EYES Routine 03/21/2025 10:57 AM CDT High risk medication use Pneumonia of both upper lobes due to infectious organism ECG 12-LEAD STAT 03/02/2025 12:14 PM CDT EGFR Routine 03/02/2025 7:14 AM CDT DIFFERENTIAL AUTO Routine 03/02/2025 7:1 4 AM CDT MAGNESIUM Routine 03/02/2025 7:14 AM CDT BASIC METABOLIC PANEL Routine 03/02/2025 7:14 AM CDT CBC WITH AUTO DIFFERENTIAL Routine 03/02/2025 7:14 AM CDT EGFR Routine 03/01/2025 7:06 AM CDT DIFFERENTIAL AUTO Routine 03/01/2025 7:0 6 AM CDT BASIC METABOLIC PANEL Routine 03/01/2025 7:06 AM CDT CBC WITH AUTO DIFFERENTIAL Routine 03/01/2025 7:[address] CHEST WO CONTRAST IP Routine 02/28/2025 2:04 PM CDT ECG 12-LEAD Routine 02/28/2025 10:00 AM CDT EGFR Routine 02/28/2025 5:58 AM CDT DIFFERENTIAL AUTO Routine 02/28/2025 5:5 8 AM CDT BASIC METABOLIC PANEL Routine 02/28/2025 5:58 AM CDT CBC WITH AUTO DIFFERENTIAL Routine 02/28/2025 5:58 AM CDT STREP PNEUMONIAE AG, URINE Routine 02/28/2025 5:50 AM CDT LEGIONELLA ANTIGEN, URINE Routine 02/28/2025 5:50 AM CDT INFLUENZA A/B, RSV, AND COVID-19 PCR Routine 02/28/2025 12:49 AM CDT MRSA ONLY (STAPHYLOCOCCUS AUREUS) PCR Routine 02/28/2025 12:49 AM CDT SEPSIS LACTATE WITH REFLEX Timed 02/27/2025 10:06 PM CDT TROPONIN T HIGH-SENSITIVITY 6-HOUR Timed 02/27/2025 10:06 PM CDT BLOOD CULTURE STAT 02/27/2025 6:28 PM CDT BLOOD CULTURE STAT 02/27/2025 6:21 PM CDT MRSA ONLY (STAPHYLOCOCCUS AUREUS) PCR Routine 02/27/2025 6:19 PM CDT SEPSIS LACTATE WITH REFLEX STAT 02/27/2025 5:30 PM CDT TROPONIN T HIGH-SENSITIVITY 4-HR Timed 02/27/2025 5:30 PM CDT PRO B-TYPE NATRIURETIC PEPTIDE STAT 02/27/2025 1:53 PM CDT EGFR STAT 02/27/2025 1:53 PM CDT DIFFERENTIAL AUTO STAT 02/27/2025 1:5 3 PM CDT TROPONIN T HIGH-SENSITIVITY SERIES (BASELINE, 2HR, 4HR, 6HR) STAT 02/27/2025 1:53 PM CDT CBC WITH AUTO DIFFERENTIAL STAT 02/27/2025 1:53 PM CDT COMPREHENSIVE METABOLIC PANEL STAT 02/27/2025 1:53 PM CDT XR CHEST 1 VIEW ED 02/27/2025 1:50 PM CDT ECG 12-LEAD STAT 02/27/2025 1:42 PM CDT RI AN PROCEDURE PLACEHOLDER Routine 02/15/2025 12:15 PM CDT RI AN ELECTIVE ENDOTRACHEAL AIRWAY Routine 02/15/2025 12:15 PM CDT CYTOLOGY Routine 02/15/2025 11:46 AM CDT Lesion of lung CELL DIFFERENTIAL, BODY FLUID Routine 02/15/2025 11:38 AM CDT CELL COUNT W/REFLEX DIFFERENTIAL, BODY FLUID Routine 02/15/2025 11:38 AM CDT MYCOBACTERIUM TUBERCULOSIS PCR Routine 02/15/2025 11:38 AM CDT PNEUMONIA PCR Routine 02/15/2025 11:38 AM CDT PNEUMONIA PCR WITH AEROBIC CULTURE AND GRAM STAIN Routine 02/15/2025 11:38 AM CDT PNEUMOCYSTIS DFA Routine 02/15/2025 11:38 AM CDT MYCOLOGY (FUNGAL) CULTURE Routine 02/15/2025 11:38 AM CDT MYCOBACTERIOLOGY AFB CULTURE AND ACID-FAST STAIN Routine 02/15/2025 11:38 AM CDT CELL DIFFERENTIAL, BODY FLUID Routine 02/15/2025 11:35 AM CDT CELL COUNT W/REFLEX DIFFERENTIAL, BODY FLUID Routine 02/15/2025 11:35 AM CDT MYCOBACTERIUM TUBERCULOSIS PCR Routine 02/15/2025 11:35 AM CDT PNEUMONIA PCR Routine 02/15/2025 11:35 AM CDT PNEUMONIA PCR WITH AEROBIC CULTURE AND GRAM STAIN Routine 02/15/2025 11:35 AM CDT PNEUMOCYSTIS DFA Routine 02/15/2025 11:35 AM CDT MYCOLOGY (FUNGAL) CULTURE Routine 02/15/2025 11:35 AM CDT MYCOBACTERIOLOGY AFB CULTURE AND ACID-FAST STAIN Routine 02/15/2025 11:35 AM CDT BRONCHOSCOPY 02/15/2025 11:19 AM CDT Lesion of lung EGFR Routine 02/15/2025 9:35 AM CDT DIFFERENTIAL AUTO Routine 02/15/2025 9:3 5 AM CDT APTT Routine 02/15/2025 9:35 AM CDT PROTIME-INR Routine 02/15/2025 9:35 AM CDT BASIC METABOLIC PANEL Routine 02/15/2025 9:35 AM CDT CBC WITH AUTO DIFFERENTIAL Routine 02/15/2025 9:[address] CHEST WO CONTRAST Schedule Routine, Read Routine (OP Routine) 02/15/2025 9:07 AM CDT Cavitary lesion of lung Multifocal pneumonia CT CHEST WO CONTRAST Schedule Routine, Read Routine (OP Routine) 02/01/2025 1:39 PM CDT Multifocal pneumonia [place] MODIFIED BARIUM SWALLOW W VIDEO IP Routine 01/01/2025 9:53 AM CDT EGFR Routine 01/01/2025 6:15 AM CDT DIFFERENTIAL AUTO Routine 01/01/2025 6:1 5 AM CDT COMPREHENSIVE METABOLIC PANEL Routine 01/01/2025 6:15 AM CDT CBC WITH AUTO DIFFERENTIAL Routine 01/01/2025 6:15 AM CDT PEP THERAPY Routine 12/31/2024 6:00 PM CDT PEP THERAPY Routine 12/31/2024 12:00 PM CDT EGFR Routine 12/31/2024 8:39 AM CDT DIFFERENTIAL AUTO Routine 12/31/2024 8:3 9 AM CDT COMPREHENSIVE METABOLIC PANEL Routine 12/31/2024 8:39 AM CDT CBC WITH AUTO DIFFERENTIAL Routine 12/31/2024 8:39 AM CDT PEP THERAPY Routine 12/31/2024 6:00 AM CDT PEP THERAPY Routine 12/30/2024 6:00 PM CDT PEP THERAPY Routine 12/30/2024 12:00 PM CDT EGFR Routine 12/30/2024 5:05 AM CDT DIFFERENTIAL AUTO Routine 12/30/2024 5:0 5 AM CDT COMPREHENSIVE METABOLIC PANEL Routine 12/30/2024 5:05 AM CDT CBC WITH AUTO DIFFERENTIAL Routine 12/30/2024 5:05 AM CDT POCT GLUCOSE DEVICE Routine 12/29/2024 8 :42 PM CDT PEP THERAPY Routine 12/29/2024 6:00 PM CDT HEPARIN ANTI FACTOR XA ACTIVITY Timed 12/29/2024 4:20 PM CDT PEP THERAPY Routine 12/29/2024 12:00 PM CDT US VEIN DUPLEX LOWER EXTREMITY BILATERAL COMPLETE IP Routine 12/29/2024 11:31 AM CDT HEPARIN ANTI FACTOR XA ACTIVITY Timed 12/29/2024 10:16 AM CDT TRANSTHORACIC ECHO (TTE) COMPLETE W DOPPLER/CF WO CONTRAST Routine 12/29/2024 8:48 AM CDT PEP THERAPY Routine 12/29/2024 6:01 AM CDT EGFR Routine 12/29/2024 4:01 AM CDT DIFFERENTIAL AUTO Routine 12/29/2024 4:0 1 AM CDT HEPARIN ANTI FACTOR XA ACTIVITY Timed 12/29/2024 4:01 AM CDT MAGNESIUM Routine 12/29/2024 4:01 AM CDT COMPREHENSIVE METABOLIC PANEL Routine 12/29/2024 4:01 AM CDT CBC WITH AUTO DIFFERENTIAL Routine 12/29/2024 4:01 AM CDT POCT GLUCOSE DEVICE Routine 12/28/2024 11:12 PM CDT MRSA ONLY (STAPHYLOCOCCUS AUREUS) PCR Routine 12/28/2024 11:00 PM CDT PNEUMONIA PCR WITH AEROBIC CULTURE AND GRAM STAIN STAT 12/28/2024 11:00 PM CDT HEPARIN ANTI FACTOR XA ACTIVITY Timed 12/28/2024 10:11 PM CDT HISTOPLASMA ANTIGEN Routine 12/28/2024 8 :48 PM CDT STREP PNEUMONIAE AG, URINE STAT 12/28/2024 8:48 PM CDT LEGIONELLA ANTIGEN, URINE STAT 12/28/2024 8:48 PM CDT POCT GLUCOSE DEVICE Routine 12/28/2024 8 :33 PM CDT RI CRITICAL CARE ILL/INJURED PATIENT INIT 30-74 MIN Routine 12/28/2024 5:05 PM CDT BLASTOMYCES ANTIBODIES Routine 4:49 PM CDT BLASTOMYCES ANTIBODY, EIA, S Routine 12/28/2024 4:49 PM CDT COCCIDIOIDES ANTIBODY SCREEN W/REFLEX Routine 12/28/2024 4:49 PM CDT HIV 1/2 ANTIBODY PLUS P24 ANTIGEN Routine 12/28/2024 4:49 PM CDT PROTIME-INR STAT 12/28/2024 3:36 PM CDT APTT STAT 12/28/2024 3:36 PM CDT HEPARIN ANTI FACTOR XA ACTIVITY STAT 12/28/2024 3:[address] CHEST PE W CONTRAST ED 2:11 PM CDT TROPONIN T HIGH-SENSITIVITY 2-HOUR Timed 12/28/2024 1:10 PM CDT DRUGS OF ABUSE SCREEN, URINE WITHOUT CONFIRMATION STAT 12/28/2024 12:54 PM CDT RESPIRATORY PATHOGEN PANEL STAT 12/28/2024 12:54 PM CDT URINALYSIS AND REFLEX TO MICROSCOPIC AND CULTURE STAT 12/28/2024 12:54 PM CDT XR CHEST 1 VIEW ED 12/28/2024 11:54 AM CDT BLOOD CULTURE STAT 12/28/2024 11:47 AM CDT BLOOD CULTURE STAT 12/28/2024 11:47 AM CDT POCT GLUCOSE DEVICE Routine 12/28/2024 11:37 AM CDT EGFR STAT 12/28/2024 11:31 AM CDT DIFFERENTIAL AUTO STAT 12/28/2024 11:31 AM CDT TROPONIN T HIGH-SENSITIVITY SERIES (BASELINE, 2HR, 4HR, 6HR) STAT 12/28/2024 11:31 AM CDT PRO B-TYPE NATRIURETIC PEPTIDE STAT 12/28/2024 11:31 AM CDT PHOSPHORUS STAT 12/28/2024 11:31 AM CDT MAGNESIUM STAT 12/28/2024 11:31 AM CDT SEPSIS LACTATE WITH REFLEX STAT 12/28/2024 11:31 AM CDT COMPREHENSIVE METABOLIC PANEL STAT 12/28/2024 11:31 AM CDT CBC WITH AUTO DIFFERENTIAL STAT 12/28/2024 11:31 AM CDT ECG 12-LEAD STAT 12/28/2024 11:23 AM CDT from Last 3 Months Results * OCT, Optic Nerve - OU - Both Eyes (03/21/2025 10:57 AM CDT) Anatomical Region Laterality Modality Head Optical Coherenc e Tomography Narrative 03/21/2025 10:57 AM CDT Right Eye Reliability was good. Left Eye Reliability was good. Notes Baseline scan prior to starting ethambutol. us Simon Wilhelm OD OPHTH TOMOGRAPHY Final Resu lt * ECG 12 lead (03/02/2025 12:14 PM CDT) Pathologist [facility] Ventricular Rate EKG/Min 83 BPM [facility] Atrial Rate 83 BPM [facility] RI-Interval (MSEC) 160 ms [facility] QRS-Interval (MSEC) 88 ms [facility] QT-Interval (MSEC) 394 ms [facility] QTc 462 ms [facility] P Morgan 66 degrees [facility] R Morgan 10 degrees [facility] T Morgan 60 degrees [facility] Diagnosis Normal sinus rhythm Normal ECG When compared with ECG of 28-FEB-2025 10:00, Criteria for Septal infarct are no longer Present QT has shortened Confirmed by Matt Zamora M.D. ([id number]) on 03/05/2025 8:40:12 AM [facility] 03/02/2025 12:1 4 PM CDT 03/05/2025 8:40 AM CDT us Sabi Shah MD ECG ORDERABLES Final Result [facility] * eGFR (03/02/2025 7:14 AM CDT) eGFR >90 >=60 mL/min/1. 73 m2 Comment: Interpretive Data Reference Interval Normal >/= 90 mL/min/1.73m2 Mildly decreased* 60 - 89 mL/min/1.73m2 Mildly to moderately decreased 45 - 59 mL/min/1.73m2 Moderately to severely decreased 30 - 44 mL/min/1.73m2 Severely decreased 15 - 29 mL/min/1.73m2 Kidney Failure < 15 mL/min/1.73m2 *Relative to young adult level Estimated glomerular filtration rate is determined by the 2020 CKD-EPI equation recommended by the National Kidney Foundation (A Unifying Approach to GFR Estimation: Recommendations of the NKF-ASK Task Force on Reassessing the Inclusion of Race in Diagnosing Kidney Disease, JASN 2020). The CKD-EPI equation should not be used for patients with unstable renal function and has not been validated in children and those over 70. Current interpretive data was last reviewed 2021. Blood 03/02/2025 7:14 AM CDT 03/02/2025 7:32 AM CDT us Mk Manzano MD LAB BLOOD ORDERABLES Final Resul t [facility] [address] [facility] [facility] [place] [address] * (ABNORMAL) Differential, auto (03/02/2025 7:14 AM CDT) Neutrophil abs 6.88(H) 1.50 - 6.50 K/cumm Imm gran abs 0.05 0.00 - 0.10 K/cumm [facility] Lymphocyte abs 1.13 0.80 - 3.30 K/cumm [facility] Monocyte abs 1.11(H) 0.20 - 0.80 K/cumm [facility] Eosinophil abs 0.28 0.00 - 0.50 K/cumm [facility] Basophil abs 0.04 0.00 - 0.10 K/cumm [facility] Neutrophil pct 72.5 % [facility] Comment: Interpretive Data Percent cell count reference ranges are not reported, since discordance with absolute values may lead to misinterpretation of CBC data. Current Interpretive Data was last revised on 2017. Imm gran pct 0.5 % [facility] Comment: Interpretive Data Percent cell count reference ranges are not reported, since discordance with absolute values may lead to misinterpretation of CBC data. Current Interpretive Data was last revised on 2017. Lymphocyte pct 11.9 % [facility] Comment: Interpretive Data Percent cell count reference ranges are not reported, since discordance with absolute values may lead to misinterpretation of CBC data. Current Interpretive Data was last revised on 2017. Monocyte pct 11.7 % [facility] Comment: Interpretive Data Percent cell count reference ranges are not reported, since discordance with absolute values may lead to misinterpretation of CBC data. Current Interpretive Data was last revised on 2017. Eosinophil pct 3.0 % [facility] Comment: Interpretive Data Percent cell count reference ranges are not reported, since discordance with absolute values may lead to misinterpretation of CBC data. Current Interpretive Data was last revised on 2017. Basophil pct 0.4 % [facility] Comment: Interpretive Data Percent cell count reference ranges are not reported, since discordance with absolute values may lead to misinterpretation of CBC data. Current Interpretive Data was last revised on 2017. Blood 03/02/2025 7:14 AM CDT 03/02/2025 7:31 AM CDT Mk Manzano MD LAB BLOOD ORDERABLES Final Resul t Performing Organization Address [facility] Co de Phone Number [address] [address] * (ABNORMAL) CBC with auto differential (03/02/2025 7:14 AM CDT) WBC 9.49 3.80 - 9.90 K/cumm Hgb 11.7(L) 13.0 - 17.5 g/dL [facility] Hct 38.5(L) 38.9 - 50.3 % [facility] Plt 500(H) 150 - 400 K/cumm [facility] MPV 9.5 9.1 - 12.3 fL [facility] RBC 4.69 4.30 - 5.80 M/cumm [facility] MCV 82.1 81.3 - 96.4 fL [facility] MCH 24.9(L) 27.1 - 33.3 pg [facility] MCHC 30.4(L) 32.3 - 35.7 g/dL [facility] RDW CV 14.3 11.1 - 14.9 % [facility] RDW SD 42.0 35.7 - 48.1 fL [facility] NRBC abs 0.00 0.00 - 0.01 K/cumm [facility] Blood 03/02/2025 7:14 AM CDT 03/02/2025 7:31 AM CDT Mk Manzano MD LAB BLOOD ORDERABLES Final Resul t Performing Organization Address [facility] Co de Phone Number [address] [address] * Magnesium (03/02/2025 7:14 AM CDT) Magnesium 2.3 1.4 - 2.5 mg/dL Blood 03/02/2025 7:14 AM CDT 03/02/2025 7:31 AM CDT Sabi Shah MD LAB BLOOD ORDERABLES Final Resul t Performing Organization Address [facility] de Phone Number [address] Department [place] [address] * (ABNORMAL) Basic metabolic panel (03/02/2025 7:14 AM CDT) [facility] Sodium 137 135 - 145 mmol/L Potassium, pl 3.8 3.3 - 4.9 mmol/L [facility] Chloride 103 97 - 110 mmol/L [facility] CO2 24 22 - 32 mmol/L [facility] Anion gap 10 2 - 15 mmol/L [facility] BUN 12 6 - 25 mg/dL [facility] Creatinine 0.62(L) 0.80 - 1.30 mg/dL [facility] Glucose 105 70 - 199 mg/dL [facility] Comment: Interpretive Data Fasting glucose >/= 126 mg/dl is diagnostic for diabetes. Fasting is defined as no caloric intake for at least 8 hours. Fasting glucose between 100 mg/dl to 125 mg/dl is diagnostic of prediabetes. In a patient with classic symptoms of hyperglycemia or hyperglycemic crisis, a random glucose >/= 200 mg/dl is diagnostic for diabetes. In the absence of unequivocal hyperglycemia, results should be confirmed by repeat testing. The classification and Diagnosis of Diabetes Diabetes Care 202; 46: S19-S40. Current interpretive data was last revised 2022. Calcium 8.5 8.5 - 10.3 mg/dL [facility] Blood 03/02/2025 7:14 AM CDT 03/02/2025 7:31 AM CDT Mk Manzano MD LAB BLOOD ORDERABLES Final Resul t Performing Organization Address [facility] de Phone Number [address] [place] [address] * eGFR (03/01/2025 7:06 AM CDT) [facility] eGFR >90 >=60 mL/min/1. 73 m2 Comment: Interpretive Data Reference Interval Normal >/= 90 mL/min/1.73m2 Mildly decreased* 60 - 89 mL/min/1.73m2 Mildly to moderately decreased 45 - 59 mL/min/1.73m2 Moderately to severely decreased 30 - 44 mL/min/1.73m2 Severely decreased 15 - 29 mL/min/1.73m2 Kidney Failure < 15 mL/min/1.73m2 *Relative to young adult level Estimated glomerular filtration rate is determined by the 2020 CKD-EPI equation recommended by the National Kidney Foundation (A Unifying Approach to GFR Estimation: Recommendations of the NKF-ASK Task Force on Reassessing the Inclusion of Race in Diagnosing Kidney Disease, JASN 202). The CKD-EPI equation should not be used for patients with unstable renal function and has not been validated in children and those over 70. Current interpretive data was last reviewed 2021. Blood 03/01/2025 7:06 AM CDT 03/01/2025 7:49 AM CDT us Mk Manzano MD LAB BLOOD ORDERABLES Final Resul t [place] [id number] [facility] Department [place] [address] * (ABNORMAL) Differential, auto (03/01/2025 7:06 AM CDT) Neutrophil abs 8.57(H) 1.50 - 6.50 K/cumm Imm gran abs 0.05 0.00 - 0.10 K/cumm [facility] Lymphocyte abs 1.12 0.80 - 3.30 K/cumm [facility] Monocyte abs 1.24(H) 0.20 - 0.80 K/cumm [facility] Eosinophil abs 0.30 0.00 - 0.50 K/cumm [facility] Basophil abs 0.05 0.00 - 0.10 K/cumm [facility] Neutrophil pct 75.8 % [facility] Comment: Interpretive Data Percent cell count reference ranges are not reported, since discordance with absolute values may lead to misinterpretation of CBC data. Current Interpretive Data was last revised on 2017. Imm gran pct 0.4 % [facility] Comment: Interpretive Data Percent cell count reference ranges are not reported, since discordance with absolute values may lead to misinterpretation of CBC data. Current Interpretive Data was last revised on 2017. Lymphocyte pct 9.9 % [facility] Comment: Interpretive Data Percent cell count reference ranges are not reported, since discordance with absolute values may lead to misinterpretation of CBC data. Current Interpretive Data was last revised on 2017. Monocyte pct 10.9 % [facility] Comment: Interpretive Data Percent cell count reference ranges are not reported, since discordance with absolute values may lead to misinterpretation of CBC data. Current Interpretive Data was last revised on 2017. Eosinophil pct 2.6 % [facility] Comment: Interpretive Data Percent cell count reference ranges are not reported, since discordance with absolute values may lead to misinterpretation of CBC data. Current Interpretive Data was last revised on 2017. Basophil pct 0.4 % [facility] Comment: Interpretive Data Percent cell count reference ranges are not reported, since discordance with absolute values may lead to misinterpretation of CBC data. Current Interpretive Data was last revised on 2017. Blood 03/01/2025 7:06 AM CDT 03/01/2025 7:49 AM CDT us Mk Manzano MD LAB BLOOD ORDERABLES Final Resul t [facility] [address] [facility] [facility] Department [place] [address] * (ABNORMAL) CBC with auto differential (03/01/2025 7:06 AM CDT) WBC 11.33(H) 3.80 - 9.90 K/cumm Hgb 12.2(L) 13.0 - 17.5 g/dL [facility] Hct 40.9 38.9 - 50.3 % [facility] Plt 504(H) 150 - 400 K/cumm [facility] MPV 9.6 9.1 - 12.3 fL [facility] RBC 4.91 4.30 - 5.80 M/cumm [facility] MCV 83.3 81.3 - 96.4 fL [facility] MCH 24.8(L) 27.1 - 33.3 pg [facility] MCHC 29.8(L) 32.3 - 35.7 g/dL [facility] RDW CV 14.2 11.1 - 14.9 % [facility] RDW SD 43.3 35.7 - 48.1 fL [facility] NRBC abs 0.00 0.00 - 0.01 K/cumm [facility] Blood 03/01/2025 7:06 AM CDT 03/01/2025 7:49 AM CDT us Mk Manzano MD LAB BLOOD ORDERABLES Final Resul t [facility] [address] [facility] Department [place] [address] * (ABNORMAL) Basic metabolic panel (03/01/2025 7:06 AM CDT) Sodium 138 135 - 145 mmol/L Potassium, pl 3.8 3.3 - 4.9 mmol/L [facility] Chloride 103 97 - 110 mmol/L [facility] CO2 23 22 - 32 mmol/L [facility] Anion gap 12 2 - 15 mmol/L [facility] BUN 10 6 - 25 mg/dL [facility] Creatinine 0.61(L) 0.80 - 1.30 mg/dL [facility] Glucose 93 70 - 199 mg/dL [facility] Comment: Interpretive Data Fasting glucose >/= 126 mg/dl is diagnostic for diabetes. Fasting is defined as no caloric intake for at least 8 hours. Fasting glucose between 100 mg/dl to 125 mg/dl is diagnostic of prediabetes. In a patient with classic symptoms of hyperglycemia or hyperglycemic crisis, a random glucose >/= 200 mg/dl is diagnostic for diabetes. In the absence of unequivocal hyperglycemia, results should be confirmed by repeat testing. The classification and Diagnosis of Diabetes Diabetes Care 202; 46: S19-S40. Current interpretive data was last revised 2022. Calcium 8.4(L) 8.5 - 10.3 mg/dL [facility] Blood 03/01/2025 7:06 AM CDT 03/01/2025 7:49 AM CDT us Mk Manzano MD LAB BLOOD ORDERABLES Final Resul t [facility] [address] [facility] Department [place] [address] * CT Chest WO Contrast (02/28/2025 2:04 PM CDT) Anatomical Region Laterality Modality Body N/A Computed Tomogra phy 03/01/2025 1:05 AM CDT Narrative 03/01/2025 1:19 AM CDT EXAM DESCRIPTION: CT CHEST WO CONTRAST REASON FOR STUDY: Pneumonia, complication suspected, xray done Pneumonia, complication suspected, xray done TECHNIQUE: CT scan of the chest performed without intravenous contrast using helical scanning technique. Reconstructed coronal and sagittal MPR images reviewed. All images stored on PACS. Automated mA/kV exposure control was utilized as a dose optimization technique for this examination, performed in strict accordance with principles of ALARA. COMPARISON: CT of the chest of February 15, 2025. REFERENCE: Per ACR white paper recommendations, unless otherwise specified no follow-up imaging is recommended for incidental renal and adrenal lesions per consensus recommendations based on imaging criteria. Further lab evaluation could be pursued based on clinical findings. FINDINGS: The sensitivity for detection of solid visceral lesions is diminished without the use of intravenous contrast. NECK BASE: Evaluation of the neck base is somewhat limited secondary to patient motion. No gross abnormality is seen on this noncontrast enhanced exam. HARDWARE/LINES/TUBES: None. LYMPH NODES: No axillary, mediastinal or hilar lymphadenopathy is seen by CT size criteria on this non-contrast CT. There are calcified nodes. MEDIASTINUM/CINDY: No masses seen. There is minimal atherosclerosis of the aorta. There is no significant coronary artery calcification. Heart size is normal. There is a small pericardial effusion, unchanged from previous. PLEURA: There is a small left pleural effusion, increased as compared to previous study. No pneumothorax. LUNGS: There is a thick walled cavitary lesion centrally within the left upper lobe measuring 5.9 x 4.7 cm, slightly increased in size as compared to previous study (previously 5 x 4.1 cm measured at the same level). There is surrounding spiculated nodularity, not significantly changed from previous. There are multiple scattered spiculated solid nodules and reticulonodular infiltrates through out the left lung, the largest measuring 2.3 x 1.4 cm in the left lower lobe, new from previous. There is increasing peripheral consolidation in the left lower lobe posteriorly. There is a thick walled cavitary lesion in the right upper lobe measuring 4.3 x 1.8 cm (previously measuring 3.6 x 1.6 cm at the same level. There are multiple adjacent spiculated nodules scattered through out the left upper lobe measuring up to 1.4 cm in diameter, not significantly changed from previous. There are extensive reticulonodular infiltrates through out the right upper, right middle and right lower lobes, significantly progressed as compared to previous study. There are multiple spiculated solid nodules scattered through out the right middle and right lower lobe measuring up to 1 cm in diameter, not significantly changed from previous. There is bronchial wall thickening seen of the lower lobes bilaterally, greater on the left than the right, progressed from previous. There is debris layering within the left mainstem bronchus. The central airways are otherwise unremarkable. MUSCULOSKELETAL: There is mild diffuse degenerative change of the thoracic spine. There is no acute abnormality. CHEST WALL/BREAST: Unremarkable. UPPER ABDOMEN: No significant abnormality. OTHER: No other significant abnormality. IMPRESSION: 1. Bilateral thick-walled cavitary lesions, slightly increased in size as compared to previous study. This may represent cavitation related to infection or malignancy. 2. Extensive reticulonodular infiltrates through out the right upper, right middle and right lower lobes, significantly progressed as compared to previous study, compatible with infection or inflammation. 3. Multiple spiculated solid nodules scattered through out the left lung, the largest measuring 2.3 x 1.4 cm in the left lower lobe, new from previous. This may represent infection, inflammation or metastasis. 4. Increasing peripheral consolidation in the left lower lobe posteriorly, consistent with pneumonia. 5. Bronchial wall thickening of the lower lobes bilaterally, greater on the left than the right, progressed from previous. 6. Small left pleural effusion, increased as compared to previous study, suggestive of a parapneumonic effusion. 7. Small pericardial effusion, unchanged from previous. 8. Mild diffuse degenerative change of the thoracic spine. THIS IS AN ELECTRONICALLY VERIFIED FINAL REPORT 03/01/2025 1:19 AM - Electronically signed by Abby Rene M.D. SN T: Report ID: [id number] Reading Location: [id number] Procedure Note Abby Rene MD - 03/01/2025 EXAM DESCRIPTION: CT CHEST WO CONTRAST REASON FOR STUDY: Pneumonia, complication suspected, xray done Pneumonia, complication suspected, xray done TECHNIQUE: CT scan of the chest performed without intravenous contrastusing helical scanning technique. Reconstructed coronal and sagittal MPR images reviewed. All images stored on PACS. Automated mA/kV exposure controlwas utilized as a dose optimization technique for this examination, performedin strict accordance with principles of ALARA. COMPARISON: CT of the chest of February 15, 2025. REFERENCE: Per ACR white paper recommendations, unless otherwise specifiedno follow-up imaging is recommended for incidental renal and adrenal lesionsper consensus recommendations based on imaging criteria. Further labevaluation could be pursued based on clinical findings. FINDINGS: The sensitivity for detection of solid visceral lesions is diminished without the use of intravenous contrast. NECK BASE: Evaluation of the neck base is somewhat limited secondary to patient motion. No gross abnormality is seen on this noncontrast enhanced exam. HARDWARE/LINES/TUBES: None. LYMPH NODES: No axillary, mediastinal or hilar lymphadenopathy is seen byCT size criteria on this non-contrast CT. There are calcified nodes. MEDIASTINUM/CINDY: No masses seen. There is minimal atherosclerosis ofthe aorta. There is no significant coronary artery calcification. Heartsize is normal. There is a small pericardial effusion, unchanged fromprevious. PLEURA: There is a small left pleural effusion, increased as compared to previous study. No pneumothorax. LUNGS: There is a thick walled cavitary lesion centrally within the left upper lobe measuring 5.9 x 4.7 cm, slightly increased in size as comparedto previous study (previously 5 x 4.1 cm measured at the same level). Thereis surrounding spiculated nodularity, not significantly changed fromprevious. There are multiple scattered spiculated solid nodules and reticulonodular infiltrates through out the left lung, the largest measuring 2.3 x 1.4 cmin the left lower lobe, new from previous. There is increasing peripheral consolidation in the left lower lobe posteriorly. There is a thick walled cavitary lesion in the right upper lobe measuring 4.3 x 1.8 cm (previously measuring 3.6 x 1.6 cm at the same level. There are multiple adjacent spiculated nodules scattered through out the left upper lobe measuring upto 1.4 cm in diameter, not significantly changed from previous. There are extensive reticulonodular infiltrates through out the right upper, right middle and right lower lobes, significantly progressed as compared toprevious study. There are multiple spiculated solid nodules scattered through outthe right middle and right lower lobe measuring up to 1 cm in diameter, not significantly changed from previous. There is bronchial wall thickening seen of the lower lobes bilaterally, greater on the left than the right, progressed from previous. There is debris layering within the leftmainstem bronchus. The central airways are otherwise unremarkable. MUSCULOSKELETAL: There is mild diffuse degenerative change of thethoracic spine. There is no acute abnormality. CHEST WALL/BREAST: Unremarkable. UPPER ABDOMEN: No significant abnormality. OTHER: No other significant abnormality. IMPRESSION: 1. Bilateral thick-walled cavitary lesions, slightly increased in sizeas compared to previous study. This may represent cavitation related to infection or malignancy. 2. Extensive reticulonodular infiltrates through out the right upper,right middle and right lower lobes, significantly progressed as compared toprevious study, compatible with infection or inflammation. 3. Multiple spiculated solid nodules scattered through out the leftlung, the largest measuring 2.3 x 1.4 cm in the left lower lobe, new fromprevious. This may represent infection, inflammation or metastasis. 4. Increasing peripheral consolidation in the left lower lobeposteriorly, consistent with pneumonia. 5. Bronchial wall thickening of the lower lobes bilaterally, greater onthe left than the right, progressed from previous. 6. Small left pleural effusion, increased as compared to previous study, suggestive of a parapneumonic effusion. 7. Small pericardial effusion, unchanged from previous. 8. Mild diffuse degenerative change of the thoracic spine. THIS IS AN ELECTRONICALLY VERIFIED FINAL REPORT 03/01/2025 1:19 AM - Electronically signed by Abby Rene M.D. SN T: Report ID: [id number] Reading Location: [place] [address] us Aileen Mcdonald MD IMG CT PROCEDURES Final R esult * ECG 12 lead (02/28/2025 10:00 AM CDT) Ventricular Rate EKG/Min 94 BPM [facility] Atrial Rate 94 BPM [facility] RI-Interval (MSEC) 154 ms [facility] QRS-Interval (MSEC) 90 ms [facility] QT-Interval (MSEC) 424 ms [facility] QTc 530 ms [facility] P Morgan 65 degrees [facility] R Morgan -8 degrees [facility] T Morgan 64 degrees [facility] Diagnosis Normal sinus rhythm Septal infarct , age undetermined Prolonged QT Abnormal ECG Confirmed by STEVE VAZQUEZ M.D. ([id number]) on 02/28/2025 5:47:47 PM [facility] 02/28/2025 10:0 0 AM CDT 02/28/2025 5:47 PM CDT us Kranthi Leonard MD ECG ORDERABLES Final Result [facility] [place] * eGFR (02/28/2025 5:58 AM CDT) eGFR >90 >=60 mL/min/1. 73 m2 Comment: Interpretive Data Reference Interval Normal >/= 90 mL/min/1.73m2 Mildly decreased* 60 - 89 mL/min/1.73m2 Mildly to moderately decreased 45 - 59 mL/min/1.73m2 Moderately to severely decreased 30 - 44 mL/min/1.73m2 Severely decreased 15 - 29 mL/min/1.73m2 Kidney Failure < 15 mL/min/1.73m2 *Relative to young adult level Estimated glomerular filtration rate is determined by the 2020 CKD-EPI equation recommended by the National Kidney Foundation (A Unifying Approach to GFR Estimation: Recommendations of the NKF-ASK Task Force on Reassessing the Inclusion of Race in Diagnosing Kidney Disease, JASN 2020). The CKD-EPI equation should not be used for patients with unstable renal function and has not been validated in children and those over 70. Current interpretive data was last reviewed 2021. Blood 02/28/2025 5:58 AM CDT 02/28/2025 6:37 AM CDT us Mk Manzano MD LAB BLOOD ORDERABLES Final Resul t [facility] [address] [facility] [place] [address] * (ABNORMAL) Differential, auto (02/28/2025 5:58 AM CDT) Neutrophil abs 7.96(H) 1.50 - 6.50 K/cumm Imm gran abs 0.04 0.00 - 0.10 K/cumm [facility] Lymphocyte abs 1.11 0.80 - 3.30 K/cumm [facility] Monocyte abs 1.33(H) 0.20 - 0.80 K/cumm [facility] Eosinophil abs 0.28 0.00 - 0.50 K/cumm [facility] Basophil abs 0.05 0.00 - 0.10 K/cumm [facility] Neutrophil pct 73.9 % [facility] Comment: Interpretive Data Percent cell count reference ranges are not reported, since discordance with absolute values may lead to misinterpretation of CBC data. Current Interpretive Data was last revised on 2017. Imm gran pct 0.4 % [facility] Comment: Interpretive Data Percent cell count reference ranges are not reported, since discordance with absolute values may lead to misinterpretation of CBC data. Current Interpretive Data was last revised on 2017. Lymphocyte pct 10.3 % [facility] Comment: Interpretive Data Percent cell count reference ranges are not reported, since discordance with absolute values may lead to misinterpretation of CBC data. Current Interpretive Data was last revised on 2017. Monocyte pct 12.3 % [facility] Comment: Interpretive Data Percent cell count reference ranges are not reported, since discordance with absolute values may lead to misinterpretation of CBC data. Current Interpretive Data was last revised on 2017. Eosinophil pct 2.6 % [facility] Comment: Interpretive Data Percent cell count reference ranges are not reported, since discordance with absolute values may lead to misinterpretation of CBC data. Current Interpretive Data was last revised on 2017. Basophil pct 0.5 % [facility] Comment: Interpretive Data Percent cell count reference ranges are not reported, since discordance with absolute values may lead to misinterpretation of CBC data. Current Interpretive Data was last revised on 2017. Blood 02/28/2025 5:58 AM CDT 02/28/2025 6:37 AM CDT Mk Manzano MD LAB BLOOD ORDERABLES Final Resul t Performing Organization Address [facility] de Phone Number [address] [employer] [place] [address] * (ABNORMAL) CBC with auto differential (02/28/2025 5:58 AM CDT) WBC 10.77(H) 3.80 - 9.90 K/cumm Hgb 11.3(L) 13.0 - 17.5 g/dL [facility] Hct 37.2(L) 38.9 - 50.3 % [facility] Plt 415(H) 150 - 400 K/cumm [facility] MPV 9.8 9.1 - 12.3 fL [facility] RBC 4.42 4.30 - 5.80 M/cumm [facility] MCV 84.2 81.3 - 96.4 fL [facility] MCH 25.6(L) 27.1 - 33.3 pg [facility] MCHC 30.4(L) 32.3 - 35.7 g/dL [facility] RDW CV 14.3 11.1 - 14.9 % [facility] RDW SD 44.4 35.7 - 48.1 fL [facility] NRBC abs 0.00 0.00 - 0.01 K/cumm [facility] Blood 02/28/2025 5:58 AM CDT 02/28/2025 6:37 AM CDT us Mk Manzano MD LAB BLOOD ORDERABLES Final Resul t Performing Organization Address [facility] Co de Phone Number CLARISSA [address] [employer] [place] [address] * (ABNORMAL) Basic metabolic panel (02/28/2025 5:58 AM CDT) [facility] Sodium 141 135 - 145 mmol/L Potassium, pl 4.1 3.3 - 4.9 mmol/L [facility] Comment:Hemolyzed; Potassium value may be falsely elevated by as much as 1.0 mmol/L. Suggest redraw and reanalysis. Chloride 106 97 - 110 mmol/L [facility] CO2 22 22 - 32 mmol/L [facility] Anion gap 13 2 - 15 mmol/L [facility] BUN 12 6 - 25 mg/dL [facility] Creatinine 0.60(L) 0.80 - 1.30 mg/dL [facility] Glucose 94 70 - 199 mg/dL [facility] Comment: Interpretive Data Fasting glucose >/= 126 mg/dl is diagnostic for diabetes. Fasting is defined as no caloric intake for at least 8 hours. Fasting glucose between 100 mg/dl to 125 mg/dl is diagnostic of prediabetes. In a patient with classic symptoms of hyperglycemia or hyperglycemic crisis, a random glucose >/= 200 mg/dl is diagnostic for diabetes. In the absence of unequivocal hyperglycemia, results should be confirmed by repeat testing. The classification and Diagnosis of Diabetes Diabetes Care 2021; 46: S19-S40. Current interpretive data was last revised 2022. Calcium 8.1(L) 8.5 - 10.3 mg/dL [facility] Blood 02/28/2025 5:58 AM CDT 02/28/2025 6:37 AM CDT Mk Manzano MD LAB BLOOD ORDERABLES Final Resul t [facility] [address] [facility] Department [place] [address] * Strep pneumoniae antigen, urine Urine (02/28/2025 5:50 AM CDT) [facility] S. pneumoniae Ag Negative Negative Comment: Interpretive Data A positive result is indicative of pneumococcal pneumonia in patients with severe CAP. Cross-reactivity with closely related Streptococcus bacteria may occur. A negative result suggests no current or recent pneumococcal infection but cannot rule out infection with S. pneumoniae. The results of this testing should be used in conjunction with clinical findings and other diagnostic testing, including microbiologic culture. Current Interpretive Data was last revised on 2022 Urine 02/28/2025 5:50 AM CDT 02/28/2025 6:00 AM CDT Mk Manzano MD LAB MICROBIOLOGY - GENERAL ORDER FOX Final Result Performing Organization Address [facility] Co de Phone Number [address] [address] * Legionella antigen Urine (02/28/2025 5:50 AM CDT) Legionella Ag Negative Negative Comment: Interpretive Data This test detects only Legionella pneumophila serogroup 1 antigen. Testing performed by [facility] ([phone]). Current interpretive data was last revised on 2019. Testing performed by: [facility], [address] [place]., [address] Urine 02/28/2025 5:50 AM CDT 02/28/2025 10:40 AM CDT Mk Manzano MD LAB MICROBIOLOGY - GENERAL ORDER FOX Final Result Performing Organization Address [facility] de Phone Number [address] [address] * Influenza A/B, RSV, and COVID-19 PCR Nasopharyngeal (02/28/2025 12:49 AM CDT) COVID-19 RNA Negative Negative Influenza A RNA Negative Negative [facility] Influenza B RNA Negative Negative [facility] RSV RNA Negative Negative [facility] Comment: Interpretive data: Testing performed by [facility]. This test is performed using the [employer] Xpert Xpress CoV-2/Flu/RSV plus assay. This is a multiplex, real-time reverse transcriptase PCR assay intended for the qualitative detection of nucleic acid from SARS-CoV-2, influenza A, influenza B, and respiratory syncytial virus. This assay has been cleared by the [place] Food and Drug administration. The performance characteristics have been verified by the [facility]. Results must be considered in the clinical context, and a negative result does not rule out infection. Interpretive Data last revised 2023 Nasopharyngeal 02/28/2025 12 :49 AM CDT 02/28/2025 12:59 AM CDT Narrative [facility] - 02/28/2025 1:51 AM CDT Is the Patient experiencing symptoms consistent with COVID?->No Mk Manzano MD LAB MICROBIOLOGY - GENERAL ORDER FOX Final Result Performing Organization Address [facility] de Phone Number [address] [address] * MRSA Only (Staphylococcus aureus) PCR Nasal (02/28/2025 12:49 AM CDT) PCR Scrn, Methicillin resistant Staphylococcus aureus (MRSA) Not Detected Not Detected Comment: Interpretive Data Testing performed using Nucleic Acid Amplification with the [employer] Xpert MRSA NxG Assay. This assay detects target DNA from mecA, mecC and the SCCmec insertion site of Staphylococcus aureus using Real-Time PCR and has been cleared by the FDA. Performance characteristics have been verified by the [facility]. Current Interpretive Data was last revised on 2023 Nasal 02/28/2025 12:4 9 AM CDT 02/28/2025 12:59 AM CDT Mk Manzano MD LAB MICROBIOLOGY - GENERAL ORDER FOX Final Result Performing Organization Address [facility] de Phone Number [address] [address] * Troponin T high-sensitivity 6-hour (02/27/2025 10:06 PM CDT) Trop T hs 15 <=22 ng/L Comment: Interpretive Data For further hscTnT resources including the diagnostic algorithm and an aid in interpretation, copy and paste this link: [email or web address] Current Interpretive Data last revised 2020. Trop T hs delta See Comment ng/L [facility] Comment:Inappropriate collec tion time to report a delta. Trop T hs pct delta See Comment % CL[facility]ISSA Comment:Inappropriate collec tion time to report a delta. Trop T hs interp See Comment [facility]ISSA Comment:Inappropriate collec tion time to report a delta. Blood 02/27/2025 10:0 6 PM CDT 02/27/2025 10:20 PM CDT [employer] PA LAB BLOOD ORDERABLES Final Re sult [address] [place] [address] * Sepsis Lactate w/ Reflex (02/27/2025 10:06 PM CDT) Sepsis Lactate 1.6 0.7 - 2.0 mmol/L Blood 02/27/2025 10:0 6 PM CDT 02/27/2025 10:11 PM CDT [employer] PA LAB BLOOD ORDERABLES Final Re sult Performing Organization Address City/[facility]/ZIP Co de Phone Number [address] [place] [address] * Blood culture Blood Peripheral (02/27/2025 6:28 PM CDT) Report Final Report: No growth Comment:Testing performed by : [facility], [address] [facility], [place]., [address] Blood (Peripheral) 02/27/2025 6:28 PM CDT 02/27/2025 9:08 PM CDT Narrative CL[facility]ISSA - 03/04/2025 7:00 AM CDT From a different site than #1. Draw Blood cultures before administration of Antibiotics Collection->Peripheral Received only aerobic blood culture bottle 1. Blood cultures are incubated for 4 days on a continuously monitored blood culture system. The first report of a negative culture is issued within 24 hours of receipt of the specimen in the laboratory. 2. Positive culture results are reported as soon as they are detected. 3. The most important factor for detection of microbes in the setting of bloodstream infection is the volume of blood submitted for culture. Failure to collect an optimal blood volume can result in false negative blood cultures. 4. For pediatric patients, the recommended blood volume to collect follows a weight based strategy. See the electronic test catalog for collection instructions. 5. For positive blood cultures, a rapid molecular test may be performed for organism identification using the maynor ePlex blood culture identification panel for gram positive (BCID-GP) and gram negative (BCID-GN) organisms. This nucleic acid amplification test detects microbial DNA in positive blood culture broth. This assay has been cleared by the [place] Food and Drug Administration and its performance characteristics have been verified by the [facility]. For questions about this culture, contact the Microbiology Laboratory at [phone]. Interpretive data was last revised on 24. Og Mane DO LAB MICROBIOLOGY - GENERAL ORD ERABLES Final Result [facility] [address] [facility] [place] [address] * Blood culture Blood Peripheral (02/27/2025 6:21 PM CDT) Report Final Report: No growth Comment:Testing performed by : [facility], [address] [facility] [place]., [address] Blood (Peripheral) 02/27/2025 6:21 PM CDT 02/27/2025 9:07 PM CDT [facility] 03/04/2025 7:00 AM CDT Draw Blood cultures before administration of Antibiotics Collection->Peripheral Received only aerobic blood culture bottle 1. Blood cultures are incubated for 4 days on a continuously monitored blood culture system. The first report of a negative culture is issued within 24 hours of receipt of the specimen in the laboratory. 2. Positive culture results are reported as soon as they are detected. 3. The most important factor for detection of microbes in the setting of bloodstream infection is the volume of blood submitted for culture. Failure to collect an optimal blood volume can result in false negative blood cultures. 4. For pediatric patients, the recommended blood volume to collect follows a weight based strategy. See the electronic test catalog for collection instructions. 5. For positive blood cultures, a rapid molecular test may be performed for organism identification using the maynor ePlex blood culture identification panel for gram positive (BCID-GP) and gram negative (BCID-GN) organisms. This nucleic acid amplification test detects microbial DNA in positive blood culture broth. This assay has been cleared by the [place] Food and Drug Administration and its performance characteristics have been verified by the [facility]. For questions about this culture, contact the Microbiology Laboratory at [phone]. Interpretive data was last revised on 24. Og Mane [facility] MICROBIOLOGY - GENERAL ORD ERABLES Final Result Performing Organization Address City/[facility] Co de Phone Number CLARISSA [address] [place] [address] * MRSA Only (Staphylococcus aureus) PCR Nasal (02/27/2025 6:19 PM CDT) PCR Scrn, Methicillin resistant Staphylococcus aureus (MRSA) Not Detected Not Detected Comment: Interpretive Data Testing performed using Nucleic Acid Amplification with the [employer] Xpert MRSA NxG Assay. This assay detects target DNA from mecA, mecC and the SCCmec insertion site of Staphylococcus aureus using Real-Time PCR and has been cleared by the FDA. Performance characteristics have been verified by the [facility]. Current Interpretive Data was last revised on 2023 Nasal 02/27/2025 6:19 PM CDT 02/27/2025 6:22 PM CDT Og Mane [facility] MICROBIOLOGY - GENERAL ORD ERABLES Final Result Performing Organization Address City/[facility]/ZIP Co de Phone Number CLARISSA [address] [address] * Troponin T high-sensitivity 4-hour (02/27/2025 5:30 PM CDT) Trop T hs 14 <=22 ng/L Comment: Interpretive Data For further hscTnT resources including the diagnostic algorithm and an aid in interpretation, copy and paste this link: [email or web address] Current Interpretive Data last revised 2020. Trop T hs delta 0 ng/L [facility]SA Trop T hs interp Insignificant [facility] Blood 02/27/2025 5:30 PM CDT 02/27/2025 5:35 PM CDT [employer] LAB BLOOD ORDERABLES Final Re sult CLARISSA [address] [place] [address] * (ABNORMAL) Sepsis Lactate w/ Reflex (02/27/2025 5:30 PM CDT) [facility] Sepsis Lactate 2.1(H) 0.7 - 2.0 mmol/L Blood 02/27/2025 5:30 PM CDT 02/27/2025 5:34 PM CDT [employer] PA LAB BLOOD ORDERABLES Final Re sult CLARISSA [address] [place] [address] * Troponin T high-sensitivity series (baseline, 2hr, 4hr, 6hr) (02/27/2025 1:53 PM CDT) Pathologist [facility] Trop T hs 14 <=22 ng/L Comment: Interpretive Data For further hscTnT resources including the diagnostic algorithm and an aid in interpretation, copy and paste this link: [email or web address] Current Interpretive Data last revised 2020. Blood 02/27/2025 1:53 PM CDT 02/27/2025 1:56 PM CDT Og Mane DO LAB BLOOD ORDERABLES Final Res ult Performing Organization Address [facility] de Phone Number CLARISSA [address] [address] * eGFR (02/27/2025 1:53 PM CDT) Pathologist [facility] eGFR >90 >=60 mL/min/1. 73 m2 Comment: Interpretive Data Reference Interval Normal >/= 90 mL/min/1.73m2 Mildly decreased* 60 - 89 mL/min/1.73m2 Mildly to moderately decreased 45 - 59 mL/min/1.73m2 Moderately to severely decreased 30 - 44 mL/min/1.73m2 Severely decreased 15 - 29 mL/min/1.73m2 Kidney Failure < 15 mL/min/1.73m2 *Relative to young adult level Estimated glomerular filtration rate is determined by the 2020 CKD-EPI equation recommended by the National Kidney Foundation (A Unifying Approach to GFR Estimation: Recommendations of the NKF-ASK Task Force on Reassessing the Inclusion of Race in Diagnosing Kidney Disease, JASN 2020). The CKD-EPI equation should not be used for patients with unstable renal function and has not been validated in children and those over 70. Current interpretive data was last reviewed 2021. Blood 02/27/2025 1:53 PM CDT 02/27/2025 1:56 PM CDT Og Mane DO LAB BLOOD ORDERABLES Final Res ult Performing Organization Address [facility] Co de Phone Number CLARISSA [address] [place] [address] * (ABNORMAL) Differential, auto (02/27/2025 1:53 PM CDT) [facility] Neutrophil abs 11.83(H) 1.50 - 6.50 K/cumm Imm gran abs 0.05 0.00 - 0.10 K/cumm [facility] Lymphocyte abs 0.95 0.80 - 3.30 K/cumm [facility] Monocyte abs 1.36(H) 0.20 - 0.80 K/cumm [facility] Eosinophil abs 0.07 0.00 - 0.50 K/cumm [facility] Basophil abs 0.05 0.00 - 0.10 K/cumm [facility] Neutrophil pct 82.8 % [facility] Comment: Interpretive Data Percent cell count reference ranges are not reported, since discordance with absolute values may lead to misinterpretation of CBC data. Current Interpretive Data was last revised on 2017. Imm gran pct 0.3 % [facility] Comment: Interpretive Data Percent cell count reference ranges are not reported, since discordance with absolute values may lead to misinterpretation of CBC data. Current Interpretive Data was last revised on 2017. Lymphocyte pct 6.6 % [facility] Comment: Interpretive Data Percent cell count reference ranges are not reported, since discordance with absolute values may lead to misinterpretation of CBC data. Current Interpretive Data was last revised on 2017. Monocyte pct 9.5 % [facility] Comment: Interpretive Data Percent cell count reference ranges are not reported, since discordance with absolute values may lead to misinterpretation of CBC data. Current Interpretive Data was last revised on 2017. Eosinophil pct 0.5 % [facility] Comment: Interpretive Data Percent cell count reference ranges are not reported, since discordance with absolute values may lead to misinterpretation of CBC data. Current Interpretive Data was last revised on 2017. Basophil pct 0.3 % [facility] Comment: Interpretive Data Percent cell count reference ranges are not reported, since discordance with absolute values may lead to misinterpretation of CBC data. Current Interpretive Data was last revised on 2017. Blood 02/27/2025 1:53 PM CDT 02/27/2025 1:55 PM CDT us Og Mane DO LAB BLOOD ORDERABLES Final Res ult [facility]SA DAVENPORT [address] [facility] [place] [address] * (ABNORMAL) Pro B-type natriuretic peptide (02/27/2025 1:53 PM CDT) NT-proBNP 415(H) <=300 pg/mL Comment: Interpretive Comments: A. Dyspnea in Acute Care Setting All Ages: < 300 pg/ml, acute heart failure unlikely. < 50 yrs: 300 - 450 pg/ml, further investigation warranted. > 450 pg/ml, acute heart failure likely. 50 - 74 yrs: 300 - 900 pg/ml, further investigation warranted. > 900 pg/ml, acute heart failure likely . > or = 75 yrs: 450 - 1800 pg/ml, further investigation warranted. > 1800 pg/ml, acute heart failure likely. B. Non-acute Setting < 75 yrs < 125 pg/ml, rules out heart failure. > or = 125 pg/ml, further investigation warranted. > or = 75 yrs < 450 pg/ml, rules out heart failure. > or = 450 pg/ml, further investigation warranted. - Knowledge of each individual patient's NT-proBNP range may be more useful than using similar cut-points for every patient. Please note that marked elevations in NT-proBNP levels may be observed in state other than Left Ventricular Congestive Failure, including: acute coronary syndromes, right heart strain/failure (including pulmonary embolism and cor pulmonale), critical illness, renal failure, as well as advanced age. - References: 1. Jaden CHOWDHURY et.al. Eur Heart J. 2006:27:330-337. 2. Ham RW, Eveline AM. J. AM Nica Cardiol: Cardiovasc Imag. 2009;2: 216- 225. Interpretive Data Last Revised Date: 2018. Blood 02/27/2025 1:53 PM CDT 02/27/2025 1:56 PM CDT us Maggie FOSTER LAB BLOOD ORDERABLES Final Re sult CL[facility]ISSA [address] [facility] [place] [address] * (ABNORMAL) CBC with auto differential (02/27/2025 1:53 PM CDT) Pathologist [facility] WBC 14.31(H) 3.80 - 9.90 K/cumm Hgb 13.2 13.0 - 17.5 g/dL [facility] Hct 44.0 38.9 - 50.3 % [facility] Plt 523(H) 150 - 400 K/cumm [facility] MPV 9.1 9.1 - 12.3 fL [facility] RBC 5.30 4.30 - 5.80 M/cumm [facility] MCV 83.0 81.3 - 96.4 fL [facility] MCH 24.9(L) 27.1 - 33.3 pg [facility] MCHC 30.0(L) 32.3 - 35.7 g/dL [facility] RDW CV 14.4 11.1 - 14.9 % [facility] RDW SD 43.4 35.7 - 48.1 fL [facility] NRBC abs 0.00 0.00 - 0.01 K/cumm [facility] Blood 02/27/2025 1:53 PM CDT 02/27/2025 1:55 PM CDT us Og Mane DO LAB BLOOD ORDERABLES Final Res ult [facility] [address] [facility] [place] [address] * (ABNORMAL) Comprehensive metabolic panel (02/27/2025 1:53 PM CDT) Sodium 133(L) 135 - 145 mmol/L Potassium, pl 3.6 3.3 - 4.9 mmol/L [facility] Chloride 97 97 - 110 mmol/L [facility] CO2 25 22 - 32 mmol/L [facility] Anion gap 11 2 - 15 mmol/L [facility] BUN 14 6 - 25 mg/dL [facility] Creatinine 0.77(L) 0.80 - 1.30 mg/dL [facility] Glucose 100 70 - 199 mg/dL [facility] Comment: Interpretive Data Fasting glucose >/= 126 mg/dl is diagnostic for diabetes. Fasting is defined as no caloric intake for at least 8 hours. Fasting glucose between 100 mg/dl to 125 mg/dl is diagnostic of prediabetes. In a patient with classic symptoms of hyperglycemia or hyperglycemic crisis, a random glucose >/= 200 mg/dl is diagnostic for diabetes. In the absence of unequivocal hyperglycemia, results should be confirmed by repeat testing. The classification and Diagnosis of Diabetes Diabetes Care 2021; 46: S19-S40. Current interpretive data was last revised 2022. Calcium 8.8 8.5 - 10.3 mg/dL [facility] Bilirubin, total 0.5 0.1 - 1.2 mg/dL [facility] Protein, pl 7.6 6.5 - 8.5 g/dL [facility] Albumin 3.5 3.5 - 5.0 g/dL [facility] Alk phos 128 40 - 130 Units/L [facility] ALT 18 7 - 55 Units/L [facility] AST 26 10 - 50 Units/L [facility] Blood 02/27/2025 1:53 PM CDT 02/27/2025 1:56 PM CDT us Og Mane DO LAB BLOOD ORDERABLES Final Res ult [facility] [address] [facility] [place] [address] * XR Chest 1 View (02/27/2025 1:50 PM CDT) Anatomical Region Laterality Modality Body, Chest N/A Computed Radiogr aphy 02/27/2025 1:59 PM CDT Narrative 02/27/2025 2:02 PM CDT EXAM DESCRIPTION: XR CHEST 1 VIEW REASON FOR STUDY: Shortness of breath Pt states to having increased SOB for the last 2 days. Today while at PT pt O2 dropped to 81% with ambulation and got dizzy. With rest got back up to 94%. TECHNIQUE: Single radiographic view(s) of the chest. COMPARISON: Prior x-rays 12/28/[address] 02/15/2025 and 02/01/2025 FINDINGS: There is prominence of pulmonary vascularity and interstitial markings which have increased in the interval. Superimposed are more confluent opacities of the lower 3rd of the left chest. Again seen is a cavitary lesion of the left lung apex unchanged from the prior exam. Small left effusion possible. Senescent change of the aorta. Otherwise, normal cardiomediastinal silhouette. IMPRESSION: 1. There is pulmonary edema and interstitial prominence which has increased in the interval. Findings favor edema with other interstitial infiltrate difficult to exclude. 2. Superimposed are more confluent opacities of the lower 3rd of the left chest new in the interval as well. Findings favor more confluent pneumonia. Follow-up recommended in 6 weeks to ensure resolution. 3. Again seen is a cavitary lesion of the left lung apex unchanged from the prior exam. Continued follow-up recommended. THIS IS AN ELECTRONICALLY VERIFIED FINAL REPORT 02/27/2025 2:02 PM - Electronically signed by Rg Chavez M.D. MJ T: Report ID: [id number] Reading Location: [place] [address] Procedure Note Rg Chavez MD - 02/27/2025 EXAM DESCRIPTION: XR CHEST 1 VIEW REASON FOR STUDY: Shortness of breath Pt states to having increased SOB for the last 2 days. Today while atPT pt O2 dropped to 81% with ambulation and got dizzy. With rest got back upto 94%. TECHNIQUE: Single radiographic view(s) of the chest. COMPARISON: Prior x-rays 12/28/[address] 02/15/2025 and 02/01/2025 FINDINGS: There is prominence of pulmonary vascularity and interstitial markings which have increased in the interval. Superimposed are more confluent opacities of the lower 3rd of the left chest. Again seen is a cavitary lesion of the left lung apex unchanged from the prior exam.Small left effusion possible. Senescent change of the aorta. Otherwise, normal cardiomediastinal silhouette. IMPRESSION: 1. There is pulmonary edema and interstitial prominence which hasincreased in the interval. Findings favor edema with other interstitial infiltrate difficult to exclude. 2. Superimposed are more confluent opacities of the lower 3rd of theleft chest new in the interval as well. Findings favor more confluentpneumonia. Follow-up recommended in 6 weeks to ensure resolution. 3. Again seen is a cavitary lesion of the left lung apex unchanged fromthe prior exam. Continued follow-up recommended. THIS IS AN ELECTRONICALLY VERIFIED FINAL REPORT 02/27/2025 2:02 PM - Electronically signed by Rg Fierroin M.D. MJ T: Report ID: [id number] Reading Location: [id number] Maggie FOSTER IMG XR PROCEDURES Final Resul t * ECG 12 lead (02/27/2025 1:42 PM CDT) Ventricular Rate EKG/Min 113 BPM [facility] Atrial Rate 113 BPM [facility] RI-Interval (MSEC) 150 ms [facility] QRS-Interval (MSEC) 86 ms [facility] QT-Interval (MSEC) 374 ms [facility] QTc 513 ms [facility] P Morgan 70 degrees [facility] R Morgan -72 degrees [facility] T Morgan 64 degrees [facility] Diagnosis Sinus tachycardia Possible Left atrial enlargement Pulmonary disease pattern Left anterior fascicular block Confirmed by STEVE VAZQUEZ M.D. ([id number]) on 02/27/2025 4:01:09 PM [facility] 02/27/2025 1:42 PM CDT 02/27/2025 4:01 PM CDT Og Mane DO ECG ORDERABLES Final Result [facility] * RI AN ELECTIVE ENDOTRACHEAL AIRWAY, RI AN PROCEDURE PLACEHOLDER (02/15/2025 12:15 PM CDT) Narrative Laurie Decker MD - 02/15/2025 12:15 PM CDT Laurie Decker MD 02/15/2025 12:16 PM Airway Patient location: OR Urgency: elective Date/time: 02/15/2025 11:26 AM Indications for airway management: anesthesia Difficult airway: no Staff: Placed by: Anesthesiologist: Laurie Decker MD Emergent airway documentation: Risks and benefits discussed: yes Consent obtained: yes Airway prep: Preoxygenated: yes Patient position: sniffing MILS maintained throughout: yes Mask difficulty assessment: 1 - vent by mask Spontaneous ventilation during airway: absent Sedation level during airway: GA Final airway details: Final airway type: endotracheal airway Tube type: ETT ETT size: 8.0 mm Cuffed: yes Technique used for successful ETT placement: direct laryngoscopy Devices/Methods used in placement: intubating stylet Insertion site: oral Blade type: Giorgi Blade size: 4 Cormack-Lehane (direct): grade IIa - partial view of glottis Cuff inflated with: air Placement verified by: auscultation, bronchoscopy and CO2 detection Airway secured with: other (pink tape) Number of attempts: 1 us Laurie Decker MD ANESTHESIA ORDERABLES Final Re sult * Cytology (02/15/2025 11:46 AM CDT) Fluid (Bronch Lavage (Cytology)) 02/15/2025 11:46 AM CDT Narrative PATHOLOGY [facility] - 02/19/2025 4:48 PM CDT EPIC results best viewed via link to PDF [facility] [place] [address] Note to Patients: This report may contain a detailed description of human tissue sent by a health care provider to the laboratory for pathologic evaluation. The content of this report is essential for diagnosis and may provide important critical findings. This information may be unfamiliar to patients to review without a medical professional present. It is advised that the patient review this report in the presence of a health care provider who can answer questions and explain the details. CYTOPATHOLOGY REPORT FINAL Patient Name: FREDDY SUMMERS Gender: M : 1965 (Age: 59) Address: [place] [id number] Hospital #: [id number] Taken:02/15/2025 Received:02/15/2025 Reported: 02/19/2025 Patient Type: B [facility] Service: Surgery Location: Physician(s): MD Mike Marshall M.D. FINAL DIAGNOSIS A. Lung, left upper lobe, bronchoalveolar lavage: - Negative for malignancy Comments The cytologic preparations show alveolar macrophages, occasional benign bronchial cells, and acute inflammatory cells. No microrganisms are seen. Correlation with the concurrent microbiology studies is recommended. pfm/02/19/2025 12:27 By this signature, I attest that the above diagnosis is based upon my personal examination of the slides(and/or other material indicated in the diagnosis). Alex Mane MD Report Electronically Reviewed and Signed Out By Alex Mane MD 02/19/2025 16:48:19 Edwin You [facility](ASCP) Gross Description A. Left upper lobe: 10 ml cloudy fluid - 1 Pap stained ThinPrep. (ep) Clinical Diagnosis and History The patient is a 59-year-old man with a lung lesion (thick-walled cavitary masses), concerning for infection. Microscopic slide review and interpretation for this case was performed at [facility], Department of Surgical Pathology, [address] [facility] [id number], [place] [address] CLIA # [id number] REPORT IMAGES AND SCANNED DOCUMENTS, IF INCLUDED, ONLY VIEWABLE IN PDF VERSION OF REPORT The performance characteristics of some immunohistochemical stains, in-situ hybridization and fluorescence in-situ hybridization tests and immunophenotyping by flow cytometry cited in this report (if any) were determined by the Surgical Pathology and Flow Cytometry Departments at [facility] as part of an ongoing quality assurance intern program and in compliance with federally mandated regulations drawn from the Clinical Laboratory Improvement Act of 1988 (CLIA '88). Some of these tests rely on the use of analyte specific reagents and are subject to specific labeling requirements by the US Food and Drug Administration. Such diagnostic tests may only be performed in a facility that is certified by the Department of Health and Human Services as a high complexity laboratory under CLIA '88. The FDA has determined that such clearance or approval is not necessary. This test is used for clinical purposes. It should not be regarded as investigational or for research. Nevertheless, federal rules concerning the medical use of analyte specific reagents require that the following disclaimer be attached to the report: This test was developed and its performance characteristics determined by the Surgical Pathology and Flow Cytometry Departments of [facility]. It has not been cleared or approved by the U. S. Food and Drug Administration. Aileen Mcdonald MD LAB CYTOLOGY ORDERABLES F inal Result PATHOLOGY [facility] * Pneumonia PCR Bronchoalveolar lavage Lobe, right upper (02/15/2025 11:38 AM CDT) C. pneumoniae DNA Not Detected Not Detected Comment:Testing performed by : [facility], [address] [facility], [address] Legionella pneumophila DNA Not Detected Not Detected CERJOANNA Comment:Testing performed by : [facility], [address] [facility], [address] M. pneumoniae DNA Not Detected Not Detected [facility]ER[facility]NA Comment:Testing performed by : [facility], [address] [facility], [address] Adenovirus DNA Not Detected Not Detected [facility]ERJOANNA Comment:Testing performed by : [facility], [address] [facility], [address] Coronavirus (229E, OC43, HKU1, NL63) RNA Not Detected Not Detected [facility]ER[facility]NA Comment:Testing performed by : [facility], [address] [facility], [address] Metapneumovirus RNA Not Detected Not Detected [facility]ER[facility]NA Comment:Testing performed by : [facility], [address] [facility], [address] Rhinovirus/Enterov irus RNA Not Detected Not Detected [facility]ER[facility] Comment:Testing performed by : [facility], [address] [place]., [address] Influenza A RNA Not Detected Not Detected [facility]ER[facility]NA Comment:Testing performed by : [facility], [address] [place] [address], [address] Influenza B RNA Not Detected Not Detected [facility]ER[facility]NA Comment:Testing performed by : [facility], [address] [place]., [address] Parainfluenza virus (1-4) RNA Not Detected Not Detected [facility]ER[facility]NA Comment:Testing performed by : [facility], [address] [facility], [address] RSV RNA Not Detected Not Detected [facility]ER[facility]NA Comment:Testing performed by : [facility], [address] [facility], [place]., [address] Bronchoalveolar lavage (Lobe, right upper) 02/15/2025 11:38 AM CDT 02/15/2025 5:41 PM CDT Narrative ISSAJOANNA DAVENPORT - 02/15/2025 7:26 PM CDT The [employer] Pneumonia Panel is a multiplexed nucleic acid test capable of simultaneous detection and identification of multiple respiratory viruses and bacteria. This panel detects Adenovirus, coronaviruses (Coronavirus HKU1, Coronavirus NL63, Coronavirus 229E, and Coronavirus OC43), Influenza A, Influenza B, Human metapneumovirus, Parainfluenza (1-4), RSV, Rhinovirus/Enterovirus, Chlamydia pneumoniae, Mycoplasma pneumoniae, and Legionella pneumophila. Additional aerobic bacterial targets are reported with the accompanying culture results with the same accession number. Rhinovirus and Enterovirus are genetically similar and cannot be reliably differentiated with this method. Negative adenovirus results should be confirmed by an alternative methodology (i.e. standalone PCR) if the suspicion for adenovirus infection is high. The results of this test must be considered in the clinical context of the patient and should not be used as the sole basis for diagnosis, treatment, or other management decisions. Negative results in the setting of a respiratory illness may be due to infection with pathogens that are not detected by this test. Positive results do not rule out infection/co-infection with other organisms. The [employer] Pneumonia Panel is FDA cleared for lower respiratory tract specimens. The performance characteristics of this assay have been determined by [facility]. Current interpretive data was last revised on 2024. us Aileen Mcdonald MD LAB MICROBIOLOGY - GENERA L ORDERABLES Final Result [facility] DAVENPORT [address] [facility] [place] [address] * Pneumonia PCR with aerobic culture and Gram stain Bronchoalveolar lavage Lobe, right upper (02/15/2025 11:38 AM CDT) Direct Specimen Exam Molecular Analysis: No bacterial targets detected by molecular analysis. A negative molecular panel strongly supports discontinuation of anti-MRSA and anti-pseudomonal therapy for the treatment of pneumonia due to MRSA and P. aeruginosa (refer to interpretive data for full list of targets evaluated). Correlation of molecular analysis with culture results is recommended. Comment:Testing performed by : [facility], [address] [place]., [address] Direct Specimen Exam Stain: Cytospin Gram stain shows: Abundant polymorphonuclear leukocytes seen. No squamous epithelial cells seen. Rare Mixed bacterial pam seen on Gram stain. CLARISSA Comment:Testing performed by : [facility], [address] [place]., [address] Report Final Report: Growth indicates upper respiratory pam. CLARISSA Comment:Testing performed by : [facility], [address] [place]., [address] Organism GROWTH INDICATES UPPER RESPIRATORY PAM. [facility] Bronchoalveolar lavage (Lobe, right upper) 02/15/2025 11:38 AM CDT 02/15/2025 4:35 PM CDT Narrative [facility] - 02/17/2025 9:38 AM CDT When rapid molecular testing results are reported, testing completed using the [employer] Pneumonia Panel. This molecular assay detects: Acinetobacter calcoaceticus-baumannii complex, Enterobacter cloacae complex, Escherichia coli, Haemophilus influenzae, Enterobacter (Klebsiella) aerogenes, Klebsiella oxytoca, Klebsiella pneumoniae group, Moraxella catarrhalis, Proteus spp., Pseudomonas aeruginosa, Serratia marcescens, Staphylococcus aureus, Streptococcus agalactiae, Streptococcus pneumoniae, and Streptococcus pyogenes. These bacteria are detected and reported semi-quantitatively with bins representing approximately 10^4, 10^5, 10^6, or greater than or equal to 10^7 genomic copies of bacterial nucleic acid per mL (copies/mL) of specimen. These quantities are reported to aid in estimating the relative abundance of organism(s) detected within the specimen and to correlate these results with culture results. For Staphylococcus aureus, mecA/C and MREJ genes are evaluated to predict methicillin resistance or susceptibility. For Gram-negative bacteria, the beta-lactamases CTX-M, IMP, KPC, NDM, VIM and OXA-48-like are evaluated and reported if detected. For Gram-negative organisms, the absence of detection of resistance markers does not exclude resistance. Correlation with final culture results and susceptibility testing is recommended. The [employer] Pneumonia Panel is cleared by the [place] Food and Drug Administration and its performance characteristics have been confirmed by the [facility]. The performance of the [employer] Pneumonia Panel has not been established for monitoring treatment of infection and bacterial nucleic acids may persist independent of organism viability. Aileen Mcdonald MD LAB MICROBIOLOGY - GENERA L ORDERABLES Final Result Performing Organization Address [facility] de Phone Number CLARISSA [address] [place] [address] * Cell Differential, Body Fluid (02/15/2025 11:38 AM CDT) Total cells diffed 100 % Comment: Interpretive Data Unless otherwise specified, the reference range and other method performance specifications have not been established for CSF/Body Fluid tests. The test results should be integrated into the clinical context for interpretation. Current interpretive data was last revised on 2019. Neutrophils, fld 72 % [facility] Lymphs, fld 11 % [facility] Monocyte, fld 2 % [facility] Macrophages, fld 3 % [facility] Bronch Lining Cells Fld 12 % [facility] Fluid 02/15/2025 11:3 8 AM CDT 02/15/2025 11:56 AM CDT Aileen Mcdonald MD LAB BODY FLUIDS AND STOOL S ORDERABLES Final Result Performing Organization Address [facility] de Phone Number CLARISSA [address] [place] [address] * Cell count w/rflx diff, body fluid (02/15/2025 11:38 AM CDT) Specimen type, fld Bronchial Body site, fld Bronch Lavage [facility] Color, fld #CLESS [facility] Clarity, fld Clear [facility] Nucleated cells, fld 252 /cumm [facility] Comment: Interpretive Data Unless otherwise specified, the reference range and other method performance specifications have not been established for CSF/Body Fluid tests. The test results should be integrated into the clinical context for interpretation. Current interpretive data was last revised on 2019. RBC, fld <2,000 /cumm CLARISSA Fluid 02/15/2025 11:3 8 AM CDT 02/15/2025 11:56 AM CDT Aileen Mcdonald MD LAB BODY FLUIDS AND STOOL S ORDERABLES Final Result Performing Organization Address [facility] Co de Phone Number [address] [address] * Mycology (fungal) culture Bronchoalveolar lavage Lobe, right upper (02/15/2025 11:38 AM CDT) Report Final Report: No growth of fungus Comment:Testing performed by : [facility], [address] [place] [address]., [address] Bronchoalveolar lavage (Lobe, right upper) 02/15/2025 11:38 AM CDT 02/15/2025 4:36 PM CDT Narrative [facility] - 03/15/2025 7:34 AM CDT Testing performed by [facility] ([phone]). us Aileen Mcdonald MD LAB MICROBIOLOGY - GENERA L ORDERABLES Final Result Performing Organization Address [facility] de Phone Number [address] [address] * Mycobacterium tuberculosis PCR Bronchoalveolar lavage (02/15/2025 11:38 AM CDT) Report Final Report: Target not detected Comment:Testing performed by : [address] [place] [address] Organism TARGET NOT DETECTED [facility] Bronchoalveolar lavage 02/15 11:38 AM CDT 02/16/2025 12:45 PM CDT Narrative [facility] - 02/16/2025 4:44 PM CDT 1. Nucleic acid amplification for detection of Mycobacterium tuberculosis complex is performed using the [employer] GeneXpert MTB/RIF assay. This assay has been approved by the [place] Food and Drug administration for detection of M. tuberculosis in sputum samples. The performance characteristics of this test have been verified by the [facility]biology laboratory for sputum samples and lower respiratory tract samples. 2. A negative result does not rule out an infection with Mycobacterium tuberculosis complex. 3. During clinical trials, this assay was found to be 99% sensitive for detection of M. tuberculosis in smear positive samples and 76% sensitive for detection of M. tuberculosis in smear negative samples. Sensitivity is enhanced by testing up to three specimens obtained on separate days. 4. This test should not be used to test samples from patients who have received greater than three days of anti-tuberculous therapy. 5. This assay detects Mycobacterium tuberculosis complex, which includes: M. tuberculosis, M. bovis, M. africanum, M. canettii, M. microti, M. caprae, M. pinnipedi, M. mungi, and M. orygis. 6. All samples will be reflexed to culture-based analysis. 7. This assay has not been evaluated for use with samples from pediatric patients. Current interpretive data was last revised on 2013. us Aileen Mcdonald MD LAB MICROBIOLOGY - GENERA L ORDERABLES Final Result [facility] [address] [facility] [place] [address] * Pneumocystis DFA Bronchoalveolar lavage (02/15/2025 11:38 AM CDT) Report Direct Stain Examination - Final: Negative for: Pneumocystis jirovecii Comment:Testing performed by : [facility], [address] [facility], [place]., [address] Bronchoalveolar lavage 02/15 11:38 AM CDT 02/15/2025 4:37 PM CDT Tena [facility] 02/16/2025 2:54 PM CDT The Pneumocystis organisms found in humans were originally referred to as P. carinii f. sp. Hominis, the subspecies name used to distinguish the Pneumocystis organisms found in humans from the Pneumocystis organisms found in other mammals. Recently the Pneumocystis organisms found in humans was recognized as a distinct species and renamed Pneumocystis jirovecii. Current interpretive data was last revised on 07. us Aileen Mcdonald MD LAB MICROBIOLOGY - GENERA L ORDERABLES Final Result [facility] [address] [facility] Department [place] [address] * Pneumonia PCR Bronchoalveolar lavage Lobe, left upper (02/15/2025 11:35 AM CDT) C. pneumoniae DNA Not Detected Not Detected Comment:Testing performed by : [facility], [address] [place] [address]., [id number] Legionella pneumophila DNA Not Detected Not Detected CLARISSA Comment:Testing performed by : [facility], [address] [place] [address]., [id number] M. pneumoniae DNA Not Detected Not Detected CLARISSA Comment:Testing performed by : [facility], [address] [place] [address]., [id number] Adenovirus DNA Not Detected Not Detected CLARISSA Comment:Testing performed by : [facility], [address] [place] [address]., [id number] Coronavirus (229E, OC43, HKU1, NL63) RNA Not Detected Not Detected CLARISSA Comment:Testing performed by : [facility], [address] [place] [address]., [id number] Metapneumovirus RNA Not Detected Not Detected CLARISSA Comment:Testing performed by : [facility], [address] [place] [address]., [address] Rhinovirus/Enterov irus RNA Not Detected Not Detected CLARISSA Comment:Testing performed by : [facility], [address] [place] [address]., [id number] Influenza A RNA Not Detected Not Detected CLARISSA Comment:Testing performed by : [facility], [address] [place]., [address] Influenza B RNA Not Detected Not Detected CLARISSA Comment:Testing performed by : [facility], [address] [place]., [address] Parainfluenza virus (1-4) RNA Not Detected Not Detected CLARISSA Comment:Testing performed by : [facility], [address] [place]., [address] RSV RNA Not Detected Not Detected CLARISSA Comment:Testing performed by : [facility], [address] [place]., [address] Bronchoalveolar lavage (Lobe, left upper) 02/15/2025 11:35 AM CDT 02/15/2025 5:41 PM CDT Narrative [facility] - 02/15/2025 7:31 PM CDT The BioFire Pneumonia Panel is a multiplexed nucleic acid test capable of simultaneous detection and identification of multiple respiratory viruses and bacteria. This panel detects Adenovirus, coronaviruses (Coronavirus HKU1, Coronavirus NL63, Coronavirus 229E, and Coronavirus OC43), Influenza A, Influenza B, Human metapneumovirus, Parainfluenza (1-4), RSV, Rhinovirus/Enterovirus, Chlamydia pneumoniae, Mycoplasma pneumoniae, and Legionella pneumophila. Additional aerobic bacterial targets are reported with the accompanying culture results with the same accession number. Rhinovirus and Enterovirus are genetically similar and cannot be reliably differentiated with this method. Negative adenovirus results should be confirmed by an alternative methodology (i.e. standalone PCR) if the suspicion for adenovirus infection is high. The results of this test must be considered in the clinical context of the patient and should not be used as the sole basis for diagnosis, treatment, or other management decisions. Negative results in the setting of a respiratory illness may be due to infection with pathogens that are not detected by this test. Positive results do not rule out infection/co-infection with other organisms. The BioFire Pneumonia Panel is FDA cleared for lower respiratory tract specimens. The performance characteristics of this assay have been determined by [facility]. Current interpretive data was last revised on 2024. us Aileen Mcdonald MD LAB MICROBIOLOGY - GENERA L ORDERABLES Final Result [facility] [address] [facility] Department [place] [address] * Pneumonia PCR with aerobic culture and Gram stain Bronchoalveolar lavage Lobe, left upper (02/15/2025 11:35 AM CDT) Direct Specimen Exam Molecular Analysis: No bacterial targets detected by molecular analysis. A negative molecular panel strongly supports discontinuation of anti-MRSA and anti-pseudomonal therapy for the treatment of pneumonia due to MRSA and P. aeruginosa (refer to interpretive data for full list of targets evaluated). Correlation of molecular analysis with culture results is recommended. Comment:Testing performed by : [facility], [address] [place]., [address] Direct Specimen Exam Stain: Cytospin Gram stain shows: Rare polymorphonuclear leukocytes seen. No squamous epithelial cells seen. No organisms seen. CLARISSA Comment:Testing performed by : [facility], [address] [place]., [address] Report Final Report: Growth indicates upper respiratory pam. CLARISSA Comment:Testing performed by : [facility], [address] [place]., [address] Organism GROWTH INDICATES UPPER RESPIRATORY PAM. CL[facility]ISSA Bronchoalveolar lavage (Lobe, left upper) 02/15/2025 11:35 AM CDT 02/15/2025 4:41 PM CDT [facility] CL[facility]ISSA - 02/19/2025 12:51 PM CDT When rapid molecular testing results are reported, testing completed using the [employer] Pneumonia Panel. This molecular assay detects: Acinetobacter calcoaceticus-baumannii complex, Enterobacter cloacae complex, Escherichia coli, Haemophilus influenzae, Enterobacter (Klebsiella) aerogenes, Klebsiella oxytoca, Klebsiella pneumoniae group, Moraxella catarrhalis, Proteus spp., Pseudomonas aeruginosa, Serratia marcescens, Staphylococcus aureus, Streptococcus agalactiae, Streptococcus pneumoniae, and Streptococcus pyogenes. These bacteria are detected and reported semi-quantitatively with bins representing approximately 10^4, 10^5, 10^6, or greater than or equal to 10^7 genomic copies of bacterial nucleic acid per mL (copies/mL) of specimen. These quantities are reported to aid in estimating the relative abundance of organism(s) detected within the specimen and to correlate these results with culture results. For Staphylococcus aureus, mecA/C and MREJ genes are evaluated to predict methicillin resistance or susceptibility. For Gram-negative bacteria, the beta-lactamases CTX-M, IMP, KPC, NDM, VIM and OXA-48-like are evaluated and reported if detected. For Gram-negative organisms, the absence of detection of resistance markers does not exclude resistance. Correlation with final culture results and susceptibility testing is recommended. The [employer] Pneumonia Panel is cleared by the [place] Food and Drug Administration and its performance characteristics have been confirmed by the [facility]. The performance of the FilmArray Pneumonia Panel has not been established for monitoring treatment of infection and bacterial nucleic acids may persist independent of organism viability. Aileen Mcdonald MD LAB MICROBIOLOGY - GENERA L ORDERABLES Final Result Performing Organization Address [facility] Co de Phone Number [address] [address] * Cell Differential, Body Fluid (02/15/2025 11:35 AM CDT) Total cells diffed 100 % Comment: Interpretive Data Unless otherwise specified, the reference range and other method performance specifications have not been established for CSF/Body Fluid tests. The test results should be integrated into the clinical context for interpretation. Current interpretive data was last revised on 2019. Neutrophils, fld 96 % [facility] Lymphs, fld 4 % [facility] Fluid 02/15/2025 11:3 5 AM CDT 02/15/2025 11:56 AM CDT Aileen Mcdonald MD LAB BODY FLUIDS AND STOOL S ORDERABLES Final Result Performing Organization Address [facility] Co de Phone Number [address] [place] [address] * Cell count w/rflx diff, body fluid (02/15/2025 11:35 AM CDT) Specimen type, fld Bronchial Body site, fld Bronch Lavage [facility] Color, fld White [facility] Clarity, fld Turbid [facility] Nucleated cells, fld 8,448 /cumm [facility] Comment: Interpretive Data Unless otherwise specified, the reference range and other method performance specifications have not been established for CSF/Body Fluid tests. The test results should be integrated into the clinical context for interpretation. Current interpretive data was last revised on 2019. RBC, fld <2,000 /cumm [facility] Fluid 02/15/2025 11:3 5 AM CDT 02/15/2025 11:56 AM CDT Aileen Mcdonald MD LAB BODY FLUIDS AND STOOL S ORDERABLES Final Result [facility] [address] [facility] Department [place] [address] * Mycobacterium tuberculosis PCR Bronchoalveolar lavage (02/15/2025 11:35 AM CDT) Report Final Report: Target not detected Comment:Testing performed by : [facility], [address] [facility] [address] Organism TARGET NOT DETECTED [facility] Bronchoalveolar lavage 02/15 11:35 AM CDT 02/16/2025 12:48 PM CDT Narrative [facility] - 02/16/2025 4:44 PM CDT 1. Nucleic acid amplification for detection of Mycobacterium tuberculosis complex is performed using the [employer] GeneXpert MTB/RIF assay. This assay has been approved by the [place] Food and Drug administration for detection of M. tuberculosis in sputum samples. The performance characteristics of this test have been verified by the [facility] laboratory for sputum samples and lower respiratory tract samples. 2. A negative result does not rule out an infection with Mycobacterium tuberculosis complex. 3. During clinical trials, this assay was found to be 99% sensitive for detection of M. tuberculosis in smear positive samples and 76% sensitive for detection of M. tuberculosis in smear negative samples. Sensitivity is enhanced by testing up to three specimens obtained on separate days. 4. This test should not be used to test samples from patients who have received greater than three days of anti-tuberculous therapy. 5. This assay detects Mycobacterium tuberculosis complex, which includes: M. tuberculosis, M. bovis, M. africanum, M. canettii, M. microti, M. caprae, M. pinnipedi, M. mungi, and M. orygis. 6. All samples will be reflexed to culture-based analysis. 7. This assay has not been evaluated for use with samples from pediatric patients. Current interpretive data was last revised on 2013. Aileen Mcdonald MD LAB MICROBIOLOGY - MongoSluice L ORDERABLES Final Result Performing Organization Address City/[facility] Co de Phone Number [address] [employer] [place] [address] * Pneumocystis DFA Bronchoalveolar lavage Lobe, left upper (02/15/2025 11:35 AM CDT) Report Direct Stain Examination - Final: Negative for: Pneumocystis jirovecii Comment:Testing performed by : [facility], [address] [facility], [place]., [address] Bronchoalveolar lavage (Lobe, left upper) 02/15/2025 11:35 AM CDT 02/15/2025 4:43 PM CDT [facility] 02/16/2025 2:54 PM CDT The Pneumocystis organisms found in humans were originally referred to as P. carinii f. sp. Hominis, the subspecies name used to distinguish the Pneumocystis organisms found in humans from the Pneumocystis organisms found in other mammals. Recently the Pneumocystis organisms found in humans was recognized as a distinct species and renamed Pneumocystis jirovecii. Current interpretive data was last revised on 07. Aileen Mcdonald MD LAB MICROBIOLOGY - MongoSluice L ORDERABLES Final Result Performing Organization Address [facility] Co de Phone Number [address] [employer] [place] [address] * eGFR (02/15/2025 9:35 AM CDT) [facility] eGFR >90 >=60 mL/min/1. 73 m2 Comment: Interpretive Data Reference Interval Normal >/= 90 mL/min/1.73m2 Mildly decreased* 60 - 89 mL/min/1.73m2 Mildly to moderately decreased 45 - 59 mL/min/1.73m2 Moderately to severely decreased 30 - 44 mL/min/1.73m2 Severely decreased 15 - 29 mL/min/1.73m2 Kidney Failure < 15 mL/min/1.73m2 *Relative to young adult level Estimated glomerular filtration rate is determined by the 2020 CKD-EPI equation recommended by the National Kidney Foundation (A Unifying Approach to GFR Estimation: Recommendations of the NKF-ASK Task Force on Reassessing the Inclusion of Race in Diagnosing Kidney Disease, JASN 2020). The CKD-EPI equation should not be used for patients with unstable renal function and has not been validated in children and those over 70. Current interpretive data was last reviewed 2021. Blood 02/15/2025 9:35 AM CDT 02/15/2025 9:38 AM CDT us Aileen Mcdonald MD LAB BLOOD ORDERABLES Isabela govea Result [facility] [address] [facility] [place] [address] * Differential, auto (02/15/2025 9:35 AM CDT) [facility] Neutrophil abs 5.91 1.50 - 6.50 K/cumm Imm gran abs 0.02 0.00 - 0.10 K/cumm [facility] Lymphocyte abs 1.42 0.80 - 3.30 K/cumm [facility] Monocyte abs 0.73 0.20 - 0.80 K/cumm [facility] Eosinophil abs 0.21 0.00 - 0.50 K/cumm [facility] Basophil abs 0.07 0.00 - 0.10 K/cumm [facility] Neutrophil pct 70.8 % [facility] Comment: Interpretive Data Percent cell count reference ranges are not reported, since discordance with absolute values may lead to misinterpretation of CBC data. Current Interpretive Data was last revised on 2017. Imm gran pct 0.2 % [facility] Comment: Interpretive Data Percent cell count reference ranges are not reported, since discordance with absolute values may lead to misinterpretation of CBC data. Current Interpretive Data was last revised on 2017. Lymphocyte pct 17.0 % [facility] Comment: Interpretive Data Percent cell count reference ranges are not reported, since discordance with absolute values may lead to misinterpretation of CBC data. Current Interpretive Data was last revised on 2017. Monocyte pct 8.7 % [facility] Comment: Interpretive Data Percent cell count reference ranges are not reported, since discordance with absolute values may lead to misinterpretation of CBC data. Current Interpretive Data was last revised on 2017. Eosinophil pct 2.5 % [facility] Comment: Interpretive Data Percent cell count reference ranges are not reported, since discordance with absolute values may lead to misinterpretation of CBC data. Current Interpretive Data was last revised on 2017. Basophil pct 0.8 % [facility] Comment: Interpretive Data Percent cell count reference ranges are not reported, since discordance with absolute values may lead to misinterpretation of CBC data. Current Interpretive Data was last revised on 2017. Blood 02/15/2025 9:35 AM CDT 02/15/2025 9:38 AM CDT us Aileen Mcdonald MD LAB BLOOD ORDERABLES Isabela xuan Result [facility] [address] [facility] [place] [address] * (ABNORMAL) CBC with auto differential (02/15/2025 9:35 AM CDT) WBC 8.36 3.80 - 9.90 K/cumm Hgb 12.8(L) 13.0 - 17.5 g/dL [facility] Hct 41.3 38.9 - 50.3 % [facility] Plt 310 150 - 400 K/cumm [facility] MPV 9.5 9.1 - 12.3 fL [facility] RBC 4.97 4.30 - 5.80 M/cumm [facility] MCV 83.1 81.3 - 96.4 fL [facility] MCH 25.8(L) 27.1 - 33.3 pg [facility] MCHC 31.0(L) 32.3 - 35.7 g/dL [facility] RDW CV 14.6 11.1 - 14.9 % [facility] RDW SD 44.2 35.7 - 48.1 fL [facility] NRBC abs 0.00 0.00 - 0.01 K/cumm [facility] Blood 02/15/2025 9:35 AM CDT 02/15/2025 9:38 AM CDT Aileen Mcdonald MD LAB BLOOD ORDERABLES Isabela l Result Performing Organization Address [facility] Co de Phone Number [address] [place] [address] * (ABNORMAL) aPTT (02/15/2025 9:35 AM CDT) aPTT 41(H) 22 - 37 sec Comment: Ref Range High Interpretive data aPTT test has not been evaluated for monitoring heparin therapy. The anti-Xa is the preferred test. Current interpretive data was last revised on 2019. Blood 02/15/2025 9:35 AM CDT 02/15/2025 9:38 AM CDT Aileen Mcdonald MD LAB BLOOD ORDERABLES Isabela l Result Performing Organization Address City/[facility] Co de Phone Number [address] [place] [address] * (ABNORMAL) Protime-INR (02/15/2025 9:35 AM CDT) PT 16.00(H) 12.00 - 14.60 sec Comment:Ref Range High INR 1.26(H) 0.90 - 1.20 [facility] Comment: Ref Range High Interpretive data Oral anticoagulant therapeutic ranges: Venous thromboembolism prophylaxis or treatment: 2.0-3.0 CARDIOLOGY Standard range: 2.0-3.0 High-intensity range: 2.5-3.5 Refer to indication-specific guidelines for appropriate target ranges for prosthetic heart valve replacement. Current interpretive data was last revised on 2019. Blood 02/15/2025 9:35 AM CDT 02/15/2025 9:38 AM CDT Aileen Mcdonald MD LAB BLOOD ORDERABLES Isabela l Result [facility] [address] [facility] [place] [address] * (ABNORMAL) Basic metabolic panel (02/15/2025 9:35 AM CDT) Sodium 140 135 - 145 mmol/L Potassium, pl 4.0 3.3 - 4.9 mmol/L [facility] Chloride 104 97 - 110 mmol/L [facility] CO2 27 22 - 32 mmol/L [facility] Anion gap 9 2 - 15 mmol/L [facility] BUN 16 6 - 25 mg/dL [facility] Creatinine 0.75(L) 0.80 - 1.30 mg/dL [facility] Glucose 92 70 - 199 mg/dL [facility] Comment: Interpretive Data Fasting glucose >/= 126 mg/dl is diagnostic for diabetes. Fasting is defined as no caloric intake for at least 8 hours. Fasting glucose between 100 mg/dl to 125 mg/dl is diagnostic of prediabetes. In a patient with classic symptoms of hyperglycemia or hyperglycemic crisis, a random glucose >/= 200 mg/dl is diagnostic for diabetes. In the absence of unequivocal hyperglycemia, results should be confirmed by repeat testing. The classification and Diagnosis of Diabetes Diabetes Care 202; 46: S19-S40. Current interpretive data was last revised 2022. Calcium 8.9 8.5 - 10.3 mg/dL [facility] Blood 02/15/2025 9:35 AM CDT 02/15/2025 9:38 AM CDT Aileen Mcdonald MD LAB BLOOD ORDERABLES Isabela govea Result [facility] [address] [facility] [place] [address] * CT Chest WO Contrast (02/15/2025 9:07 AM CDT) Anatomical Region Laterality Modality Body N/A Computed Tomogra phy 02/27/2025 2:08 PM CDT Narrative 02/27/2025 2:30 PM CDT EXAM DESCRIPTION: CT CHEST WO CONTRAST REASON FOR STUDY: Dyspnea, chronic, unclear etiology ION Chest. Cavitary lesion of lung, multifocal pneumonia. Dyspnea, chronic, unclear etiology. Hx of COPD TECHNIQUE: CT scan of the chest performed without intravenous contrast using helical scanning technique. Reconstructed coronal and sagittal MPR images reviewed. All images stored on PACS. Automated exposure control was used as a dose optimization technique for this examination. COMPARISON: Prior CT chest 02/01/2025 and 12/28/2024 FINDINGS: The sensitivity for detection of solid visceral lesions is diminished without the use of intravenous contrast. LUNGS: Lung windows demonstrate a patent central airway. Debris is seen dependently along the more distal trachea extending into the left mainstem bronchus and into the more distal mainstem bronchus. This is new compared to the immediate prior exam. Again seen is a thick walled cavitary lesion of the left upper lobe extending toward the apex. This currently measures 4.2 x 4.2 cm previously measuring 4.5 by 4.5 cm utilizing similar measurement technique. There are prominent areas of linear stranding extending from this lesion to the pleural surfaces of the left lung apex and upper lobe as was seen on the prior exam. A more solid component of the nodule extends along the more posteroinferior aspect of the lesion. See axial image 44 of series 3 with irregular margins measuring 1.5 cm. No change from the prior exam. There are scattered small spiculated nodules of the lungs 11.5 mm nodule lateral aspect left upper lobe, image 53. No change 8.4 mm nodule anterior aspect left upper lobe image 67, unchanged. 5.9 mm nodule left upper lobe, image 57, unchanged. 9.6 mm spiculated nodule posterior aspect left lower lobe image 126, unchanged 5.3 mm nodule lateral aspect left lower lobe, image 133, unchanged. 9 mm spiculated nodule posterior aspect left lower lobe image 133, unchanged. Cavitary lesion is again seen of the right upper lobe with thick peters. Cavitary component measures 2.5 x 1.6 cm, unchanged from the prior exam. Abutting this posteriorly is a more nodular component on axial image 45 measuring 1.7 cm., Unchanged. Spiculated nodule more anteriorly image 46 measures 9 mm, unchanged. Spiculated lesion lateral right upper lobe axial image 56 measuring 1.4 by 0.8 cm, unchanged. Spiculated lesion anterior aspect right middle lobe image 80 measuring 1.2 cm, unchanged. Nodule of the more lateral posterior right middle lobe image 83 measures 9 mm, unchanged. Spiculated nodule right lower lobe measuring 8 mm on image 101, unchanged Numerous smaller scattered nodules are again seen quite similar to prior. This is all superimposed on moderate to severe emphysematous change. PLEURA: Trace left pleural effusion. MEDIASTINUM/CINDY: Mediastinal windows demonstrate a normal appearance of the thyroid gland. There are several small subcentimeter short axis lymph nodes seen about the mediastinum. These have not significantly changed in size. HEART: Heart size is normal with no pericardial effusion. CORONARY ARTERY CALCIFICATION: No significant calcification. VASCULATURE: Atherosclerotic change thoracic aorta. No aneurysmal dilatation. AXILLA: No adenopathy. CHEST WALL: No masses. No subcutaneous air. HARDWARE/LINES/TUBES: None. UPPER ABDOMEN: No significant abnormality. MUSCULOSKELETAL: No significant abnormality. OTHER: No other significant abnormality. IMPRESSION: 1. Again seen is a thick walled cavitary lesion of the left upper lobe extending toward the apex. This currently measures 4.2 x 4.2 cm previously measuring 4.5 x 4.5 cm utilizing similar measurement technique. There are prominent areas of linear stranding extending from this lesion to the pleural surfaces of the left lung apex and upper lobe as was seen on the prior exam. A more solid component of the nodule extends along the more posteroinferior aspect of the lesion. This is unchanged from the prior exam. 2. Again seen is a cavitary lesion of the right upper lobe with thick peters. Cavitary component measures 2.5 x 1.6 cm, unchanged from the prior exam. Abutting this posteriorly is a more nodular component measuring 1.7 cm also unchanged. 3. Numerous other spiculated nodules are seen of the lungs quite similar to the prior exam. 4. Moderate to severe emphysematous change of the lungs. 5. Trace left pleural effusion. 6. Debris is seen dependently along the more distal trachea extending into the left mainstem bronchus and into the more distal mainstem bronchus. This is new compared to the immediate prior exam. 7. The differential diagnosis includes infectious and inflammatory etiology given the numerous spiculated nodules and cavitary lesions of the upper lobes. However, malignancy remains in the differential diagnosis. THIS IS AN ELECTRONICALLY VERIFIED FINAL REPORT 02/27/2025 2:30 PM - Electronically signed by Rg Chavez M.D. MJ T: Report ID: [id number] Reading Location: [id number] Procedure Note Rg Chavez MD - 02/27/2025 EXAM DESCRIPTION: CT CHEST WO CONTRAST REASON FOR STUDY: Dyspnea, chronic, unclear etiology ION Chest. Cavitary lesion of lung, multifocal pneumonia. Dyspnea,chronic, unclear etiology. Hx of COPD TECHNIQUE: CT scan of the chest performed without intravenous contrastusing helical scanning technique. Reconstructed coronal and sagittal MPR images reviewed. All images stored on PACS. Automated exposure control was usedas a dose optimization technique for this examination. COMPARISON: Prior CT chest 02/01/2025 and 12/28/2024 FINDINGS: The sensitivity for detection of solid visceral lesions is diminished without the use of intravenous contrast. LUNGS: Lung windows demonstrate a patent central airway. Debris is seen dependently along the more distal trachea extending into the left mainstem bronchus and into the more distal mainstem bronchus. This is new comparedto the immediate prior exam. Again seen is a thick walled cavitary lesion of the left upper lobeextending toward the apex. This currently measures 4.2 x 4.2 cm previouslymeasuring 4.5 by 4.5 cm utilizing similar measurement technique. There areprominent areas of linear stranding extending from this lesion to the pleuralsurfaces of the left lung apex and upper lobe as was seen on the prior exam. Monica solid component of the nodule extends along the more posteroinferioraspect of the lesion. See axial image 44 of series 3 with irregular marginsmeasuring 1.5 cm. No change from the prior exam. There are scattered small spiculated nodules of the lungs 11.5 mm nodule lateral aspect left upper lobe, image 53. No change 8.4 mm nodule anterior aspect left upper lobe image 67, unchanged. 5.9 mm nodule left upper lobe, image 57, unchanged. 9.6 mm spiculated nodule posterior aspect left lower lobe image 126,unchanged 5.3 mm nodule lateral aspect left lower lobe, image 133, unchanged. 9 mm spiculated nodule posterior aspect left lower lobe image 133,unchanged. Cavitary lesion is again seen of the right upper lobe with thick peters. Cavitary component measures 2.5 x 1.6 cm, unchanged from the prior exam. Abutting this posteriorly is a more nodular component on axial image 45 measuring 1.7 cm., Unchanged. Spiculated nodule more anteriorly image 46 measures 9 mm, unchanged. Spiculated lesion lateral right upper lobe axial image 56 measuring 1.4 by0.8 cm, unchanged. Spiculated lesion anterior aspect right middle lobe image 80 measuring 1.2cm, unchanged. Nodule of the more lateral posterior right middle lobe image83 measures 9 mm, unchanged. Spiculated nodule right lower lobe measuring 8 mm on image 101,unchanged Numerous smaller scattered nodules are again seen quite similar to prior. This is all superimposed on moderate to severe emphysematous change. PLEURA: Trace left pleural effusion. MEDIASTINUM/CINDY: Mediastinal windows demonstrate a normal appearance ofthe thyroid gland. There are several small subcentimeter short axis lymphnodes seen about the mediastinum. These have not significantly changed in size. HEART: Heart size is normal with no pericardial effusion. CORONARY ARTERY CALCIFICATION: No significant calcification. VASCULATURE: Atherosclerotic change thoracic aorta. No aneurysmal dilatation. AXILLA: No adenopathy. CHEST WALL: No masses. No subcutaneous air. HARDWARE/LINES/TUBES: None. UPPER ABDOMEN: No significant abnormality. MUSCULOSKELETAL: No significant abnormality. OTHER: No other significant abnormality. IMPRESSION: 1. Again seen is a thick walled cavitary lesion of the left upper lobe extending toward the apex. This currently measures 4.2 x 4.2 cm previously measuring 4.5 x 4.5 cm utilizing similar measurement technique. There are prominent areas of linear stranding extending from this lesion to thepleural surfaces of the left lung apex and upper lobe as was seen on the priorexam. A more solid component of the nodule extends along the more posteroinferior aspect of the lesion. This is unchanged from the prior exam. 2. Again seen is a cavitary lesion of the right upper lobe with thickwalls. Cavitary component measures 2.5 x 1.6 cm, unchanged from the prior exam. Abutting this posteriorly is a more nodular component measuring 1.7 cmalso unchanged. 3. Numerous other spiculated nodules are seen of the lungs quite similarto the prior exam. 4. Moderate to severe emphysematous change of the lungs. 5. Trace left pleural effusion. 6. Debris is seen dependently along the more distal trachea extendinginto the left mainstem bronchus and into the more distal mainstem bronchus.This is new compared to the immediate prior exam. 7. The differential diagnosis includes infectious and inflammatoryetiology given the numerous spiculated nodules and cavitary lesions of the upperlobes. However, malignancy remains in the differential diagnosis. THIS IS AN ELECTRONICALLY VERIFIED FINAL REPORT 02/27/2025 2:30 PM - Electronically signed by Rg Chavez M.D. MJ T: Report ID: [id number] Reading Location: [id number] us Aileen Mcdonald MD IMG CT PROCEDURES Final R esult * CT Chest WO Contrast (02/01/2025 1:39 PM CDT) Anatomical Region Laterality Modality Body N/A Computed Tomogra phy 02/06/2025 12:4 6 PM CDT Narrative 02/06/2025 12:56 PM CDT EXAM DESCRIPTION: CT CHEST WO CONTRAST REASON FOR STUDY: Dyspnea, chronic, unclear etiology Pt states pneumonia dx December 2024. Pt denies chest pain, cough, SOB. Hx COPD TECHNIQUE: CT scan of the chest performed without intravenous contrast using helical scanning technique. Reconstructed coronal and sagittal MPR images reviewed. All images stored on PACS. Automated exposure control was used as a dose optimization technique for this examination. COMPARISON: 12/28/2024. FINDINGS: The sensitivity for detection of solid visceral lesions is diminished without the use of intravenous contrast. LUNGS/PLEURA: Severe emphysema. Persistent thick walled cavitary masses in the apices are again noted, the primary considerations are in infection with neoplasm not excluded. In the left apex the masslike cavitary opacity is 4.5 x 4.6 cm, the previous fluid in the cavitary mass is no longer seen. Previously this was 4.6 x 3.8 cm. There are tubular and linear striations extending peripherally from the mass. There are areas of tree-in-bud opacities and nodularity, an example is a left upper lobe nodule 1.2 cm (image 36) which is grossly unchanged. Several tree-in-bud opacities and nodularity in the left lower lobe, example 1.1 cm (series 3, image 84), previously 1.2 cm. Other small nodules measuring up to a cm appear unchanged. The previous left pleural effusion has decreased. The cavitary nodule in the right upper lobe now 4.7 x 1.8 cm (image 31), previously 4.0 x 2 cm. Other spiculated areas of nodular opacity, for example right upper lobe 1.2 x 0.7 cm (image 31) and 1.2 x 0.9 cm (image 33), previously the largest 1.3 x 0.8 cm as remeasured. A more lateral spiculated right upper lobe nodule now 1.5 x 0.8 cm (series 4, image 39), previously 1.7 x 0.8 cm). Several areas of nodularity in the right middle lobe measuring up to 0.9 cm (series 3, image 57) grossly unchanged. Adjacent area of nodularity right middle lobe 1.3 cm (image 55) unchanged. Similar areas of nodularity in the right lower lobe 0.8 cm (image 67) unchanged. Several areas of tree-in-bud opacity and nodularity right lower lobe slightly improved. No pneumothorax. Mild cylindrical bronchiectasis and mild bronchial wall thickening unchanged. Previously there was debris within the trachea and main bronchi this has significantly improved with a small remaining amount of debris in the left lower lobe bronchi centrally. MEDIASTINUM/CINDY: Several mildly prominent mediastinal lymph nodes are most likely reactive. HEART: Heart size normal. No pericardial effusion. CORONARY ARTERY CALCIFICATION: No significant coronary artery calcification. VASCULATURE: Thoracic aorta nonaneurysmal. AXILLA: No axillary lymphadenopathy. CHEST WALL: No chest wall mass or subcutaneous emphysema. HARDWARE/LINES/TUBES: None. UPPER ABDOMEN: In the included upper abdomen, no significant abnormalities are seen. MUSCULOSKELETAL: Bone windows demonstrate no acute or aggressive osseous abnormality. OTHER: No other significant abnormality. IMPRESSION: 1. Persistent thick walled cavitary masses in the apices, the primary considerations remain infection with neoplasm not excluded. 2. Other smaller areas of bilateral pulmonary parenchymal nodularity grossly stable over the interval. These will need continued follow-up to ensure stability. 3. Previous fluid within the left upper lobe cavitary mass resolved and the previous left pleural effusion improved. 4. Less debris within the central airways. 5. Multiple areas of tree-in-bud opacity and nodularity throughout the lungs, some of which are slightly improved. By morphology these are characteristic of a component of infection. 6. Decreased left pleural effusion. 7. Severe emphysema. 8. Mildly prominent mediastinal lymph nodes are most likely reactive. THIS IS AN ELECTRONICALLY VERIFIED FINAL REPORT 02/06/2025 12:56 PM - Electronically signed by Ha Regalado M.D. T: Report ID: [id number] Reading Location: [place] [id number] Procedure Note Ha Regalado Jr., MD - 02/06/2025 EXAM DESCRIPTION: CT CHEST WO CONTRAST REASON FOR STUDY: Dyspnea, chronic, unclear etiology Pt states pneumonia dx December 2024. Pt denies chest pain, cough, SOB. HxCOPD TECHNIQUE: CT scan of the chest performed without intravenous contrastusing helical scanning technique. Reconstructed coronal and sagittal MPR images reviewed. All images stored on PACS. Automated exposure control was usedas a dose optimization technique for this examination. COMPARISON: 12/28/2024. FINDINGS: The sensitivity for detection of solid visceral lesions is diminished without the use of intravenous contrast. LUNGS/PLEURA: Severe emphysema. Persistent thick walled cavitary massesin the apices are again noted, the primary considerations are in infectionwith neoplasm not excluded. In the left apex the masslike cavitary opacity is4.5 x 4.6 cm, the previous fluid in the cavitary mass is no longer seen. Previously this was 4.6 x 3.8 cm. There are tubular and linear striations extending peripherally from the mass. There are areas of tree-in-bud opacities and nodularity, an example is a left upper lobe nodule 1.2 cm(image 36) which is grossly unchanged. Several tree-in-bud opacities andnodularity in the left lower lobe, example 1.1 cm (series 3, image 84), previously1.2 cm. Other small nodules measuring up to a cm appear unchanged. Theprevious left pleural effusion has decreased. The cavitary nodule in the right upper lobe now 4.7 x 1.8 cm (image 31), previously 4.0 x 2 cm. Other spiculated areas of nodular opacity, forexample right upper lobe 1.2 x 0.7 cm (image 31) and 1.2 x 0.9 cm (image 33), previously the largest 1.3 x 0.8 cm as remeasured. A more lateralspiculated right upper lobe nodule now 1.5 x 0.8 cm (series 4, image 39), previously1.7 x 0.8 cm). Several areas of nodularity in the right middle lobe measuringup to 0.9 cm (series 3, image 57) grossly unchanged. Adjacent area ofnodularity right middle lobe 1.3 cm (image 55) unchanged. Similar areas ofnodularity in the right lower lobe 0.8 cm (image 67) unchanged. Several areas of tree-in-bud opacity and nodularity right lower lobe slightly improved. No pneumothorax. Mild cylindrical bronchiectasis and mild bronchial wall thickening unchanged. Previously there was debris within the trachea and main bronchi this has significantly improved with a small remaining amount of debris in the left lower lobe bronchi centrally. MEDIASTINUM/CINDY: Several mildly prominent mediastinal lymph nodes aremost likely reactive. HEART: Heart size normal. No pericardial effusion. CORONARY ARTERY CALCIFICATION: No significant coronary arterycalcification. VASCULATURE: Thoracic aorta nonaneurysmal. AXILLA: No axillary lymphadenopathy. CHEST WALL: No chest wall mass or subcutaneous emphysema. HARDWARE/LINES/TUBES: None. UPPER ABDOMEN: In the included upper abdomen, no significantabnormalities are seen. MUSCULOSKELETAL: Bone windows demonstrate no acute or aggressive osseous abnormality. OTHER: No other significant abnormality. IMPRESSION: 1. Persistent thick walled cavitary masses in the apices, the primary considerations remain infection with neoplasm not excluded. 2. Other smaller areas of bilateral pulmonary parenchymal nodularitygrossly stable over the interval. These will need continued follow-up to ensure stability. 3. Previous fluid within the left upper lobe cavitary mass resolved andthe previous left pleural effusion improved. 4. Less debris within the central airways. 5. Multiple areas of tree-in-bud opacity and nodularity throughout the lungs, some of which are slightly improved. By morphology these are characteristic of a component of infection. 6. Decreased left pleural effusion. 7. Severe emphysema. 8. Mildly prominent mediastinal lymph nodes are most likely reactive. THIS IS AN ELECTRONICALLY VERIFIED FINAL REPORT 02/06/2025 12:56 PM - Electronically signed by Ha Regalado M.D. T: Report ID: [id number] Reading Location: [id number] us Aileen Mcdonald MD IMG CT PROCEDURES Final R esult * FL Modified Barium Swallow W Video (01/01/2025 9:53 AM CDT) Anatomical Region Laterality Modality Head and Neck N/A Computed Radiogr aphy, Computed Radiography 01/01/2025 10:3 0 AM CDT Narrative 01/01/2025 10:33 AM CDT EXAM DESCRIPTION: FL MODIFIED BARIUM SWALLOW EVALUATION WITH SPEECH THERAPIST REASON FOR STUDY: DIFFICULTY SWALLOWING RADIATION DOSE: Dose: 12.6 mGy Reference Air Kerma (Ka,r) TECHNIQUE: Fluoroscopic assistance provided to Speech Pathology Department who performed the exam. The patient was brought into the fluoro room and placed upright on a modified barium swallow chair. The patient was then given multiple consistencies mixed with barium to swallow under live fluoroscopic video guidance. COMPARISON: 08/30/2024 FINDINGS: Penetration of nectar, soft solids and thin consistencies. Suspected aspiration of penetrated residuals. IMPRESSION: Penetration of nectar, soft solids and thin consistencies. Suspected aspiration of penetrated residuals. Please refer to the speech pathology report for full findings and recommendations. THIS IS AN ELECTRONICALLY VERIFIED FINAL REPORT 01/01/2025 10:33 AM - Electronically signed by Dutch Broderick M.D. MM T: Report ID: [id number] Reading Location: [id number] Procedure Note Dutch Broderick MD - 01/01/2025 EXAM DESCRIPTION: FL MODIFIED BARIUM SWALLOW EVALUATION WITH SPEECH THERAPIST REASON FOR STUDY: DIFFICULTY SWALLOWING RADIATION DOSE: Dose: 12.6 mGy Reference Air Kerma (Ka,r) TECHNIQUE: Fluoroscopic assistance provided to Speech Pathology Departmentwho performed the exam. The patient was brought into the fluoro room and placed upright on amodified barium swallow chair. The patient was then given multiple consistenciesmixed with barium to swallow under live fluoroscopic video guidance. COMPARISON: 08/30/2024 FINDINGS: Penetration of nectar, soft solids and thin consistencies. Suspected aspiration of penetrated residuals. IMPRESSION: Penetration of nectar, soft solids and thin consistencies. Suspected aspiration of penetrated residuals. Please refer to the speech pathology report for full findings and recommendations. THIS IS AN ELECTRONICALLY VERIFIED FINAL REPORT 01/01/2025 10:33 AM - Electronically signed by Dutch Broderick M.D. MM T: Report ID: [id number] Reading Location: [place] [id number] Prema Plata MD IMG FLUOROSCOPY HINA CURRYDEISI Final Result * eGFR (01/01/2025 6:15 AM CDT) eGFR >90 >=60 mL/min/1. 73 m2 Comment: Interpretive Data Reference Interval Normal >/= 90 mL/min/1.73m2 Mildly decreased* 60 - 89 mL/min/1.73m2 Mildly to moderately decreased 45 - 59 mL/min/1.73m2 Moderately to severely decreased 30 - 44 mL/min/1.73m2 Severely decreased 15 - 29 mL/min/1.73m2 Kidney Failure < 15 mL/min/1.73m2 *Relative to young adult level Estimated glomerular filtration rate is determined by the 2020 CKD-EPI equation recommended by the National [employer] (A Unifying Approach to GFR Estimation: Recommendations of the NKF-ASK Task Force on Reassessing the Inclusion of Race in Diagnosing Kidney Disease, JASN 202). The CKD-EPI equation should not be used for patients with unstable renal function and has not been validated in children and those over 70. Current interpretive data was last reviewed 2021. Blood 01/01/2025 6:15 AM CDT 01/01/2025 6:43 AM CDT Jaison Posey MD LAB BLOOD ORDERABLES Final R esult [facility] [address] [facility] [place] [address] * (ABNORMAL) Differential, auto (01/01/2025 6:15 AM CDT) Pathologist [facility] Neutrophil abs 5.02 1.50 - 6.50 K/cumm Imm gran abs 0.05 0.00 - 0.10 K/cumm [facility] Lymphocyte abs 2.16 0.80 - 3.30 K/cumm [facility] Monocyte abs 0.92(H) 0.20 - 0.80 K/cumm [facility] Eosinophil abs 0.51(H) 0.00 - 0.50 K/cumm [facility] Basophil abs 0.07 0.00 - 0.10 K/cumm [facility] Neutrophil pct 57.6 % [facility] Comment: Interpretive Data Percent cell count reference ranges are not reported, since discordance with absolute values may lead to misinterpretation of CBC data. Current Interpretive Data was last revised on 2017. Imm gran pct 0.6 % [facility] Comment: Interpretive Data Percent cell count reference ranges are not reported, since discordance with absolute values may lead to misinterpretation of CBC data. Current Interpretive Data was last revised on 2017. Lymphocyte pct 24.7 % [facility] Comment: Interpretive Data Percent cell count reference ranges are not reported, since discordance with absolute values may lead to misinterpretation of CBC data. Current Interpretive Data was last revised on 2017. Monocyte pct 10.5 % [facility] Comment: Interpretive Data Percent cell count reference ranges are not reported, since discordance with absolute values may lead to misinterpretation of CBC data. Current Interpretive Data was last revised on 2017. Eosinophil pct 5.8 % [facility] Comment: Interpretive Data Percent cell count reference ranges are not reported, since discordance with absolute values may lead to misinterpretation of CBC data. Current Interpretive Data was last revised on 2017. Basophil pct 0.8 % [facility] Comment: Interpretive Data Percent cell count reference ranges are not reported, since discordance with absolute values may lead to misinterpretation of CBC data. Current Interpretive Data was last revised on 2017. Blood 01/01/2025 6:15 AM CDT 01/01/2025 6:43 AM CDT Jaison Posey MD LAB BLOOD ORDERABLES Final R esult Performing Organization Address [facility] Co de Phone Number [facility] [address] [employer] [place] [address] * (ABNORMAL) CBC with auto differential (01/01/2025 6:15 AM CDT) WBC 8.73 3.80 - 9.90 K/cumm Hgb 13.4 13.0 - 17.5 g/dL [facility] Hct 44.1 38.9 - 50.3 % [facility] Plt 339 150 - 400 K/cumm [facility] MPV 9.6 9.1 - 12.3 fL [facility] RBC 5.39 4.30 - 5.80 M/cumm [facility] MCV 81.8 81.3 - 96.4 fL [facility] MCH 24.9(L) 27.1 - 33.3 pg [facility] MCHC 30.4(L) 32.3 - 35.7 g/dL [facility] RDW CV 15.0(H) 11.1 - 14.9 % [facility] RDW SD 44.3 35.7 - 48.1 fL [facility] NRBC abs 0.00 0.00 - 0.01 K/cumm [facility] Blood 01/01/2025 6:15 AM CDT 01/01/2025 6:43 AM CDT Jaison Posey MD LAB BLOOD ORDERABLES Final R esult Performing Organization Address City/[facility] Co de Phone Number CLARISSA [address] [place] [address] * (ABNORMAL) Comprehensive metabolic panel (01/01/2025 6:15 AM CDT) Sodium 139 135 - 145 mmol/L Potassium, pl 4.0 3.3 - 4.9 mmol/L [facility] Chloride 103 97 - 110 mmol/L [facility] CO2 25 22 - 32 mmol/L [facility] Anion gap 11 2 - 15 mmol/L [facility] BUN 14 6 - 25 mg/dL [facility] Creatinine 0.75(L) 0.80 - 1.30 mg/dL [facility] Glucose 91 70 - 199 mg/dL [facility] Comment: Interpretive Data Fasting glucose >/= 126 mg/dl is diagnostic for diabetes. Fasting is defined as no caloric intake for at least 8 hours. Fasting glucose between 100 mg/dl to 125 mg/dl is diagnostic of prediabetes. In a patient with classic symptoms of hyperglycemia or hyperglycemic crisis, a random glucose >/= 200 mg/dl is diagnostic for diabetes. In the absence of unequivocal hyperglycemia, results should be confirmed by repeat testing. The classification and Diagnosis of Diabetes Diabetes Care 202; 46: S19-S40. Current interpretive data was last revised 2022. Calcium 9.0 8.5 - 10.3 mg/dL [facility] Bilirubin, total 0.3 0.1 - 1.2 mg/dL [facility] Protein, pl 7.1 6.5 - 8.5 g/dL [facility] Albumin 3.7 3.5 - 5.0 g/dL [facility] Alk phos 85 40 - 130 Units/L [facility] ALT 56(H) 7 - 55 Units/L [facility] AST 76(H) 10 - 50 Units/L [facility] Blood 01/01/2025 6:15 AM CDT 01/01/2025 6:43 AM CDT us Jaison Posey MD LAB BLOOD ORDERABLES Final R esult [facility] [address] [facility] [place] [address] * eGFR (12/31/2024 8:39 AM CDT) [facility] eGFR >90 >=60 mL/min/1. 73 m2 Comment: Interpretive Data Reference Interval Normal >/= 90 mL/min/1.73m2 Mildly decreased* 60 - 89 mL/min/1.73m2 Mildly to moderately decreased 45 - 59 mL/min/1.73m2 Moderately to severely decreased 30 - 44 mL/min/1.73m2 Severely decreased 15 - 29 mL/min/1.73m2 Kidney Failure < 15 mL/min/1.73m2 *Relative to young adult level Estimated glomerular filtration rate is determined by the 2020 CKD-EPI equation recommended by the National Kidney Foundation (A Unifying Approach to GFR Estimation: Recommendations of the NKF-ASK Task Force on Reassessing the Inclusion of Race in Diagnosing Kidney Disease, JASN 2020). The CKD-EPI equation should not be used for patients with unstable renal function and has not been validated in children and those over 70. Current interpretive data was last reviewed 2021. Blood 12/31/2024 8:39 AM CDT 12/31/2024 9:02 AM CDT us Jaison Posey MD LAB BLOOD ORDERABLES Final R esult [facility] [address] [facility] Department [place] [address] * (ABNORMAL) Differential, auto (12/31/2024 8:39 AM CDT) [facility] Neutrophil abs 6.41 1.50 - 6.50 K/cumm Imm gran abs 0.02 0.00 - 0.10 K/cumm [facility] Lymphocyte abs 1.74 0.80 - 3.30 K/cumm [facility] Monocyte abs 0.84(H) 0.20 - 0.80 K/cumm [facility] Eosinophil abs 0.38 0.00 - 0.50 K/cumm [facility] Basophil abs 0.07 0.00 - 0.10 K/cumm [facility] Neutrophil pct 67.8 % [facility] Comment: Interpretive Data Percent cell count reference ranges are not reported, since discordance with absolute values may lead to misinterpretation of CBC data. Current Interpretive Data was last revised on 2017. Imm gran pct 0.2 % [facility] Comment: Interpretive Data Percent cell count reference ranges are not reported, since discordance with absolute values may lead to misinterpretation of CBC data. Current Interpretive Data was last revised on 2017. Lymphocyte pct 18.4 % [facility] Comment: Interpretive Data Percent cell count reference ranges are not reported, since discordance with absolute values may lead to misinterpretation of CBC data. Current Interpretive Data was last revised on 2017. Monocyte pct 8.9 % [facility] Comment: Interpretive Data Percent cell count reference ranges are not reported, since discordance with absolute values may lead to misinterpretation of CBC data. Current Interpretive Data was last revised on 2017. Eosinophil pct 4.0 % [facility] Comment: Interpretive Data Percent cell count reference ranges are not reported, since discordance with absolute values may lead to misinterpretation of CBC data. Current Interpretive Data was last revised on 2017. Basophil pct 0.7 % [facility] Comment: Interpretive Data Percent cell count reference ranges are not reported, since discordance with absolute values may lead to misinterpretation of CBC data. Current Interpretive Data was last revised on 2017. Blood 12/31/2024 8:39 AM CDT 12/31/2024 9:02 AM CDT Jaison Posey MD LAB BLOOD ORDERABLES Final R esult [facility] [address] [facility] Department [place] [address] * (ABNORMAL) CBC with auto differential (12/31/2024 8:39 AM CDT) WBC 9.46 3.80 - 9.90 K/cumm Hgb 13.8 13.0 - 17.5 g/dL [facility] Hct 45.0 38.9 - 50.3 % [facility] Plt 402(H) 150 - 400 K/cumm [facility] MPV 9.5 9.1 - 12.3 fL [facility] RBC 5.46 4.30 - 5.80 M/cumm [facility] MCV 82.4 81.3 - 96.4 fL [facility] MCH 25.3(L) 27.1 - 33.3 pg [facility] MCHC 30.7(L) 32.3 - 35.7 g/dL [facility] RDW CV 15.1(H) 11.1 - 14.9 % [facility] RDW SD 45.1 35.7 - 48.1 fL [facility] NRBC abs 0.00 0.00 - 0.01 K/cumm [facility] Blood 12/31/2024 8:39 AM CDT 12/31/2024 9:02 AM CDT Jaison Posey MD LAB BLOOD ORDERABLES Final R esult [facility] [address] [facility] [place] [address] * (ABNORMAL) Comprehensive metabolic panel (12/31/2024 8:39 AM CDT) Sodium 137 135 - 145 mmol/L Potassium, pl 3.9 3.3 - 4.9 mmol/L [facility] Chloride 101 97 - 110 mmol/L [facility] CO2 25 22 - 32 mmol/L [facility] Anion gap 11 2 - 15 mmol/L [facility] BUN 15 6 - 25 mg/dL [facility] Creatinine 0.73(L) 0.80 - 1.30 mg/dL [facility] Glucose 109 70 - 199 mg/dL [facility] Comment: Interpretive Data Fasting glucose >/= 126 mg/dl is diagnostic for diabetes. Fasting is defined as no caloric intake for at least 8 hours. Fasting glucose between 100 mg/dl to 125 mg/dl is diagnostic of prediabetes. In a patient with classic symptoms of hyperglycemia or hyperglycemic crisis, a random glucose >/= 200 mg/dl is diagnostic for diabetes. In the absence of unequivocal hyperglycemia, results should be confirmed by repeat testing. The classification and Diagnosis of Diabetes Diabetes Care 2021; 46: S19-S40. Current interpretive data was last revised 2022. Calcium 9.3 8.5 - 10.3 mg/dL [facility] Bilirubin, total 0.4 0.1 - 1.2 mg/dL [facility] Protein, pl 7.6 6.5 - 8.5 g/dL [facility] Albumin 4.0 3.5 - 5.0 g/dL [facility] Alk phos 94 40 - 130 Units/L [facility] ALT 21 7 - 55 Units/L [facility] AST 30 10 - 50 Units/L [facility] Blood 12/31/2024 8:39 AM CDT 12/31/2024 9:02 AM CDT us Jaison Posey MD LAB BLOOD ORDERABLES Final R esult [facility] [address] [facility] Department [place] [address] * eGFR (12/30/2024 5:05 AM CDT) eGFR >90 >=60 mL/min/1. 73 m2 Comment: Interpretive Data Reference Interval Normal >/= 90 mL/min/1.73m2 Mildly decreased* 60 - 89 mL/min/1.73m2 Mildly to moderately decreased 45 - 59 mL/min/1.73m2 Moderately to severely decreased 30 - 44 mL/min/1.73m2 Severely decreased 15 - 29 mL/min/1.73m2 Kidney Failure < 15 mL/min/1.73m2 *Relative to young adult level Estimated glomerular filtration rate is determined by the 2020 CKD-EPI equation recommended by the National Kidney Foundation (A Unifying Approach to GFR Estimation: Recommendations of the NKF-ASK Task Force on Reassessing the Inclusion of Race in Diagnosing Kidney Disease, JASN 2020). The CKD-EPI equation should not be used for patients with unstable renal function and has not been validated in children and those over 70. Current interpretive data was last reviewed 2021. Blood 12/30/2024 5:05 AM CDT 12/30/2024 5:14 AM CDT us Jaison Posey MD LAB BLOOD ORDERABLES Final R esult [facility] [address] [facility] Department [place] [address] * (ABNORMAL) Differential, auto (12/30/2024 5:05 AM CDT) Neutrophil abs 6.80(H) 1.50 - 6.50 K/cumm Imm gran abs 0.05 0.00 - 0.10 K/cumm [facility] Lymphocyte abs 2.18 0.80 - 3.30 K/cumm [facility] Monocyte abs 0.80 0.20 - 0.80 K/cumm [facility] Eosinophil abs 0.28 0.00 - 0.50 K/cumm [facility] Basophil abs 0.06 0.00 - 0.10 K/cumm [facility] Neutrophil pct 66.8 % [facility] Comment: Interpretive Data Percent cell count reference ranges are not reported, since discordance with absolute values may lead to misinterpretation of CBC data. Current Interpretive Data was last revised on 2017. Imm gran pct 0.5 % [facility] Comment: Interpretive Data Percent cell count reference ranges are not reported, since discordance with absolute values may lead to misinterpretation of CBC data. Current Interpretive Data was last revised on 2017. Lymphocyte pct 21.4 % [facility] Comment: Interpretive Data Percent cell count reference ranges are not reported, since discordance with absolute values may lead to misinterpretation of CBC data. Current Interpretive Data was last revised on 2017. Monocyte pct 7.9 % [facility] Comment: Interpretive Data Percent cell count reference ranges are not reported, since discordance with absolute values may lead to misinterpretation of CBC data. Current Interpretive Data was last revised on 2017. Eosinophil pct 2.8 % [facility] Comment: Interpretive Data Percent cell count reference ranges are not reported, since discordance with absolute values may lead to misinterpretation of CBC data. Current Interpretive Data was last revised on 2017. Basophil pct 0.6 % [facility] Comment: Interpretive Data Percent cell count reference ranges are not reported, since discordance with absolute values may lead to misinterpretation of CBC data. Current Interpretive Data was last revised on 2017. Blood 12/30/2024 5:05 AM CDT 12/30/2024 5:14 AM CDT Jaison Posey MD LAB BLOOD ORDERABLES Final R esult Performing Organization Address City/[facility] Co de Phone Number [facility] [address] [place] [address] * (ABNORMAL) CBC with auto differential (12/30/2024 5:05 AM CDT) WBC 10.17(H) 3.80 - 9.90 K/cumm Hgb 12.2(L) 13.0 - 17.5 g/dL [facility] Hct 40.3 38.9 - 50.3 % [facility] Plt 341 150 - 400 K/cumm [facility] MPV 9.1 9.1 - 12.3 fL [facility] RBC 4.83 4.30 - 5.80 M/cumm [facility] MCV 83.4 81.3 - 96.4 fL [facility] MCH 25.3(L) 27.1 - 33.3 pg [facility] MCHC 30.3(L) 32.3 - 35.7 g/dL [facility] RDW CV 15.0(H) 11.1 - 14.9 % [facility] RDW SD 45.2 35.7 - 48.1 fL [facility] NRBC abs 0.00 0.00 - 0.01 K/cumm [facility] Blood 12/30/2024 5:05 AM CDT 12/30/2024 5:14 AM CDT Jaison Posey MD LAB BLOOD ORDERABLES Final R esult Performing Organization Address City/[facility]/ZIP Co de Phone Number [facility] [address] [place] [address] * Comprehensive metabolic panel (12/30/2024 5:05 AM CDT) Sodium 140 135 - 145 mmol/L Potassium, pl 4.2 3.3 - 4.9 mmol/L [facility] Chloride 104 97 - 110 mmol/L [facility] CO2 26 22 - 32 mmol/L [facility] Anion gap 10 2 - 15 mmol/L [facility] BUN 17 6 - 25 mg/dL [facility] Creatinine 0.91 0.80 - 1.30 mg/dL [facility] Glucose 82 70 - 199 mg/dL [facility] Comment: Interpretive Data Fasting glucose >/= 126 mg/dl is diagnostic for diabetes. Fasting is defined as no caloric intake for at least 8 hours. Fasting glucose between 100 mg/dl to 125 mg/dl is diagnostic of prediabetes. In a patient with classic symptoms of hyperglycemia or hyperglycemic crisis, a random glucose >/= 200 mg/dl is diagnostic for diabetes. In the absence of unequivocal hyperglycemia, results should be confirmed by repeat testing. The classification and Diagnosis of Diabetes Diabetes Care 2021; 46: S19-S40. Current interpretive data was last revised 2022. Calcium 8.9 8.5 - 10.3 mg/dL [facility] Bilirubin, total 0.3 0.1 - 1.2 mg/dL [facility] Protein, pl 6.9 6.5 - 8.5 g/dL [facility] Albumin 3.7 3.5 - 5.0 g/dL [facility] Alk phos 82 40 - 130 Units/L [facility] ALT 10 7 - 55 Units/L [facility] AST 25 10 - 50 Units/L [facility] Blood 12/30/2024 5:05 AM CDT 12/30/2024 5:14 AM CDT Jaison Posey MD LAB BLOOD ORDERABLES Final R esult [facility] [address] [facility] [place] [address] * POCT glucose (12/29/2024 8:42 PM CDT) Glucose, POC 100 70 - 199 mg/dL Blood 12/29/2024 8:42 PM CDT 12/29/2024 8:42 PM CDT Prema Plata MD LAB POCT ORDERABLES - DEVICE Final Result Performing Organization Address [facility] Co de Phone Number [facility] [address] [employer] [place] [address] * Heparin anti factor Xa activity (12/29/2024 4:20 PM CDT) [facility] Signature Anti Factor Xa 0.40 IUnits/mL Comment: Interpretive Data Enoxaparin therapeutic range (peak): VTE treatment, Q12hr dosin.60-1.00 IUnits/mL VTE treatment, Q24hr dosin.00-2.00 IUnits/mL Q24hr dosing for renal impairment (CrCl <30 mL/min): 0.60-1.00 IUnits/mL VTE prevention: 0.10-0.40 IUnits/mL - Anti-Xa therapeutic ranges apply to blood samples drawn 4 hours after last dose (peak). - Unfractionated heparin (UFH) therapeutic range: 0.30-0.70 IUnits/mL - Direct factor Xa inhibitors (rivaroxaban, apixaban): Results must be interpreted qualitatively. No activity detected suggests little anticoagulant activity. - In severe antithrombin deficiency, anti-Xa measurement may be inaccurate. - Interpretive guidelines developed in adult populations. Interpretive guidelines for pediatric patients have not been rigorously defined. - Current interpretive data was last revised on 2019. Blood 12/29/2024 4:20 PM CDT 12/29/2024 4:53 PM CDT us Prema Plata MD LAB BLOOD ORDERABLES Final Result Performing Organization Address [facility]/ZIP Co de Phone Number [facility] [address] [employer] [place] [address] * US Vein Duplex Lower Extremity Bilateral Complete (12/29/2024 11:31 AM CDT) Anatomical Region Laterality Modality Vascular Bilateral Ultrasound 12/29/2024 9:13 AM CDT Narrative 12/30/2024 11:25 AM CDT Lower Extremity Venous Report Patient Name: FREDDY SUMMERS J : 1965 (59y 1m) Gender: M Study Date: 12/29/2024 09:13:37 AM [employer] Instructor: NATALIO Jeffrey Location: [place] [id number] Order Provider: JAISON POSEY Quality: Adequate Ref Provider: JAISON POSEY PROCEDURES: Vascular Report: A non-invasive vascular imaging study of the bilateral lower extremity veins was performed using B-mode ultrasound, color flow, and spectral Doppler. INDICATIONS: Edema, unspecified and Personal History of Pulmonary Embolism. HISTORY: PE. COMPARISONS: No prior exams. FINDINGS: Bilateral: Negative for deep and superficial vein thrombosis in the lower extremities bilaterally. Right: Normal compressibility and color filling, spontaneous and phasic flow, and response to distal augmentation is demonstrated in the right common femoral vein, saphenofemoral junction, proximal femoral vein, mid femoral vein, distal femoral vein, profunda vein, popliteal vein, posterior tibial veins and peroneal veins. Left: Normal compressibility and color filling, spontaneous and phasic flow, and response to distal augmentation is demonstrated in the left common femoral vein, saphenofemoral junction, proximal femoral vein, mid femoral vein, distal femoral vein, profunda vein, popliteal vein, posterior tibial veins and peroneal veins. Provider Notification: Jaison Jimenes MD via [employer]. CONCLUSIONS: 1. There is no evidence of deep vein thrombosis in the lower extremities bilaterally. ATTESTATION: I have reviewed and interpreted the pertinent images and measurements of this study. I attest to the conclusions in the final report that is provided above. Electronically Signed By: Alex Qiuntero MD 12/30/2024 10:28:17 AM CDT Procedure Note Alex Quintero MD - 12/30/2024 Lower Extremity Venous Report Patient Name: FREDDY SUMMERS J : 1965 (59y 1m) Gender: M Study Date: 12/29/2024 09:13:37 AM [employer] Instructor: NATALIO Jeffrey Location:[id number] Order Provider: JAISON POSEY Quality: Adequate Ref Provider: JAISON POSEY PROCEDURES: Vascular Report: A non-invasive vascular imaging study of the bilaterallower extremity veins was performed using B-mode ultrasound, color flow, and spectralDoppler. INDICATIONS: Edema, unspecified and Personal History of Pulmonary Embolism. HISTORY: PE. COMPARISONS: No prior exams. FINDINGS: Bilateral: Negative for deep and superficial vein thrombosis in the lowerextremities bilaterally. Right: Normal compressibility and color filling, spontaneous and phasicflow, and response to distal augmentation is demonstrated in the right commonfemoral vein, saphenofemoral junction, proximal femoral vein, mid femoral vein, distalfemoral vein, profunda vein, popliteal vein, posterior tibial veins and peronealveins. Left: Normal compressibility and color filling, spontaneous and phasicflow, and response to distal augmentation is demonstrated in the left common femoral vein,saphenofemoral junction, proximal femoral vein, mid femoral vein, distal femoral vein,profunda vein, popliteal vein, posterior tibial veins and peroneal veins. Provider Notification: Jaison Jimenes MD via [facility]. CONCLUSIONS: 1. There is no evidence of deep vein thrombosis in the lower extremitiesbilaterally. ATTESTATION: I have reviewed and interpreted the pertinent images and measurements ofthis study. I attest to the conclusions in the final report that is provided above. Electronically Signed By: Alex Quintero MD 12/30/2024 10:28:17 AM CDT Jaison Posey MD [facility] PROCEDURES Final Resu lt * Heparin anti factor Xa activity (12/29/2024 10:16 AM CDT) [facility] Anti Factor Xa 0.57 IUnits/mL Comment: Interpretive Data Enoxaparin therapeutic range (peak): VTE treatment, Q12hr dosin.60-1.00 IUnits/mL VTE treatment, Q24hr dosin.00-2.00 IUnits/mL Q24hr dosing for renal impairment (CrCl <30 mL/min): 0.60-1.00 IUnits/mL VTE prevention: 0.10-0.40 IUnits/mL - Anti-Xa therapeutic ranges apply to blood samples drawn 4 hours after last dose (peak). - Unfractionated heparin (UFH) therapeutic range: 0.30-0.70 IUnits/mL - Direct factor Xa inhibitors (rivaroxaban, apixaban): Results must be interpreted qualitatively. No activity detected suggests little anticoagulant activity. - In severe antithrombin deficiency, anti-Xa measurement may be inaccurate. - Interpretive guidelines developed in adult populations. Interpretive guidelines for pediatric patients have not been rigorously defined. - Current interpretive data was last revised on 2019. Blood 12/29/2024 10:1 6 AM CDT 12/29/2024 10:20 AM CDT us Jaison Posey MD LAB BLOOD ORDERABLES Final R esult [facility] [address] [facility] [place] [address] * TRANSTHORACIC ECHO (TTE) COMPLETE W DOPPLER/CF WO CONTRAST (12/29/2024 8:48 AM CDT) Estimated EF 70-75 % CONS SCIMAGE Anatomical Region Laterality Modality Ultrasound 12/29/2024 8:11 AM CDT Narrative 12/30/2024 12:19 PM CDT Transthoracic Echocardiographic Report Patient Name: FREDDY SUMMERS J : 1965 (59y 1m) Gender: M Study Date: 12/29/2024 08:11:17 AM Ht(Inch): 68 Wt(Lb): 153 BSA: 1.82 [employer] Instructor: Dominga Cervantes RDCS Location: [id number] Order Provider: JAISON POSEY Heart Rate: 77 BMI: 23.26 BP: 115 / 79 Ref Provider: JAISON POSEY PROCEDURES: Echocardiographic Report: ([id number]) Transthoracic complete echo, 2D, spectral and tissue Doppler, color flow Doppler, M-mode. Technically difficult study due to: Technically difficult study due to underlying lung condition. INDICATIONS: Pulmonary embolism. FINDINGS: Left Ventricle: Normal left ventricular cavity size. Normal Left ventricular wall thickness. The Ejection Fraction is visually estimated to be 70-75 %. Diastolic Function Left ventricular diastolic parameters are consistent with Grade I diastolic dysfunction (normal LA pressure). Right Ventricle: Normal right ventricular size. Normal right ventricular systolic function. Left Atrium: The left atrium is normal in size. Right Atrium: Appears grossly normal in size. Atrial Septum: The interatrial septum is normal in appearance. THere is no 2D evidence of a septal defect. Mitral Valve: Normal mitral valve leaflet structure. There is trace mitral valve regurgitation. There is no 2D evidence of significant stenosis. Aortic Valve: Trileaflet aortic valve. No aortic regurgitation seen. No aortic valve stenosis. Tricuspid Valve: The tricuspid valve demonstrates normal leaflet structure. There is trace tricuspid regurgitation. The estimated right ventricular systolic pressure is 39 mmHg. Pulmonic Valve: Pulmonic Valve not well visualized due to poor echo windows. No evidence of pulmonic regurgitation. Pericardium: Normal pericardium without evidence of pericardial effusion. Aorta: Normal aortic root. IVC: IVC is normal in size. The estimated RA pressure is 3 mmHg. CONCLUSIONS: 1. The Ejection Fraction is visually estimated to be 70-75 %. Diastolic Function Left ventricular diastolic parameters are consistent with Grade I diastolic dysfunction (normal LA pressure). 2. There is trace mitral valve regurgitation. 3. There is trace tricuspid regurgitation. The estimated right ventricular systolic pressure is 39 mmHg. MEASUREMENTS: 2D/MM Value Range Doppler Value LVIDd 2D 4.01 cm [ 3.50 - 5.70 ] AV Peak Jose 1.15 m/s LVIDs 2D 2.28 cm [ 3.10 - 4.60 ] AV Peak PG 5.29 mmHg IVSd 2D 0.91 cm [ 0.60 - 1.20 ] LVOT Peak Jose 1.08 m/s LVPWd 2D 1.01 cm [ 0.60 - 1.10 ] LVOT Peak PG 4.67 mmHg LV Thickness Ratio 0.90 LVOT Diam 2.10 cm LV Mass 2D 122.51 g BRIDGET Vmax 3.25 cm2 LV Mass Index 2D 67.31 g/m2 MV E Peak Jose 1.06 m/s RWT 0.50 MV A Peak Jose 0.66 m/s Visually Estimated EF 70-75 % MV E/A 1.60 ratio LV Basal Diam 4.29 cm MV Decel Time 137.00 msec LV/RV Ratio 0.90 Med E` Jose 8.81 cm/sec LA Dimension 2D 2.90 cm [ 1.90 - 4.00 ] Lat E` Jose 11.40 cm/sec RV Base Dimen 2D 3.7 cm [ 2.5 - 4.2 ] Average E/E` 10.49 TAPSE 2.54 cm [ 1.71 - 5.00 ] TV Peak Jose 0.64 m/s AoR Diam 2D 3.80 cm [ 2.00 - 3.70 ] TV Peak PG 1.64 mmHg Ao Root Index 2.09 cm/m2 [ 1.00 - 2.00 ] RV S` 12.10 cm/sec Asc Ao Diam 2D 3.60 cm TR Peak Jose 3.01 m/s Asc Ao Index 1.98 cm/m2 TR Peak PG 36.2 mmHg RA Pressure 3.00 mmHg RVSP 39.20 mmHg PV Peak Jose 1.02 m/s PV Peak PG 4.16 mmHg - ATTESTATION: I have reviewed and interpreted the pertinent images and measurements of this study. I attest to the conclusions in the final report that is provided above. DISCLAIMER: The study images and the final report will be retained in the patient chart by the [facility] for the legally required time period. This chart constitutes the legal record of any testing performed. Electronically Signed By: Rg Fofana Jr MD 12/30/2024 12:18:45 PM CDT Procedure Note Rg Fofana Jr., MD - 12/30/2024 Transthoracic Echocardiographic Report Patient Name: FREDDY SUMMERS J : 1965 (59y 1m) Gender: M Study Date: 12/29/2024 08:11:17 AM Ht(Inch): 68 Wt(Lb): 153 BSA: 1.82 [employer] Instructor: Domniga Cervantes RDCS Location: [place] [address] Order Provider:JAISON POSEY Heart Rate: 77 BMI: 23.26 BP: 115 / 79 Ref Provider: PARUCHURI,THARUN PROCEDURES: Echocardiographic Report: ([id number]) Transthoracic complete echo, 2D,spectral and tissue Doppler, color flow Doppler, M-mode. Technically difficult study due to: Technically difficult study due tounderlying lung condition. INDICATIONS: Pulmonary embolism. FINDINGS: Left Ventricle: Normal left ventricular cavity size. Normal Leftventricular wall thickness. The Ejection Fraction is visually estimated to be 70-75 %.Diastolic Function Left ventricular diastolic parameters are consistent with Grade Idiastolic dysfunction (normal LA pressure). Right Ventricle: Normal right ventricular size. Normal right ventricularsystolic function. Left Atrium: The left atrium is normal in size. Right Atrium: Appears grossly normal in size. Atrial Septum: The interatrial septum is normal in appearance. THere is no2D evidence of a septal defect. Mitral Valve: Normal mitral valve leaflet structure. There is trace mitralvalve regurgitation. There is no 2D evidence of significant stenosis. Aortic Valve: Trileaflet aortic valve. No aortic regurgitation seen. Noaortic valve stenosis. Tricuspid Valve: The tricuspid valve demonstrates normal leafletstructure. There is trace tricuspid regurgitation. The estimated right ventricular systolicpressure is 39 mmHg. Pulmonic Valve: Pulmonic Valve not well visualized due to poor echowindows. No evidence of pulmonic regurgitation. Pericardium: Normal pericardium without evidence of pericardialeffusion. Aorta: Normal aortic root. IVC: IVC is normal in size. The estimated RA pressure is 3 mmHg. CONCLUSIONS: 1. The Ejection Fraction is visually estimated to be 70-75 %. DiastolicFunction Left ventricular diastolic parameters are consistent with Grade I diastolicdysfunction (normal LA pressure). 2. There is trace mitral valve regurgitation. 3. There is trace tricuspid regurgitation. The estimated right ventricularsystolic pressure is 39 mmHg. MEASUREMENTS: 2D/MM Value Range DopplerValue LVIDd 2D 4.01 cm [ 3.50 - 5.70 ] AV Peak Vel1.15 m/s LVIDs 2D 2.28 cm [ 3.10 - 4.60 ] AV Peak PG5.29 mmHg IVSd 2D 0.91 cm [ 0.60 - 1.20 ] LVOT Peak Vel1.08 m/s LVPWd 2D 1.01 cm [ 0.60 - 1.10 ] LVOT Peak PG4.67 mmHg LV Thickness Ratio 0.90 LVOT Diam2.10 cm LV Mass 2D 122.51 g BRIDGET Vmax3.25 cm2 LV Mass Index 2D 67.31 g/m2 MV E Peak Vel1.06 m/s RWT 0.50 MV A Peak Vel0.66 m/s Visually Estimated EF 70-75 % MV E/A1.60 ratio LV Basal Diam 4.29 cm MV Decel Tmfi450.00 msec LV/RV Ratio 0.90 Med E` Vel8.81 cm/sec LA Dimension 2D 2.90 cm [ 1.90 - 4.00 ] Lat E` Vel11.40 cm/sec RV Base Dimen 2D 3.7 cm [ 2.5 - 4.2 ] Average E/E`10.49 TAPSE 2.54 cm [ 1.71 - 5.00 ] TV Peak Vel0.64 m/s AoR Diam 2D 3.80 cm [ 2.00 - 3.70 ] TV Peak PG1.64 mmHg Ao Root Index 2.09 cm/m2 [ 1.00 - 2.00 ] RV S`12.10 cm/sec Asc Ao Diam 2D 3.60 cm TR Peak Vel3.01 m/s Asc Ao Index 1.98 cm/m2 TR Peak PG36.2 mmHg RA Pressure 3.00 mmHg RVSP 39.20 mmHg PV Peak Jose 1.02 m/s PV Peak PG 4.16 mmHg - ATTESTATION: I have reviewed and interpreted the pertinent images and measurements ofthis study. I attest to the conclusions in the final report that is provided above. DISCLAIMER: The study images and the final report will be retained in the patientchart by the [facility] for the legally required time period. This chart constitutesthe legal record of any testing performed. Electronically Signed By: Rg Fofana Jr MD 12/30/2024 12:18:45 PM CDT Jaison Posey MD CV ECHO PROCEDURES Final Res ult * eGFR (12/29/2024 4:01 AM CDT) eGFR >90 >=60 mL/min/1. 73 m2 Comment: Interpretive Data Reference Interval Normal >/= 90 mL/min/1.73m2 Mildly decreased* 60 - 89 mL/min/1.73m2 Mildly to moderately decreased 45 - 59 mL/min/1.73m2 Moderately to severely decreased 30 - 44 mL/min/1.73m2 Severely decreased 15 - 29 mL/min/1.73m2 Kidney Failure < 15 mL/min/1.73m2 *Relative to young adult level Estimated glomerular filtration rate is determined by the 2020 CKD-EPI equation recommended by the National Kid[employer] (A Unifying Approach to GFR Estimation: Recommendations of the NKF-ASK Task Force on Reassessing the Inclusion of Race in Diagnosing Kidney Disease, JASN 2020). The CKD-EPI equation should not be used for patients with unstable renal function and has not been validated in children and those over 70. Current interpretive data was last reviewed 2021. Blood 12/29/2024 4:01 AM CDT 12/29/2024 4:50 AM CDT Jaison Posey MD LAB BLOOD ORDERABLES Final R esult [facility] [address] [facility] Department [place] [address] * (ABNORMAL) Differential, auto (12/29/2024 4:01 AM CDT) Neutrophil abs 8.99(H) 1.50 - 6.50 K/cumm Imm gran abs 0.03 0.00 - 0.10 K[facility]cumm [facility] Lymphocyte abs 0.99 0.80 - 3.30 K/cumm [facility] Monocyte abs 0.51 0.20 - 0.80 K/cumm [facility] Eosinophil abs 0.00 0.00 - 0.50 K/cumm [facility] Basophil abs 0.02 0.00 - 0.10 K/cumm [facility] Neutrophil pct 85.3 % [facility] Comment: Interpretive Data Percent cell count reference ranges are not reported, since discordance with absolute values may lead to misinterpretation of CBC data. Current Interpretive Data was last revised on 2017. Imm gran pct 0.3 % [facility] Comment: Interpretive Data Percent cell count reference ranges are not reported, since discordance with absolute values may lead to misinterpretation of CBC data. Current Interpretive Data was last revised on 2017. Lymphocyte pct 9.4 % [facility] Comment: Interpretive Data Percent cell count reference ranges are not reported, since discordance with absolute values may lead to misinterpretation of CBC data. Current Interpretive Data was last revised on 2017. Monocyte pct 4.8 % [facility] Comment: Interpretive Data Percent cell count reference ranges are not reported, since discordance with absolute values may lead to misinterpretation of CBC data. Current Interpretive Data was last revised on 2017. Eosinophil pct 0.0 % [facility] Comment: Interpretive Data Percent cell count reference ranges are not reported, since discordance with absolute values may lead to misinterpretation of CBC data. Current Interpretive Data was last revised on 2017. Basophil pct 0.2 % [facility] Comment: Interpretive Data Percent cell count reference ranges are not reported, since discordance with absolute values may lead to misinterpretation of CBC data. Current Interpretive Data was last revised on 2017. Blood 12/29/2024 4:01 AM CDT 12/29/2024 4:49 AM CDT us Jaison Posey MD LAB BLOOD ORDERABLES Final R esult [facility] DAVENPORT [address] [facility] Department [place] [address] * Heparin anti factor Xa activity (12/29/2024 4:01 AM CDT) Anti Factor Xa 0.22 IUnits/mL Comment: Ref Range Low Interpretive Data Enoxaparin therapeutic range (peak): VTE treatment, Q12hr dosin.60-1.00 IUnits/mL VTE treatment, Q24hr dosin.00-2.00 IUnits/mL Q24hr dosing for renal impairment (CrCl <30 mL/min): 0.60-1.00 IUnits/mL VTE prevention: 0.10-0.40 IUnits/mL - Anti-Xa therapeutic ranges apply to blood samples drawn 4 hours after last dose (peak). - Unfractionated heparin (UFH) therapeutic range: 0.30-0.70 IUnits/mL - Direct factor Xa inhibitors (rivaroxaban, apixaban): Results must be interpreted qualitatively. No activity detected suggests little anticoagulant activity. - In severe antithrombin deficiency, anti-Xa measurement may be inaccurate. - Interpretive guidelines developed in adult populations. Interpretive guidelines for pediatric patients have not been rigorously defined. - Current interpretive data was last revised on 2019. Blood 12/29/2024 4:01 AM CDT 12/29/2024 4:50 AM CDT us Jaison Posey MD LAB BLOOD ORDERABLES Final R esult [facility] [address] [facility] Department [place] [address] * (ABNORMAL) CBC with auto differential (12/29/2024 4:01 AM CDT) [facility] WBC 10.54(H) 3.80 - 9.90 K/cumm Hgb 12.1(L) 13.0 - 17.5 g/dL [facility] Hct 39.5 38.9 - 50.3 % [facility] Plt 342 150 - 400 K/cumm [facility] MPV 9.8 9.1 - 12.3 fL [facility] RBC 4.74 4.30 - 5.80 M/cumm [facility] MCV 83.3 81.3 - 96.4 fL [facility] MCH 25.5(L) 27.1 - 33.3 pg [facility] MCHC 30.6(L) 32.3 - 35.7 g/dL [facility] RDW CV 14.6 11.1 - 14.9 % [facility] RDW SD 44.4 35.7 - 48.1 fL [facility] NRBC abs 0.00 0.00 - 0.01 K/cumm [facility] Blood 12/29/2024 4:01 AM CDT 12/29/2024 4:49 AM CDT Jaison Posey MD LAB BLOOD ORDERABLES Final R esult Performing Organization Address City/[facility]/ZIP Co de Phone Number [address] [employer] [place] [address] * Magnesium (12/29/2024 4:01 AM CDT) [facility] Magnesium 2.0 1.4 - 2.5 mg/dL Blood 12/29/2024 4:01 AM CDT 12/29/2024 4:50 AM CDT Jaison Posey MD LAB BLOOD ORDERABLES Final R esult Performing Organization Address City/[facility] Co de Phone Number [address] [place] [address] * (ABNORMAL) Comprehensive metabolic panel (12/29/2024 4:01 AM CDT) [facility] Sodium 138 135 - 145 mmol/L Potassium, pl 3.6 3.3 - 4.9 mmol/L [facility] Chloride 104 97 - 110 mmol/L [facility] CO2 23 22 - 32 mmol/L [facility] Anion gap 11 2 - 15 mmol/L [facility] BUN 13 6 - 25 mg/dL [facility] Creatinine 0.68(L) 0.80 - 1.30 mg/dL [facility] Glucose 130 70 - 199 mg/dL [facility] Comment: Interpretive Data Fasting glucose >/= 126 mg/dl is diagnostic for diabetes. Fasting is defined as no caloric intake for at least 8 hours. Fasting glucose between 100 mg/dl to 125 mg/dl is diagnostic of prediabetes. In a patient with classic symptoms of hyperglycemia or hyperglycemic crisis, a random glucose >/= 200 mg/dl is diagnostic for diabetes. In the absence of unequivocal hyperglycemia, results should be confirmed by repeat testing. The classification and Diagnosis of Diabetes Diabetes Care 2021; 46: S19-S40. Current interpretive data was last revised 2022. Calcium 9.2 8.5 - 10.3 mg/dL [facility] Bilirubin, total 0.3 0.1 - 1.2 mg/dL [facility] Protein, pl 6.9 6.5 - 8.5 g/dL [facility] Albumin 3.6 3.5 - 5.0 g/dL [facility] Alk phos 87 40 - 130 Units/L [facility] ALT 8 7 - 55 Units/L [facility] AST 15 10 - 50 Units/L [facility] Blood 12/29/2024 4:01 AM CDT 12/29/2024 4:50 AM CDT Jaison Posey MD LAB BLOOD ORDERABLES Final R esult Performing Organization Address [facility] Co de Phone Number [address] [employer] [place] [address] * POCT glucose (12/28/2024 11:12 PM CDT) [facility] Glucose, POC 152 70 - 199 mg/dL Blood 12/28/2024 11:1 2 PM CDT 12/28/2024 11:12 PM CDT Jaison Posey MD LAB POCT ORDERABLES - DEVICE Final Result Performing Organization Address [facility] de Phone Number [address] [employer] [place] [address] * (ABNORMAL) Pneumonia PCR with aerobic culture and Gram stain Sputum (12/28/2024 11:00 PM CDT) [facility] Direct Specimen Exam Stain: Abundant squamous epithelial cells seen indicating excessive oropharyngeal contamination. Culture will not be processed further. Please submit another specimen. Smear results called to and read back by: Brian Lara MLS [phone] on 12/29/2024 05:55:39 by: Marcos Myrick MLT Comment:Testing performed by : [facility], [address] [place]., [address] Direct Specimen Exam Molecular Analysis: Abundant squamous epithelial cells observed on Gram stain. Specimen will not be processed for rapid molecular analysis. CLARISSA DAVENPORT Comment:Testing performed by : [facility], [address] [facility], [address] Report Final Report: This is the final report. (.) CLARISSA DAVENPORT Comment:Testing performed by : [facility], [address] [place] [address]., [id number] Sputum 12/28/2024 11:0 0 PM CDT 12/29/2024 4:56 AM CDT [facility] CLARISSA - 12/29/2024 7:24 AM CDT When rapid molecular testing results are reported, testing completed using the [employer] Pneumonia Panel. This molecular assay detects: Acinetobacter calcoaceticus-baumannii complex, Enterobacter cloacae complex, Escherichia coli, Haemophilus influenzae, Enterobacter (Klebsiella) aerogenes, Klebsiella oxytoca, Klebsiella pneumoniae group, Moraxella catarrhalis, Proteus spp., Pseudomonas aeruginosa, Serratia marcescens, Staphylococcus aureus, Streptococcus agalactiae, Streptococcus pneumoniae, and Streptococcus pyogenes. These bacteria are detected and reported semi-quantitatively with bins representing approximately 10^4, 10^5, 10^6, or greater than or equal to 10^7 genomic copies of bacterial nucleic acid per mL (copies/mL) of specimen. These quantities are reported to aid in estimating the relative abundance of organism(s) detected within the specimen and to correlate these results with culture results. For Staphylococcus aureus, mecA/C and MREJ genes are evaluated to predict methicillin resistance or susceptibility. For Gram-negative bacteria, the beta-lactamases CTX-M, IMP, KPC, NDM, VIM and OXA-48-like are evaluated and reported if detected. For Gram-negative organisms, the absence of detection of resistance markers does not exclude resistance. Correlation with final culture results and susceptibility testing is recommended. The [employer] Pneumonia Panel is cleared by the [place] Food and Drug Administration and its performance characteristics have been confirmed by the [facility]. The performance of the [employer] Pneumonia Panel has not been established for monitoring treatment of infection and bacterial nucleic acids may persist independent of organism viability. Nikita Llanos MD LAB MICROBIOLOGY - GENERAL ORDERABLES Final Result Performing Organization Address [facility] de Phone Number [address] [address] * MRSA Only (Staphylococcus aureus) PCR Nasal (12/28/2024 11:00 PM CDT) PCR Scrn, Methicillin resistant Staphylococcus aureus (MRSA) Not Detected Not Detected Comment: Interpretive Data Testing performed using Nucleic Acid Amplification with the [employer] Xpert MRSA NxG Assay. This assay detects target DNA from mecA, mecC and the SCCmec insertion site of Staphylococcus aureus using Real-Time PCR and has been cleared by the FDA. Performance characteristics have been verified by the [facility]. Current Interpretive Data was last revised on 2023 Nasal 12/28/2024 11:0 0 PM CDT 12/28/2024 11:07 PM CDT Jaison Posey MD LAB MICROBIOLOGY - GENERAL O RDERABLES Final Result Performing Organization Address [facility] de Phone Number [address] [address] * Heparin anti factor Xa activity (12/28/2024 10:11 PM CDT) Pathologist [facility] Anti Factor Xa 0.34 IUnits/mL Comment: Interpretive Data Enoxaparin therapeutic range (peak): VTE treatment, Q12hr dosin.60-1.00 IUnits/mL VTE treatment, Q24hr dosin.00-2.00 IUnits/mL Q24hr dosing for renal impairment (CrCl <30 mL/min): 0.60-1.00 IUnits/mL VTE prevention: 0.10-0.40 IUnits/mL - Anti-Xa therapeutic ranges apply to blood samples drawn 4 hours after last dose (peak). - Unfractionated heparin (UFH) therapeutic range: 0.30-0.70 IUnits/mL - Direct factor Xa inhibitors (rivaroxaban, apixaban): Results must be interpreted qualitatively. No activity detected suggests little anticoagulant activity. - In severe antithrombin deficiency, anti-Xa measurement may be inaccurate. - Interpretive guidelines developed in adult populations. Interpretive guidelines for pediatric patients have not been rigorously defined. - Current interpretive data was last revised on 2019. Blood 12/28/2024 10:1 1 PM CDT 12/28/2024 10:16 PM CDT Jaison Posey MD LAB BLOOD ORDERABLES Final R esult CLARISSA DAVENPORT [address] [place] [address] Department [place] [address] * Histoplasma Antigen Urine (12/28/2024 8:48 PM CDT) Histo/Blasto Ag Value Not Detected ng/mL [facility] Comment: ADDITIONAL INFORMATION This test was developed and its performance characteristics determined by [facility] in a manner consistent with CLIA requirements. This test has not been cleared or approved by the U.S. Food and Drug Administration. Test Performed by: [facility] - [address] [address] Surveyor'S Assistant: Hayden Barfield Ph.D.; CLIA# [id number] Histo/Blasto Ag Result Not Detected Not Detected [facility] DAVENPORT Comment: No antigen from Histoplasma or Blastomyces detected. False negative results may occur depending on extent of disease, and/or site of infection. Repeat testing on a new specimen if clinically indicated. Urine 12/28/2024 8:48 PM CDT 12/28/2024 8:52 PM CDT Aileen Mcdonald MD LAB MICROBIOLOGY - GENERA L ORDERABLES Final Result Performing Organization Address [facility] Co de Phone Number [address] [address] [facility] * Strep pneumoniae antigen, urine Urine (12/28/2024 8:48 PM CDT) S. pneumoniae Ag Negative Negative Comment: Interpretive Data A positive result is indicative of pneumococcal pneumonia in patients with severe CAP. Cross-reactivity with closely related Streptococcus bacteria may occur. A negative result suggests no current or recent pneumococcal infection but cannot rule out infection with S. pneumoniae. The results of this testing should be used in conjunction with clinical findings and other diagnostic testing, including microbiologic culture. Current Interpretive Data was last revised on 2022 Urine 12/28/2024 8:48 PM CDT 12/28/2024 8:52 PM CDT Nikita Llanos MD LAB MICROBIOLOGY - GENERAL ORDERABLES Final Result Performing Organization Address [facility] de Phone Number [address] [address] * Legionella antigen Urine (12/28/2024 8:48 PM CDT) Legionella Ag Negative Negative Comment: Interpretive Data This test detects only Legionella pneumophila serogroup 1 antigen. Testing performed by [facility] ([phone]). Current interpretive data was last revised on 2019. Testing performed by: [facility], [address] [facility] [place] [address] Urine 12/28/2024 8:48 PM CDT 12/29/2024 4:59 AM CDT Nikita Llanos MD LAB MICROBIOLOGY - GENERAL ORDERABLES Final Result Performing Organization Address City/[facility] Co de Phone Number [place] [phone] [facility] [place] [address] * POCT glucose (12/28/2024 8:33 PM CDT) Glucose, POC 128 70 - 199 mg/dL Glucose comment 1 RN/MD Notified CLARISSA DAVENPORT Blood 12/28/2024 8:33 PM CDT 12/28/2024 8:33 PM CDT us Jaison Posey MD LAB POCT ORDERABLES - DEVICE Final Result CLARISSA DAVENPORT [address] [facility] [place] [address] * RI CRITICAL CARE ILL/INJURED PATIENT INIT 30-74 MIN (12/28/2024 5:05 PM CDT) Narrative Nikita Llanos MD - 12/28/2024 5:05 PM CDT Nikita Llanos MD 12/28/2024 5:05 PM Critical Care Performed by: Nikita Llanos MD Authorized by: Nikita Llanos MD Critical care provider statement: As reflected in the history, physical exam, orders, notes, and/or MDM, I was personally present while the patient was critically ill and provided critical care services for 35 minutes, excluding time involved in separately billable procedures. Critical care was necessary to treat or prevent imminent or life-threatening deterioration of the following condition(s): COPD with acute exacerbation and pulmonary embolus pneumonia Critical care was time spent by me providing the following: continuous telemetry, continuous pulse oximetry, interpretation of bedside monitors, imaging, and arterial/venous lab draws, serial bedside patient exams, serial laboratory checks and resuscitation with fluids initiation, monitoring, and/or titration of anticoagulants review prior cultures/records, obtain appropriate cultures and empiric broad coverage antibiotics I provided emergent necessary critical care medicine services to this patient. I ordered and reviewed test results and/or imaging studies. I spent time discussing the management of this critically ill patient with consultants and the medical staff. I spent time discussing the management and therapeutic options for this critically ill patient with the patient themselves or with the appropriate designated surrogate decision-maker. I spent time documenting in the medical record. I admitted this patient to a continuous cardiac monitored bed. us Nikita Llanos MD IN CLINIC/BEDSIDE ORDERABL ES Final Result * Coccidioides antibody screen w/reflex Blood (12/28/2024 4:49 PM CDT) Pathologist [facility] Coccidioides ab screen, ser Negative Negative [facility] Comment: Repeat testing on a new sample in 2-3 weeks if clinically indicated. ADDITIONAL INFORMATION This test has been modified from the post doc fellowship's instructions. Its performance characteristics were determined by [facility] in a manner consistent with CLIA requirements. This test has not been cleared or approved by the U.S. Food and Drug Administration. Test Performed by: [facility] - [address] [address] Surveyor'S Assistant: Hayden Barfield Ph.D.; CLIA# [id number] Blood 12/28/2024 4:49 PM CDT 12/28/2024 4:53 PM CDT Tena ROMO - 01/01/2025 9:21 PM CDT specimen received by lab 01/01/2025 15:56:33 CDT [id number] us Aileen Mcdonald MD LAB MICROBIOLOGY - GENERA L ORDERABLES Final Result [facility] [address] [facility] [place] [address] [facility] * (ABNORMAL) Blastomyces antibody, EIA, serum Blood (12/28/2024 4:49 PM CDT) Pathologist [facility] Blastomyces Antibody Equivocal (A) Negative [facility] Comment: Confirmatory testing by immunodiffusion has been ordered. Test Performed by: [facility] - [address] [address] Surveyor'S Assistant: Hayden Barfield Ph.D.; CLIA# [id number] Blood 12/28/2024 4:49 PM CDT 12/28/2024 4:53 PM CDT Tena ROMO - 01/04/2025 1:57 PM CDT specimen received by lab 01/01/2025 15:56:14 CDT [id number] testing is partially completed; 01/03/2025 10:09:16 CDT [id number] Aileen Mcdonald MD LAB MICROBIOLOGY - GENERA L ORDERABLES Final Result Performing Organization Address [facility] Center/[facility] Co de Phone Number CLARISSA [address] [address] [place] ref Lab * HIV 1/2 Antibody plus p24 Antigen Blood (12/28/2024 4:49 PM CDT) Pathologist [facility] HIV 1/2 ab + p24 ag Nonreactive Nonreactive Comment:Nonreactive for HIV- 1 antigen and HIV-1/HIV-2 antibodies. No laboratory evidence of HIV infection. If acute HIV infection is suspected, consider testing for HIV-1 RNA. Current interpretive data was last revised on 22. Blood 12/28/2024 4:49 PM CDT 12/28/2024 4:53 PM CDT Aileen Mcdonald MD LAB MICROBIOLOGY - GENERA L ORDERABLES Final Result Performing Organization Address [facility] de Phone Number CLARISSA [address] [address] * Blastomyces antibodies (12/28/2024 4:49 PM CDT) Pathologist [facility] Blastomyces, Immunodiffusion Negative Negative [facility] Comment: A single negative immunodiffusion (ID) result does not exclude the diagnosis of blastomycosis. Repeat testing on a new sample in 7-14 days if clinically indicated. Test Performed by: [address] [address] Surveyor'S Assistant: Hayden Barfield Ph.D.; CLIA# [id number] Blood 12/28/2024 4:49 PM CDT 12/28/2024 4:53 PM CDT Aileen Mcdonald MD LAB BLOOD ORDERABLES Isabela l Result Performing Organization Address [facility]/ZIP Co de Phone Number CLARISSA [address] [facility] Department [place] [address] [place] ref [facility] * Heparin anti factor Xa activity (12/28/2024 3:36 PM CDT) Anti Factor Xa <0.10 IUnits/mL Comment: Interpretive Data Enoxaparin therapeutic range (peak): VTE treatment, Q12hr dosin.60-1.00 IUnits/mL VTE treatment, Q24hr dosin.00-2.00 IUnits/mL Q24hr dosing for renal impairment (CrCl <30 mL/min): 0.60-1.00 IUnits/mL VTE prevention: 0.10-0.40 IUnits/mL - Anti-Xa therapeutic ranges apply to blood samples drawn 4 hours after last dose (peak). - Unfractionated heparin (UFH) therapeutic range: 0.30-0.70 IUnits/mL - Direct factor Xa inhibitors (rivaroxaban, apixaban): Results must be interpreted qualitatively. No activity detected suggests little anticoagulant activity. - In severe antithrombin deficiency, anti-Xa measurement may be inaccurate. - Interpretive guidelines developed in adult populations. Interpretive guidelines for pediatric patients have not been rigorously defined. - Current interpretive data was last revised on 2019. Blood 12/28/2024 3:36 PM CDT 12/28/2024 3:47 PM CDT Nikita Llanos MD LAB BLOOD ORDERABLES Final Result Performing Organization Address [facility] Co de Phone Number CLARISSA MH [address] [facility] [place] [address] * aPTT (12/28/2024 3:36 PM CDT) aPTT 32 22 - 37 sec Comment: Interpretive data aPTT test has not been evaluated for monitoring heparin therapy. The anti-Xa is the preferred test. Current interpretive data was last revised on 2019. Blood 12/28/2024 3:36 PM CDT 12/28/2024 3:47 PM CDT Nikita Llanos MD LAB BLOOD ORDERABLES Final Result Performing Organization Address [facility] de Phone Number CLARISSA [address] [place] [address] * Protime-INR (12/28/2024 3:36 PM CDT) PT 12.7 12.0 - 14.6 sec INR 1.0 0.9 - 1.2 CLARISSA Comment: Ref Range High Interpretive data Oral anticoagulant therapeutic ranges: Venous thromboembolism prophylaxis or treatment: 2.0-3.0 CARDIOLOGY Standard range: 2.0-3.0 High-intensity range: 2.5-3.5 Refer to indication-specific guidelines for appropriate target ranges for prosthetic heart valve replacement. Current interpretive data was last revised on 2019. Blood 12/28/2024 3:36 PM CDT 12/28/2024 3:47 PM CDT Nikita Llanos MD LAB BLOOD ORDERABLES Final Result Performing Organization Address [facility] de Phone Number CLARISSA [address] [address] * CT Chest PE (CTA) W Contrast (12/28/2024 2:11 PM CDT) Anatomical Region Laterality Modality Body N/A Computed Tomogra phy 12/28/2024 2:21 PM CDT Narrative 12/28/2024 2:43 PM CDT EXAM DESCRIPTION: CT CHEST PE (CTA) W CONTRAST REASON FOR STUDY: hypotension, hx COPD, here for near syncope and hypotension, r/o PE, eval for pneumonia or mass Pt presents for near syncope while sitting in the wheelchair today. Has had some increased cough. States he is unable to cough out the sputum. No URI Sx, CP, GI or Sx. No LE pain/swelling. He has a PMHx that includes hemorrhagic stroke w/ residual L side weakness droop, HTN. TECHNIQUE: CT angiogram of the chest performed with intravenous contrast using helical scanning technique with dynamic intravenous contrast injection. Reconstructed coronal and sagittal MPR images reviewed. All images stored on PACS. 3D MIP images rendered on scanning unit and reviewed at time of interpretation. Automated exposure control was used as a dose optimization technique for this examination. CONTRAST TYPE/DOSE: 80mL of IOVERSOL 350 MG IODINE/ML INTRAVENOUS SYRINGE injected via intravenous COMPARISON: Chest radiograph 12/28/2024. No prior chest CT. History of aspiration. FINDINGS: VASCULATURE: The thoracic aorta is nonaneurysmal. Ascending thoracic aorta 3.8 cm, descending thoracic aorta 2.5 cm. Ascending thoracic aorta 3.7 cm, descending thoracic aorta 2.5 cm. There is a filling defect in the left upper lobe segmental pulmonary artery (series 4, image 43 evidence of pulmonary embolism. This is seen at the periphery of a cavitary mass in the left upper lobe. No other filling defects are seen within the pulmonary arterial system. LUNGS: Emphysema is noted. There is a large thick-walled cavity in the left upper lobe at the site of the pulmonary embolism, this has an air-fluid level in total 4.7 x 4.1 cm with a relatively thick wall. This is indeterminate whether neoplastic or infectious or inflammatory. There is associated opacity extending centrally along the bronchovascular bundles towards the left hilum. Additional cavitary opacity in the right upper lobe with adjacent opacity in total 4.0 x 2.0 cm (image 44). Several other nodules are noted bilaterally, right upper lobe 1.3 x 0.8 cm (series 4, image 51) and subpleural anterior right upper lobe 1.7 x 0.8 cm (image 58 and several areas of nodularity in the right middle lobe 1 example 1.2 cm (image 87). Several areas of nodularity in the right lower lobe the largest measures 1.5 x 1.3 cm). Additional nodules in the left lung, left upper lobe 1.3 x 0.8 cm (image 53), in the lingula 0.7 cm (image 71) and in the left lower lobe 1.2 cm (image 122). Additional cavitary masslike opacity in the lingula 4.3 x 2.1 cm (image 115). There is debris in the trachea and bronchus intermedius. PLEURA: No significant pleural scratch the small left effusion. MEDIASTINUM/CINDY: Mildly prominent lymph nodes, subcarinal station 2.3 x 1.5 cm (image 67). Right hilar lymph node 2.0 x 1.5 cm (image 67). Left hilar lymph node 1.7 x 2.2 cm (image 73). HEART: Heart size normal. Small pericardial effusion. AXILLA: No axillary lymphadenopathy. CHEST WALL: No chest wall mass or subcutaneous emphysema. HARDWARE/LINES/TUBES: None. UPPER ABDOMEN: In the included upper abdomen, partially imaged low-density lesion or area near the gallbladder fundus 1.1 cm (image 168). Adrenal glands grossly normal. Bone windows demonstrate no acute or aggressive osseous abnormality. MUSCULOSKELETAL: No significant abnormality. OTHER: No significant abnormality. IMPRESSION: Filling defect in the left upper lobe segmental pulmonary artery evidence of pulmonary embolism. No evidence of right heart strain or convincing evidence of infarction. Extensive abnormalities throughout the chest, uncertain to what extent findings reflect neoplasm, infection or a combination of findings. Could consider a short-term course of antibiotics, pulmonology consult and short-term follow-up CT imaging and possibly left upper lobe bronchoscopy. PET-CT might also be considered for potential direction of subsequent tissue sampling. Large thick-walled cavitary mass in the left upper lobe with an air-fluid level along the left upper lobe bronchus. This is indeterminate whether neoplastic or infectious or inflammatory. Additional cavitary masslike opacity in the right upper lobe and lingula. Multiple bilateral pulmonary nodules, these are nonspecific but may be infectious or inflammatory. Attention on follow-up recommended study. Emphysema. Mildly prominent mediastinal and hilar lymph nodes which are nonspecific but may be reactive. Attention on follow-up imaging small left pleural effusion and pericardial effusion. Partially imaged low-density lesion or area near the gallbladder fundus 1.1 cm. If a PET-CT is performed, attention on that modality. Critical results discussed with Dr. Llanos by Dr. Regalado at approximately 2:42 pm central time on 12/28/2024 . THIS IS AN ELECTRONICALLY VERIFIED FINAL REPORT 12/28/2024 2:43 PM - Electronically signed by Ha Regalado M.D. T: Report ID: [id number] Reading Location: [place] [address] Procedure Note Ha Regalado Jr., MD - 12/28/2024 EXAM DESCRIPTION: CT CHEST PE (CTA) W CONTRAST REASON FOR STUDY: hypotension, hx COPD, here for near syncope and hypotension, r/o PE, eval for pneumonia or mass Pt presents for near syncope while sitting in the wheelchair today. Hashad some increased cough. States he is unable to cough out the sputum. No URISx, CP, GI or Sx. No LE pain/swelling. He has a PMHx that includeshemorrhagic stroke w/ residual L side weakness droop, HTN. TECHNIQUE: CT angiogram of the chest performed with intravenous contrastusing helical scanning technique with dynamic intravenous contrast injection. Reconstructed coronal and sagittal MPR images reviewed. All images storedon PACS. 3D MIP images rendered on scanning unit and reviewed at time of interpretation. Automated exposure control was used as a doseoptimization technique for this examination. CONTRAST TYPE/DOSE: 80mL of IOVERSOL 350 MG IODINE/ML INTRAVENOUSSYRINGE injected via intravenous COMPARISON: Chest radiograph 12/28/2024. No prior chest CT. History of aspiration. FINDINGS: VASCULATURE: The thoracic aorta is nonaneurysmal. Ascending thoracic aorta 3.8 cm, descending thoracic aorta 2.5 cm. Ascendingthoracic aorta 3.7 cm, descending thoracic aorta 2.5 cm. There is a filling defectin the left upper lobe segmental pulmonary artery (series 4, image 43evidence of pulmonary embolism. This is seen at the periphery of a cavitary mass inthe left upper lobe. No other filling defects are seen within the pulmonary arterial system. LUNGS: Emphysema is noted. There is a large thick-walled cavity in theleft upper lobe at the site of the pulmonary embolism, this has an air-fluidlevel in total 4.7 x 4.1 cm with a relatively thick wall. This is indeterminate whether neoplastic or infectious or inflammatory. There is associatedopacity extending centrally along the bronchovascular bundles towards the lefthilum. Additional cavitary opacity in the right upper lobe with adjacent opacityin total 4.0 x 2.0 cm (image 44). Several other nodules are notedbilaterally, right upper lobe 1.3 x 0.8 cm (series 4, image 51) and subpleural anterior right upper lobe 1.7 x 0.8 cm (image 58 and several areas of nodularity inthe right middle lobe 1 example 1.2 cm (image 87). Several areas ofnodularity in the right lower lobe the largest measures 1.5 x 1.3 cm). Additionalnodules in the left lung, left upper lobe 1.3 x 0.8 cm (image 53), in the lingula0.7 cm (image 71) and in the left lower lobe 1.2 cm (image 122). Additional cavitary masslike opacity in the lingula 4.3 x 2.1 cm (image 115). Thereis debris in the trachea and bronchus intermedius. PLEURA: No significant pleural scratch the small left effusion. MEDIASTINUM/CINDY: Mildly prominent lymph nodes, subcarinal station 2.3 x1.5 cm (image 67). Right hilar lymph node 2.0 x 1.5 cm (image 67). Lefthilar lymph node 1.7 x 2.2 cm (image 73). HEART: Heart size normal. Small pericardial effusion. AXILLA: No axillary lymphadenopathy. CHEST WALL: No chest wall mass or subcutaneous emphysema. HARDWARE/LINES/TUBES: None. UPPER ABDOMEN: In the included upper abdomen, partially imagedlow-density lesion or area near the gallbladder fundus 1.1 cm (image 168). Adrenalglands grossly normal. Bone windows demonstrate no acute or aggressive osseous abnormality. MUSCULOSKELETAL: No significant abnormality. OTHER: No significant abnormality. IMPRESSION: Filling defect in the left upper lobe segmental pulmonary artery evidenceof pulmonary embolism. No evidence of right heart strain or convincingevidence of infarction. Extensive abnormalities throughout the chest, uncertain to what extent findings reflect neoplasm, infection or a combination of findings. Could consider a short-term course of antibiotics, pulmonology consult and short-term follow-up CT imaging and possibly left upper lobe bronchoscopy. PET-CT might also be considered for potential direction of subsequenttissue sampling. Large thick-walled cavitary mass in the left upper lobe with an air-fluid level along the left upper lobe bronchus. This is indeterminate whether neoplastic or infectious or inflammatory. Additional cavitary masslike opacity in the right upper lobe and lingula. Multiple bilateral pulmonary nodules, these are nonspecific but may be infectious or inflammatory. Attention on follow-up recommended study. Emphysema. Mildly prominent mediastinal and hilar lymph nodes which are nonspecificbut may be reactive. Attention on follow-up imaging small left pleuraleffusion and pericardial effusion. Partially imaged low-density lesion or area near the gallbladder fundus1.1 cm. If a PET-CT is performed, attention on that modality. Critical results discussed with Dr. Llanos by Dr. Regalado at approximately 2:42 pm central time on 12/28/2024 . THIS IS AN ELECTRONICALLY VERIFIED FINAL REPORT 12/28/2024 2:43 PM - Electronically signed by Ha Regalado M.D. T: Report ID: [id number] Reading Location: [place] [address] [place] Nikita Llanos MD IMG CT PROCEDURES Final Re sult * Troponin T high-sensitivity 2-hour (12/28/2024 1:10 PM CDT) Trop T hs 9 <=22 ng/L Comment: Interpretive Data For further hscTnT resources including the diagnostic algorithm and an aid in interpretation, copy and paste this link: https://nrl.testcatalog.org/show/hsTrop Current Interpretive Data last revised 2020. Trop T hs delta 0 ng/L CLARISSA Trop T hs interp Insignificant CLARISSA Blood 12/28/2024 1:10 PM CDT 12/28/2024 1:18 PM CDT Nikita Llanos MD LAB BLOOD ORDERABLES Final Result [facility] [address] [facility] Department [place] [address] * Urinalysis reflex to microscopic and culture Urine (12/28/2024 12:54 PM CDT) Color, ur Yellow Yellow Clarity, ur Clear Clear CLARISSA Specific gravity, ur 1.015 1.003 - 1.030 CLARISSA pH, urine 7.5 CLARISSA Comment: Interpretive Data U rine pH is affected by diet, medications, systemic acid-base disturbances, and renal tubular function. pH may affect urinary stone formation. For example, urine pH below 6.0 may help reduce the tendency for calcium phosphate stones and pH greater than 6.0 may reduce the tendency for uric acid stone formation. Source: [facility] Current Interpretive Data was last revised on 2017 Protein, ur ql Negative Negative [facility] Glucose, ur ql Negative Negative [facility] Ketones, ur Negative Negative [facility] Bilirubin, ur Negative Negative [facility] Blood, ur Negative Negative [facility] Urobilinogen, ur <2.0 <2.0 mg/dL [facility] Nitrite, ur Negative Negative [facility] Leukocyte esterase, ur Negative Negative [facility] UA reflex comment Reflex conditions for microscopic UA and culture not met. CLARISSA Urine 12/28/2024 12:5 4 PM CDT 12/28/2024 12:57 PM CDT Nikita Llanos MD LAB MICROBIOLOGY - GENERAL ORDERABLES Final Result CLARISSA [address] [facility] [place] [address] * Respiratory pathogen panel Nasopharyngeal (12/28/2024 12:54 PM CDT) Influenza A RNA Not Detected Not Detected Comment:Testing performed by : [facility], [address] [place] [address], [place] [address] Influenza B RNA Not Detected Not Detected CLARISSA Comment:Testing performed by : [facility], [address] [facility] [place]., [address] RSV RNA Not Detected Not Detected CLARISSA Comment:Testing performed by : [facility], [address] [facility] [place]., [address] COVID-19 RNA Not Detected Not Detected CLARISSA Comment:Testing performed by : [facility], [address] [facility] [place]., [address] Coronavirus 229E RNA Not Detected Not Detected CLARISSA Comment:Testing performed by : [facility], [address] [facility] [place]., [address] Coronavirus HKU1 RNA Not Detected Not Detected CLARISSA Comment:Testing performed by : [facility], [address] [facility], [address] Coronavirus NL63 RNA Not Detected Not Detected CERNER Comment:Testing performed by : [facility], [address] [place]., [address] Coronavirus OC43 RNA Not Detected Not Detected CERNER Comment:Testing performed by : [facility], [address] [place]., [address] Adenovirus DNA Not Detected Not Detected CERNER Comment:Testing performed by : [facility], [address] [facility], [address] Metapneumovirus RNA Not Detected Not Detected CERNER Comment:Testing performed by : [facility], [address] [place]., [address] Rhinovirus/Enterov irus RNA Not Detected Not Detected CERNER Comment:Testing performed by : [facility], [address] [facility], [address] Parainfluenza 1 RNA Not Detected Not Detected CERNER Comment:Testing performed by : [facility], [address] [place]., [address] Parainfluenza 2 RNA Not Detected Not Detected CERNER Comment:Testing performed by : [facility], [address] [facility], [address] Parainfluenza 3 RNA Not Detected Not Detected CERNER Comment:Testing performed by : [facility], [address] [place]., [address] Parainfluenza 4 RNA Not Detected Not Detected CERNER Comment:Testing performed by : [facility], [address] [place]., [address] B. pertussis DNA Not Detected Not Detected CERNER Comment:Testing performed by : [facility], [address] [facility], [address] B. parapertussis DNA Not Detected Not Detected CERNER Comment:Testing performed by : [facility], [address] [place] [address] C. pneumoniae DNA Not Detected Not Detected CLARISSA Comment:Testing performed by : [facility], [address] [place]., [address] M. pneumoniae DNA Not Detected Not Detected CLARISSA Comment:Testing performed by : [facility], [address] [place]., [address] Nasopharyngeal 12/28/2024 12 :54 PM CDT 12/28/2024 3:58 PM CDT Narrative CLARISSA - 12/28/2024 5:50 PM CDT Is the Patient experiencing symptoms consistent with COVID?->Yes Surveillance testing for transplant patient?->No Interpretive Data The Deep Domain FilmArray Respiratory Panel (RP2.1) assay is a multiplexed real-time PCR based nucleic acid test capable of simultaneous qualitative detection and identification of multiple respiratory viral and bacterial nucleic acids, including SARS Coronavirus 2 (the causative agent of COVID-19). The following bacteria, viruses and virus subtypes can be identified using the FilmArray RP2.1 assay: Bordetella pertussis, Bordetella parapertussis, Chlamydia pneumoniae, Mycoplasma pneumoniae, Adenovirus, SARS Coronavirus 2, seasonal coronaviruses (Coronavirus HKU1, Coronavirus NL63, Coronavirus 229E, and Coronavirus OC43), Influenza A, Influenza A subtype H1, Influenza A subtype H3, Influenza A subtype 2009 H1, Influenza B, Metapneumovirus, Parainfluenza 1, Parainfluenza 2, Parainfluenza 3, Parainfluenza 4, RSV, Rhinovirus/Enterovirus. Due to the genetic similarity between human Rhinovirus and Enterovirus, the FilmArray RP2.1 assay cannot reliably differentiate them. Coronavirus OC43 may cross-react with some isolates of Coronavirus HKU1. A dual positive result may be due to cross-reactivity or may indicate a co- infection. The detection and identification of specific viral and bacterial nucleic acids from individuals exhibiting signs and symptoms of a respiratory infection aids in the diagnosis of respiratory infection if used in conjunction with other clinical and epidemiological information. The results of this test should not be used as the sole basis for diagnosis, treatment, or other management decisions. Negative results in the setting of a respiratory illness may be due to infection with pathogens that are not detected by this test. Positive results do not rule out infection/co-infection with other organisms. The agent(s) detected by the FilmArray RP2.1 may not be the definite cause of disease. Additional testing (lab, imaging, etc.) may be necessary when evaluating a patient with possible respiratory tract infection. The FilmArray RP2.1 assay has FDA clearance for testing of BOW MAKER MACHINE TENDER swabs. The performance of additional specimen types has been assessed by the performing laboratory. The performance characteristics of this assay have been determined by [facility]. Current interpretive data was last revised on 22. Nikita Llanos MD LAB MICROBIOLOGY - GENERAL ORDERABLES Final Result CLARISSA [address] [facility] [place] [address] * Drugs of Abuse Screen, Urine without Confirmation (12/28/2024 12:54 PM CDT) Pathologist [facility] Amphetamine, ur Not Detected CutOff 500ng/mL Comment: Interpretive Data - Amphetamines: Samples containing greater than 500 ng/mL d-methamphetamine or other cross-reacting amphetamine compounds are reported as positive. Amphetamine immunoassays are subject to significant false positive rates due to cross-reactivity of non-amphetamine drugs. Confirmatory testing required for definitive results. Current Interpretive Data was last reviewed 2023. Barbiturates, ur Not Detected CutOff 200ng/mL CLARISSA Comment: Interpretive Data - Barbiturates: Samples containing greater than 200 ng/mL secobarbital or other cross-reacting barbiturate compounds are reported as positive. False positive and false negative results are possible. Confirmatory testing required for definitive results. Current Interpretive Data was last reviewed 2023. Benzodiazepines, ur Not Detected CutOff 100ng/mL CLARISSA Comment: Interpretive Data - Benzodiazepines: Samples containing greater than 100 ng/mL nordiazepam or other cross-reacting compounds are reported as positive. False positive and false negative results are possible. Confirmatory testing required for definitive results. Current Interpretive Data was last reviewed 2023. Cannabinoids, ur Not Detected CutOff 50 ng/mL [facility] Comment: Interpretive Data - Cannabinoids: Samples containing greater than 50 ng/mL delta-9 THC -COOH or other cross- reacting compounds are reported as positive. False positive and false negative results are possible. Confirmatory testing required for definitive results. Current Interpretive Data was last reviewed 2023. Cocaine, ur Not Detected CutOff 150ng/mL [facility] Comment: Interpretive Data - Cocaine: Samples containing greater than 150 ng/mL benzoylecgonine or other cross- reacting compounds are reported as positive. False positive and false negative results are possible. Confirmatory testing required for definitive results. Current Interpretive Data was last reviewed 2023. Fentanyl, Ur Not Detected CutOff 5 ng/mL [facility] Comment: Interpretive Data - Fentanyl: Samples containing greater than 5 ng/mL norfentanyl, fentanyl, or other cross-reacting fentanyl compounds are reported as positive. False positive and false negative results are possible. Confirmatory testing required for definitive results. Current Interpretive Data was last reviewed 2023. Methadone, ur Not Detected CutOff 300ng/mL [facility] Comment: Interpretive Data - Methadone: Samples containing greater than 300 ng/mL d,l-methadone or other cross-reacting compounds are reported as positive. False positive and false negative results are possible. Confirmatory testing required for definitive results. Current Interpretive Data was last reviewed 2023. Opiates, ur Not Detected CutOff 300ng/mL [facility] Comment: Interpretive Data - Opiates: Samples containing greater than 300 ng/mL morphine or other cross-reacting compounds are reported as positive. False positive and false negative results are possible. Confirmatory testing required for definitive results. Current Interpretive Data was last reviewed 2023. Oxycodone, ur Not Detected CutOff 100ng/mL [facility] Comment: Interpretive Data - Oxycodone: Samples containing greater than 100 ng/mL oxycodone or other cross-reacting compounds are reported as positive. False positive and false negative results are possible. Confirmatory testing required for definitive results. Current Interpretive Data was last reviewed 2023. Phencyclidine, ur Not Detected CutOff 25 ng/mL [facility] Comment: Interpretive Data - Phencyclidine: Samples containing greater than 25 ng/mL phencyclidine or other cross-reacting compounds are reported as positive. False positive and false negative results are possible. Confirmatory testing required for definitive results. Current Interpretive Data was last reviewed 2023. Urine Creatinine 65 mg/dL [facility] Comment: Interpretive Data Urine Creatinine: < 10 mg/dL is extremely dilute = or > 10 but < 20 mg/dL is dilute = or > 20 mg/dL is normal Current Interpretive Data was last revised on 2017. Urine 12/28/2024 12:5 4 PM CDT 12/28/2024 12:57 PM CDT Narrative [facility] - 12/28/2024 1:44 PM CDT Drug of Abuse screening is performed by immunoassay for medical purposes only. This is not to be used for Pain Management purposes. us Nikita Llanos MD LAB URINE ORDERABLES Final Result [facility] [address] [facility] [place] [address] * XR Chest 1 Vw Portable (12/28/2024 11:54 AM CDT) Anatomical Region Laterality Modality Body, Chest N/A Computed Radiogr aphy 12/28/2024 12:1 3 PM CDT Narrative 12/28/2024 12:19 PM CDT EXAM DESCRIPTION: XR CHEST 1 VIEW REASON FOR STUDY: syncope Patient [facility]IBEMS from [facility] with complaints of near syncope. EMS reports that patient was sitting a chair when patient became diaphoretic and pale. Staff was working with the patient and noticed the patient became pale. Staff checked the patient's blood pressure to find a systolic blood pressure of 50. Patient states during this episode, their ears started ringing and they started sweating a lot. Patient states they have had an episode like this before a year ago due to dehydration. EMS gave approx 250 mL of fluids. Patient Denies: Chest pain, Shortness of breath, n/v/d, abd pain, leg pain, numbness and tingling (that is new), headache, blurred vision, double vision, fever, chills, body aches, and urinary complaints. 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 No signs of respiratory distress noted, AAOx4, NAD. TECHNIQUE: AP portable upright radiographic view(s) of the chest. COMPARISON: 01/10/2009 FINDINGS: LUNGS: There is opacity at the superior most aspect of the left apex which is somewhat masslike in configuration. This is new compared to the prior examination. There is some adjacent scarring and nodularity as was demonstrated on prior study from 2009. There is a potential area of cavitation centered over the posterior 4th rib. CT recommended for further evaluation. There are irregular nodular opacities with spiculations in the right upper lobe. Attention at time of CT recommended. Additional ill-defined nodular opacities in the right mid and lower lung field. There are somewhat reticulonodular opacities throughout the right lung and in the left lung base. There is no effusion or pneumothorax. HEART/MEDIASTINUM: Cardiac silhouette is normal in size. Pulmonary vascularity is similar. Some superior retraction of the left hilum is noted. LINES/TUBES: None. BONES: No acute osseous abnormality IMPRESSION: 1. Left apical masslike opacity, new compared to the prior examination. There are additional areas of scarring and nodularity, similar in appearance to previous study in 2009. Potential cavitary lesion as well centered over the left apex superimposed over the 4th rib. CT chest with contrast is recommended for evaluation. Atypical infectious etiologies can have this appearance. Appropriate precautions should be taken 2. Irregular somewhat spiculated nodular opacities within the right upper lobe and irregular nodules in the right mid and lower lung field. Attention at time of CT recommended. 3. Reticulonodular opacities throughout both lungs. THIS IS AN ELECTRONICALLY VERIFIED FINAL REPORT 12/28/2024 12:19 PM - Electronically signed by Tawny Peters M.D. TW T: Report ID: [id number] Reading Location: [id number] Procedure Note Tawny Peters MD - 12/28/2024 EXAM DESCRIPTION: XR CHEST 1 VIEW REASON FOR STUDY: syncope Patient BIBEMS from [facility] with complaints of near syncope. EMSreports that patient was sitting a chair when patient became diaphoretic and pale. Staff was working with the patient and noticed the patient became pale.Staff checked the patient's blood pressure to find a systolic blood pressureof 50. Patient states during this episode, their ears started ringing andthey started sweating a lot. Patient states they have had an episode likethis before a year ago due to dehydration. EMS gave approx 250 mL of fluids. Patient Denies: Chest pain, Shortness of breath, n/v/d, abd pain, legpain, numbness and tingling (that is new), headache, blurred vision, doublevision, fever, chills, body aches, and urinary complaints. PMHx: CVA lastAugust - Has L-sided hemiplegia Vitals Stable per EMS: 110/74, 60 NSR, 97%RA. No signs of respiratory distress noted, AAOx4, NAD. TECHNIQUE: AP portable upright radiographic view(s) of the chest. COMPARISON: 01/10/2009 FINDINGS: LUNGS: There is opacity at the superior most aspect of the left apex which is somewhat masslike in configuration. This is new compared tothe prior examination. There is some adjacent scarring and nodularity as was demonstrated on prior study from 2008. There is a potential area of cavitation centered over the posterior 4th rib. CT recommended forfurther evaluation. There are irregular nodular opacities with spiculations inthe right upper lobe. Attention at time of CT recommended. Additional ill-defined nodular opacities in the right mid and lower lung field. There are somewhat reticulonodular opacities throughout the right lung andin the left lung base. There is no effusion or pneumothorax. HEART/MEDIASTINUM: Cardiac silhouette is normal in size. Pulmonary vascularity is similar. Some superior retraction of the left hilum isnoted. LINES/TUBES: None. BONES: No acute osseous abnormality IMPRESSION: 1. Left apical masslike opacity, new compared to the prior examination. There are additional areas of scarring and nodularity, similar inappearance to previous study in 2009. Potential cavitary lesion as well centeredover the left apex superimposed over the 4th rib. CT chest with contrast is recommended for evaluation. Atypical infectious etiologies can have this appearance. Appropriate precautions should be taken 2. Irregular somewhat spiculated nodular opacities within the rightupper lobe and irregular nodules in the right mid and lower lung field.Attention at time of CT recommended. 3. Reticulonodular opacities throughout both lungs. THIS IS AN ELECTRONICALLY VERIFIED FINAL REPORT 12/28/2024 12:19 PM - Electronically signed by Tawny Peters M.D. TW T: Report ID: [id number] Reading Location: [place] [address] Nikita Llanos MD IMG XR PROCEDURES Final Re sult * Blood culture Blood Peripheral (12/28/2024 11:47 AM CDT) Report Final Report: No growth Comment:Testing performed by : [facility], [address] [facility] [place]., [address] Blood (Peripheral) 12/28/2024 11:47 AM CDT 12/28/2024 1:28 PM CDT Tena ROMO - 01/01/2025 4:00 PM CDT From a different site than #1. Draw Blood cultures before administration of Antibiotics Collection->Peripheral 1. Blood cultures are incubated for 4 days on a continuously monitored blood culture system. The first report of a negative culture is issued within 24 hours of receipt of the specimen in the laboratory. 2. Positive culture results are reported as soon as they are detected. 3. The most important factor for detection of microbes in the setting of bloodstream infection is the volume of blood submitted for culture. Failure to collect an optimal blood volume can result in false negative blood cultures. 4. For pediatric patients, the recommended blood volume to collect follows a weight based strategy. See the electronic test catalog for collection instructions. 5. For positive blood cultures, a rapid molecular test may be performed for organism identification using the maynor ePlex blood culture identification panel for gram positive (BCID-GP) and gram negative (BCID-GN) organisms. This nucleic acid amplification test detects microbial DNA in positive blood culture broth. This assay has been cleared by the [place] Food and Drug Administration and its performance characteristics have been verified by the [facility]. For questions about this culture, contact the Microbiology Laboratory at [phone]. Interpretive data was last revised on 24. Nikita lLanos MD LAB MICROBIOLOGY - GENERAL ORDERABLES Final Result Performing Organization Address [facility] Co de Phone Number [facility] DAV[facility]PORT [address] [facility] [employer] [place] [address] * Blood culture Blood Peripheral (12/28/2024 11:47 AM CDT) Report Final Report: No growth Comment:Testing performed by : [facility], [address] [place]., [address] Blood (Peripheral) 12/28/2024 11:47 AM CDT 12/28/2024 1:28 PM CDT Narrative CLARISSA - 01/01/2025 4:00 PM CDT Draw Blood cultures before administration of Antibiotics Collection->Peripheral 1. Blood cultures are incubated for 4 days on a continuously monitored blood culture system. The first report of a negative culture is issued within 24 hours of receipt of the specimen in the laboratory. 2. Positive culture results are reported as soon as they are detected. 3. The most important factor for detection of microbes in the setting of bloodstream infection is the volume of blood submitted for culture. Failure to collect an optimal blood volume can result in false negative blood cultures. 4. For pediatric patients, the recommended blood volume to collect follows a weight based strategy. See the electronic test catalog for collection instructions. 5. For positive blood cultures, a rapid molecular test may be performed for organism identification using the maynor ePlex blood culture identification panel for gram positive (BCID-GP) and gram negative (BCID-GN) organisms. This nucleic acid amplification test detects microbial DNA in positive blood culture broth. This assay has been cleared by the [place] Food and Drug Administration and its performance characteristics have been verified by the [facility]. For questions about this culture, contact the Microbiology Laboratory at [phone]. Interpretive data was last revised on 24. Nikita Llanos MD LAB MICROBIOLOGY - GENERAL ORDERABLES Final Result Performing Organization Address [facility] Co de Phone Number [facility] DAV[facility]PORT [address] [facility] [place] [address] * POCT glucose (12/28/2024 11:37 AM CDT) Glucose, POC 87 70 - 199 mg/dL Blood 12/28/2024 11:3 7 AM CDT 12/28/2024 11:37 AM CDT Notinfile Unknown LAB POCT ORDERABLES - DEVICE F inal Result Performing Organization Address City/[facility]/ZIP Co de Phone Number [facility] [address] [place] [address] * Troponin T high-sensitivity series (baseline, 2hr, 4hr, 6hr) (12/28/2024 11:31 AM CDT) [facility] Trop T hs 9 <=22 ng/L Comment: Interpretive Data For further hscTnT resources including the diagnostic algorithm and an aid in interpretation, copy and paste this link: https://nrl.testcatalog.org/show/hsTrop Current Interpretive Data last revised 2020. Blood 12/28/2024 11:3 1 AM CDT 12/28/2024 11:43 AM CDT Nikita Llanos MD LAB BLOOD ORDERABLES Final Result Performing Organization Address [facility] Co de Phone Number ISS[address] [place] [address] * Sepsis Lactate w/ Reflex (12/28/2024 11:31 AM CDT) [facility] Sepsis Lactate 1.4 0.7 - 2.0 mmol/L Blood 12/28/2024 11:3 1 AM CDT 12/28/2024 11:38 AM CDT Nikita Llanos MD LAB BLOOD ORDERABLES Final Result Performing Organization Address [facility] Co de Phone Number [address] [place] [address] * eGFR (12/28/2024 11:31 AM CDT) Pathologist [facility] eGFR >90 >=60 mL/min/1. 73 m2 Comment: Interpretive Data Reference Interval Normal >/= 90 mL/min/1.73m2 Mildly decreased* 60 - 89 mL/min/1.73m2 Mildly to moderately decreased 45 - 59 mL/min/1.73m2 Moderately to severely decreased 30 - 44 mL/min/1.73m2 Severely decreased 15 - 29 mL/min/1.73m2 Kidney Failure < 15 mL/min/1.73m2 *Relative to young adult level Estimated glomerular filtration rate is determined by the 2020 CKD-EPI equation recommended by the National Kidney Foundation (A Unifying Approach to GFR Estimation: Recommendations of the NKF-ASK Task Force on Reassessing the Inclusion of Race in Diagnosing Kidney Disease, JASN 2020). The CKD-EPI equation should not be used for patients with unstable renal function and has not been validated in children and those over 70. Current interpretive data was last reviewed 2021. Blood 12/28/2024 11:3 1 AM CDT 12/28/2024 11:43 AM CDT us Nikita Llanos MD LAB BLOOD ORDERABLES Final Result [facility] [address] [facility] [place] [address] * (ABNORMAL) Differential, auto (12/28/2024 11:31 AM CDT) [facility] Neutrophil abs 6.83(H) 1.50 - 6.50 K/cumm Imm gran abs 0.03 0.00 - 0.10 K/cumm [facility] Lymphocyte abs 2.10 0.80 - 3.30 K/cumm [facility] Monocyte abs 0.69 0.20 - 0.80 K/cumm [facility] Eosinophil abs 0.23 0.00 - 0.50 K/cumm [facility] Basophil abs 0.08 0.00 - 0.10 K/cumm [facility] Neutrophil pct 68.6 % [facility] Comment: Interpretive Data Percent cell count reference ranges are not reported, since discordance with absolute values may lead to misinterpretation of CBC data. Current Interpretive Data was last revised on 2017. Imm gran pct 0.3 % [facility] Comment: Interpretive Data Percent cell count reference ranges are not reported, since discordance with absolute values may lead to misinterpretation of CBC data. Current Interpretive Data was last revised on 2017. Lymphocyte pct 21.1 % [facility] Comment: Interpretive Data Percent cell count reference ranges are not reported, since discordance with absolute values may lead to misinterpretation of CBC data. Current Interpretive Data was last revised on 2017. Monocyte pct 6.9 % [facility] Comment: Interpretive Data Percent cell count reference ranges are not reported, since discordance with absolute values may lead to misinterpretation of CBC data. Current Interpretive Data was last revised on 2017. Eosinophil pct 2.3 % [facility] Comment: Interpretive Data Percent cell count reference ranges are not reported, since discordance with absolute values may lead to misinterpretation of CBC data. Current Interpretive Data was last revised on 2017. Basophil pct 0.8 % [facility] Comment: Interpretive Data Percent cell count reference ranges are not reported, since discordance with absolute values may lead to misinterpretation of CBC data. Current Interpretive Data was last revised on 2017. Blood 12/28/2024 11:3 1 AM CDT 12/28/2024 11:43 AM CDT Nikita Llanos MD LAB BLOOD ORDERABLES Final Result Performing Organization Address City/State/[facility] Co de Phone Number [facility] [address] [facility] [place] [address] * Pro B-type natriuretic peptide (12/28/2024 11:31 AM CDT) NT-proBNP 197 <=300 pg/mL Comment: Interpretive Comments: A. Dyspnea in Acute Care Setting All Ages: < 300 pg/ml, acute heart failure unlikely. < 50 yrs: 300 - 450 pg/ml, further investigation warranted. > 450 pg/ml, acute heart failure likely. 50 - 74 yrs: 300 - 900 pg/ml, further investigation warranted. > 900 pg/ml, acute heart failure likely . > or = 75 yrs: 450 - 1800 pg/ml, further investigation warranted. > 1800 pg/ml, acute heart failure likely. B. Non-acute Setting < 75 yrs < 125 pg/ml, rules out heart failure. > or = 125 pg/ml, further investigation warranted. > or = 75 yrs < 450 pg/ml, rules out heart failure. > or = 450 pg/ml, further investigation warranted. - Knowledge of each individual patient's NT-proBNP range may be more useful than using similar cut-points for every patient. Please note that marked elevations in NT-proBNP levels may be observed in state other than Left Ventricular Congestive Failure, including: acute coronary syndromes, right heart strain/failure (including pulmonary embolism and cor pulmonale), critical illness, renal failure, as well as advanced age. - References: 1. Jaden CHOWDHURY et.al. Eur Heart J. 2006:27:330-337. 2. Ham RW, Eveline ELIAS. J. AM Nica Cardiol: Cardiovasc Imag. 2009;2: 216- 225. Interpretive Data Last Revised Date: 2018. Blood 12/28/2024 11:3 1 AM CDT 12/28/2024 11:43 AM CDT Nikita Llanos MD LAB BLOOD ORDERABLES Final Result [facility] [address] [facility] [place] [address] * (ABNORMAL) CBC with auto differential (12/28/2024 11:31 AM CDT) [facility] WBC 9.96(H) 3.80 - 9.90 K/cumm Hgb 12.0(L) 13.0 - 17.5 g/dL [facility] Hct 40.1 38.9 - 50.3 % [facility] Plt 333 150 - 400 K/cumm [facility] MPV 9.4 9.1 - 12.3 fL [facility] RBC 4.83 4.30 - 5.80 M/cumm [facility] MCV 83.0 81.3 - 96.4 fL [facility] MCH 24.8(L) 27.1 - 33.3 pg [facility] MCHC 29.9(L) 32.3 - 35.7 g/dL [facility] RDW CV 14.5 11.1 - 14.9 % [facility] RDW SD 43.8 35.7 - 48.1 fL [facility] NRBC abs 0.00 0.00 - 0.01 K/cumm [facility] Blood 12/28/2024 11:3 1 AM CDT 12/28/2024 11:43 AM CDT Nikita Llanos MD LAB BLOOD ORDERABLES Final Result Performing Organization Address City/[facility] Co de Phone Number [address] [place] [address] * Phosphorus (12/28/2024 11:31 AM CDT) Phosphorus, pl 3.4 2.3 - 4.5 mg/dL Blood 12/28/2024 11:3 1 AM CDT 12/28/2024 11:43 AM CDT Nikita Llanos MD LAB BLOOD ORDERABLES Final Result Performing Organization Address [facility] de Phone Number [address] [place] [address] * Magnesium (12/28/2024 11:31 AM CDT) Pathologist [facility] Magnesium 2.1 1.4 - 2.5 mg/dL Blood 12/28/2024 11:3 1 AM CDT 12/28/2024 11:43 AM CDT Nikita Llanos MD LAB BLOOD ORDERABLES Final Result Performing Organization Address [facility] Co de Phone Number [address] [place] [address] * Comprehensive metabolic panel (12/28/2024 11:31 AM CDT) Sodium 142 135 - 145 mmol/L Potassium, pl 3.9 3.3 - 4.9 mmol/L [facility] Chloride 107 97 - 110 mmol/L [facility] CO2 26 22 - 32 mmol/L [facility] Anion gap 9 2 - 15 mmol/L [facility] BUN 17 6 - 25 mg/dL [facility] Creatinine 0.81 0.80 - 1.30 mg/dL [facility] Glucose 104 70 - 199 mg/dL [facility] Comment: Interpretive Data Fasting glucose >/= 126 mg/dl is diagnostic for diabetes. Fasting is defined as no caloric intake for at least 8 hours. Fasting glucose between 100 mg/dl to 125 mg/dl is diagnostic of prediabetes. In a patient with classic symptoms of hyperglycemia or hyperglycemic crisis, a random glucose >/= 200 mg/dl is diagnostic for diabetes. In the absence of unequivocal hyperglycemia, results should be confirmed by repeat testing. The classification and Diagnosis of Diabetes Diabetes Care 2021; 46: S19-S40. Current interpretive data was last revised 2022. Calcium 8.8 8.5 - 10.3 mg/dL [facility] Bilirubin, total 0.2 0.1 - 1.2 mg/dL [facility] Protein, pl 6.8 6.5 - 8.5 g/dL [facility] Albumin 3.5 3.5 - 5.0 g/dL [facility] Alk phos 86 40 - 130 Units/L [facility] ALT 10 7 - 55 Units/L [facility] AST 17 10 - 50 Units/L [facility] Blood 12/28/2024 11:3 1 AM CDT 12/28/2024 11:43 AM CDT Nikita Llanos MD LAB BLOOD ORDERABLES Final Result [facility] [address] [facility] [place] [address] * ECG 12 lead (12/28/2024 11:23 AM CDT) Ventricular Rate EKG/Min 61 BPM [facility] Atrial Rate 61 BPM [facility] RI-Interval (MSEC) 172 ms [facility] QRS-Interval (MSEC) 96 ms [facility] QT-Interval (MSEC) 446 ms [facility] QTc 448 ms [facility] P [place] 72 degrees [facility] R Morgan 53 degrees [facility] T Morgan 70 degrees [facility] Diagnosis Normal sinus rhythm Incomplete right bundle branch block Septal infarct , age undetermined Confirmed by STEVE VAZQUEZ M.D. ([id number]) on 12/28/2024 5:12:46 PM [facility] 12/28/2024 11:2 3 AM CDT 12/28/2024 5:12 PM CDT us Nikita Llanos MD ECG ORDERABLES Final Resu lt [facility] from Last 3 Months Insurance [facility] [address] Advance Directives For more information, please contact: [phone] * Full Code (Latest Code Status on File) Date Activated Date Inactivated Comments 02/27/2025 7:49 PM 03/02/2025 9:08 PM * Full Code Date Activated Date Inactivated Comments 12/28/2024 5:17 PM 01/01/2025 7:55 PM Care Teams Prosthetic Dentist Relationship Specialty Start Date End Date Mike Ball MD [address] [facility] [address] [place] [id number] PCP - General Family Medicine 03/31/24
[2025-03-23 12:14] LABS: INR 1.3; Prothrombin Time 15.9 Seconds (11.1-14.7)
== END 2025-03-23 10:29 | disposition home or self-care (01) ==
LOC: ANHLAB 10:29
PROVIDERS: PCP Family Medicine; Visit Provider Family Medicine
DX: I26.99 Other pulmonary embolism without acute cor pulmonale (principal)
CPT/HCPCS: 36415; 85610

== ENCOUNTER 2025-03-27 10:41 | Outpatient (CLI) | payer OTHER, SELFPAY ==
--- OUTSIDE RECORDS SUMMARY | 2025-03-27 11:16 | XMS_ITS | Encounter Summary ---
Author Organization [facility] Healthcare Address [address] [place] [address] Care Team Providers Care Family And Consumer Science Professor Name Role Phone Mike Ball MD Primary Care Provider Encounter Details Date Type Department Care Team (Late st Contact Info) Description 07/05/2024 Documentation [facility] OP Occup Therapy [address] [facility] [address] [place] [address] Felecia Torres, OT Social History Tobacco Use Types Packs/Day Years Used Date Smoking Tobacco: Never Assessed Sex and Gender Information Value Date Recorded Sex Assigned at Not on file 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
--- OUTSIDE RECORDS SUMMARY | 2025-03-27 11:16 | XMS_ITS | Clinical Summary ---
Author Organization [facility] Address [address] [place] [place] [address] Care Team Providers Care Ruby Rails Developer Name Role Phone Mike Ball MD Primary Care Provider [phone] Source Comments [facility],non-owned Affiliates and Associated Physician Practices is amultiple site organization consisting of ambulatory clinics and hospital sitesin [place], [place], [place] and [place]. This disclosure is being madepursuant to the Care Everywhere program and may not contain all information available regarding this patient. Last updated 18.[facility] Allergies No known active allergies Medications * [...] Recorded Patient Health Questionnaire-2 Score 0 03/12/2024 [facility] Occupat ional Health - Occupational Stress [...] place to sleep or slept in a group home (including now)? No 03/04/2024 Sex and Gender [...] 11/17/2017 ZOSTER VACCINE (1 of 2) 11/17/2017 DEPRESSION SCREENING 07/26/2024 03/04/2024 COVID-19 VACCINE (3 - 2024-2 6 season) 2025 08/09/2021, 10/06/2020 INFLUENZA VACCINE (#1) 2025 HIB VACCINE Aged [...] patient's age to complete this topic Insurance [facility] Advance Directives Documents on File Type Date Recorded Patient Early Childhood Director Expl anation Adv Directive/Living Will/POA 03/14/2024 11:11 AM * Full Code (Latest Code Status on File) Date Activated Date Inactivated Comments 03/04/2024 12:15 PM 03/13/2024 7:01 PM Care Teams Ruby Rails Developer Relationship Specialty Start Date End Date Mike Ball MD [address] [place] [address] PCP - General Family Medicine 03/09/24
--- OUTSIDE RECORDS SUMMARY | 2025-03-27 11:16 | XMS_ITS | Encounter Summary ---
Author Organization [facility] Healthcare Address [address] [place] [address] Care Team Providers Care Consumer Affairs Director Name Role Phone Mike Ball MD Primary Care Provider Encounter Details Date Type Department Care Team (Late st Contact Info) Description 02/19/2025 Results Follow-Up [facility] Medical Group Pulmonology [address] [place] [address] Aileen Mcdonald MD [address] [place] [address] [address] [place] [address] CBC with auto differential, Basic metabolic panel, Protime-INR, Additional followed-up results: 19 Social History Tobacco Use Types Packs/Day Years Used Date Smoking Tobacco: Former Cigarettes 1 30 S tarted: 1993 Passive Smoke Exposure: Past Smokeless Tobacco: Never [facility] Utilities Answer Date Recorded In the past 12 months has [employer], gas, oil, or water [employer] threatened to shut off services in your [...] often do you attend chur ch or sabianism services? Never 12/29/2024 Do you belong to any clubs o r organizations such as jew groups, unions, fraternal or athletic groups, or [...] any time in the past [address] [facility], were you homeless or living in a jail (including now)? No 12/29/2024 Personal Safety Answer Date Recorded Have you ever been in or are you currently in a harmful physical or emotional relationship or is someone making you feel afraid or unsafe? 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
--- OUTSIDE RECORDS SUMMARY | 2025-03-27 11:17 | XMS_ITS | Clinical Summary ---
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 Medicine Ophthalmology [address] [facility] 2nd Floor [address] [place] [address] Simon Wilhelm, HEBER High risk medication use (Primary Dx); Pneumonia of both upper lobes due to infectious organism 03/20/2025 11:30 AM CDT Therapy [facility] OP Physical Therapy [address] [place] [address] Maryuri Hansen, PROFESSIONAL FIGHTER Hemiplegia, unspecified etiology, unspecified hemiplegia type, unspecified laterality (HCC) (Primary Dx) 03/15/2025 10:00 AM CDT Therapy [facility] OP Physical Therapy [address] [place] [address] Sydney Dacosta, PROFESSIONAL FIGHTER Hemiplegia, unspecified etiology, unspecified hemiplegia type, unspecified laterality (HCC) (Primary Dx) 03/13/2025 10:45 AM CDT Therapy [facility] OP Physical Therapy [address] [place] [phone] Mattie Brantley, PT Hemiplegia, unspecified etiology, unspecified hemiplegia type, unspecified laterality (HCC) (Primary Dx); Cerebral infarction, unspecified mechanism (HCC); Unsteadiness on feet; Other abnormalities of gait and mobility; Weakness 03/13/2025 10:45 AM CDT Therapy [facility] OP Physical Therapy [address] [place] [address] Cheri Cunningham, PROFESSIONAL FIGHTER Hemiplegia, unspecified etiology, unspecified hemiplegia type, unspecified laterality (HCC) (Primary Dx); Weakness 03/09/2025 Orders Only [facility] [address] [place] [address] [place] [phone] Es Philip MD 03/08/2025 11:30 AM CDT Office Visit [facility] [address] [place] [phone] Aileen Mcdonald MD Mycobacterium kansasii infection (HCC) (Primary Dx); Acute pulmonary embolism, unspecified pulmonary embolism type, unspecified whether acute cor pulmonale present (HCC); Cavitary lung disease 03/08/2025 Telephone [facility] [address] [place] [phone] Dulce Messina RN 02/27/2025 4:55 PM CDT - 03/02/2025 5:00 PM CDT Hospital Encounter [address] [address] Og Mane, Mk Alvares MD Santillana, Cesar, MD Lun, Yu, MD Pneumonia of both upper lobes due to infectious organism (Primary Dx); Acute respiratory failure with hypoxia (HCC) Discharge Disposition: Discharge to home or self care 02/27/2025 10:00 AM CDT Therapy [facility] OP Occup Therapy [address] [place] [phone] Vanesa Todd COTA Nontraumatic subcortical hemorrhage of cerebral hemisphere, unspecified laterality (HCC) (Primary Dx); 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); Nontraumatic intraventricular intracerebral hemorrhage, unspecified laterality (HCC) 02/27/2025 Telephone [facility] [address] [place] [phone] Aileen Mcdonald MD 02/20/2025 11:00 AM CDT Therapy [facility] OP Occup Therapy [address] [place] [address] Vanesa Todd, HERNANDEZ Nontraumatic subcortical hemorrhage of cerebral hemisphere, unspecified laterality (HCC) (Primary Dx); 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); Nontraumatic intraventricular intracerebral hemorrhage, unspecified laterality (HCC) 02/19/2025 Results Follow-Up [facility] Pulmonology [address] [facility] [address] [place] [address] Aileen Mcdonald MD CBC with auto differential, Basic metabolic panel, Protime-INR, Additional followed-up results: 02/19/2025 Telephone [facility] Orthopaedic Surgery [address] [facility] 12th [place] [address] [place] [address] Jamie Novak MD PhD 02/17/2025 Plan of Care Documentation [facility] OP Physical Therapy [address] [facility] [address] [place] [address] 02/16/2025 Documentation [facility] Pulmonology [address] [facility] [address] [place] [address] Dulce Messina RN 02/15/2025 11:21 AM CDT Anesthesia Event [facility] [place] [address] [place] [address] Laurie Decker MD Taylor-White, Carlotta A., NP 02/15/2025 11:00 AM CDT - 02/15/2025 12:15 PM CDT Surgery [facility] [place] [address] [place] [address] Aileen Mcdonald MD BRONCHOSCOPY WITH BRONCHOALVEOLAR LAVAGE 02/15/2025 8:59 AM CDT - 02/15/2025 11:59 PM CDT Hospital Encounter [facility] ED CT [address] [place] [phone] Cavitary lesion of lung; Multifocal pneumonia Discharge Disposition: Discharge to home or self care 02/15/2025 8:52 AM CDT - 02/15/2025 2:35 PM CDT Hospital Encounter [facility] [place] [address] [place] [address] Aileen Mcdonald MD Lesion of lung Discharge Disposition: Discharge to home or self care 02/13/2025 11:30 AM CDT Therapy [facility] OP Physical Therapy [address] [place] [address] Mattie Brantley, PT Hemiplegia, unspecified etiology, unspecified hemiplegia type, unspecified laterality (HCC); Cerebral infarction, unspecified mechanism (HCC); Unspecified sequelae of cerebral infarction; Unsteadiness on feet; Other abnormalities of gait and mobility; Weakness 02/12/2025 9:00 AM CDT Therapy [facility] OP Occup Therapy [address] [place] [address] Vanesa oTdd COTA Nontraumatic subcortical hemorrhage of cerebral hemisphere, unspecified laterality (HCC) (Primary Dx); 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 Medicine Orthopaedic Surgery [facility] 12th [place] [address] [place] [address] Mike Ball MD Cerebrovascular accident (CVA), unspecified mechanism (HCC) (Primary Dx); Dysphagia following cerebrovascular accident (CVA); Hemorrhagic stroke (HCC); Left-sided weakness; Muscle weakness of left upper extremity; Spasticity as late effect of cerebrovascular accident (CVA) 02/06/2025 2:15 PM CDT Office Visit [facility] Pulmonology [address] [facility] [address] [place] [address] Aileen Mcdonald MD Cavitary lesion of lung (Primary Dx); Multifocal pneumonia 02/06/2025 Orders Only [facility] Pulmonology [address] [facility] [address] [place] [address] Aileen Mcdonald MD 02/05/2025 9:00 AM CDT Therapy [facility] OP Occup Therapy [address] [place] [phone] Marcellus Snowden, OT Nontraumatic subcortical hemorrhage of cerebral hemisphere, unspecified laterality (HCC) (Primary Dx); 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); Nontraumatic intraventricular intracerebral hemorrhage, unspecified laterality (HCC) 02/01/2025 1:30 PM CDT - 02/01/2025 11:59 PM CDT Hospital Encounter [facility] [address] [place] [address] Multifocal pneumonia Discharge Disposition: Discharge to home or self care 02/01/2025 10:00 AM CDT Therapy [facility] OP Occup Therapy [address] [place] [phone] Marcellus Snowden, OT Nontraumatic subcortical hemorrhage of cerebral hemisphere, unspecified laterality (HCC) (Primary Dx); 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) 01/30/2025 9:00 AM CDT Therapy [facility] OP Occup Therapy [address] [place] [phone] Marcellus Snowden, OT Nontraumatic subcortical hemorrhage of cerebral hemisphere, unspecified laterality (HCC) (Primary Dx); 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); Nontraumatic intraventricular intracerebral hemorrhage, unspecified laterality (HCC) 01/24/2025 11:00 AM CDT Therapy [facility] OP Occup Therapy [address] [place] [address] Vanesa Todd, HERNANDEZ Nontraumatic subcortical hemorrhage of cerebral hemisphere, unspecified laterality (HCC) (Primary Dx); 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); Nontraumatic intraventricular intracerebral hemorrhage, unspecified laterality (HCC) 01/16/2025 2:15 PM CDT Office Visit [facility] Pulmonology [address] [facility] [address] [place] [phone] Aileen Mcdonald MD Cavitary lesion of lung (Primary Dx); Multifocal pneumonia; Acute pulmonary embolism, unspecified pulmonary embolism type, unspecified whether acute cor pulmonale present (HCC); Aspiration into airway, sequela 01/16/2025 10:00 AM CDT Therapy [facility] OP Occup Therapy [address] [place] [address] Vanesa Todd, HERNANDEZ Nontraumatic subcortical hemorrhage of cerebral hemisphere, unspecified laterality (HCC) (Primary Dx); 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); Nontraumatic intraventricular intracerebral hemorrhage, unspecified laterality (HCC) 01/11/2025 11:00 AM CDT Therapy [facility] OP Occup Therapy [address] [place] [address] Felecia Torres, OT Nontraumatic subcortical hemorrhage of cerebral hemisphere, unspecified laterality (HCC) (Primary Dx); 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) 01/11/2025 Plan of Care Documentation [facility] OP Occup Therapy [address] [place] [address] 01/09/2025 10:00 AM CDT Therapy [facility] OP Occup Therapy [address] [place] [address] Marcellus Snowden, OT Nontraumatic subcortical hemorrhage of cerebral hemisphere, unspecified laterality (HCC) (Primary Dx); 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); Nontraumatic intraventricular intracerebral hemorrhage, unspecified laterality (HCC) 12/28/2024 11:15 AM CDT - 01/01/2025 3:54 PM CDT Hospital Encounter [facility] [address] [place] [address] Nikita Llanos MD Paruchuri, Tharun, MD Potluri, Sobhana Krishna, MD Multifocal pneumonia (Primary Dx); Near syncope; Hypotension, unspecified hypotension type; COPD exacerbation (HCC); Other acute pulmonary embolism without acute cor pulmonale (HCC) Discharge Disposition: Discharge to home or self care 12/28/2024 10:00 AM CDT Therapy [facility] OP Occup Therapy [address] [place] [address] Torres, Felecia, OT Nontraumatic subcortical hemorrhage of cerebral hemisphere, unspecified laterality (HCC) (Primary Dx); 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) 12/26/2024 10:00 AM CDT Therapy [facility] OP Occup Therapy [address] [place] [phone] Torres, Felecia, OT Nontraumatic subcortical hemorrhage of cerebral hemisphere, unspecified laterality (HCC) (Primary Dx); 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 Never 02/28/2025 Do you belong to any clubs o r organizations such as latter day groups, unions, fraternal or athletic groups, or [...] any time in the past 12 m [facility], were you homeless or living in a detention (including now)? No 02/28/2025 Personal Safety Answer Date Recorded Have you ever been in or are you currently in a harmful physical or emotional relationship or is someone making you feel afraid or unsafe? Denies 02/27/2025 Sex and Gender Information Value Date Recorded Sex Assigned at Not on file Legal Sex Male 5:59 PM [employer] Gender Identity Not on file Sexual Orientation [...] 2) 11/17/2017 Covid-19 Vaccine (3 - season) 2025, 10/06/2020 Influenza Vaccine (#1) 2025 Procedures Procedure [...] ECG 12-LEAD STAT 02/27/2025 1:42 PM CDT OH AN PROCEDURE PLACEHOLDER Routine 02/15/2025 12:15 PM CDT OH AN ELECTIVE ENDOTRACHEAL AIRWAY Routine 02/15/2025 12:15 [...] DEVICE Routine 12/28/2024 8 :33 PM CDT OH CRITICAL CARE ILL/INJURED PATIENT INIT 30-74 MIN [...] ECG 12 lead (03/02/2025 12:14 PM CDT) Ventricular Rate EKG/Min 83 BPM [facility] Atrial Rate 83 BPM [facility] OH-Interval (MSEC) 160 ms [facility] QRS-Interval (MSEC) 88 ms [facility] QT-Interval (MSEC) 394 ms [facility] QTc 462 ms [facility] P [place] 66 degrees [facility] R [place] 10 degrees [facility] T [place] 60 degrees [facility] Diagnosis Normal sinus rhythm Normal ECG When compared with ECG of 28-FEB-2025 10:00, Criteria for Septal infarct are no longer Present QT has shortened Confirmed by Matt Zamora M.D. ([id number]) on 03/05/2025 8:40:12 AM [facility] 03/02/2025 12:1 4 PM CDT 03/05/2025 8:40 AM CDT us Sabi Shah MD ECG ORDERABLES Final Result [facility] * eGFR (03/02/2025 7:14 AM CDT) [...] LAB BLOOD ORDERABLES Final Resul t [facility] [address] [facility] Department [place] [address] * (ABNORMAL) Differential, auto (03/02/2025 7:14 AM CDT) Neutrophil abs 6.88(H) 1.50 - 6.50 K/cumm Imm gran abs 0.05 0.00 - 0.10 K/cumm [facility] Lymphocyte abs 1.13 0.80 - 3.30 K/cumm [facility] Monocyte abs 1.11(H) 0.20 - 0.80 K/cumm [facility] Eosinophil abs 0.28 0.00 - 0.50 K/cumm [facility] Basophil abs 0.04 0.00 - 0.10 K/cumm [facility] Neutrophil pct 72.5 % [facility] Comment: Interpretive Data Percent cell count reference ranges are not reported, since discordance with absolute values may lead to misinterpretation of CBC data. Current Interpretive Data was last revised on 2017. Imm gran pct 0.5 % [facility] Comment: Interpretive Data Percent cell count reference ranges are not reported, since discordance with absolute values may lead to misinterpretation of CBC data. Current Interpretive Data was last revised on 2017. Lymphocyte pct 11.9 % [facility] Comment: Interpretive Data Percent cell count reference ranges are not reported, since discordance with absolute values may lead to misinterpretation of CBC data. Current Interpretive Data was last revised on 2017. Monocyte pct 11.7 % [facility] Comment: Interpretive Data Percent cell count reference ranges are not reported, since discordance with absolute values may lead to misinterpretation of CBC data. Current Interpretive Data was last revised on 2017. Eosinophil pct 3.0 % [facility] Comment: Interpretive Data Percent cell count reference ranges are not reported, since discordance with absolute values may lead to misinterpretation of CBC data. Current Interpretive Data was last revised on 2017. Basophil pct 0.4 % [facility] Comment: Interpretive Data Percent cell count reference ranges are not reported, since discordance with absolute values may lead to misinterpretation of CBC data. Current Interpretive Data was last revised on 2017. Blood 03/02/2025 7:14 AM CDT 03/02/2025 7:31 AM CDT Mk Manzano MD LAB BLOOD ORDERABLES Final Resul t [facility] [address] [facility] Department [place] [address] * (ABNORMAL) CBC with auto differential (03/02/2025 7:14 AM CDT) [facility] WBC 9.49 3.80 - 9.90 K/cumm Hgb 11.7(L) 13.0 - 17.5 g/dL [facility] Hct 38.5(L) 38.9 - 50.3 % [facility] Plt 500(H) 150 - 400 K/cumm [facility] MPV 9.5 9.1 - 12.3 fL [facility] RBC 4.69 4.30 - 5.80 M/cumm [facility] MCV 82.1 81.3 - 96.4 fL [facility] MCH 24.9(L) 27.1 - 33.3 pg [facility] MCHC 30.4(L) 32.3 - 35.7 g/dL [facility] RDW CV 14.3 11.1 - 14.9 % [facility] RDW SD 42.0 35.7 - 48.1 fL [facility] NRBC abs 0.00 0.00 - 0.01 K/cumm [facility] Blood 03/02/2025 7:14 AM CDT 03/02/2025 7:31 AM CDT us Mk Manzano MD LAB BLOOD ORDERABLES Final Resul t Performing Organization Address City/[facility] Co de Phone Number [address] [address] * Magnesium (03/02/2025 7:14 AM CDT) [facility] Magnesium 2.3 1.4 - 2.5 mg/dL Blood 03/02/2025 7:14 AM CDT 03/02/2025 7:31 AM CDT Sabi Shah MD LAB BLOOD ORDERABLES Final Resul t Performing Organization Address [facility] Co de Phone Number [address] [place] [address] * (ABNORMAL) Basic metabolic panel (03/02/2025 7:14 AM CDT) Pathologist [facility] Sodium 137 135 - 145 mmol/L Potassium, pl 3.8 3.3 - 4.9 mmol/L [facility] Chloride 103 97 - 110 mmol/L [facility] CO2 24 22 - 32 mmol/L [facility] Anion gap 10 2 - 15 mmol/L [facility] BUN 12 6 - 25 mg/dL [facility] Creatinine 0.62(L) 0.80 - 1.30 mg/dL [facility] Glucose 105 70 - 199 mg/dL [facility] Comment: Interpretive Data Fasting glucose >/= [...] 2022. Calcium 8.5 8.5 - 10.3 mg/dL [facility] Blood 03/02/2025 7:14 AM CDT 03/02/2025 7:31 AM CDT us Mk Manzano MD LAB BLOOD ORDERABLES Final Resul t [facility] [address] [facility] Department of Laboratories [place], [place] [id number] * eGFR (03/01/2025 7:06 AM CDT) [facility] eGFR >90 >=60 mL/min/1. 73 m2 Comment: [...] MD LAB BLOOD ORDERABLES Final Resul t [place] [address] [facility] Department [place] [address] * (ABNORMAL) Differential, auto (03/01/2025 7:06 AM CDT) Neutrophil abs 8.57(H) 1.50 - 6.50 K/cumm Imm gran abs 0.05 0.00 - 0.10 K/cumm [facility] Lymphocyte abs 1.12 0.80 - 3.30 K/cumm [facility] Monocyte abs 1.24(H) 0.20 - 0.80 K/cumm [facility] Eosinophil abs 0.30 0.00 - 0.50 K/cumm [facility] Basophil abs 0.05 0.00 - 0.10 K/cumm [facility] Neutrophil pct 75.8 % [facility] Comment: Interpretive Data Percent cell count reference ranges are not reported, since discordance with absolute values may lead to misinterpretation of CBC data. Current Interpretive Data was last revised on 2017. Imm gran pct 0.4 % [facility] Comment: Interpretive Data Percent cell count reference ranges are not reported, since discordance with absolute values may lead to misinterpretation of CBC data. Current Interpretive Data was last revised on 2017. Lymphocyte pct 9.9 % [facility] Comment: Interpretive Data Percent cell count reference ranges are not reported, since discordance with absolute values may lead to misinterpretation of CBC data. Current Interpretive Data was last revised on 2017. Monocyte pct 10.9 % [facility] Comment: Interpretive Data Percent cell count reference ranges are not reported, since discordance with absolute values may lead to misinterpretation of CBC data. Current Interpretive Data was last revised on 2017. Eosinophil pct 2.6 % [facility] Comment: Interpretive Data Percent cell count reference ranges are not reported, since discordance with absolute values may lead to misinterpretation of CBC data. Current Interpretive Data was last revised on 2017. Basophil pct 0.4 % [facility] Comment: Interpretive Data Percent cell count reference ranges are not reported, since discordance with absolute values may lead to misinterpretation of CBC data. Current Interpretive Data was last revised on 2017. Blood 03/01/2025 7:06 AM CDT 03/01/2025 7:49 AM CDT us Mk Manzano MD LAB BLOOD ORDERABLES Final Resul t [place] [id number] [facility] Department [place] [address] * (ABNORMAL) CBC with auto differential (03/01/2025 7:06 AM CDT) WBC 11.33(H) 3.80 - 9.90 K/cumm Hgb 12.2(L) 13.0 - 17.5 g/dL [facility] Hct 40.9 38.9 - 50.3 % [facility] Plt 504(H) 150 - 400 K/cumm [facility] MPV 9.6 9.1 - 12.3 fL [facility] RBC 4.91 4.30 - 5.80 M/cumm [facility] MCV 83.3 81.3 - 96.4 fL [facility] MCH 24.8(L) 27.1 - 33.3 pg [facility] MCHC 29.8(L) 32.3 - 35.7 g/dL [facility] RDW CV 14.2 11.1 - 14.9 % [facility] RDW SD 43.3 35.7 - 48.1 fL [facility] NRBC abs 0.00 0.00 - 0.01 K/cumm [facility] Blood 03/01/2025 7:06 AM CDT 03/01/2025 7:49 AM CDT Mk Manzano MD LAB BLOOD ORDERABLES Final Resul t Performing Organization Address [facility] Co de Phone Number [address] [place] [address] * (ABNORMAL) Basic metabolic panel (03/01/2025 7:06 AM CDT) Pathologist [facility] [place] Sodium 138 135 - 145 mmol/L Potassium, pl 3.8 3.3 - 4.9 mmol/L [facility] Chloride 103 97 - 110 mmol/L [facility] CO2 23 22 - 32 mmol/L [facility] Anion gap 12 2 - 15 mmol/L [facility] BUN 10 6 - 25 mg/dL [facility] Creatinine 0.61(L) 0.80 - 1.30 mg/dL [facility] Glucose 93 70 - 199 mg/dL [facility] Comment: Interpretive Data Fasting glucose >/= [...] 2022. Calcium 8.4(L) 8.5 - 10.3 mg/dL [facility] Blood 03/01/2025 7:06 AM CDT 03/01/2025 7:49 AM CDT Mk Manzano MD LAB BLOOD ORDERABLES Final Resul t Performing Organization Address [facility] Co de Phone Number [address] [place] [address] * CT Chest WO Contrast (02/28/2025 2:04 [...] Abby Rene M.D. SN T: Report ID: [id number] Reading Location: [place] [address] Procedure Note Abby Rene MD - 03/01/2025 [...] Abby Rene M.D. SN T: Report ID: [id number] Reading Location: [place] [address] us Aileen Mcdonald MD IMG CT PROCEDURES Final R esult * ECG 12 lead (02/28/2025 10:00 AM CDT) Ventricular Rate EKG/Min 94 BPM [facility] Atrial Rate 94 BPM [facility] OH-Interval (MSEC) 154 ms [facility] QRS-Interval (MSEC) 90 ms [facility] QT-Interval (MSEC) 424 ms [facility] QTc 530 ms [facility] P [place] 65 degrees [facility] R [place] -8 degrees [facility] T [place] 64 degrees [facility] Diagnosis Normal sinus rhythm Septal infarct , age undetermined Prolonged QT Abnormal ECG Confirmed by STEVE VAZQUEZ M.D. ([id number]) on 02/28/2025 5:47:47 PM [facility] 02/28/2025 10:0 0 AM CDT 02/28/2025 5:47 PM CDT us Kranthi Leonard MD ECG ORDERABLES Final Result [facility] * eGFR (02/28/2025 5:58 AM CDT) eGFR [...] LAB BLOOD ORDERABLES Final Resul t CL[facility]SA [facility] Department [place] [address] * (ABNORMAL) Differential, auto (02/28/2025 5:58 AM CDT) Pathologist [facility] [place] Neutrophil abs 7.96(H) 1.50 - 6.50 K/cumm Imm gran abs 0.04 0.00 - 0.10 K/cumm [facility] Lymphocyte abs 1.11 0.80 - 3.30 K/cumm [facility] Monocyte abs 1.33(H) 0.20 - 0.80 K/cumm [facility] Eosinophil abs 0.28 0.00 - 0.50 K/cumm [facility] Basophil abs 0.05 0.00 - 0.10 K/cumm [facility] Neutrophil pct 73.9 % [facility] Comment: Interpretive Data Percent cell count reference ranges are not reported, since discordance with absolute values may lead to misinterpretation of CBC data. Current Interpretive Data was last revised on 2017. Imm gran pct 0.4 % [facility] Comment: Interpretive Data Percent cell count reference ranges are not reported, since discordance with absolute values may lead to misinterpretation of CBC data. Current Interpretive Data was last revised on 2017. Lymphocyte pct 10.3 % [facility] Comment: Interpretive Data Percent cell count reference ranges are not reported, since discordance with absolute values may lead to misinterpretation of CBC data. Current Interpretive Data was last revised on 2017. Monocyte pct 12.3 % [facility] Comment: Interpretive Data Percent cell count reference ranges are not reported, since discordance with absolute values may lead to misinterpretation of CBC data. Current Interpretive Data was last revised on 2017. Eosinophil pct 2.6 % [facility] Comment: Interpretive Data Percent cell count reference ranges are not reported, since discordance with absolute values may lead to misinterpretation of CBC data. Current Interpretive Data was last revised on 2017. Basophil pct 0.5 % [facility] Comment: Interpretive Data Percent cell count reference ranges are not reported, since discordance with absolute values may lead to misinterpretation of CBC data. Current Interpretive Data was last revised on 2017. Blood 02/28/2025 5:58 AM CDT 02/28/2025 6:37 AM CDT Mk Manzano MD LAB BLOOD ORDERABLES Final Resul t Performing Organization Address [facility] de Phone Number [address] [address] * (ABNORMAL) CBC with auto differential (02/28/2025 5:58 AM CDT) [facility] WBC 10.77(H) 3.80 - 9.90 K/cumm Hgb 11.3(L) 13.0 - 17.5 g/dL [facility] Hct 37.2(L) 38.9 - 50.3 % [facility] Plt 415(H) 150 - 400 K/cumm [facility] MPV 9.8 9.1 - 12.3 fL [facility] RBC 4.42 4.30 - 5.80 M/cumm [facility] MCV 84.2 81.3 - 96.4 fL [facility] MCH 25.6(L) 27.1 - 33.3 pg [facility] MCHC 30.4(L) 32.3 - 35.7 g/dL [facility] RDW CV 14.3 11.1 - 14.9 % [facility] RDW SD 44.4 35.7 - 48.1 fL [facility] NRBC abs 0.00 0.00 - 0.01 K/cumm [facility] Blood 02/28/2025 5:58 AM CDT 02/28/2025 6:37 AM CDT Mk Manzano MD LAB BLOOD ORDERABLES Final Resul t Performing Organization Address [facility] Co de Phone Number [place] [address] [place] [address] * (ABNORMAL) Basic metabolic panel (02/28/2025 5:58 AM CDT) [facility] Sodium 141 135 - 145 mmol/L Potassium, pl 4.1 3.3 - 4.9 mmol/L [facility] Comment:Hemolyzed; Potassium value may be falsely elevated by as much as 1.0 mmol/L. Suggest redraw and reanalysis. Chloride 106 97 - 110 mmol/L [facility] CO2 22 22 - 32 mmol/L [facility] Anion gap 13 2 - 15 mmol/L [facility] BUN 12 6 - 25 mg/dL [facility] Creatinine 0.60(L) 0.80 - 1.30 mg/dL [facility] Glucose 94 70 - 199 mg/dL [facility] Comment: Interpretive Data Fasting glucose >/= [...] 2022. Calcium 8.1(L) 8.5 - 10.3 mg/dL [facility] Blood 02/28/2025 5:58 AM CDT 02/28/2025 6:37 AM CDT Mk Manzano MD LAB BLOOD ORDERABLES Final Resul t Performing Organization Address [facility] Co de Phone Number [facility] [address] [facility] Department [place] [address] * Strep pneumoniae antigen, urine Urine (02/28/2025 5:50 AM CDT) Pathologist [facility] S. pneumoniae Ag Negative Negative Comment: Interpretive [...] ORDER FOX Final Result Performing Organization Address City/[facility]/ZIP Co de Phone Number [place] [address] [facility] [place] [address] * Legionella antigen Urine (02/28/2025 5:50 AM CDT) Legionella Ag Negative Negative Comment: Interpretive Data This test detects only Legionella pneumophila serogroup 1 antigen. Testing performed by [facility] ([phone]). Current interpretive data was last revised on 2019. Testing performed by: [facility], [address] [facility] [address] Urine 02/28/2025 5:50 AM CDT 02/28/2025 10:40 AM CDT Mk Manzano MD LAB MICROBIOLOGY - GENERAL ORDER FOX Final Result Performing Organization Address [facility]/State/[facility] Co de Phone Number [address] [address] * Influenza A/B, RSV, and COVID-19 PCR Nasopharyngeal (02/28/2025 12:49 AM CDT) Pathologist [facility] COVID-19 RNA Negative Negative Influenza A RNA Negative Negative [facility] Influenza B RNA Negative Negative [facility] RSV RNA Negative Negative [facility] Comment: Interpretive data: Testing performed by [facility]. This test is performed using the [employer] Xpert Xpress CoV-2/Flu/RSV plus assay. This is a multiplex, real-time reverse transcriptase PCR assay intended for the qualitative detection of nucleic acid from SARS-CoV-2, influenza A, influenza B, and respiratory syncytial virus. This assay has been cleared by the [place] Food and Drug administration. The performance characteristics have been verified by the [facility]. Results must be considered in the clinical context, and a negative result does not rule out infection. Interpretive Data last revised 2023 Nasopharyngeal 02/28/2025 12 :49 AM CDT 02/28/2025 12:59 AM CDT Narrative CL[facility]ISSA - 02/28/2025 1:51 AM CDT Is the Patient experiencing symptoms consistent with COVID?->No Mk Manzano MD LAB MICROBIOLOGY - GENERAL ORDER FOX Final Result Performing Organization Address [facility] de Phone Number CLARISSA [address] [address] * MRSA Only (Staphylococcus aureus) PCR Nasal (02/28/2025 12:49 AM CDT) PCR Scrn, Methicillin resistant Staphylococcus aureus (MRSA) Not Detected Not Detected Comment: Interpretive Data Testing performed using Nucleic Acid Amplification with the [employer] Xpert MRSA NxG Assay. This assay detects target DNA from mecA, mecC and the SCCmec insertion site of Staphylococcus aureus using Real-Time PCR and has been cleared by the FDA. Performance characteristics have been verified by the [facility]. Current Interpretive Data was last revised on 2023 Nasal 02/28/2025 12:4 9 AM CDT 02/28/2025 12:59 AM CDT Mk Manzano MD LAB MICROBIOLOGY - GENERAL ORDER FOX Final Result Performing Organization Address [facility] de Phone Number CLARISSA [address] [address] * Troponin T high-sensitivity 6-hour (02/27/2025 10:06 PM CDT) Trop T hs 15 <=22 ng/L Comment: Interpretive Data For further hscTnT resources including the diagnostic algorithm and an aid in interpretation, copy and paste this link: https://nrl.testcatalog.org/show/hsTrop Current Interpretive Data last revised 2020. Trop T hs delta See Comment ng/L [facility] [place] Comment:Inappropriate collec tion time to report a delta. Trop T hs pct delta See Comment % CLARISSA Comment:Inappropriate collec tion time to report a delta. Trop T hs interp See Comment CL[facility]SA [place] Comment:Inappropriate collec tion time to report a delta. Blood 02/27/2025 10:0 6 PM CDT 02/27/2025 10:20 PM CDT Maggie Ray [employer] LAB BLOOD ORDERABLES Final Re sult Performing Organization Address City/[facility]/ZIP Co de Phone Number CLARISSA [address] [address] * Sepsis Lactate w/ Reflex (02/27/2025 10:06 PM CDT) Sepsis Lactate 1.6 0.7 - 2.0 mmol/L Blood 02/27/2025 10:0 6 PM CDT 02/27/2025 10:11 PM CDT Maggie Ray PA LAB BLOOD ORDERABLES Final Re sult Performing Organization Address [facility] Co de Phone Number [address] [address] * Blood culture Blood Peripheral (02/27/2025 6:28 PM CDT) Report Final Report: No growth Comment:Testing performed by : [facility], [address] [facility] [address] Blood (Peripheral) 02/27/2025 6:28 PM CDT 02/27/2025 9:08 PM CDT Narrative [facility] - 03/04/2025 7:00 AM CDT From a [...] characteristics have been verified by the [facility]. For questions about this culture, contact the Microbiology Laboratory at [phone]. Interpretive data was last revised on 24. us Og Mane DO LAB MICROBIOLOGY - GENERAL ORD ERABLES Final Result [facility] [address] [facility] Department [place] [address] * Blood culture Blood Peripheral (02/27/2025 6:21 PM CDT) Report Final Report: No growth Comment:Testing performed by : [facility], [address] [facility]., [address] Blood (Peripheral) 02/27/2025 6:21 PM CDT 02/27/2025 9:07 PM CDT [facility] CLARISSA [facility] 03/04/2025 7:00 AM CDT Draw Blood cultures [...] characteristics have been verified by the [facility]. For questions about this culture, contact the Microbiology Laboratory at [phone]. Interpretive data was last revised on 24. Og Mane [facility] MICROBIOLOGY - GENERAL ORD ERABLES Final Result Performing Organization Address [facility] de Phone Number [place] [phone] [place] [address] * MRSA Only (Staphylococcus aureus) PCR Nasal (02/27/2025 6:19 PM CDT) [facility] PCR Scrn, Methicillin resistant Staphylococcus aureus (MRSA) Not Detected Not Detected Comment: Interpretive Data Testing performed using Nucleic Acid Amplification with the [employer] Xpert MRSA NxG Assay. This assay detects target DNA from mecA, mecC and the SCCmec insertion site of Staphylococcus aureus using Real-Time PCR and has been cleared by the FDA. Performance characteristics have been verified by the [facility]. Current Interpretive Data was last revised on 2023 Nasal 02/27/2025 6:19 PM CDT 02/27/2025 6:22 PM CDT Og Mane [facility] MICROBIOLOGY - GENERAL ORD ERABLES Final Result Performing Organization Address [facility] de Phone Number [facility] [address] [place] [address] * Troponin T high-sensitivity 4-hour (02/27/2025 5:30 PM CDT) Pathologist [facility] Trop T hs 14 <=22 ng/L Comment: Interpretive Data For further hscTnT resources including the diagnostic algorithm and an aid in interpretation, copy and paste this link: https://nrl.testcatalog.org/show/hsTrop Current Interpretive Data last revised 2020. Trop T hs delta 0 ng/L [facility] Trop T hs interp Insignificant [facility] Blood 02/27/2025 5:30 PM CDT 02/27/2025 5:35 PM CDT Maggie Bell PA LAB BLOOD ORDERABLES Final Re sult Performing Organization Address [facility] Co de Phone Number CLARISSA [address] [address] * (ABNORMAL) Sepsis Lactate w/ Reflex (02/27/2025 5:30 PM CDT) [facility] Sepsis Lactate 2.1(H) 0.7 - 2.0 mmol/L Blood 02/27/2025 5:30 PM CDT 02/27/2025 5:34 PM CDT Maggie FOSTER LAB BLOOD ORDERABLES Final Re sult Performing Organization Address [facility] de Phone Number [address] [address] * Troponin T high-sensitivity series (baseline, 2hr, 4hr, 6hr) (02/27/2025 1:53 PM CDT) [facility] Trop T hs 14 <=22 ng/L Comment: Interpretive Data For further hscTnT resources including the diagnostic algorithm and an aid in interpretation, copy and paste this link: https://nrl.testcatalog.org/show/hsTrop Current Interpretive Data last revised 2020. Blood 02/27/2025 1:53 PM CDT 02/27/2025 1:56 PM CDT Og Mane DO LAB BLOOD ORDERABLES Final Res ult Performing Organization Address [facility] Co de Phone Number [address] [place] [address] * eGFR (02/27/2025 1:53 PM CDT) [facility] eGFR >90 >=60 mL/min/1. 73 m2 Comment: [...] DO LAB BLOOD ORDERABLES Final Res ult [facility] [address] [facility] Department [place] [address] * (ABNORMAL) Differential, auto (02/27/2025 1:53 PM CDT) Neutrophil abs 11.83(H) 1.50 - 6.50 K/cumm Imm gran abs 0.05 0.00 - 0.10 K/cumm [facility] Lymphocyte abs 0.95 0.80 - 3.30 K/cumm [facility] Monocyte abs 1.36(H) 0.20 - 0.80 K/cumm [facility] Eosinophil abs 0.07 0.00 - 0.50 K/cumm [facility] Basophil abs 0.05 0.00 - 0.10 K/cumm [facility] Neutrophil pct 82.8 % [facility] Comment: Interpretive Data Percent cell count reference ranges are not reported, since discordance with absolute values may lead to misinterpretation of CBC data. Current Interpretive Data was last revised on 2017. Imm gran pct 0.3 % [facility] Comment: Interpretive Data Percent cell count reference ranges are not reported, since discordance with absolute values may lead to misinterpretation of CBC data. Current Interpretive Data was last revised on 2017. Lymphocyte pct 6.6 % [facility] Comment: Interpretive Data Percent cell count reference ranges are not reported, since discordance with absolute values may lead to misinterpretation of CBC data. Current Interpretive Data was last revised on 2017. Monocyte pct 9.5 % [facility] Comment: Interpretive Data Percent cell count reference ranges are not reported, since discordance with absolute values may lead to misinterpretation of CBC data. Current Interpretive Data was last revised on 2017. Eosinophil pct 0.5 % [facility] Comment: Interpretive Data Percent cell count reference ranges are not reported, since discordance with absolute values may lead to misinterpretation of CBC data. Current Interpretive Data was last revised on 2017. Basophil pct 0.3 % [facility] Comment: Interpretive Data Percent cell count reference ranges are not reported, since discordance with absolute values may lead to misinterpretation of CBC data. Current Interpretive Data was last revised on 2017. Blood 02/27/2025 1:53 PM CDT 02/27/2025 1:55 PM CDT us gO Mane DO LAB BLOOD ORDERABLES Final Res ult [facility] [address] [facility] Department [place] [address] * (ABNORMAL) Pro B-type natriuretic peptide (02/27/2025 [...] et.al. Eur Heart J. 2006:27:330-337. 2. Ham CLIFFORD, Eveline ELIAS. J. AM Nica Cardiol: Cardiovasc Imag. 2009;2: 216- 225. Interpretive Data Last Revised Date: 2018. Blood 02/27/2025 1:53 PM CDT 02/27/2025 1:56 PM CDT us Maggie FOSTER LAB BLOOD ORDERABLES Final Re sult [facility] [address] [facility] Department [place] [address] * (ABNORMAL) CBC with auto differential (02/27/2025 1:53 PM CDT) WBC 14.31(H) 3.80 - 9.90 K/cumm Hgb 13.2 13.0 - 17.5 g/dL [facility] Hct 44.0 38.9 - 50.3 % [facility] Plt 523(H) 150 - 400 K/cumm [facility] MPV 9.1 9.1 - 12.3 fL [facility] RBC 5.30 4.30 - 5.80 M/cumm [facility] MCV 83.0 81.3 - 96.4 fL [facility] MCH 24.9(L) 27.1 - 33.3 pg [facility] MCHC 30.0(L) 32.3 - 35.7 g/dL [facility] RDW CV 14.4 11.1 - 14.9 % [facility] RDW SD 43.4 35.7 - 48.1 fL [facility] NRBC abs 0.00 0.00 - 0.01 K/cumm [facility] Blood 02/27/2025 1:53 PM CDT 02/27/2025 1:55 PM CDT us Og Mane DO LAB BLOOD ORDERABLES Final Res ult [facility] [address] [facility] Department of Laboratories [place], [place] [id number] * (ABNORMAL) Comprehensive metabolic panel (02/27/2025 1:53 PM CDT) Sodium 133(L) 135 - 145 mmol/L Potassium, pl 3.6 3.3 - 4.9 mmol/L [facility] Chloride 97 97 - 110 mmol/L [facility] CO2 25 22 - 32 mmol/L [facility] Anion gap 11 2 - 15 mmol/L [facility] BUN 14 6 - 25 mg/dL [facility] Creatinine 0.77(L) 0.80 - 1.30 mg/dL [facility] Glucose 100 70 - 199 mg/dL [facility] Comment: Interpretive Data Fasting glucose >/= [...] 2022. Calcium 8.8 8.5 - 10.3 mg/dL [facility] Bilirubin, total 0.5 0.1 - 1.2 mg/dL [facility] Protein, pl 7.6 6.5 - 8.5 g/dL [facility] Albumin 3.5 3.5 - 5.0 g/dL CLARISSA Alk phos 128 40 - 130 Units/L [facility] ALT 18 7 - 55 Units/L [facility] AST 26 10 - 50 Units/L [facility] Blood 02/27/2025 1:53 PM CDT 02/27/2025 1:56 PM CDT us Og Mane DO LAB BLOOD ORDERABLES Final Res ult [facility]SA [place] [address] [facility] [place] [address] * XR Chest 1 View (02/27/2025 1:50 [...] 2:02 PM - Electronically signed by Rg IBRAHIM T: Report ID: [id number] Reading Location: [id number] Procedure Note Rg Chavez MD - 02/27/2025 [...] 2:02 PM - Electronically signed by Rg IBRAHIM T: Report ID: [id number] Reading Location: [id number] Maggie FOSTER IMG XR PROCEDURES Final Resul t * ECG 12 lead (02/27/2025 1:42 PM CDT) Ventricular Rate EKG/Min 113 BPM [facility] Atrial Rate 113 BPM [facility] OH-Interval (MSEC) 150 ms [facility] QRS-Interval (MSEC) 86 ms [facility] QT-Interval (MSEC) 374 ms [facility] QTc 513 ms [facility] P [place] 70 degrees [facility] R [place] -72 degrees [facility] T [place] 64 degrees [facility] Diagnosis Sinus tachycardia Possible Left atrial enlargement Pulmonary disease pattern Left anterior fascicular block Confirmed by STEVE VAZQUEZ M.D. ([id number]) on 02/27/2025 4:01:09 PM [facility] 02/27/2025 1:42 PM CDT 02/27/2025 4:01 PM CDT us Og Mane DO ECG ORDERABLES Final Result [facility] * OH AN ELECTIVE ENDOTRACHEAL AIRWAY, OH AN PROCEDURE PLACEHOLDER (02/15/2025 12:15 PM CDT) [...] (Cytology)) 02/15/2025 11:46 AM CDT Narrative PATHOLOGY [facility] - 02/19/2025 4:48 PM CDT EPIC results best viewed via link to PDF [facility] [place] [address] Note to Patients: This report may contain [...] REPORT FINAL Patient Name: FREDDY SUMMERS Gender: Brian : 1965 (Age: 59) Address: [place] [address] Hospital #: [id number] Taken:02/15/2025 Received:02/15/2025 Reported: 02/19/2025 Patient Type: [facility] OUTPATIENT Service: Surgery Location: Physician(s): MD Mike [...] Out By Alex Mane MD 02/19/2025 16:48:19 EVGENY Leong(ASCP) Gross Description A. Left upper lobe: 10 ml cloudy fluid - 1 Pap stained ThinPrep. (ep) Clinical Diagnosis and History The patient is a 59-year-old man with a lung lesion (thick-walled cavitary masses), concerning for infection. Microscopic slide review and interpretation for this case was performed at [facility], Department of Surgical Pathology, [address] [facility], [place] [id number], [place] [address] CLIA # [id number] REPORT IMAGES AND SCANNED DOCUMENTS, IF INCLUDED, ONLY VIEWABLE IN PDF VERSION OF REPORT The performance characteristics of some immunohistochemical stains, in-situ hybridization and fluorescence in-situ hybridization tests and immunophenotyping by flow cytometry cited in this report (if any) were determined by the Surgical Pathology and Flow Cytometry Departments at [facility] as part of an ongoing senior quality control technician program and in compliance with federally mandated [...] Surgical Pathology and Flow Cytometry Departments of [facility]. It has not been cleared or approved by the U. S. Food and Drug Administration. us Aileen Mcdonald MD LAB CYTOLOGY ORDERABLES F inal Result PATHOLOGY [facility] * Pneumonia PCR Bronchoalveolar lavage Lobe, right upper (02/15/2025 11:38 AM CDT) C. pneumoniae DNA Not Detected Not Detected Comment:Testing performed by : [facility], [address] [facility] [place] [address] Legionella pneumophila DNA Not Detected Not Detected CLARISSA DAVENPORT Comment:Testing performed by : [facility], 1 [facility], [address] M. pneumoniae DNA Not Detected Not Detected CLARISSA Comment:Testing performed by : [facility], [address] [facility], [address] Adenovirus DNA Not Detected Not Detected CLARISSA Comment:Testing performed by : [facility], [address] [facility], [address] Coronavirus (229E, OC43, HKU1, NL63) RNA Not Detected Not Detected CLARISSA Comment:Testing performed by : [facility], [address] [facility], [address] Metapneumovirus RNA Not Detected Not Detected CLARISSA Comment:Testing performed by : [facility], [address] [place] [address], [address] Rhinovirus/Enterov irus RNA Not Detected Not Detected CLARISSA Comment:Testing performed by : [facility], [address] [facility], [address] Influenza A RNA Not Detected Not Detected CLARISSA Comment:Testing performed by : [facility], [address] [facility], [address] Influenza B RNA Not Detected Not Detected CLARISSA Comment:Testing performed by : [facility], [address] [place] [address], [address] Parainfluenza virus (1-4) RNA Not Detected Not Detected CLARISSA Comment:Testing performed by : [facility], [address] [place] [address], [address] RSV RNA Not Detected Not Detected CLARISSA Comment:Testing performed by : [facility], [address] [place] [address], [address] Bronchoalveolar lavage (Lobe, right upper) 02/15/2025 11:38 AM CDT 02/15/2025 5:41 PM CDT Narrative CLARISSA - 02/15/2025 7:26 PM CDT The BioFire [...] of this assay have been determined by [facility]. Current interpretive data was last revised on 2024. us Aileen Mcdonald MD LAB MICROBIOLOGY - GENERA L ORDERABLES Final Result [facility] [address] [facility] Department [place] [address] * Pneumonia PCR with aerobic [...] results is recommended. Comment:Testing performed by : [facility], [address] [facility] [address] Direct Specimen Exam Stain: Cytospin Gram stain shows: Abundant polymorphonuclear leukocytes seen. No squamous epithelial cells seen. Rare Mixed bacterial pam seen on Gram stain. CLARISSA Comment:Testing performed by : [facility], [address] [place]., [address] Report Final Report: Growth indicates upper respiratory pam. CLARISSA Comment:Testing performed by : [facility], [address] [place]., [address] Organism GROWTH INDICATES UPPER RESPIRATORY PAM. CLARISSA Bronchoalveolar lavage (Lobe, right upper) 02/15/2025 11:38 AM CDT 02/15/2025 4:35 PM CDT Narrative [facility] - 02/17/2025 9:38 AM CDT When rapid molecular testing results are reported, testing completed using the [employer] Pneumonia Panel. This molecular assay detects: Acinetobacter [...] performance characteristics have been confirmed by the [facility]. The performance of the [employer] Pneumonia Panel has not been established for monitoring treatment of infection and bacterial nucleic acids may persist independent of organism viability. Aileen Mcdonald MD LAB MICROBIOLOGY - GENERA L ORDERABLES Final Result Performing Organization Address [facility] Co de Phone Number CLARISSA [address] [address] * Cell Differential, Body Fluid (02/15/2025 11:38 AM CDT) Total cells diffed 100 % Comment: Interpretive Data Unless otherwise specified, the reference range and other method performance specifications have not been established for CSF/Body Fluid tests. The test results should be integrated into the clinical context for interpretation. Current interpretive data was last revised on 2019. Neutrophils, fld 72 % [facility] Lymphs, fld 11 % [facility] Monocyte, fld 2 % [facility] Macrophages, fld 3 % [facility] Bronch Lining Cells Fld 12 % [facility] Fluid 02/15/2025 11:3 8 AM CDT 02/15/2025 11:56 AM CDT Aileen Mcdonald MD LAB BODY FLUIDS AND STOOL S ORDERABLES Final Result Performing Organization Address [facility] Co de Phone Number CLARISSA [address] [address] * Cell count w/rflx diff, body fluid (02/15/2025 11:38 AM CDT) Specimen type, fld Bronchial Body site, fld Bronch Lavage [facility] Color, fld #CLESS [facility] Clarity, fld Clear [facility] Nucleated cells, fld 252 /cumm [facility] Comment: Interpretive Data Unless otherwise specified, [...] S ORDERABLES Final Result Performing Organization Address [facility] Co de Phone Number [address] [address] * Mycology (fungal) culture Bronchoalveolar lavage Lobe, right upper (02/15/2025 11:38 AM CDT) Report Final Report: No growth of fungus Comment:Testing performed by : [facility], [address] [place] [address], [address] Bronchoalveolar lavage (Lobe, right upper) 02/15/2025 11:38 AM CDT 02/15/2025 4:36 PM CDT Narrative [facility] - 03/15/2025 7:34 AM CDT Testing performed by [facility] Microbiology Laboratory ([phone]). Aileen Mcdonald MD LAB MICROBIOLOGY - GENERA L ORDERABLES Final Result Performing Organization Address [facility] Co de Phone Number [address] [address] * Mycobacterium tuberculosis PCR Bronchoalveolar lavage (02/15/2025 11:38 AM CDT) Report Final Report: Target not detected Comment:Testing performed by : [facility], [address] [place] [address]., [address] Organism TARGET NOT DETECTED [facility] Bronchoalveolar lavage 02/15 11:38 AM CDT 02/16/2025 12:45 PM CDT N[facility]ative [facility] - 02/16/2025 4:44 PM CDT 1. Nucleic acid amplification for detection of Mycobacterium tuberculosis complex is performed using the [employer] GeneXpert MTB/RIF assay. This assay has been approved by the [place] Food and Drug administration for detection of M. tuberculosis in sputum samples. The performance characteristics of this test have been verified by the [facility] Microbiology laboratory for sputum samples and lower [...] 2013. Aileen Mcdonald MD LAB MICROBIOLOGY - Moobia L ORDERABLES Final Result Performing Organization Address [facility] de Phone Number CLARISSA [address] [facility] Department [place] [address] * Pneumocystis DFA Bronchoalveolar lavage (02/15/2025 11:38 AM CDT) Report Direct Stain Examination - Final: Negative for: Pneumocystis jirovecii Comment:Testing performed by : [facility], 1 [place]., [address] Bronchoalveolar lavage 02/15 11:38 AM CDT 02/15/2025 4:37 PM CDT [facility]ly [facility] CLARISSA [facility] 02/16/2025 2:54 PM CDT The Pneumocystis organisms [...] 07. Aileen Mcdonald MD LAB MICROBIOLOGY - Moobia L ORDERABLES Final Result [facility] [address] [facility] Department [place] [address] * Pneumonia PCR Bronchoalveolar lavage Lobe, left upper (02/15/2025 11:35 AM CDT) C. pneumoniae DNA Not Detected Not Detected Comment:Testing performed by : [facility], [address] [facility], [address] Legionella pneumophila DNA Not Detected Not Detected CLARISSA Comment:Testing performed by : [facility], [address] [facility], [address] M. pneumoniae DNA Not Detected Not Detected CLARISSA Comment:Testing performed by : [facility], [address] [facility], [address] Adenovirus DNA Not Detected Not Detected CLARISSA Comment:Testing performed by : [facility], [address] [place] [address], [address] Coronavirus (229E, OC43, HKU1, NL63) RNA Not Detected Not Detected CLARISSA Comment:Testing performed by : [facility], [address] [facility], [address] Metapneumovirus RNA Not Detected Not Detected CLARISSA Comment:Testing performed by : [facility], [address] [place] [address], [address] Rhinovirus/Enterov irus RNA Not Detected Not Detected CLARISSA Comment:Testing performed by : [facility], [address] [facility], [address] Influenza A RNA Not Detected Not Detected CLARISSA Comment:Testing performed by : [facility], [address] [place] [address], [address] Influenza B RNA Not Detected Not Detected CLARISSA Comment:Testing performed by : [facility], [address] [place] [address], [address] Parainfluenza virus (1-4) RNA Not Detected Not Detected CLARISSA Comment:Testing performed by : [facility], [address] [place]., [address] RSV RNA Not Detected Not Detected CLARISSA DAVENPORT Comment:Testing performed by : [facility], [address] [place]., [address] Bronchoalveolar lavage (Lobe, left upper) 02/15/2025 11:35 AM CDT 02/15/2025 5:41 PM CDT Narrative CLARISSA DAVENPORT - 02/15/2025 7:31 PM CDT The BioFire [...] of this assay have been determined by [facility]. Current interpretive data was last revised on 2024. us Aileen Mcdonald MD LAB MICROBIOLOGY - GENERA L ORDERABLES Final Result CLARISSA [address] [facility] Department [place] [address] * Pneumonia PCR with aerobic [...] results is recommended. Comment:Testing performed by : [facility], [address] [place]., [address] Direct Specimen Exam Stain: Cytospin Gram stain shows: Rare polymorphonuclear leukocytes seen. No squamous epithelial cells seen. No organisms seen. CLARISSA Comment:Testing performed by : [facility], [address] [place]., [address] Report Final Report: Growth indicates upper respiratory pam. CLARISSA Comment:Testing performed by : [facility], [address] [place]., [address] Organism GROWTH INDICATES UPPER RESPIRATORY PAM. CLARISSA Bronchoalveolar lavage (Lobe, left upper) 02/15/2025 11:35 AM CDT 02/15/2025 4:41 PM CDT Narrative [facility] - 02/19/2025 12:51 PM CDT When rapid molecular testing results are reported, testing completed using the [employer] Pneumonia Panel. This molecular assay detects: Acinetobacter [...] performance characteristics have been confirmed by the [facility]. The performance of the Film[employer] Pneumonia Panel has not been established for monitoring treatment of infection and bacterial nucleic acids may persist independent of organism viability. Aileen Mcdonald MD LAB MICROBIOLOGY - GENERA L ORDERABLES Final Result Performing Organization Address [facility] de Phone Number [address] [address] * Cell Differential, Body Fluid (02/15/2025 11:35 AM CDT) Total cells diffed 100 % Comment: Interpretive Data Unless otherwise specified, the reference range and other method performance specifications have not been established for CSF/Body Fluid tests. The test results should be integrated into the clinical context for interpretation. Current interpretive data was last revised on 2019. Neutrophils, fld 96 % [facility] Lymphs, fld 4 % [facility] Fluid 02/15/2025 11:3 5 AM CDT 02/15/2025 11:56 AM CDT Aileen Mcdonald MD LAB BODY FLUIDS AND STOOL S ORDERABLES Final Result Performing Organization Address [facility] de Phone Number [address] [address] * Cell count w/rflx diff, body fluid (02/15/2025 11:35 AM CDT) Specimen type, fld Bronchial Body site, fld Bronch Lavage [facility] Color, fld White [facility] Clarity, fld Turbid [facility] Nucleated cells, fld 8,448 /cumm [facility] Comment: Interpretive Data Unless otherwise specified, the reference range and other method performance specifications have not been established for CSF/Body Fluid tests. The test results should be integrated into the clinical context for interpretation. Current interpretive data was last revised on 2019. RBC, fld <2,000 /cumm CLARISSA Fluid 02/15/2025 11:3 5 AM CDT 02/15/2025 11:56 AM CDT Aileen Mcdonald MD LAB BODY FLUIDS AND STOOL S ORDERABLES Final Result CLARISSA [address] [facility] Department [place] [address] * Mycobacterium tuberculosis PCR Bronchoalveolar lavage (02/15/2025 11:35 AM CDT) Report Final Report: Target not detected Comment:Testing performed by : [facility], [address] [facility] [address] Organism TARGET NOT DETECTED CLARISSA Bronchoalveolar lavage 02/15 11:35 AM CDT 02/16/2025 12:48 PM CDT Narrative [facility] - 02/16/2025 4:44 PM CDT 1. Nucleic acid amplification for detection of Mycobacterium tuberculosis complex is performed using the [employer] GeneXpert MTB/RIF assay. This assay has been approved by the [place] Food and Drug administration for detection of M. tuberculosis in sputum samples. The performance characteristics of this test have been verified by the [facility] Microbiology laboratory for sputum samples and lower [...] 2013. Aileen Mcdonald MD LAB MICROBIOLOGY - GENERA L ORDERABLES Final Result Performing Organization Address [facility] Co de Phone Number [address] [address] * Pneumocystis DFA Bronchoalveolar lavage Lobe, left upper (02/15/2025 11:35 AM CDT) Report Direct Stain Examination - Final: Negative for: Pneumocystis jirovecii Comment:Testing performed by : [facility], [address] [facility] [address] Bronchoalveolar lavage (Lobe, left upper) 02/15/2025 11:35 AM CDT 02/15/2025 4:43 PM CDT [facility] - 02/16/2025 2:54 PM CDT The Pneumocystis organisms [...] 07. Aileen Mcdonald MD LAB MICROBIOLOGY - GENERA L ORDERABLES Final Result Performing Organization Address [facility] Co de Phone Number [address] [address] * eGFR (02/15/2025 9:35 AM CDT) eGFR >90 >=60 mL/min/1. 73 [...] MD LAB BLOOD ORDERABLES Isabela govea Result [place] [address] [facility] Department [place] [address] * Differential, auto (02/15/2025 9:35 AM CDT) Pathologist [facility] Neutrophil abs 5.91 1.50 - 6.50 K/cumm Imm gran abs 0.02 0.00 - 0.10 K/cumm [facility] Lymphocyte abs 1.42 0.80 - 3.30 K/cumm [facility] Monocyte abs 0.73 0.20 - 0.80 K/cumm [facility] Eosinophil abs 0.21 0.00 - 0.50 K/cumm [facility] Basophil abs 0.07 0.00 - 0.10 K/cumm [facility] Neutrophil pct 70.8 % [facility] Comment: Interpretive Data Percent cell count reference ranges are not reported, since discordance with absolute values may lead to misinterpretation of CBC data. Current Interpretive Data was last revised on 2017. Imm gran pct 0.2 % [facility] Comment: Interpretive Data Percent cell count reference ranges are not reported, since discordance with absolute values may lead to misinterpretation of CBC data. Current Interpretive Data was last revised on 2017. Lymphocyte pct 17.0 % [facility] Comment: Interpretive Data Percent cell count reference ranges are not reported, since discordance with absolute values may lead to misinterpretation of CBC data. Current Interpretive Data was last revised on 2017. Monocyte pct 8.7 % [facility] Comment: Interpretive Data Percent cell count reference ranges are not reported, since discordance with absolute values may lead to misinterpretation of CBC data. Current Interpretive Data was last revised on 2017. Eosinophil pct 2.5 % [facility] Comment: Interpretive Data Percent cell count reference ranges are not reported, since discordance with absolute values may lead to misinterpretation of CBC data. Current Interpretive Data was last revised on 2017. Basophil pct 0.8 % [facility] Comment: Interpretive Data Percent cell count reference ranges are not reported, since discordance with absolute values may lead to misinterpretation of CBC data. Current Interpretive Data was last revised on 2017. Blood 02/15/2025 9:35 AM CDT 02/15/2025 9:38 AM CDT us Aileen Mcdonald MD LAB BLOOD ORDERABLES Isabela l Result [place] [address] [facility] Department [place] [address] * (ABNORMAL) CBC with auto differential (02/15/2025 9:35 AM CDT) WBC 8.36 3.80 - 9.90 K/cumm Hgb 12.8(L) 13.0 - 17.5 g/dL [facility] Hct 41.3 38.9 - 50.3 % [facility] Plt 310 150 - 400 K/cumm [facility] MPV 9.5 9.1 - 12.3 fL [facility] RBC 4.97 4.30 - 5.80 M/cumm [facility] MCV 83.1 81.3 - 96.4 fL [facility] MCH 25.8(L) 27.1 - 33.3 pg [facility] MCHC 31.0(L) 32.3 - 35.7 g/dL [facility] RDW CV 14.6 11.1 - 14.9 % [facility] RDW SD 44.2 35.7 - 48.1 fL [facility] NRBC abs 0.00 0.00 - 0.01 K/cumm [facility] Blood 02/15/2025 9:35 AM CDT 02/15/2025 9:38 AM CDT Aileen Mcdonald MD LAB BLOOD ORDERABLES Isabela l Result Performing Organization Address [facility] Co de Phone Number [address] [place] [address] * (ABNORMAL) aPTT (02/15/2025 9:35 AM CDT) [...] ORDERABLES Isabela l Result Performing Organization Address [facility] de Phone Number [address] [place] [address] * (ABNORMAL) Protime-INR (02/15/2025 9:35 AM CDT) PT 16.00(H) 12.00 - 14.60 sec Comment:Ref Range High INR 1.26(H) 0.90 - 1.20 [facility] Comment: Ref Range High Interpretive data Oral anticoagulant therapeutic ranges: Venous thromboembolism prophylaxis or treatment: 2.0-3.0 CARDIOLOGY Standard range: 2.0-3.0 High-intensity range: 2.5-3.5 Refer to indication-specific guidelines for appropriate target ranges for prosthetic heart valve replacement. Current interpretive data was last revised on 2019. Blood 02/15/2025 9:35 AM CDT 02/15/2025 9:38 AM CDT Aileen Mcdonald MD LAB BLOOD ORDERABLES Isabela xuan Result CLARISSA [address] [place] [address] * (ABNORMAL) Basic metabolic panel (02/15/2025 9:35 AM CDT) Sodium 140 135 - 145 mmol/L Potassium, pl 4.0 3.3 - 4.9 mmol/L [facility] Chloride 104 97 - 110 mmol/L [facility] CO2 27 22 - 32 mmol/L [facility] Anion gap 9 2 - 15 mmol/L [facility] BUN 16 6 - 25 mg/dL [facility] Creatinine 0.75(L) 0.80 - 1.30 mg/dL [facility] Glucose 92 70 - 199 mg/dL [facility] Comment: Interpretive Data Fasting glucose >/= [...] 2022. Calcium 8.9 8.5 - 10.3 mg/dL [facility] Blood 02/15/2025 9:35 AM CDT 02/15/2025 9:38 AM CDT us Aileen Mcdonald MD LAB BLOOD ORDERABLES Isabela xuan Result CLARISSA [address] [facility] Department [place] [address] * CT Chest WO Contrast (02/15/2025 9:07 [...] Rg Chavez M.D. MJ T: Report ID: [id number] Reading Location: [id number] Procedure Note Rg Chavez MD - 02/27/2025 [...] 2:30 PM - Electronically signed by Rg IBRAHIM T: Report ID: [id number] Reading Location: [id number] us Aileen Mcdonald MD IMG CT PROCEDURES [...] by Ha Regalado M.D. T: Report ID: [id number] Reading Location: [id number] Procedure Note Ha Regalado Jr., MD - [...] by Ha Regalado M.D. T: Report ID: [id number] Reading Location: [id number] us Aileen Mcdonald MD IMG CT PROCEDURES [...] - Electronically signed by Dutch Broderick M.D. T: Report ID: [id number] Reading Location: [id number] Procedure Note Dutch Broderick MD - 01/01/2025 [...] Dutch Broderick M.D. MM T: Report ID: [id number] Reading Location: [id number] us Prema Plata MD IMG FLUOROSCOPY HINA ELIZABETH Final Result * eGFR (01/01/2025 6:15 AM [...] LAB BLOOD ORDERABLES Final R esult CLARISSA [address] [place] [address] Department [place] [address] * (ABNORMAL) Differential, auto (01/01/2025 6:15 AM CDT) Pathologist [facility] Neutrophil abs 5.02 1.50 - 6.50 K/cumm Imm gran abs 0.05 0.00 - 0.10 K/cumm [facility] Lymphocyte abs 2.16 0.80 - 3.30 K/cumm [facility] Monocyte abs 0.92(H) 0.20 - 0.80 K/cumm [facility] Eosinophil abs 0.51(H) 0.00 - 0.50 K/cumm [facility] Basophil abs 0.07 0.00 - 0.10 K/cumm [facility] Neutrophil pct 57.6 % [facility] Comment: Interpretive Data Percent cell count reference ranges are not reported, since discordance with absolute values may lead to misinterpretation of CBC data. Current Interpretive Data was last revised on 2017. Imm gran pct 0.6 % [facility] Comment: Interpretive Data Percent cell count reference ranges are not reported, since discordance with absolute values may lead to misinterpretation of CBC data. Current Interpretive Data was last revised on 2017. Lymphocyte pct 24.7 % [facility] Comment: Interpretive Data Percent cell count reference ranges are not reported, since discordance with absolute values may lead to misinterpretation of CBC data. Current Interpretive Data was last revised on 2017. Monocyte pct 10.5 % [facility] Comment: Interpretive Data Percent cell count reference ranges are not reported, since discordance with absolute values may lead to misinterpretation of CBC data. Current Interpretive Data was last revised on 2017. Eosinophil pct 5.8 % [facility] Comment: Interpretive Data Percent cell count reference ranges are not reported, since discordance with absolute values may lead to misinterpretation of CBC data. Current Interpretive Data was last revised on 2017. Basophil pct 0.8 % [facility] Comment: Interpretive Data Percent cell count reference ranges are not reported, since discordance with absolute values may lead to misinterpretation of CBC data. Current Interpretive Data was last revised on 2017. Blood 01/01/2025 6:15 AM CDT 01/01/2025 6:43 AM CDT Jaison Posey MD LAB BLOOD ORDERABLES Final R esult Performing Organization Address [facility] Co de Phone Number CLARISSA [address] [email or web address] [address] * (ABNORMAL) CBC with auto differential (01/01/2025 6:15 AM CDT) [facility] WBC 8.73 3.80 - 9.90 K/cumm Hgb 13.4 13.0 - 17.5 g/dL [facility] Hct 44.1 38.9 - 50.3 % [facility] Plt 339 150 - 400 K/cumm [facility] MPV 9.6 9.1 - 12.3 fL [facility] RBC 5.39 4.30 - 5.80 M/cumm [facility] MCV 81.8 81.3 - 96.4 fL [facility] MCH 24.9(L) 27.1 - 33.3 pg [facility] MCHC 30.4(L) 32.3 - 35.7 g/dL [facility] RDW CV 15.0(H) 11.1 - 14.9 % [facility] RDW SD 44.3 35.7 - 48.1 fL [facility] NRBC abs 0.00 0.00 - 0.01 K/cumm [facility] Blood 01/01/2025 6:15 AM CDT 01/01/2025 6:43 AM CDT Jaison Posey MD LAB BLOOD ORDERABLES Final R esult Performing Organization Address City/[facility]/ZIP Co de Phone Number CLARISSA [address] [email or web address] [place], [place] [id number] * (ABNORMAL) Comprehensive metabolic panel (01/01/2025 6:15 AM CDT) [facility] Sodium 139 135 - 145 mmol/L Potassium, pl 4.0 3.3 - 4.9 mmol/L [facility] Chloride 103 97 - 110 mmol/L [facility] CO2 25 22 - 32 mmol/L [facility] Anion gap 11 2 - 15 mmol/L [facility] BUN 14 6 - 25 mg/dL [facility] Creatinine 0.75(L) 0.80 - 1.30 mg/dL [facility] Glucose 91 70 - 199 mg/dL [facility] Comment: Interpretive Data Fasting glucose >/= [...] 2022. Calcium 9.0 8.5 - 10.3 mg/dL [facility] Bilirubin, total 0.3 0.1 - 1.2 mg/dL [facility] Protein, pl 7.1 6.5 - 8.5 g/dL [facility] Albumin 3.7 3.5 - 5.0 g/dL [facility] Alk phos 85 40 - 130 Units/L [facility] ALT 56(H) 7 - 55 Units/L [facility] AST 76(H) 10 - 50 Units/L [facility] Blood 01/01/2025 6:15 AM CDT 01/01/2025 6:43 AM CDT Jaison Posey MD LAB BLOOD ORDERABLES Final R esult [facility] [address] [facility] Department [place] [address] * eGFR (12/31/2024 8:39 AM CDT) eGFR >90 >=60 mL/min/1. 73 [...] MD LAB BLOOD ORDERABLES Final R esult [place] [address] [facility] Department [place] [address] * (ABNORMAL) Differential, auto (12/31/2024 8:39 AM CDT) Neutrophil abs 6.41 1.50 - 6.50 K/cumm Imm gran abs 0.02 0.00 - 0.10 K/cumm [facility] Lymphocyte abs 1.74 0.80 - 3.30 K/cumm [facility] Monocyte abs 0.84(H) 0.20 - 0.80 K/cumm [facility] Eosinophil abs 0.38 0.00 - 0.50 K/cumm [facility] Basophil abs 0.07 0.00 - 0.10 K/cumm [facility] Neutrophil pct 67.8 % [facility] Comment: Interpretive Data Percent cell count reference ranges are not reported, since discordance with absolute values may lead to misinterpretation of CBC data. Current Interpretive Data was last revised on 2017. Imm gran pct 0.2 % [facility] Comment: Interpretive Data Percent cell count reference ranges are not reported, since discordance with absolute values may lead to misinterpretation of CBC data. Current Interpretive Data was last revised on 2017. Lymphocyte pct 18.4 % [facility] Comment: Interpretive Data Percent cell count reference ranges are not reported, since discordance with absolute values may lead to misinterpretation of CBC data. Current Interpretive Data was last revised on 2017. Monocyte pct 8.9 % [facility] Comment: Interpretive Data Percent cell count reference ranges are not reported, since discordance with absolute values may lead to misinterpretation of CBC data. Current Interpretive Data was last revised on 2017. Eosinophil pct 4.0 % [facility] Comment: Interpretive Data Percent cell count reference ranges are not reported, since discordance with absolute values may lead to misinterpretation of CBC data. Current Interpretive Data was last revised on 2017. Basophil pct 0.7 % [facility] Comment: Interpretive Data Percent cell count reference ranges are not reported, since discordance with absolute values may lead to misinterpretation of CBC data. Current Interpretive Data was last revised on 2017. Blood 12/31/2024 8:39 AM CDT 12/31/2024 9:02 AM CDT us Jaison Posey MD LAB BLOOD ORDERABLES Final R esult [place] [address] [facility] Department [place] [address] * (ABNORMAL) CBC with auto differential (12/31/2024 8:39 AM CDT) WBC 9.46 3.80 - 9.90 K/cumm Hgb 13.8 13.0 - 17.5 g/dL [facility] Hct 45.0 38.9 - 50.3 % [facility] Plt 402(H) 150 - 400 K/cumm [facility] MPV 9.5 9.1 - 12.3 fL [facility] RBC 5.46 4.30 - 5.80 M/cumm [facility] MCV 82.4 81.3 - 96.4 fL [facility] MCH 25.3(L) 27.1 - 33.3 pg [facility] MCHC 30.7(L) 32.3 - 35.7 g/dL [facility] RDW CV 15.1(H) 11.1 - 14.9 % [facility] RDW SD 45.1 35.7 - 48.1 fL [facility] NRBC abs 0.00 0.00 - 0.01 K/cumm [facility] Blood 12/31/2024 8:39 AM CDT 12/31/2024 9:02 AM CDT Jaison Posey MD LAB BLOOD ORDERABLES Final R esult [facility] [address] [facility] Department [place] [address] * (ABNORMAL) Comprehensive metabolic panel (12/31/2024 8:39 AM CDT) Sodium 137 135 - 145 mmol/L Potassium, pl 3.9 3.3 - 4.9 mmol/L [facility] Chloride 101 97 - 110 mmol/L [facility] CO2 25 22 - 32 mmol/L [facility] Anion gap 11 2 - 15 mmol/L [facility] BUN 15 6 - 25 mg/dL [facility] Creatinine 0.73(L) 0.80 - 1.30 mg/dL [facility] Glucose 109 70 - 199 mg/dL [facility] Comment: Interpretive Data Fasting glucose >/= [...] 2022. Calcium 9.3 8.5 - 10.3 mg/dL [facility] Bilirubin, total 0.4 0.1 - 1.2 mg/dL [facility] Protein, pl 7.6 6.5 - 8.5 g/dL [facility] Albumin 4.0 3.5 - 5.0 g/dL [facility] Alk phos 94 40 - 130 Units/L [facility] ALT 21 7 - 55 Units/L [facility] AST 30 10 - 50 Units/L [facility] Blood 12/31/2024 8:39 AM CDT 12/31/2024 9:02 AM CDT Jaison Posey MD LAB BLOOD ORDERABLES Final R esult Performing Organization Address [facility] Co de Phone Number [address] [employer] [place] [address] * eGFR (12/30/2024 5:05 AM CDT) eGFR [...] ORDERABLES Final R esult Performing Organization Address [facility] Co de Phone Number [address] [employer] [place] [address] * (ABNORMAL) Differential, auto (12/30/2024 5:05 AM CDT) Neutrophil abs 6.80(H) 1.50 - 6.50 K/cumm Imm gran abs 0.05 0.00 - 0.10 K/cumm [facility] Lymphocyte abs 2.18 0.80 - 3.30 K/cumm [facility] Monocyte abs 0.80 0.20 - 0.80 K/cumm [facility] Eosinophil abs 0.28 0.00 - 0.50 K/cumm [facility] Basophil abs 0.06 0.00 - 0.10 K/cumm [facility] Neutrophil pct 66.8 % [facility] Comment: Interpretive Data Percent cell count reference ranges are not reported, since discordance with absolute values may lead to misinterpretation of CBC data. Current Interpretive Data was last revised on 2017. Imm gran pct 0.5 % [facility] Comment: Interpretive Data Percent cell count reference ranges are not reported, since discordance with absolute values may lead to misinterpretation of CBC data. Current Interpretive Data was last revised on 2017. Lymphocyte pct 21.4 % [facility] Comment: Interpretive Data Percent cell count reference ranges are not reported, since discordance with absolute values may lead to misinterpretation of CBC data. Current Interpretive Data was last revised on 2017. Monocyte pct 7.9 % [facility] Comment: Interpretive Data Percent cell count reference ranges are not reported, since discordance with absolute values may lead to misinterpretation of CBC data. Current Interpretive Data was last revised on 2017. Eosinophil pct 2.8 % [facility] Comment: Interpretive Data Percent cell count reference ranges are not reported, since discordance with absolute values may lead to misinterpretation of CBC data. Current Interpretive Data was last revised on 2017. Basophil pct 0.6 % [facility] Comment: Interpretive Data Percent cell count reference ranges are not reported, since discordance with absolute values may lead to misinterpretation of CBC data. Current Interpretive Data was last revised on 2017. Blood 12/30/2024 5:05 AM CDT 12/30/2024 5:14 AM CDT us Jaison Posey MD LAB BLOOD ORDERABLES Final R esult CLARISSA [address] [facility] Department [place] [address] * (ABNORMAL) CBC with auto differential (12/30/2024 5:05 AM CDT) [facility] WBC 10.17(H) 3.80 - 9.90 K/cumm Hgb 12.2(L) 13.0 - 17.5 g/dL [facility] Hct 40.3 38.9 - 50.3 % [facility] Plt 341 150 - 400 K/cumm [facility] MPV 9.1 9.1 - 12.3 fL [facility] RBC 4.83 4.30 - 5.80 M/cumm [facility] MCV 83.4 81.3 - 96.4 fL [facility] MCH 25.3(L) 27.1 - 33.3 pg [facility] MCHC 30.3(L) 32.3 - 35.7 g/dL [facility] RDW CV 15.0(H) 11.1 - 14.9 % [facility] RDW SD 45.2 35.7 - 48.1 fL [facility] NRBC abs 0.00 0.00 - 0.01 K/cumm [facility] Blood 12/30/2024 5:05 AM CDT 12/30/2024 5:14 AM CDT Jaison Posey MD LAB BLOOD ORDERABLES Final R esult [facility] [address] [place] [facility] [place] [address] * Comprehensive metabolic panel (12/30/2024 5:05 AM CDT) [facility] Sodium 140 135 - 145 mmol/L Potassium, pl 4.2 3.3 - 4.9 mmol/L [facility] Chloride 104 97 - 110 mmol/L [facility] CO2 26 22 - 32 mmol/L [facility] Anion gap 10 2 - 15 mmol/L [facility] BUN 17 6 - 25 mg/dL [facility] Creatinine 0.91 0.80 - 1.30 mg/dL [facility] Glucose 82 70 - 199 mg/dL [facility] Comment: Interpretive Data Fasting glucose >/= [...] 2022. Calcium 8.9 8.5 - 10.3 mg/dL [facility] Bilirubin, total 0.3 0.1 - 1.2 mg/dL [facility] Protein, pl 6.9 6.5 - 8.5 g/dL [facility] Albumin 3.7 3.5 - 5.0 g/dL [facility] Alk phos 82 40 - 130 Units/L [facility] ALT 10 7 - 55 Units/L [facility] AST 25 10 - 50 Units/L [facility] Blood 12/30/2024 5:05 AM CDT 12/30/2024 5:14 AM CDT Jaison Posey MD LAB BLOOD ORDERABLES Final R esult Performing Organization Address [facility] Co de Phone Number [address] [email or web address] [address] * POCT glucose (12/29/2024 8:42 PM CDT) [facility] Glucose, POC 100 70 - 199 mg/dL Blood 12/29/2024 8:42 PM CDT 12/29/2024 8:42 PM CDT Prema Plata MD LAB POCT ORDERABLES - DEVICE Final Result Performing Organization Address [facility] Co de Phone Number [address] [place] [address] * Heparin anti factor Xa activity (12/29/2024 4:20 PM CDT) Anti Factor Xa 0.40 IUnits/mL Comment: Interpretive [...] BLOOD ORDERABLES Final Result Performing Organization Address City/State/[facility] Co de Phone Number [facility] [address] [facility] Department [place] [address] * US Vein Duplex Lower Extremity Bilateral Complete (12/29/2024 11:31 AM CDT) Anatomical Region Laterality Modality Vascular Bilateral Ultrasound 12/29/2024 9:13 AM CDT Narrative 12/30/2024 11:25 AM CDT Lower Extremity Venous Report Patient Name: FREDDY SUMMERS J : 1965 (59y 1m) Gender: M Study Date: 12/29/2024 09:13:37 AM [employer]: NATALIO Jeffrey Location: [id number] Order Provider: JAISON POSEY Quality: Adequate Ref [...] veins. Provider Notification: Jaison Jimenes MD via [employer]. CONCLUSIONS: 1. There is no evidence of deep vein thrombosis in the lower extremities bilaterally. ATTESTATION: I have reviewed and interpreted the pertinent images and measurements of this study. I attest to the conclusions in the final report that is provided above. Electronically Signed By: Alex Quintero MD 12/30/2024 10:28:17 AM CDT Procedure Note Alex Quintero MD - 12/30/2024 Lower Extremity Venous Report Patient Name: FREDDY SUMMERS J : 1965 (59y 1m) Gender: M Study Date: 12/29/2024 09:13:37 AM [employer]: NATALIO Jeffrey Location:[place] [address] Order Provider: JAISON POSEY Quality: Adequate Ref [...] veins. Provider Notification: Jaison Jimenes MD via [employer]. CONCLUSIONS: 1. There is no evidence of deep vein thrombosis in the lower extremitiesbilaterally. ATTESTATION: I have reviewed and interpreted the pertinent images and measurements ofthis study. I attest to the conclusions in the final report that is provided above. Electronically Signed By: Alex Quintero MD 12/30/2024 10:28:17 AM CDT Jaison Posey MD IMG US PROCEDURES Final Resu lt * Heparin anti factor Xa activity (12/29/2024 10:16 AM CDT) Anti Factor Xa 0.57 IUnits/mL Comment: Interpretive [...] 6 AM CDT 12/29/2024 10:20 AM CDT Jaison Posey MD LAB BLOOD ORDERABLES Final R esult [facility] [address] [facility] Department [place] [address] * TRANSTHORACIC ECHO (TTE) COMPLETE W DOPPLER/CF WO CONTRAST (12/29/2024 8:48 AM CDT) Estimated EF 70-75 % CONS SCIMAGE Anatomical Region Laterality Modality Ultrasound 12/29/2024 8:11 AM CDT Narrative 12/30/2024 12:19 PM CDT Transthoracic Echocardiographic Report Patient Name: FREDDY SUMMERS J : 1965 (59y 1m) Gender: M Study Date: 12/29/2024 08:11:17 AM Ht(Inch): 68 Wt(Lb): 153 BSA: 1.82 [employer]: Dominga Cervantes RDCS Location: [id number] Order Provider: JAISON POSEY Heart Rate: 77 BMI: 23.26 BP: 115 / 79 Ref Provider: JAISON POSEY PROCEDURES: Echocardiographic Report: ([id number]) Transthoracic complete echo, 2D, spectral and tissue [...] 12/30/2024 12:18:45 PM CDT Procedure Note Rg Fofaan Jr., MD - 12/30/2024 Transthoracic Echocardiographic Report Patient Name: FREDDY SUMMERS J : 1965 (59y 1m) Gender: M Study Date: 12/29/2024 08:11:17 AM Ht(Inch): 68 Wt(Lb): 153 BSA: 1.82 Supervisor [employer]: Dominga Cervantes [facility] Location: [id number] Order Provider:JAISON POSEY Heart Rate: 77 BMI: 23.26 BP: 115 / 79 Ref Provider: JAISON POSEY PROCEDURES: Echocardiographic Report: ([id number]) Transthoracic complete echo, 2D,spectral and tissue Doppler, [...] LV Basal Diam 4.29 cm MV Decel [id number] msec LV/RV Ratio 0.90 Med E` Vel8.81 [...] Fofana Jr MD 12/30/2024 12:18:45 PM CDT us Jaison Posey MD CV ECHO PROCEDURES Final [...] MD LAB BLOOD ORDERABLES Final R esult [facility] [address] [facility] Department [place] [address] * (ABNORMAL) Differential, auto (12/29/2024 4:01 AM CDT) Neutrophil abs 8.99(H) 1.50 - 6.50 K/cumm Imm gran abs 0.03 0.00 - 0.10 K/cumm [facility] Lymphocyte abs 0.99 0.80 - 3.30 K/cumm [facility] Monocyte abs 0.51 0.20 - 0.80 K/cumm [facility] Eosinophil abs 0.00 0.00 - 0.50 K/cumm [facility] Basophil abs 0.02 0.00 - 0.10 K/cumm [facility] Neutrophil pct 85.3 % [facility] Comment: Interpretive Data Percent cell count reference ranges are not reported, since discordance with absolute values may lead to misinterpretation of CBC data. Current Interpretive Data was last revised on 2017. Imm gran pct 0.3 % [facility] Comment: Interpretive Data Percent cell count reference ranges are not reported, since discordance with absolute values may lead to misinterpretation of CBC data. Current Interpretive Data was last revised on 2017. Lymphocyte pct 9.4 % [facility] Comment: Interpretive Data Percent cell count reference ranges are not reported, since discordance with absolute values may lead to misinterpretation of CBC data. Current Interpretive Data was last revised on 2017. Monocyte pct 4.8 % [facility] Comment: Interpretive Data Percent cell count reference ranges are not reported, since discordance with absolute values may lead to misinterpretation of CBC data. Current Interpretive Data was last revised on 2017. Eosinophil pct 0.0 % [facility] Comment: Interpretive Data Percent cell count reference ranges are not reported, since discordance with absolute values may lead to misinterpretation of CBC data. Current Interpretive Data was last revised on 2017. Basophil pct 0.2 % [facility] Comment: Interpretive Data Percent cell count reference ranges are not reported, since discordance with absolute values may lead to misinterpretation of CBC data. Current Interpretive Data was last revised on 2017. Blood 12/29/2024 4:01 AM CDT 12/29/2024 4:49 AM CDT Jaison Posey MD LAB BLOOD ORDERABLES Final R esult [facility] [address] [facility] Department of Laboratories [place], [place] [id number] * Heparin anti factor Xa activity (12/29/2024 4:01 AM CDT) Pathologist [facility] Anti Factor Xa 0.22 IUnits/mL Comment: Ref [...] MD LAB BLOOD ORDERABLES Final R esult [place] [address] [facility] Department [place] [address] * (ABNORMAL) CBC with auto differential (12/29/2024 4:01 AM CDT) [facility] WBC 10.54(H) 3.80 - 9.90 K/cumm Hgb 12.1(L) 13.0 - 17.5 g/dL [facility] Hct 39.5 38.9 - 50.3 % [facility] Plt 342 150 - 400 K/cumm [facility] MPV 9.8 9.1 - 12.3 fL [facility] RBC 4.74 4.30 - 5.80 M/cumm [facility] MCV 83.3 81.3 - 96.4 fL [facility] MCH 25.5(L) 27.1 - 33.3 pg [facility] MCHC 30.6(L) 32.3 - 35.7 g/dL [facility] RDW CV 14.6 11.1 - 14.9 % [facility] RDW SD 44.4 35.7 - 48.1 fL [facility] NRBC abs 0.00 0.00 - 0.01 K/cumm [facility] Blood 12/29/2024 4:01 AM CDT 12/29/2024 4:49 AM CDT us Jaison Posey MD LAB BLOOD ORDERABLES Final R esult Performing Organization Address City/[facility] Co de Phone Number [address] [place] [address] * Magnesium (12/29/2024 4:01 AM CDT) [facility] Magnesium 2.0 1.4 - 2.5 mg/dL Blood 12/29/2024 4:01 AM CDT 12/29/2024 4:50 AM CDT Jaison Posey MD LAB BLOOD ORDERABLES Final R esult Performing Organization Address [facility] de Phone Number [address] [address] * (ABNORMAL) Comprehensive metabolic panel (12/29/2024 4:01 AM CDT) [facility] Sodium 138 135 - 145 mmol/L Potassium, pl 3.6 3.3 - 4.9 mmol/L [facility] Chloride 104 97 - 110 mmol/L [facility] CO2 23 22 - 32 mmol/L [facility] Anion gap 11 2 - 15 mmol/L [facility] BUN 13 6 - 25 mg/dL [facility] Creatinine 0.68(L) 0.80 - 1.30 mg/dL [facility] Glucose 130 70 - 199 mg/dL [facility] Comment: Interpretive Data Fasting glucose >/= [...] 2022. Calcium 9.2 8.5 - 10.3 mg/dL [facility] Bilirubin, total 0.3 0.1 - 1.2 mg/dL [facility] Protein, pl 6.9 6.5 - 8.5 g/dL [facility] Albumin 3.6 3.5 - 5.0 g/dL [facility] Alk phos 87 40 - 130 Units/L [facility] ALT 8 7 - 55 Units/L [facility] AST 15 10 - 50 Units/L [facility] Blood 12/29/2024 4:01 AM CDT 12/29/2024 4:50 AM CDT Jaison Posey MD LAB BLOOD ORDERABLES Final R esult [address] [email or web address] [address] * POCT glucose (12/28/2024 11:12 PM CDT) [facility] Glucose, POC 152 70 - 199 mg/dL Blood 12/28/2024 11:1 2 PM CDT 12/28/2024 11:12 PM CDT Jaison Posey MD LAB POCT ORDERABLES - DEVICE Final Result Performing Organization Address City/[facility]/ZIP Co de Phone Number [address] [place] [address] * (ABNORMAL) Pneumonia PCR with aerobic culture and Gram stain Sputum (12/28/2024 11:00 PM CDT) [facility] Direct Specimen Exam Stain: Abundant squamous epithelial cells seen indicating excessive oropharyngeal contamination. Culture will not be processed further. Please submit another specimen. Smear results called to and read back by: Brian Lara MLS [phone] on 12/29/2024 05:55:39 by: Marcos Myrick MLT Comment:Testing performed by : [facility], [address] [facility], [place]., [address] Direct Specimen Exam Molecular Analysis: Abundant squamous epithelial cells observed on Gram stain. Specimen will not be processed for rapid molecular analysis. CLARISSA DAVENPORT Comment:Testing performed by : [facility], [address] [place]., [address] Report Final Report: This is the final report. (.) CLARISSA DAVENPORT Comment:Testing performed by : [facility], [address] [place]., [address] Sputum 12/28/2024 11:0 0 PM CDT 12/29/2024 4:56 AM CDT [facility] CLARISSA DAVENPORT - 12/29/2024 7:24 AM CDT When rapid molecular testing results are reported, testing completed using the [employer] FilmArray Pneumonia Panel. This molecular assay detects: Acinetobacter [...] performance characteristics have been confirmed by the [facility]. The performance of the FilmArray Pneumonia Panel has not been established for monitoring treatment of infection and bacterial nucleic acids may persist independent of organism viability. Nikita Llanos MD LAB MICROBIOLOGY - GENERAL ORDERABLES Final Result CLARISSA DAVENPORT [address] [facility] [place] [address] * MRSA Only (Staphylococcus aureus) PCR Nasal (12/28/2024 11:00 PM CDT) PCR Scrn, Methicillin resistant Staphylococcus aureus (MRSA) Not Detected Not Detected Comment: Interpretive Data Testing performed using Nucleic Acid Amplification with the [employer] Xpert MRSA NxG Assay. This assay detects target DNA from mecA, mecC and the SCCmec insertion site of Staphylococcus aureus using Real-Time PCR and has been cleared by the FDA. Performance characteristics have been verified by the [facility]. Current Interpretive Data was last revised on 2023 Nasal 12/28/2024 11:0 0 PM CDT 12/28/2024 11:07 PM CDT Jaison Posey MD LAB MICROBIOLOGY - GENERAL O RDERABLES Final Result CLARISSA [address] [facility] [place] [address] * Heparin anti factor Xa activity (12/28/2024 10:11 PM CDT) Pathologist [facility] Anti Factor Xa 0.34 IUnits/mL Comment: Interpretive [...] ORDERABLES Final R esult Performing Organization Address [facility] Co de Phone Number CLARISSA [address] [place] [address] * Histoplasma Antigen Urine (12/28/2024 8:48 PM CDT) Histo/Blasto Ag Value Not Detected ng/mL [facility] Comment: ADDITIONAL INFORMATION This test was developed and its performance characteristics determined by [facility] in a manner consistent with CLIA requirements. This test has not been cleared or approved by the U.S. Food and Drug Administration. Test Performed by: [facility] - [facility] [address] [place] [address] [employer]: Hayden Barfield Ph.D.; CLIA# [id number] Histo/Blasto Ag Result Not Detected Not Detected CLARISSA Comment: No antigen from Histoplasma or Blastomyces detected. False negative results may occur depending on extent of disease, and/or site of infection. Repeat testing on a new specimen if clinically indicated. Urine 12/28/2024 8:48 PM CDT 12/28/2024 8:52 PM CDT Aileen Mcdonald MD LAB MICROBIOLOGY - GENERA L ORDERABLES Final Result Performing Organization Address [facility] Co de Phone Number CLARISSA [address] [place] [address] [facility] * Strep pneumoniae antigen, urine Urine [...] GENERAL ORDERABLES Final Result Performing Organization Address [facility] Co de Phone Number [address] [address] * Legionella antigen Urine (12/28/2024 8:48 PM CDT) Legionella Ag Negative Negative Comment: Interpretive Data This test detects only Legionella pneumophila serogroup 1 antigen. Testing performed by [facility] ([phone]). Current interpretive data was last revised on 2019. Testing performed by: [facility], [address] [place]., [address] Urine 12/28/2024 8:48 PM CDT 12/29/2024 4:59 AM CDT Nikita Llanos MD LAB MICROBIOLOGY - GENERAL ORDERABLES Final Result Performing Organization Address City/[facility] Co de Phone Number [address] [place] [address] * POCT glucose (12/28/2024 8:33 PM CDT) Glucose, POC 128 70 - 199 mg/dL Glucose comment 1 RN/MD Notified [facility] Blood 12/28/2024 8:33 PM CDT 12/28/2024 8:33 PM CDT Jaison Posey MD LAB POCT ORDERABLES - DEVICE Final Result CLARISSA [address] [facility] [place] [address] * OH CRITICAL CARE ILL/INJURED PATIENT INIT 30-74 MIN [...] w/reflex Blood (12/28/2024 4:49 PM CDT) Pathologist [facility] Coccidioides ab screen, ser Negative Negative [facility] Comment: Repeat testing on a new sample in 2-3 weeks if clinically indicated. ADDITIONAL INFORMATION This test has been modified from the electrical calibrator's instructions. Its performance characteristics were determined by [facility] in a manner consistent with CLIA requirements. This test has not been cleared or approved by the U.S. Food and Drug Administration. Test Performed by: [facility] [place] [address] [employer]: Hayden Barfield Ph.D.; CLIA# [id number] Blood 12/28/2024 4:49 PM CDT 12/28/2024 4:53 PM CDT Narrative CLARISSA - 01/01/2025 9:21 PM CDT specimen received by lab 01/01/2025 15:56:33 CDT [id number] Aileen Mcdonald MD LAB MICROBIOLOGY - GENERA L ORDERABLES Final Result Performing Organization Address [facility] Co de Phone Number [address] [employer] [place] [address] [facility] * (ABNORMAL) Blastomyces antibody, EIA, serum Blood (12/28/2024 4:49 PM CDT) Blastomyces Antibody Equivocal (A) Negative [facility] Comment: Confirmatory testing by immunodiffusion has been ordered. Test Performed by: [facility] [place] [address] [employer]: Hayden Barfield Ph.D.; CLIA# [id number] Blood 12/28/2024 4:49 PM CDT 12/28/2024 4:53 PM CDT Narrative CLARISSA - 01/04/2025 1:57 PM CDT specimen received by lab 01/01/2025 15:56:14 CDT [id number] testing is partially completed; 01/03/2025 10:09:16 CDT [id number] Aileen Mcdonald MD LAB MICROBIOLOGY - GENERA L ORDERABLES Final Result Performing Organization Address [facility] Co de Phone Number [address] [employer] [place] [address] [facility] * HIV 1/2 Antibody plus p24 Antigen Blood (12/28/2024 4:49 PM CDT) [facility] HIV 1/2 ab + p24 ag Nonreactive [...] L ORDERABLES Final Result Performing Organization Address [facility] Co de Phone Number CLARISSA [address] [address] * Blastomyces antibodies (12/28/2024 4:49 PM CDT) [facility] Blastomyces, Immunodiffusion Negative Negative [facility] Comment: A single negative immunodiffusion (ID) result does not exclude the diagnosis of blastomycosis. Repeat testing on a new sample in 7-14 days if clinically indicated. Test Performed by: [facility] [address] [place] [address] [employer]: Hayden Barfield Ph.D.; CLIA# [id number] Blood 12/28/2024 4:49 PM CDT 12/28/2024 4:53 PM CDT Aileen Mcdonald MD LAB BLOOD ORDERABLES Isabela l Result Performing Organization Address City/[facility]/ZIP Co de Phone Number S[address] [address] [facility] * Heparin anti factor Xa activity (12/28/2024 3:36 PM CDT) [facility] Anti Factor Xa <0.10 IUnits/mL Comment: Interpretive [...] BLOOD ORDERABLES Final Result Performing Organization Address [facility] Phone Number [address] [place] [address] * aPTT (12/28/2024 3:36 PM CDT) aPTT 32 22 - 37 sec Comment: Interpretive data aPTT test has not been evaluated for monitoring heparin therapy. The anti-Xa is the preferred test. Current interpretive data was last revised on 2019. Blood 12/28/2024 3:36 PM CDT 12/28/2024 3:47 PM CDT Nikita Llanos MD LAB BLOOD ORDERABLES Final Result Performing Organization Address [facility] Co de Phone Number [address] [place] [address] * Protime-INR (12/28/2024 3:36 PM CDT) PT 12.7 12.0 - 14.6 sec INR 1.0 0.9 - 1.2 CLARISSA DAVENPORT Comment: Ref Range High Interpretive data Oral anticoagulant therapeutic ranges: Venous thromboembolism prophylaxis or treatment: 2.0-3.0 CARDIOLOGY Standard range: 2.0-3.0 High-intensity range: 2.5-3.5 Refer to indication-specific guidelines for appropriate target ranges for prosthetic heart valve replacement. Current interpretive data was last revised on 2019. Blood 12/28/2024 3:36 PM CDT 12/28/2024 3:47 PM CDT us Nikita Llanos MD LAB BLOOD ORDERABLES Final Result CLARISSA [address] [facility] Department [place] [address] * CT Chest PE (CTA) W Contrast [...] by Ha Regalado M.D. T: Report ID: [id number] Reading Location: [id number] Procedure Note Ha Regalado Jr., MD - [...] by Ha Regalado M.D. T: Report ID: [id number] Reading Location: [id number] Nikita Llanos MD IMG CT PROCEDURES Final [...] Llanos MD LAB BLOOD ORDERABLES Final Result [facility] [address] [facility] Department [place] [address] * Urinalysis reflex to microscopic and culture Urine (12/28/2024 12:54 PM CDT) Color, ur Yellow Yellow Clarity, ur Clear Clear [facility] Specific gravity, ur 1.015 1.003 - 1.030 [facility] pH, urine 7.5 [facility] Comment: Interpretive Data U rine pH is affected by diet, medications, systemic acid-base disturbances, and renal tubular function. pH may affect urinary stone formation. For example, urine pH below 6.0 may help reduce the tendency for calcium phosphate stones and pH greater than 6.0 may reduce the tendency for uric acid stone formation. Source: [facility] [place] Current Interpretive Data was last revised on 2017 Protein, ur ql Negative Negative [facility] Glucose, ur ql Negative Negative [facility] Ketones, ur Negative Negative [facility] Bilirubin, ur Negative Negative [facility] Blood, ur Negative Negative [facility] Urobilinogen, ur <2.0 <2.0 mg/dL CLARISSA Nitrite, ur Negative Negative CLARISSA Leukocyte esterase, ur Negative Negative CLARISSA UA reflex comment Reflex conditions for microscopic UA and culture not met. CLARISSA Urine 12/28/2024 12:5 4 PM CDT 12/28/2024 12:57 PM CDT us Nikita Llanos MD LAB MICROBIOLOGY - GENERAL ORDERABLES Final Result CLARISSA [address] [facility] Department [place] [address] * Respiratory pathogen panel Nasopharyngeal (12/28/2024 12:54 PM CDT) Influenza A RNA Not Detected Not Detected Comment:Testing performed by : [facility], [address] [place] [address], [address] Influenza B RNA Not Detected Not Detected CLARISSA Comment:Testing performed by : [facility], [address] [place] [address]., [address] RSV RNA Not Detected Not Detected CLARISSA Comment:Testing performed by : [facility], [address] [place]., [address] COVID-19 RNA Not Detected Not Detected CLARISSA Comment:Testing performed by : [facility], [address] [place]., [address] Coronavirus 229E RNA Not Detected Not Detected CLARISSA Comment:Testing performed by : [facility], [address] [place]., [address] Coronavirus HKU1 RNA Not Detected Not Detected CLARISSA Comment:Testing performed by : [facility], [address] [place]., [address] Coronavirus NL63 RNA Not Detected Not Detected CLARISSA Comment:Testing performed by : [facility], [address] [place]., [address] Coronavirus OC43 RNA Not Detected Not Detected CLARISSA Comment:Testing performed by : [facility], [address] [place] [address] Adenovirus DNA Not Detected Not Detected CERNER Comment:Testing performed by : [facility], [address] [place]., [address] Metapneumovirus RNA Not Detected Not Detected CERNER Comment:Testing performed by : [facility], [address] [place]., [address] Rhinovirus/Enterov irus RNA Not Detected Not Detected CERNER Comment:Testing performed by : [facility], [address] [place]., [address] Parainfluenza 1 RNA Not Detected Not Detected CERNER Comment:Testing performed by : [facility], [address] [facility], [address] Parainfluenza 2 RNA Not Detected Not Detected CERNER Comment:Testing performed by : [facility], [address] [place]., [address] Parainfluenza 3 RNA Not Detected Not Detected CERNER Comment:Testing performed by : [facility], [address] [place]., [address] Parainfluenza 4 RNA Not Detected Not Detected CERNER Comment:Testing performed by : [facility], [address] [place] [address] B. pertussis DNA Not Detected Not Detected CERNER Comment:Testing performed by : [facility], [address] [facility] [address] B. parapertussis DNA Not Detected Not Detected CERNER Comment:Testing performed by : [facility], [address] [place] [address], [place]., [address] C. pneumoniae DNA Not Detected Not Detected CERNER Comment:Testing performed by : [facility], [address] [place]., [address] M. pneumoniae DNA Not Detected Not Detected CERNER Comment:Testing performed by : [facility], [address] [place]., [address] Nasopharyngeal 12/28/2024 12 :54 PM CDT 12/28/2024 3:58 PM CDT Tena ROMO - 12/28/2024 5:50 PM CDT Is the Patient experiencing symptoms consistent with COVID?->Yes Surveillance testing for transplant patient?->No Interpretive Data The Accumulate FilmArray Respiratory Panel (RP2.1) assay is a [...] assay has FDA clearance for testing of [employer]PENTER [employer] SUPERVISOR swabs. The performance of additional specimen types has been assessed by the performing laboratory. The performance characteristics of this assay have been determined by [facility]. Current interpretive data was last revised on 22. Nikita Llanos MD LAB MICROBIOLOGY - GENERAL ORDERABLES Final Result [facility] [address] [facility] Department [place] [address] * Drugs of Abuse Screen, Urine without Confirmation (12/28/2024 12:54 PM CDT) Amphetamine, ur Not Detected CutOff 500ng/mL Comment: [...] Cannabinoids, ur Not Detected CutOff 50 ng/mL CLARISSA Comment: Interpretive Data - Cannabinoids: Samples containing greater than 50 ng/mL delta-9 THC -COOH or other cross- reacting compounds are reported as positive. False positive and false negative results are possible. Confirmatory testing required for definitive results. Current Interpretive Data was last reviewed 2023. Cocaine, ur Not Detected CutOff 150ng/mL CLARISSA Comment: Interpretive Data - Cocaine: Samples containing greater than 150 ng/mL benzoylecgonine or other cross- reacting compounds are reported as positive. False positive and false negative results are possible. Confirmatory testing required for definitive results. Current Interpretive Data was last reviewed 2023. Fentanyl, Ur Not Detected CutOff 5 ng/mL CLARISSA Comment: Interpretive Data - Fentanyl: Samples containing greater than 5 ng/mL norfentanyl, fentanyl, or other cross-reacting fentanyl compounds are reported as positive. False positive and false negative results are possible. Confirmatory testing required for definitive results. Current Interpretive Data was last reviewed 2023. Methadone, ur Not Detected CutOff 300ng/mL CLARISSA Comment: Interpretive Data - Methadone: Samples containing greater than 300 ng/mL d,l-methadone or other cross-reacting compounds are reported as positive. False positive and false negative results are possible. Confirmatory testing required for definitive results. Current Interpretive Data was last reviewed 2023. Opiates, ur Not Detected CutOff 300ng/mL [facility] Comment: Interpretive Data - Opiates: Samples containing greater than 300 ng/mL morphine or other cross-reacting compounds are reported as positive. False positive and false negative results are possible. Confirmatory testing required for definitive results. Current Interpretive Data was last reviewed 2023. Oxycodone, ur Not Detected CutOff 100ng/mL [facility] Comment: Interpretive Data - Oxycodone: Samples containing greater than 100 ng/mL oxycodone or other cross-reacting compounds are reported as positive. False positive and false negative results are possible. Confirmatory testing required for definitive results. Current Interpretive Data was last reviewed 2023. Phencyclidine, ur Not Detected CutOff 25 ng/mL [facility] Comment: Interpretive Data - Phencyclidine: Samples containing [...] CDT 12/28/2024 12:57 PM CDT Narrative CLARISSA DAVENPORT - 12/28/2024 1:44 PM CDT Drug of Abuse screening is performed by immunoassay for medical purposes only. This is not to be used for Pain Management purposes. us Nikita Llanos MD LAB URINE ORDERABLES Final Result CLARISSA DAVENPORT [address] [facility] Department [place] [address] * XR Chest 1 Vw Portable (12/28/2024 [...] Tawny Peters M.D. TW T: Report ID: [id number] Reading Location: [id number] Procedure Note Tawny Peters MD - 12/28/2024 [...] nodularity, similar inappearance to previous study in 2008. Potential cavitary lesion as well centeredover the [...] Tawny Peters M.D. TW T: Report ID: [id number] Reading Location: [place] [address] us Nikita Llanos MD IMG XR PROCEDURES Final Re sult * Blood culture Blood Peripheral (12/28/2024 11:47 AM CDT) Report Final Report: No growth Comment:Testing performed by : [facility], [address] [place]., [address] Blood (Peripheral) 12/28/2024 11:47 AM CDT 12/28/2024 1:28 PM CDT Tena CLARISSA DAVENPORT - 01/01/2025 4:00 PM CDT From a [...] characteristics have been verified by the [facility]. For questions about this culture, contact the Microbiology Laboratory at [phone]. Interpretive data was last revised on 24. us Nikita Llanos MD LAB MICROBIOLOGY - GENERAL ORDERABLES Final Result CLARISSA DAVENPORT [address] [facility] Department [place] [address] * Blood culture Blood Peripheral (12/28/2024 11:47 AM CDT) Report Final Report: No growth Comment:Testing performed by : [facility], [address] [facility] [place]., [address] Blood (Peripheral) 12/28/2024 11:47 AM CDT 12/28/2024 1:28 PM CDT Narrative CLARISSA DAVENPORT - 01/01/2025 4:00 PM CDT Draw Blood [...] characteristics have been verified by the [facility]. For questions about this culture, contact the Microbiology Laboratory at [phone]. Interpretive data was last revised on 24. us Nikita Llanos MD LAB MICROBIOLOGY - GENERAL ORDERABLES Final Result Performing Organization Address City/State/[facility] Co de Phone Number CLARISSA [address] [facility] Department [place] [address] * POCT glucose (12/28/2024 11:37 AM CDT) [facility] Glucose, POC 87 70 - 199 mg/dL Blood 12/28/2024 11:3 7 AM CDT 12/28/2024 11:37 AM CDT Notinfile Unknown LAB POCT ORDERABLES - DEVICE F inal Result Performing Organization Address City/[facility]/ZIP Co de Phone Number CLARISSA [address] [address] * Troponin T high-sensitivity series (baseline, 2hr, 4hr, 6hr) (12/28/2024 11:31 AM CDT) [facility] Trop T hs 9 <=22 ng/L Comment: Interpretive Data For further hscTnT resources including the diagnostic algorithm and an aid in interpretation, copy and paste this link: https://nrl.testcatalog.org/show/hsTrop Current Interpretive Data last revised 2020. Blood 12/28/2024 11:3 1 AM CDT 12/28/2024 11:43 AM CDT us Nikita Llanos MD LAB BLOOD ORDERABLES Final Result Performing Organization Address [facility] Co de Phone Number CLARISSA [address] [address] * Sepsis Lactate w/ Reflex (12/28/2024 11:31 AM CDT) [facility] Sepsis Lactate 1.4 0.7 - 2.0 mmol/L Blood 12/28/2024 11:3 1 AM CDT 12/28/2024 11:38 AM CDT Nikita Llanos MD LAB BLOOD ORDERABLES Final Result Performing Organization Address [facility] Co de Phone Number [address] [address] * eGFR (12/28/2024 11:31 AM CDT) [facility] eGFR >90 >=60 mL/min/1. 73 m2 Comment: [...] Llanos MD LAB BLOOD ORDERABLES Final Result [place] [address] [facility] Department [place] [address] * (ABNORMAL) Differential, auto (12/28/2024 11:31 AM CDT) Neutrophil abs 6.83(H) 1.50 - 6.50 K/cumm Imm gran abs 0.03 0.00 - 0.10 K/cumm [facility] Lymphocyte abs 2.10 0.80 - 3.30 K/cumm [facility] Monocyte abs 0.69 0.20 - 0.80 K/cumm [facility] Eosinophil abs 0.23 0.00 - 0.50 K/cumm [facility] Basophil abs 0.08 0.00 - 0.10 K/cumm [facility] Neutrophil pct 68.6 % [facility] Comment: Interpretive Data Percent cell count reference ranges are not reported, since discordance with absolute values may lead to misinterpretation of CBC data. Current Interpretive Data was last revised on 2017. Imm gran pct 0.3 % [facility] Comment: Interpretive Data Percent cell count reference ranges are not reported, since discordance with absolute values may lead to misinterpretation of CBC data. Current Interpretive Data was last revised on 2017. Lymphocyte pct 21.1 % [facility] Comment: Interpretive Data Percent cell count reference ranges are not reported, since discordance with absolute values may lead to misinterpretation of CBC data. Current Interpretive Data was last revised on 2017. Monocyte pct 6.9 % [facility] Comment: Interpretive Data Percent cell count reference ranges are not reported, since discordance with absolute values may lead to misinterpretation of CBC data. Current Interpretive Data was last revised on 2017. Eosinophil pct 2.3 % [facility] Comment: Interpretive Data Percent cell count reference ranges are not reported, since discordance with absolute values may lead to misinterpretation of CBC data. Current Interpretive Data was last revised on 2017. Basophil pct 0.8 % [facility] Comment: Interpretive Data Percent cell count reference ranges are not reported, since discordance with absolute values may lead to misinterpretation of CBC data. Current Interpretive Data was last revised on 2017. Blood 12/28/2024 11:3 1 AM CDT 12/28/2024 11:43 AM CDT us Nikita Llanos MD LAB BLOOD ORDERABLES Final Result CLARISSA [address] [facility] [place] [address] * Pro B-type natriuretic peptide (12/28/2024 11:31 [...] et.al. Eur Heart J. 2006:27:330-337. 2. Ham CLIFFORD, Eveline ELIAS. J. AM Nica Cardiol: Cardiovasc Imag. 2009;2: 216- 225. Interpretive Data Last Revised Date: 2018. Blood 12/28/2024 11:3 1 AM CDT 12/28/2024 11:43 AM CDT Nikita Llanos MD LAB BLOOD ORDERABLES Final Result [place] [address] [facility] [place] [address] * (ABNORMAL) CBC with auto differential (12/28/2024 11:31 AM CDT) WBC 9.96(H) 3.80 - 9.90 K/cumm Hgb 12.0(L) 13.0 - 17.5 g/dL [facility] Hct 40.1 38.9 - 50.3 % [facility] Plt 333 150 - 400 K/cumm [facility] MPV 9.4 9.1 - 12.3 fL [facility] RBC 4.83 4.30 - 5.80 M/cumm [facility] MCV 83.0 81.3 - 96.4 fL [facility] MCH 24.8(L) 27.1 - 33.3 pg [facility] MCHC 29.9(L) 32.3 - 35.7 g/dL [facility] RDW CV 14.5 11.1 - 14.9 % [facility] RDW SD 43.8 35.7 - 48.1 fL [facility] NRBC abs 0.00 0.00 - 0.01 K/cumm [facility] Blood 12/28/2024 11:3 1 AM CDT 12/28/2024 11:43 AM CDT Nikita Llanos MD LAB BLOOD ORDERABLES Final Result Performing Organization Address [facility] Co de Phone Number ISSA[address] [place] [address] * Phosphorus (12/28/2024 11:31 AM CDT) Pathologist [facility] Phosphorus, pl 3.4 2.3 - 4.5 mg/dL Blood 12/28/2024 11:3 1 AM CDT 12/28/2024 11:43 AM CDT Nikita Llanos MD LAB BLOOD ORDERABLES Final Result Performing Organization Address [facility] de Phone Number [address] [place] [address] * Magnesium (12/28/2024 11:31 AM CDT) [facility] Magnesium 2.1 1.4 - 2.5 mg/dL Blood 12/28/2024 11:3 1 AM CDT 12/28/2024 11:43 AM CDT Nikita Llanos MD LAB BLOOD ORDERABLES Final Result Performing Organization Address [facility] de Phone Number [address] [address] * Comprehensive metabolic panel (12/28/2024 11:31 AM CDT) [facility] Sodium 142 135 - 145 mmol/L Potassium, pl 3.9 3.3 - 4.9 mmol/L [facility] Chloride 107 97 - 110 mmol/L [facility] CO2 26 22 - 32 mmol/L [facility] Anion gap 9 2 - 15 mmol/L [facility] BUN 17 6 - 25 mg/dL [facility] Creatinine 0.81 0.80 - 1.30 mg/dL [facility] Glucose 104 70 - 199 mg/dL [facility] Comment: Interpretive Data Fasting glucose >/= [...] 2022. Calcium 8.8 8.5 - 10.3 mg/dL [facility] Bilirubin, total 0.2 0.1 - 1.2 mg/dL [facility] [facility] Protein, pl 6.8 6.5 - 8.5 g/dL [facility] Albumin 3.5 3.5 - 5.0 g/dL [facility] Alk phos 86 40 - 130 Units/L [facility] ALT 10 7 - 55 Units/L [facility] AST 17 10 - 50 Units/L [facility] Blood 12/28/2024 11:3 1 AM CDT 12/28/2024 11:43 AM CDT us Nikita Llanos MD LAB BLOOD ORDERABLES Final Result CLARISSA [address] [facility] Department [place] [address] * ECG 12 lead (12/28/2024 11:23 AM CDT) Ventricular Rate EKG/Min 61 BPM [facility] Atrial Rate 61 BPM [facility] [place]-Interval (MSEC) 172 ms [facility] QRS-Interval (MSEC) 96 ms [facility] QT-Interval (MSEC) 446 ms [facility] QTc 448 ms [facility] P [place] 72 degrees [facility] R [place] 53 degrees [facility] T [place] 70 degrees [facility] Diagnosis Normal sinus rhythm Incomplete right bundle branch block Septal infarct , age undetermined Confirmed by STEVE VAZQUEZ M.D. ([id number]) on 12/28/2024 5:12:46 PM [facility] 12/28/2024 11:2 3 AM CDT 12/28/2024 5:12 PM CDT us Nikita Llanos MD ECG ORDERABLES Final Resu lt [facility] from Last 3 Months Insurance [facility] Advance Directives For more information, please contact: [phone] * Full Code (Latest Code Status on File) Date Activated Date Inactivated Comments 02/27/2025 7:49 PM 03/02/2025 9:08 PM * Full Code Date Activated Date Inactivated Comments 12/28/2024 5:17 PM 01/01/2025 7:55 PM Care Teams Dance Master Relationship Specialty Start Date End Date Mike Ball MD [address] [facility] [address] [place] [address] PCP - General Family Medicine 03/31/24
[2025-03-27 11:19] LABS: INR 4.1; Prothrombin Time 37.6 Seconds (11.1-14.7)
== END 2025-03-27 10:42 | disposition home or self-care (01) ==
LOC: ANHLAB 10:43
PROVIDERS: PCP Family Medicine; Visit Provider Physician Assistant
DX: I26.99 Other pulmonary embolism without acute cor pulmonale (principal); D68.59 Other primary thrombophilia; A31.0 Pulmonary mycobacterial infection
CPT/HCPCS: 36415; 85610

== ENCOUNTER 2025-04-12 14:21 | Outpatient (CLI) | payer OTHER, SELFPAY ==
--- OUTSIDE RECORDS SUMMARY | 2025-04-11 11:00 | XMS_ITS | Encounter Summary ---
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, unspecified laterality (HCC) Nontraumatic intraventricular intracerebral hemorrhage, unspecified laterality (HCC) Paris Collier MD [address] [place] [address] Phone: tel: fax:[phone] [place] [address] [facility] Occup Therapy [address] [place] [id number] Phone: tel: fax: Referral ID Status Reason Start Date Expiration Date Visits Requested Visits Authorized [id number] Authorized Evaluate and Treat 04/05/2024 05/31/2025 96 [id number] Encounter Details Date Type Department Care Team (Late st Contact Info) Description 04/11/2025 11:00 AM CDT Therapy [facility] OP Occup Therapy [address] [place] [id number] Felecia Torres, OT Nontraumatic subcortical hemorrhage of cerebral hemisphere, unspecified laterality (HCC) (Primary Dx); 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 More than three times a week 02/28/2025 How often do you get togethe r with friends or relatives? More than three times a week 02/28/2025 How often do you attend chur ch or samaritan services? Never 02/28/2025 Do you belong to any clubs o r organizations such as jain groups, unions, fraternal or athletic groups, or [...] and heating? Not hard at all 02/28/2025 PHQ-2 Answer Date Recorded PHQ-2 Total Score 0 03/30/2025 PRAPARE - Transportation Answer Date Re corded In the past 12 months, has l ack of transportation kept you from medical appointments or from getting medications? No 12/2024 In the past 12 months, has l ack of transportation kept you from meetings, work, or from getting things needed for daily living? No 02/28/2025 PHQ-9 Answer Date Recorded PHQ-9 Total Score 1 03/30/2025 Housing Stability Vital Sign Answer Rojas e Recorded In the last 12 months, was t here a time when you were not able to pay the mortgage or rent on time? No 02/28/2025 In the past 12 months, how m any times have you moved where you were living? 0 02/28/2025 At any time in the past 12 m [facility], were you homeless or living in a skilled nursing (including now)? No 02/28/2025 Social Connection and Isolation Panel Answer Date Recorded In a typical week, how many times do you talk on the phone with family, friends, or neighbors? More than three times a week 03/30/2025 How often do you get togethe r with friends or relatives? More than three times a week 03/30/2025 How often do you attend chur ch or samaritan services? Never 03/30/2025 Do you belong to any clubs o r organizations such as jain groups, unions, fraternal or athletic groups, or school groups? No 03/30/2025 How often do you attend meet ings of the clubs or organizations you belong to? Never 03/30/2025 Marital Status Never 03/30/2025 Overall Financial Resource Strain (CARDIA) Answe r Date Recorded How hard is it for you to pa y for the very basics like food, housing, medical care, and heating? Not very hard 03/30/2025 Hunger Vital Sign Answer Date Recorded Within the past 12 months, y ou worried that your food would run out before you got the money to buy more. Never true 03/30/20 25 Within the past 12 months, t he food you bought just didn't last and you didn't have money to get more. Never true 03/30/2025 PRAPARE - Transportation Answer Date Re corded In the past 12 months, has l ack of transportation kept you from medical appointments or from getting medications? No 11/2024 In the past 12 months, has l ack of transportation kept you from meetings, work, or from getting things needed for daily living? No 03/30/2025 Housing Stability Vital Sign Answer Rojas e Recorded In the last 12 months, was t here a time when you were not able to pay the mortgage or rent on time? No 03/30/2025 In the past 12 months, how m any times have you moved where you were living? 0 03/30/2025 At any time in the past 12 m [facility], were you homeless or living in a skilled nursing (including now)? No 03/30/2025 [facility] Utilities Answer Date Recorded In the past 12 months has th e electric, gas, oil, or water company threatened to shut off services in your home? No 03/30/2025 Personal Safety Answer Date Recorded Have you ever been in or are you currently in a harmful physical or emotional relationship or is someone making you feel afraid or unsafe? 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 Occupational Therapy Visit 04/11/2025 Griffin Rodriguez 1965 ICD-10-CM 1. Nontraumatic subcortical hemorrhage of cerebral hemisphere, unspecified laterality (HCC) I61.0 2. 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 SUBJECTIVE: Pt reported, it's not bad when asked how his breathing felt during BTE exercise. Pain today is 0/10. Described as: Pain location None Pain quality/Severity None OBJECTIVE: Treatment Provided This Date: Pt participated in a 59 minute skilled OT treatment session addressing LUE ROM, strength, and neuromuscular re-education for improved arm function in ADLs/IADLs. Pt amb into OT clinic with FWW and SBA with increased time. Vitals obtained after: HR 130, SpO2 88%. After 1 minute of rest and deep breathing, vitals at: HR 112, SpO2 94%. Under direction of supervising therapist, donned MHP to pt's L shoulder and hand x 10 minutes to reduce muscle tightness in preparation for therapeutic activity/exercise. During this time, pt completed objective measurements (outlined below) that were unable to becompleted at last re-eval d/t time constraint. Doffed MHP with no adverse reactions noted. Performed scapular mobilization followed by PROM to pt's L shoulder through digits with pt tolerating well. Pt performed forward/backward towel slides with LUE x 2 minutes. Pt transitioned to sidelying on treatment mat with SBA. Donned air splint to pt's L elbow for prolonged PROM in elbow extension. Under d irection of supervising therapist, donned Saebo Stim electrodes to pt's L anterior and mid deltoid at Program 1, Level 16. With triggered stim, pt performed shoulder flexion towel slides in gravity-reduced plane x 30 repetitions. Doffed air splint and transferred NMES electrodes to pt's L triceps. Pt transitioned back to sitting edge of mat indep and ambulated to chair at [facility] with FWW and SBA. Ptthen performed 3 minutes of pushing/pulling with [facility] elbow flex/ext device with triggered stim set at Program 1, Level 12 to facilitate improved elbow extension ROM/strength in closed chain exercise.Pt also benefited from use of vibratory stimulus over triceps for additional neuromuscular re-education. Pt completed x 2 sets with 1 minute rest break for muscle recovery between. Vitals obtained during rest break: HR 108, SpO2 92%. Doffed NMES with no adverse reactions noted. Pt amb back to lobbywith FWW and SBA with no further questions/concerns. Objective Measurements taken: Upper Extremity Functional Index (UEFI) - 20 The UEFI-20 is a self report measure of functional upper extremity use in daily activities, with options from extreme difficulty or unable to perform activity to no difficulty for each item. The UEFI-20 is scored from 0-80, with higher scores indicating higher function. Pt completed the UEFI-20with a score of 61/80 on this date. Pt previously scored 57/80 at last re-certification on 01/09/25 Pinch strength (lbs): 04/11/25 01/09/25 12/05/24 09/14/24 06/27/24 Norm RUE lateral pinch N/t N/t Not re-tested Not re-tested 9 Male 55-59 y/o: 24.2 RUE tip pinch N/t N/t Not re-tested Not re-tested 5 Male 55-59 y/o: 16.6 RUE tripod pinch N/t N/t Not re-tested Not re-tested 8 Male 55-59 y/o: 23.7 LUE lateral pinch 7.5 6 9 9 1 Male 55-59 y/o: 23.0 LUE tip pinch 6 6 3 3 0 Male 55-59 y/o: 15.0 LUE tripod pinch 7 7 5 5 1 Male 55-59 y/o: 21.3 9 hole peg test: Time (seconds) 04/03/25 Time at last evaluation 01/09/25 (seconds) Norm (seconds) LUE Unable to place any pegs in 2 minutes 08/03 pegs placed (not removed) in 117 seconds Male 56-60 y/o: 21.6 RUE N/t N/t Male 56-60 y/o: 20.9 Home Exercise Program: HOME EXERCISE PROGRAM Educated on Progressing Independent Compliant SROM and scapular exercises 04/18/24 07/25/24 Yes 2-3x/day 2. Active hand 04/20/24 08/08/24 Yes Multiple times per day (all the time) 4. Supine shoulder flex, shoulder ER, and elbow ext 07/06/24 Yes Yes Every night 5. Pulleys previously by PT Yes Yes Once a day 6. FMC 09/14/24 Yes 7. Rolyan business strategy manager solar installer pv 05/30/24 Yes Yes 20-25 reps 2-3x/day 8. Vertical towel slides at wall 09/14/24 Needs review 9. Isolated IP joint extension ASSESSMENT: Patient tolerated today's treatment well. On additional re-assessments completed today, pt demonstrated improvement in L lateral pinch strength, additional pinch strengths and 9 hole peg performance similar to last re-eval. Pt demonstrated improved L elbow extension active ROM in closed chain exercise today with use of BTE and neuromuscular re-education strategies. Pt demonstrates continued diffic ulty with hand function r/t hypertonicity; he has an appointment with Botox physician in ~1 month to address this. He will benefit from further use of Saebo Flex to improve hand function for use in ADLs/IADLs. Pt's SpO2 dropped with mobility and exercise, but quickly raised with seated rest and deep breathing. Continue to monitor pt's HR and SpO2 with activity. Patient demonstrates decreased LUE function which is contributing to difficulty with participation in ADL/IADL, work and driving. Patient would benefit from additional skilled therapy services in order to address above deficits and return to prior level of function. Goals: STGs to be met by 05/29/25 Pt to transition from sitting edge of mat to quadruped to tall kneeling to sitting edge of mat x 3 repetitions with CGA for improved weightbearing and strength in LUE/LLE. Pt to place and screw in 5+ plastic screws in [employer] board with L hand with 0-1 drops to demonstrateimproved FMC for progression toward PLOF/return to work skills. Pt to demonstrate independence with isolated IP joint extension exercises to improve digit ROM/function in L hand. Pt to fasten/fasten x5 buttons in under 2 minutes using AE/strategies/DME PRN SBA to demonstrate improved ADL performance/independence and LUE function for ADLs. Pt to complete simple meal prep task using LUE as gross assist to hold/stabilize food while cutting, as well as to hold pots/pans with LUE using AE/DME/Strategies PRN SBA to demonstrate improved functional use of LUE for IADLs. LTGs to be met by 06/26/25 Pt to improve overall CTMT score to average for age to demonstrate improved potential to return to driving. Pt to improve LUE active shoulder abduction to at least 105 degrees to demonstrate improved ROM foruse in ADLs/IADLs. Pt to improve LUE active shoulder flexion to at least 95 degrees to demonstrate improved ROM for use in ADL/IADLs. (Progressing 04/11/25) Pt to increase LUE business strategy manager strength by to least 28 lbs to demonstrate increased strength for use in ADLs/IADLs. Pt to improve LUE active elbow extension to at least -35 degrees to demonstrate improved ROM for use in ADL/IADLs. (Progressing 04/11/25) Pt to improve LUE box and blocks score to at least 13 blocks/minute to demonstrate improved FMC foruse in ADL/IADLs. Pt to place 3+ pegs of 9 hole peg test in <2 minutes with L hand to demonstrate improved FMC foruse in ADLs/IADLs. Plan: Continue skilled OT Plan of Care: Frequency/duration of OT treatment: 1-2 times per week for 12 weeks Initial Certification dates from 04/03/25 to 06/26/25. Progress Note #1 due: 05/01/25 Progress Note #2 due: 05/29/25 Order Expiration/Re-certification due: 06/26/25 Felecia Torres OTR/L [facility] 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
--- OUTSIDE RECORDS SUMMARY | 2025-04-12 14:26 | XMS_ITS | Clinical Summary ---
Author Organization [facility] Address [address] [facility] [place] [address] Care Team Providers Care Creative Manager Name Role Phone Mike Ball MD Primary Care Provider [phone] Source Comments [facility],non-owned Affiliates and Associated Physician Practices is amultiple site organization consisting of ambulatory clinics and hospital sitesin [place], [place], [place] and [place]. This disclosure is being madepursuant to the Care Everywhere program and may not contain all information available regarding this patient. Last updated 18.[facility] Allergies No known active allergies Medications * [...] Recorded Patient Health Questionnaire-2 Score 0 03/12/2024 [facility] [place] [facility] Occupat ional Health - Occupational Stress [...] place to sleep or slept in a custodial (including now)? 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
--- OUTSIDE RECORDS SUMMARY | 2025-04-12 14:26 | XMS_ITS | Clinical Summary ---
Author Organization [facility] [place] Address [address] [place] [address] Care Team Providers Care Service Consultant Name Role Phone Mike Ball MD Primary [...] Take 1 tablet by mouth daily Active famotidine (PEPCID) 20 mg tablet Take 1 tablet (20 mg total) by mouth daily Active albuterol HFA (PROVENTIL HFA,VENTOLIN HFA,PROAIR HFA) 90 mcg/actuation inhaler Inhale 1 puff every 6 (six) hours as needed for wheezing or shortness of breath 1 each 2 03/02/20 25 Active tiotropium-olo dateroL (Stiolto Respimat) 2.5-2.5 mcg/actuation inhaler Inhale 1 puff daily 3 each 3 03/08/20 25 026 Active ipratropium-al buteroL (DUO-NEB) 0.5-2.5 mg/3 mL nebulizer solution Take 3 mL by nebulization every 6 (six) hours 360 mL 03/08/20 026 Active rifAMPin (RIFADIN) 300 mg capsule Take 2 capsules (600 mg total) by mouth daily 60 capsule 03/08/20 Active Additional Information Patient not taking.Reason: not started yet, Reported on 04/10/2025 warfarin (COUMADIN) 5 mg tablet 03/19/20 Active guaiFENesin ER (MUCINEX) 600 mg 12 hr tablet Take 1 tablet (600 mg total) by mouth every 12 (twelve) hours as needed for cough for up to 10 days 20 tablet 04/01/20 Active azithromycin (ZITHROMAX) 250 mg tablet Take 1 tablet (250 mg total) by mouth daily Start one week after ethambutol 30 tablet 04/10/20 25 Active ethambutoL (MYAMBUTOL) 400 mg tabletIndicati ons:Mycobacter iosis Take 2 tablets (800 mg total) by mouth daily 60 tablet 04/10/20 026 Active apixaban (ELIQUIS) 5 mg tablet Take 1 tablet (5 mg total) by mouth 2 (two) times a day 60 tablet 5 01/08/20 025 Discontinu ed(Therapy completed) azithromycin (ZITHROMAX) 500 mg tablet Take 1 tablet (500 mg total) by mouth daily 30 tablet 03/08/20 025 Discontinu ed(Therapy completed) ethambutoL (MYAMBUTOL) 400 mg tabletIndicati ons:Mycobacter iosis Take 2 tablets (800 mg total) by mouth daily 60 tablet 03/16/20 025 Discontinu ed(Reorder ) enoxaparin (LOVENOX) 80 mg/0.8 mL syringe 03/19/20 25 025 Discontinu ed(Therapy completed) amoxicillin-cl avulanate (AUGMENTIN) 875-125 mg per tabletIndicati ons:Pneumonia, Aspiration Take 1 tablet (875 mg of amoxicillin total) by mouth 2 (two) times a day for 7 doses 7 tablet 04/01/20 25 025 Active Problems Problem Noted Date Diagnosed Date 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 Assessment & Plan (03/30/2025 1:53 AM CDT): 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 (02/15/2025) Patient indicates he has not started management with azithromycin, rifampin and ethambutol due to upcoming lab testings are required Pulmonary consultation History of pulmonary embolism 03/30/2025 Assessment & Plan (03/30/2025 1:55 AM CDT): As referred being diagnosed in December 2024 Recent discontinuation of Eliquis, and starting of Coumadin therapy 1 week ago Pending assessment a PT INR levels Shortness of breath 03/29/2025 High risk medication use 03/21/2025 Assessment & [...] failure with hypoxia Lesion of lung 02/06/2025 Chronic obstructive pulmonary disease (COPD) 12/2024 Assessment & Plan (03/30/2025 1:51 AM CDT): Stable Continue home regimen Hypotension 12/29/2024 Near syncope 12/28/2024 Aspiration pneumonia 12/28/2024 Assessment & Plan (03/30/2025 1:50 AM CDT): History of CVA, and patient refers recurrent episodes of difficulty swallowing and possible choking events multiple times in the past few months NPO IV antibiotic with Unasyn No sign of respiratory compromise Dysphagia 05/12/2024 Assessment & Plan (03/30/2025 1:51 AM CDT): History of CVA and recurrent episodes of difficulty swallowing NPO Swallow study evaluation IV fluid 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 03/06/2024 Hemorrhagic stroke 03/05/2024 Midline shift of brain with brain compression Cerebrovascular accident (CVA) 03/04/2024 Facial droop 03/04/2024 Dysarthria 03/04/2024 HTN (hypertension) 03/04/2024 Left-sided weakness 03/04/2024 Muscle weakness of left upper extremity 03/04/20 24 Encounters Date Type Department Care Team Description 04/11/2025 11:00 AM CDT Therapy [facility] OP Occup Therapy [address] [place] [phone] Melissa Felecia, OT Nontraumatic subcortical hemorrhage of cerebral hemisphere, unspecified laterality (HCC) (Primary Dx); 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) 04/10/2025 9:30 AM CDT Office Visit [facility] Pulmonology [address] [place] [address] [address] [place] [address] Aileen Mcdonald MD Cavitary lung disease (Primary Dx); Mycobacterium kansasii infection (HCC) 04/10/2025 Telephone [facility] Pulmonology [address] [place] [address] [address] [place] [phone] Aileen Mcdonald MD 04/09/2025 11:00 AM CDT Therapy [facility] OP Occup Therapy [address] [place] [phone] Vanesa Todd COTA Nontraumatic subcortical hemorrhage of cerebral hemisphere, unspecified laterality (HCC) (Primary Dx); 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); Nontraumatic intraventricular intracerebral hemorrhage, unspecified laterality (HCC) 04/05/2025 Plan of Care Documentation [facility] OP Occup Therapy [address] [place] [phone] 04/03/2025 11:45 AM CDT Lab [facility] Medical Office Bldg [address] OP Lab [address] [place] [phone] Anticoagulation monitoring, INR range 2-3 04/03/2025 10:00 AM CDT Therapy [facility] OP Occup Therapy [address] [place] [address] Marcellus Snowden OT Nontraumatic subcortical hemorrhage of cerebral hemisphere, unspecified laterality (HCC) (Primary Dx); 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); Nontraumatic intraventricular intracerebral hemorrhage, unspecified laterality (HCC) 04/02/2025 Documentation [facility] OP Physical Therapy [address] [place] [phone] Mattie Brantley, PT 03/29/2025 7:44 PM CDT - 04/01/2025 2:25 PM CDT Hospital Encounter [address] [address] Amandeep Suarez MD Patel, Satyen V., MD Sajjad, Sohaib, MD Shortness of breath (Primary Dx); HAP (hospital-acquired pneumonia); Aspiration pneumonia of left lung, unspecified aspiration pneumonia type, unspecified part of lung (HCC); Chronic obstructive pulmonary disease, unspecified COPD type (HCC); History of pulmonary embolism; Mycobacterium infection; Muscle weakness of left upper extremity; Anticoagulation monitoring, INR range 2-3 Discharge Disposition: Discharge to home or self care 03/22/2025 11:30 AM CDT Therapy [facility] OP Physical Therapy [address] [place] [phone] Sydney Dacosta PTA Hemiplegia, unspecified etiology, unspecified hemiplegia type, unspecified laterality (HCC) (Primary Dx); Cerebral infarction, unspecified mechanism (HCC); Unsteadiness on feet; Other abnormalities of gait and mobility 03/21/2025 9:00 AM CDT Office Visit [facility] Op[facility]mology [address] [facility] [address] 2nd [address] [place] [address] Simon Wilhelm OD High risk medication use (Primary Dx); Pneumonia of both upper lobes due to infectious organism 03/20/2025 11:30 AM CDT Therapy [facility] OP Physical Therapy [address] [place] [phone] Maryuri Hansen, SCALPER OPERATOR Hemiplegia, unspecified etiology, unspecified hemiplegia type, unspecified laterality (HCC) (Primary Dx) 03/15/2025 10:00 AM CDT Therapy [facility] OP Physical Therapy [address] [place] [address] Sydney Dacosta, SCALPER OPERATOR Hemiplegia, unspecified etiology, unspecified hemiplegia type, unspecified laterality (HCC) (Primary Dx) 03/13/2025 10:45 AM CDT Therapy [facility] OP Physical Therapy [address] [place] [address] Mattie Brantley, PT Hemiplegia, unspecified etiology, unspecified hemiplegia type, unspecified laterality (HCC) (Primary Dx); Cerebral infarction, unspecified mechanism (HCC); Unsteadiness on feet; Other abnormalities of gait and mobility; Weakness 03/13/2025 10:45 AM CDT Therapy [facility] OP Physical Therapy [address] [place] [address] Cheri Cunningham, SCALPER OPERATOR Hemiplegia, unspecified etiology, unspecified hemiplegia type, unspecified laterality (HCC) (Primary Dx); Weakness 03/09/[address] [facility] Pulmonology [address] [place] [phone] Es Philip MD 03/08/2025 11:30 AM CDT Office Visit [facility] Pulmonology [address] [place] [address] [place] [phone] Aileen Mcdonald MD Mycobacterium kansasii infection (HCC) (Primary Dx); Acute pulmonary embolism, unspecified pulmonary embolism type, unspecified whether acute cor pulmonale present (HCC); Cavitary lung disease 03/08/2025 Telephone [facility] Pulmonology [address] [place] [phone] Dulce Messina RN 02/27/2025 4:55 PM CDT - 03/02/2025 5:00 PM CDT Hospital Encounter [address] [address] Og Mane, Mk Alvares MD Santillana, Cesar, MD Lun, Yu, MD Pneumonia of both upper lobes due to infectious organism (Primary Dx); Acute respiratory failure with hypoxia (HCC) Discharge Disposition: Discharge to home or self care 02/27/2025 10:00 AM CDT Therapy [facility] OP Occup Therapy [address] [place] [address] Vanesa Todd, HERNANDEZ Nontraumatic subcortical hemorrhage of cerebral hemisphere, unspecified laterality (HCC) (Primary Dx); 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); Nontraumatic intraventricular intracerebral hemorrhage, unspecified laterality (HCC) 02/19/2025 Results Follow-Up [facility] Pulmonology [address] [place] [address] [place] [phone] Aileen Mcdonald MD CBC with auto differential, Basic metabolic panel, Protime-INR, Additional followed-up results: 02/19/2025 Telephone [facility] [address] [place] [address] [address] [place] [address] [place] [address] Jamie Novak MD PhD 02/17/2025 Plan of Care Documentation [facility] OP Physical Therapy [address] [place] [phone] 02/16/[address] [facility] Pulmonology [address] [place] [address] Dulce Messina RN 02/15/2025 11:21 AM CDT Anesthesia Event [facility] OR [address] [place] [phone] Laurie Decker MD Taylor-White, Carlotta A., NP 02/15/2025 11:00 AM CDT - 02/15/2025 12:15 PM CDT Surgery [facility] OR [address] [place] [phone] Aileen Mcdonald MD BRONCHOSCOPY WITH BRONCHOALVEOLAR LAVAGE 02/15/2025 8:59 AM CDT - 02/15/2025 11:59 PM CDT Hospital Encounter [facility] ED CT [address] [place] [phone] Cavitary lesion of lung; Multifocal pneumonia Discharge Disposition: Discharge to home or self care 02/15/2025 8:52 AM CDT - 02/15/2025 2:35 PM CDT Hospital Encounter [facility] OR [address] [place] [phone] Aileen Mcdonald MD Lesion of lung Discharge Disposition: Discharge to home or self care 02/13/2025 11:30 AM CDT Therapy [facility] OP Physical Therapy [address] [place] [address] Mattie Brantley, PT Hemiplegia, unspecified etiology, unspecified hemiplegia type, unspecified laterality (HCC); Cerebral infarction, unspecified mechanism (HCC); Unspecified sequelae of cerebral infarction; Unsteadiness on feet; Other abnormalities of gait and mobility; Weakness 02/12/2025 9:00 AM CDT Therapy [facility] OP Occup Therapy [address] [place] [phone] Vanesa Todd COTA Nontraumatic subcortical hemorrhage of cerebral hemisphere, unspecified laterality (HCC) (Primary Dx); 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); Nontraumatic intraventricular intracerebral hemorrhage, unspecified laterality (HCC) 02/07/2025 11:00 AM CDT Therapy [facility] OP Occup Therapy [address] [place] [phone] Felecia Torres, OT Nontraumatic subcortical hemorrhage of cerebral hemisphere, unspecified laterality (HCC) (Primary Dx); 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 Pul[facility] [address] [place] [address] [place] [phone] Aileen Mcdonald MD Cavitary lesion of lung (Primary Dx); Multifocal pneumonia 02/06/[address] 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); Nontraumatic intraventricular intracerebral hemorrhage, unspecified laterality (HCC) 02/01/2025 1:30 PM CDT - 02/01/2025 11:59 PM CDT Hospital En[facility] [address] [place] [address] Multifocal pneumonia Discharge Disposition: Discharge to home or self care 02/01/2025 10:00 AM CDT Therapy [facility] OP Occup Therapy [address] [place] [phone] Marcellus Snowden OT Nontraumatic subcortical hemorrhage of cerebral hemisphere, unspecified laterality (HCC) (Primary Dx); 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) 01/30/2025 9:00 AM CDT Therapy [facility] OP Occup Therapy [address] [place] [phone] Marcellus Snowden OT Nontraumatic subcortical hemorrhage of cerebral hemisphere, unspecified laterality (HCC) (Primary Dx); 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); Nontraumatic intraventricular intracerebral hemorrhage, unspecified laterality (HCC) 01/11/2025 11:00 AM CDT Therapy [facility] OP Occup Therapy [address] [place] [phone] Torres, Felecia, OT Nontraumatic subcortical hemorrhage of [...] Missing teeth, acquired has some missing teeth Family History Medical History Relation Name Comments COPD Father COPD Father's Brother 1 COPD Father's Brother 2 Cancer Sister Relation Name Status Comments Father Father's Brother 1 Father's Brother 2 Alive Sister Social History Tobacco Use Types Packs/Day Years [...] 02/28/2025 How often do you attend chur or christian services? Never 02/28/2025 Do you belong to [...] any time in the past 12 m [facility], were you homeless or living in a mcfp (including now)? No 02/28/2025 Social Connection and Isolation Panel Answer Date Recorded In a typical week, how many times do you talk on the phone with family, friends, or neighbors? More than three times a week 03/30/2025 How often do you get togethe r with friends or relatives? More than three times a week 03/30/2025 How often do you attend chur ch or christian services? Never 03/30/2025 Do you belong to [...] any time in the past 12 m [facility], were you homeless or living in a mcfp (including now)? No 03/30/2025 [facility] Utilities Answer Date Recorded In the past 12 months has [facility], gas, oil, or water [employer] threatened to shut off services in your home? No 03/30/2025 Personal Safety Answer Date Recorded Have you ever been in or are you currently in a harmful physical or emotional relationship or is someone making you feel afraid or unsafe? 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 Gender Identity Not on file Sexual Orientation Not on file Obstetrics History Last Filed Vital Signs Vital Sign Reading Time Taken Comments Blood Pressure 124/88 04/10/2025 9:34 AM CDT Pulse 113 04/10/2025 9:34 AM CDT Temperature 36.4 C (97.5 F) 04/10/2025 9:34 AM CDT Respiratory Rate 18 04/10/2025 9:34 AM CDT Oxygen Saturation 95% 04/10/2025 9:34 AM CDT Inhaled Oxygen Concentration - - Weight 59 kg (130 lb) 04/10/2025 9:34 AM CDT Height 172.7 cm (5' 7.99) 04/10/2025 9:34 AM CD T Body Mass Index 19.77 04/10/2025 9:34 AM CDT Plan of Treatment Health Maintenance Due Date Last Done Comments Colon Cancer Screening-Colonoscopy 1965 Hepatitis C Screening 1965 Prostate Cancer Screening-PSA 1965 DTaP/Tdap/Td Vaccine (1 - Tdap) 11/17/1978 Hepatitis B Screening 11/17/1985 Regular Well Visit/Exam 18-64 11/17/1985 Pneumococcal vaccine <65 (1 of 2 - PCV) 11/17/1986 Lung Cancer Screening 11/17/2017 Zoster Vaccine (1 of 2) 11/17/2017 Covid-19 Vaccine (3 - season) 2025, 10/06/2020 Influenza Vaccine (#1) 2025 Depression Screening 03/29/2026 03/29/2025, 03/29/20 25 Procedures Procedure Name Priority Date/Time Associated Diagnosis Comments PROTIME-INR Routine 04/03/2025 11:39 AM CDT Anticoagulation monitoring, INR range 2-3 EGFR Routine 04/01/2025 2:41 AM CDT DIFFERENTIAL AUTO Routine 04/01/2025 2:4 1 AM CDT PROTIME-INR Routine 04/01/2025 2:41 AM CDT COMPREHENSIVE METABOLIC PANEL Routine 04/01/2025 2:41 AM CDT CBC WITH AUTO DIFFERENTIAL Routine 04/01/2025 2:41 AM CDT EGFR Routine 03/31/2025 3:04 AM CDT DIFFERENTIAL AUTO Routine 03/31/2025 3:0 4 AM CDT PROTIME-INR Routine 03/31/2025 3:04 AM CDT COMPREHENSIVE METABOLIC PANEL Routine 03/31/2025 3:04 AM CDT CBC WITH AUTO DIFFERENTIAL Routine 03/31/2025 3:04 AM CDT EGFR Routine 03/30/2025 2:29 AM CDT DIFFERENTIAL AUTO Routine 03/30/2025 2:2 9 AM CDT BASIC METABOLIC PANEL Routine 03/30/2025 2:29 AM CDT CBC WITH AUTO DIFFERENTIAL Routine 03/30/2025 2:29 AM CDT APTT Routine 03/30/2025 2:29 AM CDT PROTIME-INR Routine 03/30/2025 2:[address] CHEST PE W CONTRAST ED 8:35 PM CDT TROPONIN T HIGH-SENSITIVITY 4-HR Timed 03/29/2025 7:08 PM CDT XR CHEST 1 VIEW ED 03/29/2025 3:47 PM CDT ECG 12-LEAD STAT 03/29/2025 3:08 PM CDT EGFR STAT 03/29/2025 3:00 PM CDT DIFFERENTIAL AUTO STAT 03/29/2025 3:0 0 PM CDT TROPONIN T HIGH-SENSITIVITY SERIES (BASELINE, 2HR, 4HR, 6HR) STAT 03/29/2025 3:00 PM CDT CBC WITH AUTO DIFFERENTIAL STAT 03/29/2025 3:00 PM CDT COMPREHENSIVE METABOLIC PANEL STAT 03/29/2025 3:00 PM CDT OCT, OPTIC NERVE - OU - BOTH [...] ECG 12-LEAD STAT 02/27/2025 1:42 PM CDT NV AN PROCEDURE PLACEHOLDER Routine 02/15/2025 12:15 PM CDT NV AN ELECTIVE ENDOTRACHEAL AIRWAY Routine 02/15/2025 12:15 [...] Routine) 02/01/2025 1:39 PM CDT Multifocal pneumonia from Last 3 Months Results * (ABNORMAL) Protime-INR (04/03/2025 11:39 AM CDT) PT 31.50(H) 12.00 - 14.60 sec INR 3.02(H) 0.90 - 1.20 CLARISSA DAVENPORT Comment: Interpretive data Oral anticoagulant therapeutic ranges: Venous thromboembolism prophylaxis or treatment: 2.0-3.0 CARDIOLOGY Standard range: 2.0-3.0 High-intensity range: 2.5-3.5 Refer to indication-specific guidelines for appropriate target ranges for prosthetic heart valve replacement. Current interpretive data was last revised on 2019. Blood Venous blood specimen / Unknown 04/03/2025 11:39 AM CDT 04/03/2025 12:21 PM CDT Narrative CLARISSA - 04/03/2025 12:32 PM CDT Please forward results to PCP: Mike Ball MD Linh White MD LAB BLOOD ORDERABLES Final Resu lt CLARISSA [address] [place] [address] * eGFR (04/01/2025 2:41 AM CDT) eGFR >90 >=60 mL/min/1. 73 [...] interpretive data was last reviewed 2021. Blood 04/01/2025 2:41 AM CDT 04/01/2025 3:05 AM CDT us Linh White MD LAB BLOOD ORDERABLES Final Resu lt [facility] [address] [place] [address] * Differential, auto (04/01/2025 2:41 AM CDT) Neutrophil abs 5.56 1.50 - 6.50 K/cumm Imm gran abs 0.03 0.00 - 0.10 K/cumm [facility] Lymphocyte abs 1.62 0.80 - 3.30 K/cumm [facility] Monocyte abs 0.73 0.20 - 0.80 K/cumm [facility] Eosinophil abs 0.28 0.00 - 0.50 K/cumm [facility] Basophil abs 0.05 0.00 - 0.10 K/cumm [facility] Neutrophil pct 67.2 % [facility] Comment: Interpretive Data Percent cell count reference ranges are not reported, since discordance with absolute values may lead to misinterpretation of CBC data. Current Interpretive Data was last revised on 2017. Imm gran pct 0.4 % [facility] Comment: Interpretive Data Percent cell count reference ranges are not reported, since discordance with absolute values may lead to misinterpretation of CBC data. Current Interpretive Data was last revised on 2017. Lymphocyte pct 19.6 % [facility] Comment: Interpretive Data Percent cell count reference ranges are not reported, since discordance with absolute values may lead to misinterpretation of CBC data. Current Interpretive Data was last revised on 2017. Monocyte pct 8.8 % [facility] Comment: Interpretive Data Percent cell count reference ranges are not reported, since discordance with absolute values may lead to misinterpretation of CBC data. Current Interpretive Data was last revised on 2017. Eosinophil pct 3.4 % [facility] Comment: Interpretive Data Percent cell count reference ranges are not reported, since discordance with absolute values may lead to misinterpretation of CBC data. Current Interpretive Data was last revised on 2017. Basophil pct 0.6 % [facility] Comment: Interpretive Data Percent cell count reference ranges are not reported, since discordance with absolute values may lead to misinterpretation of CBC data. Current Interpretive Data was last revised on 2017. Blood 04/01/2025 2:41 AM CDT 04/01/2025 3:05 AM CDT Aman Causey MD LAB BLOOD ORDERABLES Final Re sult Performing Organization Address City/[facility]/ZIP Co de Phone Number [place] [phone] [facility] [place] [address] * (ABNORMAL) CBC with auto differential (04/01/2025 2:41 AM CDT) WBC 8.27 3.80 - 9.90 K/cumm Hgb 12.6(L) 13.0 - 17.5 g/dL [facility] Hct 42.2 38.9 - 50.3 % [facility] Plt 378 150 - 400 K/cumm [facility] MPV 9.5 9.1 - 12.3 fL [facility] RBC 5.20 4.30 - 5.80 M/cumm [facility] MCV 81.2(L) 81.3 - 96.4 fL [facility] MCH 24.2(L) 27.1 - 33.3 pg [facility] MCHC 29.9(L) 32.3 - 35.7 g/dL [facility] RDW CV 14.4 11.1 - 14.9 % [facility] RDW SD 42.0 35.7 - 48.1 fL [facility] NRBC abs 0.00 0.00 - 0.01 K/cumm [facility] Blood 04/01/2025 2:41 AM CDT 04/01/2025 3:05 AM CDT Aman Causey MD LAB BLOOD ORDERABLES Final Re sult [facility] [address] [facility] [place] [address] * (ABNORMAL) Protime-INR (04/01/2025 2:41 AM CDT) PT 29.10(H) 12.00 - 14.60 sec INR 2.72(H) 0.90 - 1.20 [facility] Comment: Interpretive data Oral anticoagulant therapeutic ranges: Venous thromboembolism prophylaxis or treatment: 2.0-3.0 CARDIOLOGY Standard range: 2.0-3.0 High-intensity range: 2.5-3.5 Refer to indication-specific guidelines for appropriate target ranges for prosthetic heart valve replacement. Current interpretive data was last revised on 2019. Blood 04/01/2025 2:41 AM CDT 04/01/2025 3:05 AM CDT Linh White MD LAB BLOOD ORDERABLES Final Resu lt Performing Organization Address City/State/[facility] de Phone Number [place] [phone] [facility] [place] [address] * (ABNORMAL) Comprehensive metabolic panel (04/01/2025 2:41 AM CDT) Pathologist [facility] Sodium 139 135 - 145 mmol/L Potassium, pl 3.6 3.3 - 4.9 mmol/L [facility] Chloride 102 97 - 110 mmol/L [facility] CO2 25 22 - 32 mmol/L [facility] Anion gap 12 2 - 15 mmol/L [facility] BUN 14 6 - 25 mg/dL [facility] Creatinine 0.75(L) 0.80 - 1.30 mg/dL [facility] Glucose 94 70 - 199 mg/dL [facility] Comment: Interpretive Data Fasting glucose >/= 126 [...] 2022. Calcium 9.0 8.5 - 10.3 mg/dL [facility] Bilirubin, total 0.3 0.1 - 1.2 mg/dL [facility] Protein, pl 7.0 6.5 - 8.5 g/dL [facility] Albumin 3.5 3.5 - 5.0 g/dL [facility] Alk phos 84 40 - 130 Units/L [facility] ALT 13 7 - 55 Units/L [facility] AST 18 10 - 50 Units/L [facility] Blood 04/01/2025 2:41 AM CDT 04/01/2025 3:05 AM CDT us Linh White MD LAB BLOOD ORDERABLES Final Resu lt [facility] [address] [facility] [place] [address] * eGFR (03/31/2025 3:04 AM CDT) eGFR >90 >=60 mL/min/1. 73 [...] interpretive data was last reviewed 2021. Blood 03/31/2025 3:04 AM CDT 03/31/2025 3:38 AM CDT us Linh White MD LAB BLOOD ORDERABLES Final Resu lt [facility] [address] [facility] [place] [address] * (ABNORMAL) Differential, auto (03/31/2025 3:04 AM CDT) Neutrophil abs 6.73(H) 1.50 - 6.50 K/cumm Imm gran abs 0.02 0.00 - 0.10 K/cumm [facility] Lymphocyte abs 1.50 0.80 - 3.30 K/cumm [facility] Monocyte abs 0.67 0.20 - 0.80 K/cumm [facility] Eosinophil abs 0.12 0.00 - 0.50 K/cumm [facility] Basophil abs 0.05 0.00 - 0.10 K/cumm [facility] Neutrophil pct 74.0 % [facility] Comment: Interpretive Data Percent cell count reference ranges are not reported, since discordance with absolute values may lead to misinterpretation of CBC data. Current Interpretive Data was last revised on 2017. Imm gran pct 0.2 % [facility] Comment: Interpretive Data Percent cell count reference ranges are not reported, since discordance with absolute values may lead to misinterpretation of CBC data. Current Interpretive Data was last revised on 2017. Lymphocyte pct 16.5 % [facility] Comment: Interpretive Data Percent cell count reference ranges are not reported, since discordance with absolute values may lead to misinterpretation of CBC data. Current Interpretive Data was last revised on 2017. Monocyte pct 7.4 % [facility] Comment: Interpretive Data Percent cell count reference ranges are not reported, since discordance with absolute values may lead to misinterpretation of CBC data. Current Interpretive Data was last revised on 2017. Eosinophil pct 1.3 % [facility] Comment: Interpretive Data Percent cell count reference ranges are not reported, since discordance with absolute values may lead to misinterpretation of CBC data. Current Interpretive Data was last revised on 2017. Basophil pct 0.6 % [facility] Comment: Interpretive Data Percent cell count reference ranges are not reported, since discordance with absolute values may lead to misinterpretation of CBC data. Current Interpretive Data was last revised on 2017. Blood 03/31/2025 3:04 AM CDT 03/31/2025 3:38 AM CDT Aman Causey MD LAB BLOOD ORDERABLES Final Re sult Performing Organization Address [facility] Co de Phone Number [facility] [address] [place] [address] * (ABNORMAL) CBC with auto differential (03/31/2025 3:04 AM CDT) WBC 9.09 3.80 - 9.90 K/cumm Hgb 12.1(L) 13.0 - 17.5 g/dL [facility] Hct 40.1 38.9 - 50.3 % [facility] Plt 341 150 - 400 K/cumm [facility] MPV 10.0 9.1 - 12.3 fL [facility] RBC 4.95 4.30 - 5.80 M/cumm [facility] MCV 81.0(L) 81.3 - 96.4 fL [facility] MCH 24.4(L) 27.1 - 33.3 pg [facility] MCHC 30.2(L) 32.3 - 35.7 g/dL [facility] RDW CV 14.2 11.1 - 14.9 % [facility] RDW SD 41.2 35.7 - 48.1 fL [facility] NRBC abs 0.00 0.00 - 0.01 K/cumm [facility] Blood 03/31/2025 3:04 AM CDT 03/31/2025 3:38 AM CDT Aman Causey MD LAB BLOOD ORDERABLES Final Re sult Performing Organization Address [facility] Co de Phone Number [facility] [address] [place] [address] * (ABNORMAL) Protime-INR (03/31/2025 3:04 AM CDT) PT 40.20(H) 12.00 - 14.60 sec INR 4.12(H) 0.90 - 1.20 [facility] Comment: Interpretive data Oral anticoagulant therapeutic ranges: Venous thromboembolism prophylaxis or treatment: 2.0-3.0 CARDIOLOGY Standard range: 2.0-3.0 High-intensity range: 2.5-3.5 Refer to indication-specific guidelines for appropriate target ranges for prosthetic heart valve replacement. Current interpretive data was last revised on 2019. Blood 03/31/2025 3:04 AM CDT 03/31/2025 3:38 AM CDT us Linh White MD LAB BLOOD ORDERABLES Final Resu lt [facility] [address] [facility] [place] [address] * (ABNORMAL) Comprehensive metabolic panel (03/31/2025 3:04 AM CDT) Sodium 141 135 - 145 mmol/L Potassium, pl 3.7 3.3 - 4.9 mmol/L [facility] Chloride 105 97 - 110 mmol/L [facility] CO2 25 22 - 32 mmol/L [facility] Anion gap 11 2 - 15 mmol/L [facility] BUN 10 6 - 25 mg/dL [facility] Creatinine 0.75(L) 0.80 - 1.30 mg/dL [facility] Glucose 92 70 - 199 mg/dL [facility] Comment: Interpretive Data Fasting glucose >/= 126 [...] 2022. Calcium 8.8 8.5 - 10.3 mg/dL [facility] Bilirubin, total 0.3 0.1 - 1.2 mg/dL [facility] Protein, pl 6.8 6.5 - 8.5 g/dL [facility] Albumin 3.5 3.5 - 5.0 g/dL [facility] Alk phos 83 40 - 130 Units/L [facility] ALT 13 7 - 55 Units/L [facility] AST 19 10 - 50 Units/L [facility] Blood 03/31/2025 3:04 AM CDT 03/31/2025 3:38 AM CDT us Linh White MD LAB BLOOD ORDERABLES Final Resu lt [facility] [place] [address] * eGFR (03/30/2025 2:29 AM CDT) eGFR >90 >=60 mL/min/1. 73 [...] interpretive data was last reviewed 2021. Blood 03/30/2025 2:29 AM CDT 03/30/2025 2:32 AM CDT us Aman Causey MD LAB BLOOD ORDERABLES Final Re sult [place] [address] [facility] [place] [address] * (ABNORMAL) Differential, auto (03/30/2025 2:29 AM CDT) Neutrophil abs 3.71 1.50 - 6.50 K/cumm Imm gran abs 0.01 0.00 - 0.10 K/cumm [facility] Lymphocyte abs 0.72(L) 0.80 - 3.30 K/cumm [facility] Monocyte abs 0.10(L) 0.20 - 0.80 K/cumm [facility] Eosinophil abs 0.00 0.00 - 0.50 K/cumm [facility] Basophil abs 0.00 0.00 - 0.10 K/cumm [facility] Neutrophil pct 81.7 % [facility] Comment: Interpretive Data Percent cell count reference ranges are not reported, since discordance with absolute values may lead to misinterpretation of CBC data. Current Interpretive Data was last revised on 2017. Imm gran pct 0.2 % [facility] Comment: Interpretive Data Percent cell count reference ranges are not reported, since discordance with absolute values may lead to misinterpretation of CBC data. Current Interpretive Data was last revised on 2017. Lymphocyte pct 15.9 % [facility] Comment: Interpretive Data Percent cell count reference ranges are not reported, since discordance with absolute values may lead to misinterpretation of CBC data. Current Interpretive Data was last revised on 2017. Monocyte pct 2.2 % [facility] Comment: Interpretive Data Percent cell count reference ranges are not reported, since discordance with absolute values may lead to misinterpretation of CBC data. Current Interpretive Data was last revised on 2017. Eosinophil pct 0.0 % [facility] Comment: Interpretive Data Percent cell count reference ranges are not reported, since discordance with absolute values may lead to misinterpretation of CBC data. Current Interpretive Data was last revised on 2017. Basophil pct 0.0 % [facility] Comment: Interpretive Data Percent cell count reference ranges are not reported, since discordance with absolute values may lead to misinterpretation of CBC data. Current Interpretive Data was last revised on 2017. Blood 03/30/2025 2:29 AM CDT 03/30/2025 2:32 AM CDT Aman Causey MD LAB BLOOD ORDERABLES Final Re sult Performing Organization Address [facility] Co de Phone Number [place] [address] [place] [address] * (ABNORMAL) CBC with auto differential (03/30/2025 2:29 AM CDT) WBC 4.54 3.80 - 9.90 K/cumm Hgb 12.1(L) 13.0 - 17.5 g/dL [facility] Hct 39.5 38.9 - 50.3 % [facility] Plt 340 150 - 400 K/cumm [facility] MPV 9.2 9.1 - 12.3 fL [facility] RBC 4.91 4.30 - 5.80 M/cumm [facility] MCV 80.4(L) 81.3 - 96.4 fL [facility] MCH 24.6(L) 27.1 - 33.3 pg [facility] MCHC 30.6(L) 32.3 - 35.7 g/dL [facility] RDW CV 13.8 11.1 - 14.9 % [facility] RDW SD 40.4 35.7 - 48.1 fL [facility] NRBC abs 0.00 0.00 - 0.01 K/cumm [facility] Blood 03/30/2025 2:29 AM CDT 03/30/2025 2:32 AM CDT Aman Causey MD LAB BLOOD ORDERABLES Final Re sult Performing Organization Address City/[facility]/ZIP Co de Phone Number [place] [address] [place] [address] * (ABNORMAL) aPTT (03/30/2025 2:29 AM CDT) Pathologist [facility] aPTT 75(H) 22 - 37 sec Comment: Interpretive data aPTT test has not been evaluated for monitoring heparin therapy. The anti-Xa is the preferred test. Current interpretive data was last revised on 2019. Blood 03/30/2025 2:29 AM CDT 03/30/2025 2:32 AM CDT Aman Causey MD LAB BLOOD ORDERABLES Final Re sult Performing Organization Address [facility] de Phone Number [address] [employer] [place] [address] * (ABNORMAL) Protime-INR (03/30/2025 2:29 AM CDT) PT 38.70(H) 12.00 - 14.60 sec INR 3.92(H) 0.90 - 1.20 [facility] Comment: Interpretive data Oral anticoagulant therapeutic ranges: Venous thromboembolism prophylaxis or treatment: 2.0-3.0 CARDIOLOGY Standard range: 2.0-3.0 High-intensity range: 2.5-3.5 Refer to indication-specific guidelines for appropriate target ranges for prosthetic heart valve replacement. Current interpretive data was last revised on 2019. Blood 03/30/2025 2:29 AM CDT 03/30/2025 2:32 AM CDT Aman Causey MD LAB BLOOD ORDERABLES Final Re sult Performing Organization Address [facility] de Phone Number [address] [employer] [place] [address] * (ABNORMAL) Basic metabolic panel (03/30/2025 2:29 AM CDT) Sodium 137 135 - 145 mmol/L Potassium, pl 4.1 3.3 - 4.9 mmol/L [facility] Chloride 101 97 - 110 mmol/L [facility] CO2 23 22 - 32 mmol/L [facility] Anion gap 13 2 - 15 mmol/L [facility] BUN 14 6 - 25 mg/dL [facility] Creatinine 0.61(L) 0.80 - 1.30 mg/dL [facility] Glucose 134 70 - 199 mg/dL [facility] Comment: Interpretive Data Fasting glucose >/= 126 [...] 2022. Calcium 9.2 8.5 - 10.3 mg/dL [facility] Blood 03/30/2025 2:29 AM CDT 03/30/2025 2:32 AM CDT us Aman Causey MD LAB BLOOD ORDERABLES Final Re sult [facility] [address] [facility] [place] [address] * CT Chest PE (CTA) W Contrast (03/29/2025 8:35 PM CDT) Anatomical Region Laterality Modality Body N/A Computed Tomogra phy 03/29/2025 8:52 PM CDT Narrative 03/29/2025 9:02 PM CDT EXAM DESCRIPTION: CT CHEST PE (CTA) W CONTRAST REASON FOR STUDY: Concern for PE vs. worsening PNA vs. other Pt BIBEMS from [facility] for low oxygen readings (60s per neuroscience staff) EMS gave 2 duonebs and 125mg solumedrol en route with slight improvement. Endorses: shortness of breath on exertion, lung sounds diminished, productive cough TECHNIQUE: CT angiogram of the chest performed with intravenous contrast using helical scanning technique with dynamic intravenous contrast injection. Reconstructed coronal and sagittal MPR images reviewed. All images stored on PACS. 3D MIP images rendered on scanning unit and reviewed at time of interpretation. Automated exposure control was used as a dose optimization technique for this examination. CONTRAST TYPE/DOSE: 60mL of IOVERSOL 350 MG IODINE/ML INTRAVENOUS SYRINGE injected via intravenous COMPARISON: 02/28/2025 FINDINGS: VASCULATURE: No identified pulmonary emboli. LUNGS: Compared with 02/28/2025, the largest thick walled cavitary lesion within the left upper lobe has decreased in size, now measuring 4.6 cm x 3.7 cm, previously 5.9 cm x 4.7 cm. Cavitary lesion in the right upper lobe appears similar. Multiple scattered spiculated solid nodules and reticulonodular infiltrates appear similar to the previous exam. Slight interval decrease in the airspace consolidation within the left lower lobe. Fluid, mucous and debris is seen layering along the dependent portion of the inferior trachea and left mainstem bronchus. Bilateral bronchial wall thickening centrally. PLEURA: Small left pleural effusion. No pneumothorax. MEDIASTINUM/CINDY: No identified masses or abnormal nodes. HEART: Heart size is normal with no pericardial effusion. AXILLA: No adenopathy. CHEST WALL: No masses. No subcutaneous air. HARDWARE/LINES/TUBES: None. UPPER ABDOMEN: No significant abnormality. MUSCULOSKELETAL: No significant abnormality. OTHER: No significant abnormality. IMPRESSION: 1. No CT evidence for pulmonary embolus. 2. Interval decrease in size of the largest thick walled cavitary lesion within the left upper lobe compared with 02/28/2025. Cavitary lesion in the right upper lobe appears similar. 3. Multiple scattered spiculated solid nodules and reticulonodular infiltrates appear similar to the previous exam. 4. Slight interval decrease in the airspace consolidation within the left lower lobe. 5. Fluid, mucous and debris is seen layering along the dependent portion of the inferior trachea and left mainstem bronchus. Bilateral bronchial wall thickening centrally. 6. Small left pleural effusion. THIS IS AN ELECTRONICALLY VERIFIED FINAL REPORT 03/29/2025 9:02 PM - Electronically signed by Deonte Almonte M.D. KT T: Report ID: [id number] Reading Location: [id number] Procedure Note Deonte Almonte MD - 03/29/2025 EXAM DESCRIPTION: CT CHEST PE (CTA) W CONTRAST REASON FOR STUDY: Concern for PE vs. worsening PNA vs. other Pt BIBEMS from [facility] for low oxygen readings (60s per neuroscience staff) EMS gave 2 duonebs and 125mg solumedrol en route with slight improvement. Endorses: shortness of breath on exertion, lungsounds diminished, productive cough TECHNIQUE: CT angiogram of the chest performed with intravenous contrastusing helical scanning technique with dynamic intravenous contrast injection. Reconstructed coronal and sagittal MPR images reviewed. All images storedon PACS. 3D MIP images rendered on scanning unit and reviewed at time of interpretation. Automated exposure control was used as a doseoptimization technique for this examination. CONTRAST TYPE/DOSE: 60mL of IOVERSOL 350 MG IODINE/ML INTRAVENOUSSYRINGE injected via intravenous COMPARISON: 02/28/2025 FINDINGS: VASCULATURE: No identified pulmonary emboli. LUNGS: Compared with 02/28/2025, the largest thick walled cavitarylesion within the left upper lobe has decreased in size, now measuring 4.6 cm x3.7 cm, previously 5.9 cm x 4.7 cm. Cavitary lesion in the right upper lobe appears similar. Multiple scattered spiculated solid nodules and reticulonodular infiltrates appear similar to the previous exam. Slight interval decrease in the airspace consolidation within the left lowerlobe. Fluid, mucous and debris is seen layering along the dependent portion ofthe inferior trachea and left mainstem bronchus. Bilateral bronchial wall thickening centrally. PLEURA: Small left pleural effusion. No pneumothorax. MEDIASTINUM/CINDY: No identified masses or abnormal nodes. HEART: Heart size is normal with no pericardial effusion. AXILLA: No adenopathy. CHEST WALL: No masses. No subcutaneous air. HARDWARE/LINES/TUBES: None. UPPER ABDOMEN: No significant abnormality. MUSCULOSKELETAL: No significant abnormality. OTHER: No significant abnormality. IMPRESSION: 1. No CT evidence for pulmonary embolus. 2. Interval decrease in size of the largest thick walled cavitary lesion within the left upper lobe compared with 02/28/2025. Cavitary lesion inthe right upper lobe appears similar. 3. Multiple scattered spiculated solid nodules and reticulonodular infiltrates appear similar to the previous exam. 4. Slight interval decrease in the airspace consolidation within theleft lower lobe. 5. Fluid, mucous and debris is seen layering along the dependent portionof the inferior trachea and left mainstem bronchus. Bilateral bronchial wall thickening centrally. 6. Small left pleural effusion. THIS IS AN ELECTRONICALLY VERIFIED FINAL REPORT 03/29/2025 9:02 PM - Electronically signed by Deonte Almonte M.D. KT T: Report ID: [id number] Reading Location: [id number] Amandeep Suarez MD IMG CT PROCEDURES F inal Result * Troponin T high-sensitivity 4-hour (03/29/2025 7:08 PM CDT) Trop T hs 8 <=22 ng/L Comment: Interpretive Data For further hscTnT resources including the diagnostic algorithm and an aid in interpretation, copy and paste this link: [email or web address].testcatalog.org/show/[email or web address] Current Interpretive Data last revised 2020. Trop T hs delta -3 ng/L CLARISSA Trop T hs interp Insignificant [facility] Blood 03/29/2025 7:08 PM CDT 03/29/2025 7:12 PM CDT Lindsay Cho MD LAB BLOOD ORDERABLES Final Res ult [facility] [address] [facility] [place] [address] * XR Chest 1 Vw Portable (If patient hemodynamically UNstable or UNable to ambulate) (03/29/2025 3:47PM CDT) Anatomical Region Laterality Modality Body, Chest N/A Computed Radiogr aphy 03/29/2025 4:04 PM CDT Narrative 03/29/2025 4:11 PM CDT EXAM DESCRIPTION: XR CHEST 1 VIEW REASON FOR STUDY: Shortness of breath Pt BIBEMS from [facility] for low O2 readings (in the 60s RA on exertion per facility) For EMS, was 95% on 4L NC. Lung sounds diminished, expiratory wheezing. 2 duonebs given by EMS. 20G RAC. 125mg solumedrol. NSR 70s, 12 Lead unremarkable. Capno 38. BP 110/70. BS 84. AAOx4. TECHNIQUE: 1 radiographic view(s) of the chest. COMPARISON: CT 02/28/2025. Chest radiograph 02/27/2025. FINDINGS: LUNGS: No gross change in bilateral upper lobe cavitary lesions radiographically. There is pulmonary emphysema. Improvement in the consolidation in the left lower lobe since 02/27/2025. Bilateral nodular opacities throughout both lungs are not well assessed radiographically but appear grossly similar to 02/27/2025. No new consolidation is seen. There is a small left pleural effusion. No pneumothorax identified. HEART/MEDIASTINUM: Normal heart size and cardiomediastinal contours. LINES/TUBES: None. BONES: No acute displaced fracture or aggressive bone lesion is seen Visualized upper abdomen is grossly unremarkable. IMPRESSION: 1. No gross change in bilateral upper lobe cavitary lesions. 2. Improved but persistent left lower lobe pneumonia. 3. Bilateral nodular opacities are not well assessed radiographically but appear grossly similar to 02/27/2025. 4. Small left pleural effusion. THIS IS AN ELECTRONICALLY VERIFIED FINAL REPORT 03/29/2025 4:11 PM - Electronically signed by Gaurav MALDONADO T: Report ID: [id number] Reading Location: [place] [address] Procedure Note Gaurav Kim MD - 03/29/2025 EXAM DESCRIPTION: XR CHEST 1 VIEW REASON FOR STUDY: Shortness of breath Pt BIBEMS from [facility] for low O2 readings (in the 60s RA on exertion per facility) For EMS, was 95% on 4L NC. Lung sounds diminished, expiratory wheezing. 2 duonebs given by EMS. 20G RAC. 125mg solumedrol.NSR 70s, 12 Lead unremarkable. Capno 38. BP 110/70. BS 84. AAOx4. TECHNIQUE: 1 radiographic view(s) of the chest. COMPARISON: CT 02/28/2025. Chest radiograph 02/27/2025. FINDINGS: LUNGS: No gross change in bilateral upper lobe cavitary lesions radiographically. There is pulmonary emphysema. Improvement in the consolidation in the left lower lobe since 02/27/2025. Bilateral nodular opacities throughout both lungs are not well assessed radiographically but appear grossly similar to 02/27/2025. No new consolidation is seen.There is a small left pleural effusion. No pneumothorax identified. HEART/MEDIASTINUM: Normal heart size and cardiomediastinal contours. LINES/TUBES: None. BONES: No acute displaced fracture or aggressive bone lesion is seen Visualized upper abdomen is grossly unremarkable. IMPRESSION: 1. No gross change in bilateral upper lobe cavitary lesions. 2. Improved but persistent left lower lobe pneumonia. 3. Bilateral nodular opacities are not well assessed radiographicallybut appear grossly similar to 02/27/2025. 4. Small left pleural effusion. THIS IS AN ELECTRONICALLY VERIFIED FINAL REPORT 03/29/2025 4:11 PM - Electronically signed by Gaurav Kim M.D. MZ T: Report ID: [id number] Reading Location: [id number] Amandeep Suarez MD IMG XR PROCEDURES F inal Result * ECG 12 lead (03/29/2025 3:08 PM CDT) Pathologist [facility] Ventricular Rate EKG/Min [address] [facility] Atrial Rate 83 BPM [facility] NV-Interval (MSEC) 168 ms [facility] QRS-Interval (MSEC) 86 ms [facility] QT-Interval (MSEC) 396 ms [facility] QTc 465 ms [facility] P [place] 76 degrees [facility] R [place] -36 degrees [facility] T [place] 74 degrees [facility] Diagnosis Normal sinus rhythm Possible Left atrial enlargement Left axis deviation Abnormal ECG When compared with ECG of 02-MAR-2025 12:14, QRS axis Shifted left Confirmed by FLORA ZAIDI M.D. ([id number]) on 04/02/2025 9:49:09 PM [facility] 03/29/2025 3:08 PM CDT 04/02/2025 9:49 PM CDT Amandeep Suarez MD ECG ORDERABLES Fin al Result [facility] * Troponin T high-sensitivity series (baseline, 2hr, 4hr, 6hr) (03/29/2025 3:00 PM CDT) Trop T hs 11 <=22 ng/L Comment: Interpretive Data For further hscTnT resources including the diagnostic algorithm and an aid in interpretation, copy and paste this link: [email or web address].testcatalog.org/show/[email or web address] Current Interpretive Data last revised 2020. Blood 03/29/2025 3:00 PM CDT 03/29/2025 3:08 PM CDT us Amandeep Suarez MD LAB BLOOD ORDERABLE S Final Result Performing Organization Address City/[facility]/ZIP Co de Phone Number CLARISSA [address] [place] [address] * eGFR (03/29/2025 3:00 PM CDT) eGFR >90 >=60 mL/min/1. 73 m2 [...] interpretive data was last reviewed 2021. Blood 03/29/2025 3:00 PM CDT 03/29/2025 3:08 PM CDT us Amandeep Suarez MD LAB BLOOD ORDERABLE S Final Result CLARISSA [address] [place] [address] * Differential, auto (03/29/2025 3:00 PM CDT) Neutrophil abs 4.83 1.50 - 6.50 K/cumm Imm gran abs 0.02 0.00 - 0.10 K/cumm [facility] Lymphocyte abs 1.94 0.80 - 3.30 K/cumm [facility] Monocyte abs 0.74 0.20 - 0.80 K/cumm [facility] Eosinophil abs 0.20 0.00 - 0.50 K/cumm [facility] Basophil abs 0.04 0.00 - 0.10 K/cumm [facility] Neutrophil pct 62.1 % [facility] Comment: Interpretive Data Percent cell count reference ranges are not reported, since discordance with absolute values may lead to misinterpretation of CBC data. Current Interpretive Data was last revised on 2017. Imm gran pct 0.3 % [facility] Comment: Interpretive Data Percent cell count reference ranges are not reported, since discordance with absolute values may lead to misinterpretation of CBC data. Current Interpretive Data was last revised on 2017. Lymphocyte pct 25.0 % [facility] Comment: Interpretive Data Percent cell count reference ranges are not reported, since discordance with absolute values may lead to misinterpretation of CBC data. Current Interpretive Data was last revised on 2017. Monocyte pct 9.5 % [facility] Comment: Interpretive Data Percent cell count reference ranges are not reported, since discordance with absolute values may lead to misinterpretation of CBC data. Current Interpretive Data was last revised on 2017. Eosinophil pct 2.6 % [facility] Comment: Interpretive Data Percent cell count reference ranges are not reported, since discordance with absolute values may lead to misinterpretation of CBC data. Current Interpretive Data was last revised on 2017. Basophil pct 0.5 % [facility] Comment: Interpretive Data Percent cell count reference ranges are not reported, since discordance with absolute values may lead to misinterpretation of CBC data. Current Interpretive Data was last revised on 2017. Blood 03/29/2025 3:00 PM CDT 03/29/2025 3:08 PM CDT us Amandeep Suarez MD LAB BLOOD ORDERABLE S Final Result Performing Organization Address [facility] Co de Phone Number CLARISSA [address] [place] [address] * (ABNORMAL) CBC with auto differential (03/29/2025 3:00 PM CDT) [facility] WBC 7.77 3.80 - 9.90 K/cumm Hgb 11.5(L) 13.0 - 17.5 g/dL [facility] Hct 38.6(L) 38.9 - 50.3 % [facility] Plt 310 150 - 400 K/cumm [facility] MPV 9.4 9.1 - 12.3 fL [facility] RBC 4.63 4.30 - 5.80 M/cumm [facility] MCV 83.4 81.3 - 96.4 fL [facility] MCH 24.8(L) 27.1 - 33.3 pg [facility] MCHC 29.8(L) 32.3 - 35.7 g/dL [facility] RDW CV 13.9 11.1 - 14.9 % [facility] RDW SD 41.9 35.7 - 48.1 fL [facility] NRBC abs 0.00 0.00 - 0.01 K/cumm [facility] Blood 03/29/2025 3:00 PM CDT 03/29/2025 3:08 PM CDT us Amandeep Suarez MD LAB BLOOD ORDERABLE S Final Result Performing Organization Address City/[facility]/ZIP Co de Phone Number CLARISSA [address] [place] [address] * Comprehensive metabolic panel (03/29/2025 3:00 PM CDT) [facility] Sodium 138 135 - 145 mmol/L Potassium, pl 4.4 3.3 - 4.9 mmol/L [facility] Chloride 101 97 - 110 mmol/L [facility] CO2 27 22 - 32 mmol/L [facility] Anion gap 10 2 - 15 mmol/L [facility] BUN 16 6 - 25 mg/dL [facility] Creatinine 0.80 0.80 - 1.30 mg/dL [facility] Glucose 95 70 - 199 mg/dL [facility] Comment: Interpretive Data Fasting glucose >/= 126 [...] 2022. Calcium 9.2 8.5 - 10.3 mg/dL [facility] Bilirubin, total 0.3 0.1 - 1.2 mg/dL [facility] Protein, pl 7.3 6.5 - 8.5 g/dL [facility] Albumin 3.8 3.5 - 5.0 g/dL [facility] Alk phos 96 40 - 130 Units/L [facility] ALT 18 7 - 55 Units/L [facility] AST 26 10 - 50 Units/L [facility] Blood 03/29/2025 3:00 PM CDT 03/29/2025 3:08 PM CDT Amandeep Suarez MD LAB BLOOD ORDERABLE S Final Result Performing Organization Address City/State/[facility] Co de Phone Number [facility] [address] [facility] [address] Department of Laboratories [place], [place] [id number] * OCT, Optic Nerve - OU - [...] PM CDT) Ventricular Rate EKG/Min [address] [facility] Atrial Rate 83 BPM [facility] NV-Interval (MSEC) 160 ms [facility] QRS-Interval (MSEC) 88 ms [facility] QT-Interval (MSEC) 394 ms [facility] QTc 462 ms [facility] P [place] 66 degrees [facility] R [place] 10 degrees [facility] T [place] 60 degrees [facility] Diagnosis Normal sinus rhythm Normal ECG When compared with ECG of 28-FEB-2025 10:00, Criteria for Septal infarct are no longer Present QT has shortened Confirmed by Matt Zamora M.D. ([id number]) on 03/05/2025 8:40:12 AM [facility] 03/02/2025 12:1 4 PM CDT 03/05/2025 8:40 AM CDT Sabi Shah MD ECG ORDERABLES Final Result [facility] [place] * eGFR (03/02/2025 7:14 AM CDT) Pathologist [facility] eGFR >90 >=60 mL/min/1. 73 m2 Comment: [...] MD LAB BLOOD ORDERABLES Final Resul t [facility] [address] [facility] [place] [address] * (ABNORMAL) Differential, auto (03/02/2025 7:14 AM CDT) Neutrophil abs 6.88(H) 1.50 - 6.50 K/cumm Imm gran abs 0.05 0.00 - 0.10 K/cumm [facility] Lymphocyte abs 1.13 0.80 - 3.30 K/cumm [facility] Monocyte abs 1.11(H) 0.20 - 0.80 K/cumm [facility] Eosinophil abs 0.28 0.00 - 0.50 K/cumm [facility] Basophil abs 0.04 0.00 - 0.10 K/cumm [facility] Neutrophil pct 72.5 % [facility] Comment: Interpretive Data Percent cell count reference ranges are not reported, since discordance with absolute values may lead to misinterpretation of CBC data. Current Interpretive Data was last revised on 2017. Imm gran pct 0.5 % [facility] Comment: Interpretive Data Percent cell count reference ranges are not reported, since discordance with absolute values may lead to misinterpretation of CBC data. Current Interpretive Data was last revised on 2017. Lymphocyte pct 11.9 % [facility] Comment: Interpretive Data Percent cell count reference ranges are not reported, since discordance with absolute values may lead to misinterpretation of CBC data. Current Interpretive Data was last revised on 2017. Monocyte pct 11.7 % [facility] Comment: Interpretive Data Percent cell count reference ranges are not reported, since discordance with absolute values may lead to misinterpretation of CBC data. Current Interpretive Data was last revised on 2017. Eosinophil pct 3.0 % [facility] Comment: Interpretive Data Percent cell count reference ranges are not reported, since discordance with absolute values may lead to misinterpretation of CBC data. Current Interpretive Data was last revised on 2017. Basophil pct 0.4 % [facility] Comment: Interpretive Data Percent cell count reference ranges are not reported, since discordance with absolute values may lead to misinterpretation of CBC data. Current Interpretive Data was last revised on 2017. Blood 03/02/2025 7:14 AM CDT 03/02/2025 7:31 AM CDT Mk Manzano MD LAB BLOOD ORDERABLES Final Resul t Performing Organization Address [facility] Co de Phone Number [address] [place] [address] * (ABNORMAL) CBC with auto differential (03/02/2025 7:14 AM CDT) WBC 9.49 3.80 - 9.90 K/cumm Hgb 11.7(L) 13.0 - 17.5 g/dL [facility] Hct 38.5(L) 38.9 - 50.3 % [facility] Plt 500(H) 150 - 400 K/cumm [facility] MPV 9.5 9.1 - 12.3 fL [facility] RBC 4.69 4.30 - 5.80 M/cumm [facility] MCV 82.1 81.3 - 96.4 fL [facility] MCH 24.9(L) 27.1 - 33.3 pg [facility] MCHC 30.4(L) 32.3 - 35.7 g/dL [facility] RDW CV 14.3 11.1 - 14.9 % [facility] RDW SD 42.0 35.7 - 48.1 fL [facility] NRBC abs 0.00 0.00 - 0.01 K/cumm [facility] Blood 03/02/2025 7:14 AM CDT 03/02/2025 7:31 AM CDT us Mk Manzano MD LAB BLOOD ORDERABLES Final Resul t Performing Organization Address [facility]/ZIP Co de Phone Number [address] [place] [address] * Magnesium (03/02/2025 7:14 AM CDT) Magnesium 2.3 1.4 - 2.5 mg/dL Blood 03/02/2025 7:14 AM CDT 03/02/2025 7:31 AM CDT Sabi Shah MD LAB BLOOD ORDERABLES Final Resul t Performing Organization Address [facility] de Phone Number [address] [place] [address] * (ABNORMAL) Basic metabolic panel (03/02/2025 7:14 AM CDT) Pathologist [facility] Sodium 137 135 - 145 mmol/L Potassium, pl 3.8 3.3 - 4.9 mmol/L [facility] Chloride 103 97 - 110 mmol/L [facility] CO2 24 22 - 32 mmol/L [facility] Anion gap 10 2 - 15 mmol/L [facility] BUN 12 6 - 25 mg/dL [facility] Creatinine 0.62(L) 0.80 - 1.30 mg/dL [facility] Glucose 105 70 - 199 mg/dL [facility] Comment: Interpretive Data Fasting glucose >/= 126 [...] 2022. Calcium 8.5 8.5 - 10.3 mg/dL [facility] Blood 03/02/2025 7:14 AM CDT 03/02/2025 7:31 AM CDT Mk Manzano MD LAB BLOOD ORDERABLES Final Resul t Performing Organization Address [facility]/ZIP Co de Phone Number [address] [employer] [place] [address] * eGFR (03/01/2025 7:06 AM CDT) [facility] eGFR >90 >=60 mL/min/1. 73 m2 Comment: [...] LAB BLOOD ORDERABLES Final Resul t CLARISSA [address] [place] [address] * (ABNORMAL) Differential, auto (03/01/2025 7:06 AM CDT) [facility] Neutrophil abs 8.57(H) 1.50 - 6.50 K/cumm Imm gran abs 0.05 0.00 - 0.10 K/cumm [facility] Lymphocyte abs 1.12 0.80 - 3.30 K/cumm [facility] Monocyte abs 1.24(H) 0.20 - 0.80 K/cumm [facility] Eosinophil abs 0.30 0.00 - 0.50 K/cumm [facility] Basophil abs 0.05 0.00 - 0.10 K/cumm [facility] Neutrophil pct 75.8 % [facility] Comment: Interpretive Data Percent cell count reference ranges are not reported, since discordance with absolute values may lead to misinterpretation of CBC data. Current Interpretive Data was last revised on 2017. Imm gran pct 0.4 % [facility] Comment: Interpretive Data Percent cell count reference ranges are not reported, since discordance with absolute values may lead to misinterpretation of CBC data. Current Interpretive Data was last revised on 2017. Lymphocyte pct 9.9 % [facility] Comment: Interpretive Data Percent cell count reference ranges are not reported, since discordance with absolute values may lead to misinterpretation of CBC data. Current Interpretive Data was last revised on 2017. Monocyte pct 10.9 % [facility] Comment: Interpretive Data Percent cell count reference ranges are not reported, since discordance with absolute values may lead to misinterpretation of CBC data. Current Interpretive Data was last revised on 2017. Eosinophil pct 2.6 % [facility] Comment: Interpretive Data Percent cell count reference ranges are not reported, since discordance with absolute values may lead to misinterpretation of CBC data. Current Interpretive Data was last revised on 2017. Basophil pct 0.4 % [facility] Comment: Interpretive Data Percent cell count reference ranges are not reported, since discordance with absolute values may lead to misinterpretation of CBC data. Current Interpretive Data was last revised on 2017. Blood 03/01/2025 7:06 AM CDT 03/01/2025 7:49 AM CDT Mk Manzano MD LAB BLOOD ORDERABLES Final Resul t [facility] [address] [place] [address] * (ABNORMAL) CBC with auto differential (03/01/2025 7:06 AM CDT) WBC 11.33(H) 3.80 - 9.90 K/cumm Hgb 12.2(L) 13.0 - 17.5 g/dL [facility] Hct 40.9 38.9 - 50.3 % [facility] Plt 504(H) 150 - 400 K/cumm [facility] MPV 9.6 9.1 - 12.3 fL [facility] RBC 4.91 4.30 - 5.80 M/cumm [facility] MCV 83.3 81.3 - 96.4 fL [facility] MCH 24.8(L) 27.1 - 33.3 pg [facility] MCHC 29.8(L) 32.3 - 35.7 g/dL [facility] RDW CV 14.2 11.1 - 14.9 % [facility] RDW SD 43.3 35.7 - 48.1 fL [facility] NRBC abs 0.00 0.00 - 0.01 K/cumm [facility] Blood 03/01/2025 7:06 AM CDT 03/01/2025 7:49 AM CDT us Mk Manzano MD LAB BLOOD ORDERABLES Final Resul t Performing Organization Address City/State/[facility] Co de Phone Number [place] [phone] [facility] [place] [address] * (ABNORMAL) Basic metabolic panel (03/01/2025 7:06 AM CDT) Sodium 138 135 - 145 mmol/L Potassium, pl 3.8 3.3 - 4.9 mmol/L [facility] Chloride 103 97 - 110 mmol/L [facility] CO2 23 22 - 32 mmol/L [facility] Anion gap 12 2 - 15 mmol/L [facility] BUN 10 6 - 25 mg/dL [facility] Creatinine 0.61(L) 0.80 - 1.30 mg/dL [facility] Glucose 93 70 - 199 mg/dL [facility] Comment: Interpretive Data Fasting glucose >/= 126 [...] classification and Diagnosis of Diabetes Diabetes Care 2022; 46: S19-S40. Current interpretive data was last revised 2022. Calcium 8.4(L) 8.5 - 10.3 mg/dL [facility] Blood 03/01/2025 7:06 AM CDT 03/01/2025 7:49 AM CDT us Mk Manzano MD LAB BLOOD ORDERABLES Final Resul t [facility] [address] [place] [address] * CT Chest WO Contrast (02/28/2025 2:04 [...] Abby Rene M.D. SN T: Report ID: [id number] Reading Location: [place] [address] Procedure Note Abby Rene MD - 03/01/2025 [...] Abby Rene M.D. SN T: Report ID: [id number] Reading Location: [id number] us Aileen Mcdonald MD IMG CT PROCEDURES Final R esult * ECG 12 lead (02/28/2025 10:00 AM CDT) Ventricular Rate EKG/Min 94 BPM [facility] Atrial Rate 94 BPM [facility] NV-Interval (MSEC) [address] [facility] QRS-Interval (MSEC) [address] [facility] QT-Interval (MSEC) 424 ms [facility] QTc 530 ms [facility] P [place] [address] [facility] R [place] -8 degrees [facility] T [place] 64 degrees [facility] Diagnosis Normal sinus rhythm Septal infarct , age undetermined Prolonged QT Abnormal ECG Confirmed by STEVE VAZQUEZ M.D. ([id number]) on 02/28/2025 5:47:47 PM [facility] 02/28/2025 10:0 0 AM CDT 02/28/2025 5:47 PM CDT us Kranthi Leonard MD ECG ORDERABLES Final Result [facility] * eGFR (02/28/2025 5:58 AM CDT) eGFR [...] MD LAB BLOOD ORDERABLES Final Resul t [facility] [address] [place] [address] * (ABNORMAL) Differential, auto (02/28/2025 5:58 AM CDT) Neutrophil abs 7.96(H) 1.50 - 6.50 K/cumm Imm gran abs 0.04 0.00 - 0.10 K/cumm [facility] Lymphocyte abs 1.11 0.80 - 3.30 K/cumm [facility] Monocyte abs 1.33(H) 0.20 - 0.80 K/cumm [facility] Eosinophil abs 0.28 0.00 - 0.50 K/cumm [facility] Basophil abs 0.05 0.00 - 0.10 K/cumm [facility] Neutrophil pct 73.9 % [facility] Comment: Interpretive Data Percent cell count reference ranges are not reported, since discordance with absolute values may lead to misinterpretation of CBC data. Current Interpretive Data was last revised on 2017. Imm gran pct 0.4 % [facility] Comment: Interpretive Data Percent cell count reference ranges are not reported, since discordance with absolute values may lead to misinterpretation of CBC data. Current Interpretive Data was last revised on 2017. Lymphocyte pct 10.3 % [facility] Comment: Interpretive Data Percent cell count reference ranges are not reported, since discordance with absolute values may lead to misinterpretation of CBC data. Current Interpretive Data was last revised on 2017. Monocyte pct 12.3 % [facility] Comment: Interpretive Data Percent cell count reference ranges are not reported, since discordance with absolute values may lead to misinterpretation of CBC data. Current Interpretive Data was last revised on 2017. Eosinophil pct 2.6 % [facility] Comment: Interpretive Data Percent cell count reference ranges are not reported, since discordance with absolute values may lead to misinterpretation of CBC data. Current Interpretive Data was last revised on 2017. Basophil pct 0.5 % [facility] Comment: Interpretive Data Percent cell count reference ranges are not reported, since discordance with absolute values may lead to misinterpretation of CBC data. Current Interpretive Data was last revised on 2017. Blood 02/28/2025 5:58 AM CDT 02/28/2025 6:37 AM CDT us Mk Manzano MD LAB BLOOD ORDERABLES Final Resul t [place] [id number] [facility] [place] [address] * (ABNORMAL) CBC with auto differential (02/28/2025 5:58 AM CDT) WBC 10.77(H) 3.80 - 9.90 K/cumm Hgb 11.3(L) 13.0 - 17.5 g/dL [facility] Hct 37.2(L) 38.9 - 50.3 % [facility] Plt 415(H) 150 - 400 K/cumm [facility] MPV 9.8 9.1 - 12.3 fL [facility] RBC 4.42 4.30 - 5.80 M/cumm [facility] MCV 84.2 81.3 - 96.4 fL [facility] MCH 25.6(L) 27.1 - 33.3 pg [facility] MCHC 30.4(L) 32.3 - 35.7 g/dL [facility] RDW CV 14.3 11.1 - 14.9 % [facility] RDW SD 44.4 35.7 - 48.1 fL [facility] NRBC abs 0.00 0.00 - 0.01 K/cumm [facility] Blood 02/28/2025 5:58 AM CDT 02/28/2025 6:37 AM CDT us Mk Manzano MD LAB BLOOD ORDERABLES Final Resul t Performing Organization Address [facility]/ZIP Co de Phone Number [address] [place] [address] * (ABNORMAL) Basic metabolic panel (02/28/2025 5:58 AM CDT) [facility] Sodium 141 135 - 145 mmol/L Potassium, pl 4.1 3.3 - 4.9 mmol/L [facility] Comment:Hemolyzed; Potassium value may be falsely elevated by as much as 1.0 mmol/L. Suggest redraw and reanalysis. Chloride 106 97 - 110 mmol/L [facility] CO2 22 22 - 32 mmol/L [facility] Anion gap 13 2 - 15 mmol/L [facility] BUN 12 6 - 25 mg/dL [facility] Creatinine 0.60(L) 0.80 - 1.30 mg/dL [facility] Glucose 94 70 - 199 mg/dL [facility] Comment: Interpretive Data Fasting glucose >/= 126 [...] 2022. Calcium 8.1(L) 8.5 - 10.3 mg/dL [facility] Blood 02/28/2025 5:58 AM CDT 02/28/2025 6:37 AM CDT Mk Manzano MD LAB BLOOD ORDERABLES Final Resul t Performing Organization Address City/[facility]/ZIP Co de Phone Number [address] [place] [address] * Strep pneumoniae antigen, urine Urine (02/28/2025 5:50 AM CDT) [facility] S. pneumoniae Ag Negative Negative Comment: Interpretive [...] ORDER FOX Final Result Performing Organization Address [facility] de Phone Number [address] [address] * Legionella antigen Urine (02/28/2025 5:50 AM CDT) [facility] Legionella Ag Negative Negative Comment: Interpretive Data This test detects only Legionella pneumophila serogroup 1 antigen. Testing performed by [facility] ([phone]). Current interpretive data was last revised on 2019. Testing performed by: [facility], [address] [place]., [address] Urine 02/28/2025 5:50 AM CDT 02/28/2025 10:40 AM CDT Mk Manzano MD LAB MICROBIOLOGY - GENERAL ORDER FOX Final Result Performing Organization Address [facility] de Phone Number [place] [phone] [place] [address] * Influenza A/B, RSV, and COVID-19 PCR Nasopharyngeal (02/28/2025 12:49 AM CDT) [facility] COVID-19 RNA Negative Negative Influenza A RNA Negative Negative [facility] Influenza B RNA Negative Negative [facility] RSV RNA Negative Negative [facility] Comment: Interpretive data: Testing performed by [facility]. This test is performed using the [employer] Xpert Xpress CoV-2/Flu/RSV plus assay. This is a multiplex, real-time reverse transcriptase PCR assay intended for the qualitative detection of nucleic acid from SARS-CoV-2, influenza A, influenza B, and respiratory syncytial virus. This assay has been cleared by the [place] Food and Drug administration. The performance characteristics have been verified by the [facility]. Results must be considered in the clinical context, and a negative result does not rule out infection. Interpretive Data last revised 2023 Nasopharyngeal 02/28/2025 12 :49 AM CDT 02/28/2025 12:59 AM CDT Narrative [facility] - 02/28/2025 1:51 AM CDT Is the Patient experiencing symptoms consistent with COVID?->No Mk Manzano MD LAB MICROBIOLOGY - GENERAL ORDER FOX Final Result Performing Organization Address [facility] Co de Phone Number [address] [address] * MRSA Only (Staphylococcus aureus) PCR Nasal (02/28/2025 12:49 AM CDT) [facility] PCR Scrn, Methicillin resistant Staphylococcus aureus (MRSA) Not Detected Not Detected Comment: Interpretive Data Testing performed using Nucleic Acid Amplification with the [employer] Xpert MRSA NxG Assay. This assay detects target DNA from mecA, mecC and the SCCmec insertion site of Staphylococcus aureus using Real-Time PCR and has been cleared by the FDA. Performance characteristics have been verified by the [facility]. Current Interpretive Data was last revised on 2023 Nasal 02/28/2025 12:4 9 AM CDT 02/28/2025 12:59 AM CDT Mk Manzano MD LAB MICROBIOLOGY - GENERAL ORDER FOX Final Result Performing Organization Address City/[facility] Co de Phone Number [address] [address] * Troponin T high-sensitivity 6-hour (02/27/2025 10:06 [...] CDT 02/27/2025 10:20 PM CDT Maggie Ray PA LAB BLOOD ORDERABLES Final Re sult Performing Organization Address City/[facility]/ZIP Co de Phone Number [address] [place] [address] * Sepsis Lactate w/ Reflex (02/27/2025 10:06 PM CDT) Sepsis Lactate 1.6 0.7 - 2.0 mmol/L Blood 02/27/2025 10:0 6 PM CDT 02/27/2025 10:11 PM CDT Maggie Ray PA LAB BLOOD ORDERABLES Final Re sult [address] [place] [address] * Blood culture Blood Peripheral (02/27/2025 6:28 PM CDT) Report Final Report: No growth Comment:Testing performed by : [facility], [address] [facility], [place]., [address] Blood (Peripheral) 02/27/2025 6:28 PM CDT 02/27/2025 [...] performance characteristics have been verified by the [facility]. For questions about this culture, contact the Microbiology Laboratory at [phone]. Interpretive data was last revised on 24. us Og Mane DO LAB MICROBIOLOGY - GENERAL ORD ERABLES Final Result CLARISSA [address] [facility] [place] [address] * Blood culture Blood Peripheral (02/27/2025 6:21 PM CDT) Report Final Report: No growth Comment:Testing performed by : [facility], [address] [facility], [place]., [address] Blood (Peripheral) 02/27/2025 6:21 PM CDT 02/27/2025 9:07 PM CDT Narrative CLARISSA - 03/04/2025 7:00 AM CDT Draw Blood cultures [...] performance characteristics have been verified by the [facility]. For questions about this culture, contact the Microbiology Laboratory at [phone]. Interpretive data was last revised on 24. Og Mane [facility] MICROBIOLOGY - GENERAL ORD ERABLES Final Result Performing Organization Address City/[facility]/ZIP Co de Phone Number CLARISSA [address] [facility] Department of Laboratories [place] [phone] * MRSA Only (Staphylococcus aureus) PCR Nasal (02/27/2025 6:19 PM CDT) [facility] Signature PCR Scrn, Methicillin resistant Staphylococcus aureus (MRSA) Not Detected Not Detected Comment: Interpretive Data Testing performed using Nucleic Acid Amplification with the [employer] Xpert MRSA NxG Assay. This assay detects target DNA from mecA, mecC and the SCCmec insertion site of Staphylococcus aureus using Real-Time PCR and has been cleared by the FDA. Performance characteristics have been verified by the [facility]. Current Interpretive Data was last revised on 2023 Nasal 02/27/2025 6:19 PM CDT 02/27/2025 6:22 PM CDT Og Mane LAB MICROBIOLOGY - GENERAL ORD ERABLES Final Result Performing Organization Address City/[facility]/ZIP Co de Phone Number [address] [address] * Troponin T high-sensitivity 4-hour (02/27/2025 5:30 PM CDT) Pathologist [facility] Trop T hs 14 <=22 ng/L Comment: Interpretive Data For further hscTnT resources including the diagnostic algorithm and an aid in interpretation, copy and paste this link: https://nrl.[employer].org/show/hsTrop Current Interpretive Data last revised 2020. Trop T hs delta 0 ng/L [facility] Trop T hs interp Insignificant [facility] Blood 02/27/2025 5:30 PM CDT 02/27/2025 5:35 PM CDT Maggie Ray PA LAB BLOOD ORDERABLES Final Re sult Performing Organization Address [facility] Co de Phone Number [address] [address] * (ABNORMAL) Sepsis Lactate w/ Reflex (02/27/2025 5:30 PM CDT) [facility] Sepsis Lactate 2.1(H) 0.7 - 2.0 mmol/L Blood 02/27/2025 5:30 PM CDT 02/27/2025 5:34 PM CDT Maggie Ray PA LAB BLOOD ORDERABLES Final Re sult Performing Organization Address City/[facility] Co de Phone Number [address] [address] * Troponin T high-sensitivity series (baseline, 2hr, 4hr, 6hr) (02/27/2025 1:53 PM CDT) Pathologist [facility] Trop T hs 14 <=22 ng/L Comment: Interpretive Data For further hscTnT resources including the diagnostic algorithm and an aid in interpretation, copy and paste this link: https://nrl.[employer].org/show/hsTrop Current Interpretive Data last revised 2020. Blood 02/27/2025 1:53 PM CDT 02/27/2025 1:56 PM CDT Og AsifJacques Westse DO LAB BLOOD ORDERABLES Final Res ult Performing Organization Address [facility] de Phone Number CLARISSA [address] [place] [address] * eGFR (02/27/2025 1:53 PM CDT) eGFR >90 >=60 mL/min/1. 73 m2 [...] of Race in Diagnosing Kidney Disease, JASN 2021). The CKD-EPI equation should not be used for patients with unstable renal function and has not been validated in children and those over 70. Current interpretive data was last reviewed 2021. Blood 02/27/2025 1:53 PM CDT 02/27/2025 1:56 PM CDT Og Amaya Mane DO LAB BLOOD ORDERABLES Final Res ult Performing Organization Address [facility] Co de Phone Number CLARISSA [address] [employer] [place] [address] * (ABNORMAL) Differential, auto (02/27/2025 1:53 PM CDT) Neutrophil abs 11.83(H) 1.50 - 6.50 K/cumm Imm gran abs 0.05 0.00 - 0.10 K/cumm [facility] Lymphocyte abs 0.95 0.80 - 3.30 K/cumm [facility] Monocyte abs 1.36(H) 0.20 - 0.80 K/cumm [facility] Eosinophil abs 0.07 0.00 - 0.50 K/cumm [facility] Basophil abs 0.05 0.00 - 0.10 K/cumm [facility] Neutrophil pct 82.8 % [facility] Comment: Interpretive Data Percent cell count reference ranges are not reported, since discordance with absolute values may lead to misinterpretation of CBC data. Current Interpretive Data was last revised on 2017. Imm gran pct 0.3 % [facility] Comment: Interpretive Data Percent cell count reference ranges are not reported, since discordance with absolute values may lead to misinterpretation of CBC data. Current Interpretive Data was last revised on 2017. Lymphocyte pct 6.6 % [facility] Comment: Interpretive Data Percent cell count reference ranges are not reported, since discordance with absolute values may lead to misinterpretation of CBC data. Current Interpretive Data was last revised on 2017. Monocyte pct 9.5 % [facility] Comment: Interpretive Data Percent cell count reference ranges are not reported, since discordance with absolute values may lead to misinterpretation of CBC data. Current Interpretive Data was last revised on 2017. Eosinophil pct 0.5 % [facility] Comment: Interpretive Data Percent cell count reference ranges are not reported, since discordance with absolute values may lead to misinterpretation of CBC data. Current Interpretive Data was last revised on 2017. Basophil pct 0.3 % [facility] Comment: Interpretive Data Percent cell count reference ranges are not reported, since discordance with absolute values may lead to misinterpretation of CBC data. Current Interpretive Data was last revised on 2017. Blood 02/27/2025 1:53 PM CDT 02/27/2025 1:55 PM CDT us Og Mane DO LAB BLOOD ORDERABLES Final Res ult CLARISSA ETHEL [address] [facility] [place] [address] * (ABNORMAL) Pro B-type natriuretic peptide (02/27/2025 [...] FOSTER LAB BLOOD ORDERABLES Final Re sult ISSANRR [address] [facility] [place] [address] * (ABNORMAL) CBC with auto differential (02/27/2025 1:53 PM CDT) [facility] WBC 14.31(H) 3.80 - 9.90 K/cumm Hgb 13.2 13.0 - 17.5 g/dL [facility] Hct 44.0 38.9 - 50.3 % [facility] Plt 523(H) 150 - 400 K/cumm [facility] MPV 9.1 9.1 - 12.3 fL [facility] RBC 5.30 4.30 - 5.80 M/cumm [facility] MCV 83.0 81.3 - 96.4 fL [facility] MCH 24.9(L) 27.1 - 33.3 pg [facility] MCHC 30.0(L) 32.3 - 35.7 g/dL [facility] RDW CV 14.4 11.1 - 14.9 % [facility] RDW SD 43.4 35.7 - 48.1 fL [facility] NRBC abs 0.00 0.00 - 0.01 K/cumm [facility] Blood 02/27/2025 1:53 PM CDT 02/27/2025 1:55 PM CDT us Og Mane DO LAB BLOOD ORDERABLES Final Res ult [facility] [address] [facility] [place] [address] * (ABNORMAL) Comprehensive metabolic panel (02/27/2025 1:53 PM CDT) [facility] Sodium 133(L) 135 - 145 mmol/L Potassium, pl 3.6 3.3 - 4.9 mmol/L [facility] Chloride 97 97 - 110 mmol/L [facility] CO2 25 22 - 32 mmol/L [facility] Anion gap 11 2 - 15 mmol/L [facility] BUN 14 6 - 25 mg/dL [facility] Creatinine 0.77(L) 0.80 - 1.30 mg/dL [facility] Glucose 100 70 - 199 mg/dL [facility] Comment: Interpretive Data Fasting glucose >/= 126 [...] 2022. Calcium 8.8 8.5 - 10.3 mg/dL [facility] Bilirubin, total 0.5 0.1 - 1.2 mg/dL [facility] Protein, pl 7.6 6.5 - 8.5 g/dL [facility] Albumin 3.5 3.5 - 5.0 g/dL [facility] Alk phos 128 40 - 130 Units/L [facility] ALT 18 7 - 55 Units/L [facility] AST 26 10 - 50 Units/L [facility] Blood 02/27/2025 1:53 PM CDT 02/27/2025 1:56 PM CDT us Og Mane DO LAB BLOOD ORDERABLES Final Res ult CLARISSA [address] [facility] [place] [address] * XR Chest 1 View (02/27/2025 1:50 [...] Rg Chavez M.D. MJ T: Report ID: [id number] Reading Location: [place] [address] Procedure Note Rg Chavez MD - 02/27/2025 [...] Rg Chavez M.D. MJ T: Report ID: [id number] Reading Location: [place] [address] Maggie FOSTER IMG XR PROCEDURES Final Resul t * ECG 12 lead (02/27/2025 1:42 PM CDT) Ventricular Rate EKG/Min 113 BPM [facility] Atrial Rate [address] [facility] NV-Interval (MSEC) [address] [facility] QRS-Interval (MSEC) [address] [facility] QT-Interval (MSEC) 374 ms [facility] QTc 513 ms [facility] P [place] 70 degrees [facility] R [place] -72 degrees [facility] T [place] 64 degrees [facility] Diagnosis Sinus tachycardia Possible Left atrial enlargement Pulmonary disease pattern Left anterior fascicular block Confirmed by STEVE VAZQUEZ M.D. ([id number]) on 02/27/2025 4:01:09 PM [facility] 02/27/2025 1:42 PM CDT 02/27/2025 4:01 PM CDT Og Mane DO ECG ORDERABLES Final Result [facility] * NV AN ELECTIVE ENDOTRACHEAL AIRWAY, NV AN PROCEDURE PLACEHOLDER (02/15/2025 12:15 PM CDT) [...] (Cytology)) 02/15/2025 11:46 AM CDT Narrative PATHOLOGY [facility] - 02/19/2025 4:48 PM CDT EPIC results best viewed via link to PDF [facility] [place] [address] Note to Patients: This report may contain [...] Gender: M : 1965 (Age: 59) Address: [place] [id number] Hospital #: [id number] Taken:02/15/2025 Received:02/15/2025 Reported: 02/19/2025 Patient Type: B [facility] OUTPATIENT Service: Surgery Location: Physician(s): MD [...] Alex Mane MD 02/19/2025 16:48:19 Edwin You [facility](ASCP) Gross Description A. Left upper lobe: 10 ml cloudy fluid - 1 Pap stained ThinPrep. (ep) Clinical Diagnosis and History The patient is a 59-year-old man with a lung lesion (thick-walled cavitary masses), concerning for infection. Microscopic slide review and interpretation for this case was performed at [facility], Department of Surgical Pathology, [address] [facility], [place] [id number], [place] [address] CLIA # [id number] REPORT IMAGES AND SCANNED DOCUMENTS, IF INCLUDED, ONLY VIEWABLE IN PDF VERSION OF REPORT The performance characteristics of some immunohistochemical stains, in-situ hybridization and fluorescence in-situ hybridization tests and immunophenotyping by flow cytometry cited in this report (if any) were determined by the Surgical Pathology and Flow Cytometry Departments at [facility] as part of an ongoing quality assurance assistant program and in compliance with federally mandated [...] Surgical Pathology and Flow Cytometry Departments of [facility]. It has not been cleared or approved by the U. S. Food and Drug Administration. us Aileen Mcdonald MD LAB CYTOLOGY ORDERABLES F inal Result PATHOLOGY [facility] * Pneumonia PCR Bronchoalveolar lavage Lobe, right upper (02/15/2025 11:38 AM CDT) C. pneumoniae DNA Not Detected Not Detected Comment:Testing performed by : [facility], [address] [place] [address] Legionella pneumophila DNA Not Detected Not Detected CERJOANNA Comment:Testing performed by : [facility], [address] [place] [address] M. pneumoniae DNA Not Detected Not Detected CERJOANNA Comment:Testing performed by : [facility], [address] [place] [address], [address] Adenovirus DNA Not Detected Not Detected CERJOANNA Comment:Testing performed by : [facility], [address] [place]., [address] Coronavirus (229E, OC43, HKU1, NL63) RNA Not Detected Not Detected CERJOANNA Comment:Testing performed by : [facility], [address] [place] [address] Metapneumovirus RNA Not Detected Not Detected CERJOANNA Comment:Testing performed by : [facility], [address] [place]., [address] Rhinovirus/Enterov irus RNA Not Detected Not Detected CERJOANNA Comment:Testing performed by : [facility], [address] [place]., [address] Influenza A RNA Not Detected Not Detected CERJOANNA Comment:Testing performed by : [facility], [address] [place]., [address] Influenza B RNA Not Detected Not Detected CERJOANNA Comment:Testing performed by : [facility], [address] [place] [address]., [address] Parainfluenza virus (1-4) RNA Not Detected Not Detected CLARISSA DAVENPORT Comment:Testing performed by : [facility], [address] [place]., [address] RSV RNA Not Detected Not Detected CLARISSA DAVENPORT Comment:Testing performed by : [facility], [address] [place]., [address] Bronchoalveolar lavage (Lobe, right upper) 02/15/2025 11:38 AM CDT 02/15/2025 5:41 PM CDT Narrative CLARISSA DAVENPORT - 02/15/2025 7:26 PM CDT The [...] of this assay have been determined by [facility]. Current interpretive data was last revised on 2024. us Aileen Mcdonald MD LAB MICROBIOLOGY - GENERA L ORDERABLES Final Result CLARISSA [address] [facility] [place] [address] * Pneumonia PCR with aerobic culture and [...] results is recommended. Comment:Testing performed by : [facility], [address] [place]., [address] Direct Specimen Exam Stain: Cytospin Gram stain shows: Abundant polymorphonuclear leukocytes seen. No squamous epithelial cells seen. Rare Mixed bacterial pam seen on Gram stain. CLARISSA Comment:Testing performed by : [facility], [address] [place] [address], [id number] Report Final Report: Growth indicates upper respiratory pam. CLARISSA Comment:Testing performed by : [facility], [address] [place] [address], [address] Organism GROWTH INDICATES UPPER RESPIRATORY PAM. CLARISSA Bronchoalveolar lavage (Lobe, right upper) 02/15/2025 11:38 AM CDT 02/15/2025 4:35 PM CDT Narrative [facility] - 02/17/2025 9:38 AM CDT When rapid molecular testing results are reported, testing completed using the [employer] Pneumonia Panel. This molecular assay detects: Acinetobacter [...] performance characteristics have been confirmed by the [facility]. The performance of the [employer] Pneumonia Panel has not been established for monitoring treatment of infection and bacterial nucleic acids may persist independent of organism viability. Aileen Mcdonald MD LAB MICROBIOLOGY - GENERA L ORDERABLES Final Result Performing Organization Address [facility] Co de Phone Number CLARISSA [address] [facility] [employer] [place], [place] [id number] * Cell Differential, Body Fluid (02/15/2025 11:38 AM CDT) Pathologist [facility] Total cells diffed 100 % Comment: Interpretive Data Unless otherwise specified, the reference range and other method performance specifications have not been established for CSF/Body Fluid tests. The test results should be integrated into the clinical context for interpretation. Current interpretive data was last revised on 2019. Neutrophils, fld 72 % CERNER Lymphs, fld 11 % CERNER Monocyte, fld 2 % CERNER Macrophages, fld 3 % CERNER Bronch Lining Cells Fld 12 % CERNER Fluid 02/15/2025 11:3 8 AM CDT 02/15/2025 11:56 AM CDT Aileen Mcdonald MD LAB BODY FLUIDS AND STOOL S ORDERABLES Final Result Performing Organization Address [facility] Co de Phone Number CLARISSA [address] [facility] [place] [address] * Cell count w/rflx diff, body fluid (02/15/2025 11:38 AM CDT) Pathologist [facility] Specimen type, fld Bronchial Body site, fld Bronch Lavage CERNER Color, fld #CLESS [facility] Clarity, fld Clear [facility] Nucleated cells, fld 252 /cumm [facility] Comment: Interpretive Data Unless otherwise specified, the reference range and other method performance specifications have not been established for CSF/Body Fluid tests. The test results should be integrated into the clinical context for interpretation. Current interpretive data was last revised on 2019. RBC, fld <2,000 /cumm [facility] Fluid 02/15/2025 11:3 8 AM CDT 02/15/2025 11:56 AM CDT Aileen Mcdonald MD LAB BODY FLUIDS AND STOOL S ORDERABLES Final Result Performing Organization Address City/[facility] Co de Phone Number [address] [place] [address] * Mycology (fungal) culture Bronchoalveolar lavage Lobe, right upper (02/15/2025 11:38 AM CDT) Report Final Report: No growth of fungus Comment:Testing performed by : [facility], [address] [place] [address]., [id number] Bronchoalveolar lavage (Lobe, right upper) 02/15/2025 11:38 AM CDT 02/15/2025 4:36 PM CDT Narrative [facility] - 03/15/2025 7:34 AM CDT Testing performed by [facility] ([phone]). Aileen Mcdonald MD LAB MICROBIOLOGY - GENERA L ORDERABLES Final Result Performing Organization Address City/[facility]/ZIP Co de Phone Number [address] [employer] [place] [address] * Mycobacterium tuberculosis PCR Bronchoalveolar lavage (02/15/2025 11:38 AM CDT) Report Final Report: Target not detected Comment:Testing performed by : [facility], [address] [place] [address]., [address] Organism TARGET NOT DETECTED [facility] Bronchoalveolar lavage 02/15 11:38 AM CDT 02/16/2025 12:45 PM CDT Narrative CLARISSA - 02/16/2025 4:44 PM CDT 1. Nucleic acid amplification for detection of Mycobacterium tuberculosis complex is performed using the [employer] GeneXpert MTB/RIF assay. This assay has been approved by the [place] Food and Drug administration for detection of M. tuberculosis in sputum samples. The performance characteristics of this test have been verified by the [facility] Microbiology laboratory for sputum samples [...] MICROBIOLOGY - GENERA L ORDERABLES Final Result [facility] [address] [facility] Department of Laboratories [place], [place] [id number] * (ABNORMAL) Mycobacteriology (AFB) culture and acid-fast stain Bronchoalveolar lavage Lobe, right upper (02/15/2025 11:38 AM CDT) Direct Specimen Exam Stain: Rare Acid Fast Bacilli Seen Comment:Testing performed by : [facility], [address] [facility] [place]., [address] Report Final Report: Few Mycobacterium kansasii For susceptibility results, refer to accession number [id number] on the BAL culture from 02/15/2025. (.) CLARISSA Comment:Testing performed by : [facility], [address] [place]., [address] Organism MYCOBACTERIUM KANSASII CLARISSA Bronchoalveolar lavage (Lobe, right upper) 02/15/2025 11:38 AM CDT 02/15/2025 4:37 PM CDT Narrative CLARISSA - 04/11/2025 1:20 PM CDT Testing performed by [facility] ([phone]). Aileen Mcdonald MD LAB MICROBIOLOGY - GENERA L ORDERABLES Final Result Performing Organization Address [facility] Co de Phone Number [place] [address] [place] [address] * Pneumocystis DFA Bronchoalveolar lavage (02/15/2025 11:38 AM CDT) Report Direct Stain Examination - Final: Negative for: Pneumocystis jirovecii Comment:Testing performed by : [facility], [address] [place]., [address] Bronchoalveolar lavage 02/15 11:38 AM CDT 02/15/2025 4:37 PM CDT Narrative [facility] - 02/16/2025 2:54 PM CDT The Pneumocystis [...] L ORDERABLES Final Result Performing Organization Address [facility] Co de Phone Number [place] [address] [facility] [place] [address] * Pneumonia PCR Bronchoalveolar lavage Lobe, left upper (02/15/2025 11:35 AM CDT) C. pneumoniae DNA Not Detected Not Detected Comment:Testing performed by : [facility], [address] [facility], [address] Legionella pneumophila DNA Not Detected Not Detected CERJOANNA Comment:Testing performed by : [facility], [address] [facility], [address] M. pneumoniae DNA Not Detected Not Detected CERNER Comment:Testing performed by : [facility], [address] [facility], [address] Adenovirus DNA Not Detected Not Detected CERJOANNA Comment:Testing performed by : [facility], [address] [place]., [address] Coronavirus (229E, OC43, HKU1, NL63) RNA Not Detected Not Detected CERJOANNA Comment:Testing performed by : [facility], [address] [place]., [address] Metapneumovirus RNA Not Detected Not Detected CERJOANNA Comment:Testing performed by : [facility], [address] [place]., [address] Rhinovirus/Enterov irus RNA Not Detected Not Detected CERJOANNA Comment:Testing performed by : [facility], [address] [place] [address]., [address] Influenza A RNA Not Detected Not Detected CERJOANNA Comment:Testing performed by : [facility], [address] [place] [address], [address] Influenza B RNA Not Detected Not Detected CERNER Comment:Testing performed by : [facility], [address] [place]., [address] Parainfluenza virus (1-4) RNA Not Detected Not Detected CERJOANNA Comment:Testing performed by : [facility], [address] [facility], [address] RSV RNA Not Detected Not Detected CERJOANNA Comment:Testing performed by : [facility], [address] [facility], [place]., [address] Bronchoalveolar lavage (Lobe, left upper) 02/15/2025 11:35 AM CDT 02/15/2025 5:41 PM CDT Tena DAVENPORT - 02/15/2025 7:31 PM CDT The [...] of this assay have been determined by [facility]. Current interpretive data was last revised on 2024. us Aileen Mcdonald MD LAB MICROBIOLOGY - GENERA L ORDERABLES Final Result CLARISSA [address] [facility] [place] [address] * Pneumonia PCR with aerobic [...] results is recommended. Comment:Testing performed by : [facility], [address] [place]., [address] Direct Specimen Exam Stain: Cytospin Gram stain shows: Rare polymorphonuclear leukocytes seen. No squamous epithelial cells seen. No organisms seen. [facility] Comment:Testing performed by : [facility], [address] [place]., [address] Report Final Report: Growth indicates upper respiratory pam. [facility] Comment:Testing performed by : [facility], [address] [place]., [address] Organism GROWTH INDICATES UPPER RESPIRATORY PAM. [facility] Bronchoalveolar lavage (Lobe, left upper) 02/15/2025 11:35 AM CDT 02/15/2025 4:41 PM CDT Narrative [facility] - 02/19/2025 12:51 PM CDT When rapid molecular testing results are reported, testing completed using the [employer] Pneumonia Panel. This molecular assay detects: Acinetobacter [...] performance characteristics have been confirmed by the [facility]. The performance of the [employer] Pneumonia Panel has not been established for monitoring treatment of infection and bacterial nucleic acids may persist independent of organism viability. Aileen Mcdonald MD LAB MICROBIOLOGY - GENERA L ORDERABLES Final Result Performing Organization Address [facility] de Phone Number [address] [address] * Cell Differential, Body Fluid (02/15/2025 11:35 AM CDT) Total cells diffed 100 % Comment: Interpretive Data Unless otherwise specified, the reference range and other method performance specifications have not been established for CSF/Body Fluid tests. The test results should be integrated into the clinical context for interpretation. Current interpretive data was last revised on 2019. Neutrophils, fld 96 % [facility] Lymphs, fld 4 % [facility] Fluid 02/15/2025 11:3 5 AM CDT 02/15/2025 11:56 AM CDT Aileen Mcdonald MD LAB BODY FLUIDS AND STOOL S ORDERABLES Final Result Performing Organization Address [facility] Phone Number [address] [address] * Cell count w/rflx diff, body fluid (02/15/2025 11:35 AM CDT) Specimen type, fld Bronchial Body site, fld Bronch Lavage [facility] Color, fld White [facility] Clarity, fld Turbid [facility] Nucleated cells, fld 8,448 /cumm [facility] Comment: Interpretive Data Unless otherwise specified, the reference range and other method performance specifications have not been established for CSF/Body Fluid tests. The test results should be integrated into the clinical context for interpretation. Current interpretive data was last revised on 2019. RBC, fld <2,000 /cumm [facility] Fluid 02/15/2025 11:3 5 AM CDT 02/15/2025 11:56 AM CDT Aileen Mcdonald MD LAB BODY FLUIDS AND STOOL S ORDERABLES Final Result Performing Organization Address [facility] de Phone Number [address] [address] * (ABNORMAL) Mycology (fungal) culture Bronchoalveolar lavage Lobe, left upper (02/15/2025 11:35 AM CDT) Report Final Report: Rare Yeast two colony types Charo pneumonia is very rare and requires a histopathological diagnosis. The recovery of these organisms in routine culture, in most cases, only represents overgrowth of the organism secondary to antimicrobial therapy. Please contact the microbiology laboratory at [phone] if identification or susceptibility testing is clinically indicated. (.) Comment:Testing performed by : [facility], [address] [place] [address], [place]., [address] Organism YEAST [facility] Bronchoalveolar lavage (Lobe, left upper) 02/15/2025 11:35 AM CDT 02/15/2025 4:42 PM CDT Narrative [facility] - 03/28/2025 2:28 PM CDT Testing performed by [facility] ([phone]). Aileen Mcdonald MD LAB MICROBIOLOGY - GENERA L ORDERABLES Final Result Performing Organization Address [facility] Co de Phone Number [place] [address] [facility] [place] [address] * Mycobacterium tuberculosis PCR Bronchoalveolar lavage (02/15/2025 11:35 AM CDT) Report Final Report: Target not detected Comment:Testing performed by : [facility], [address] [place] [address], [place]., [address] Organism TARGET NOT DETECTED [facility] Bronchoalveolar lavage 02/15 11:35 AM CDT 02/16/2025 12:48 PM CDT Narrative CLARISSA - 02/16/2025 4:44 PM CDT 1. Nucleic acid amplification for detection of Mycobacterium tuberculosis complex is performed using the [employer] GeneXpert MTB/RIF assay. This assay has been approved by the [place] Food and Drug administration for detection of M. tuberculosis in sputum samples. The performance characteristics of this test have been verified by the [facility] Microbiology laboratory for sputum samples [...] - GENERA L ORDERABLES Final Result CLARISSA [address] [facility] Department of Laboratories [place], [place] [id number] * (ABNORMAL) Mycobacteriology (AFB) culture and acid-fast stain Bronchoalveolar lavage Lobe, left upper (02/15/2025 11:35 AM CDT) Direct Specimen Exam Stain: Moderate Acid Fast Bacilli Seen Notification of: Acid Fast Bacilli called to and read back by: Lashae Porter ([place]) [phone] on 02/16/2025 13:05 by: Aleena Lai ([place]) Notification of: Acid Fast Bacilli called to and read back by: Kailey Michaels ([place]) [phone] on 02/16/2025 13:15 by: Aleena Love ([place]) Test result called to and read back by Mily Messina on 02/16/2025 13:25:04 by Martinez Draper MLS Comment:Testing performed by : [facility], [address] [place] [address], [address] 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 * * * * * * * * * * * * * * * * * * * * Susceptibility performed by the [facility], [address] [place] [id number] (.) CLARISSA DAVENPORT Comment:Testing performed by : [facility], [address] [place] [address], [address] Organism MYCOBACTERIUM KANSASII CLARISSA DAVENPORT Bronchoalveolar lavage (Lobe, left upper) 02/15/2025 11:35 AM CDT 02/15/2025 4:43 PM CDT Narrative CLARISSA DAVENPORT - 04/11/2025 1:22 PM CDT Testing performed by [facility] ([phone]). us Aileen Mcdonald MD LAB MICROBIOLOGY - GENERA L ORDERABLES Final Result CLARISSA [address] [facility] [place] [address] * Pneumocystis DFA Bronchoalveolar lavage Lobe, left upper (02/15/2025 11:35 AM CDT) Report Direct Stain Examination - Final: Negative for: Pneumocystis jirovecii Comment:Testing performed by : [facility], [address] [place] [address], [address] Bronchoalveolar lavage (Lobe, left upper) 02/15/2025 11:35 AM CDT 02/15/2025 4:43 PM CDT Narrative CLARISSA - 02/16/2025 2:54 PM CDT The Pneumocystis [...] L ORDERABLES Final Result Performing Organization Address [facility]/ZIP Co de Phone Number [address] [place] [address] * eGFR (02/15/2025 9:35 AM CDT) eGFR [...] ORDERABLES Isabela l Result Performing Organization Address City/[facility]/ZIP Co de Phone Number [address] [place] [address] * Differential, auto (02/15/2025 9:35 AM CDT) Pathologist [facility] Neutrophil abs 5.91 1.50 - 6.50 K/cumm Imm gran abs 0.02 0.00 - 0.10 K/cumm [facility] Lymphocyte abs 1.42 0.80 - 3.30 K/cumm [facility] Monocyte abs 0.73 0.20 - 0.80 K/cumm [facility] Eosinophil abs 0.21 0.00 - 0.50 K/cumm [facility] Basophil abs 0.07 0.00 - 0.10 K/cumm [facility] Neutrophil pct 70.8 % [facility] Comment: Interpretive Data Percent cell count reference ranges are not reported, since discordance with absolute values may lead to misinterpretation of CBC data. Current Interpretive Data was last revised on 2017. Imm gran pct 0.2 % [facility] Comment: Interpretive Data Percent cell count reference ranges are not reported, since discordance with absolute values may lead to misinterpretation of CBC data. Current Interpretive Data was last revised on 2017. Lymphocyte pct 17.0 % [facility] Comment: Interpretive Data Percent cell count reference ranges are not reported, since discordance with absolute values may lead to misinterpretation of CBC data. Current Interpretive Data was last revised on 2017. Monocyte pct 8.7 % [facility] Comment: Interpretive Data Percent cell count reference ranges are not reported, since discordance with absolute values may lead to misinterpretation of CBC data. Current Interpretive Data was last revised on 2017. Eosinophil pct 2.5 % [facility] Comment: Interpretive Data Percent cell count reference ranges are not reported, since discordance with absolute values may lead to misinterpretation of CBC data. Current Interpretive Data was last revised on 2017. Basophil pct 0.8 % [facility] Comment: Interpretive Data Percent cell count reference ranges are not reported, since discordance with absolute values may lead to misinterpretation of CBC data. Current Interpretive Data was last revised on 2017. Blood 02/15/2025 9:35 AM CDT 02/15/2025 9:38 AM CDT Aileen Mcdonald MD LAB BLOOD ORDERABLES Isabela govea Result Performing Organization Address [facility] Co de Phone Number CLARISSA [address] [address] * (ABNORMAL) CBC with auto differential (02/15/2025 9:35 AM CDT) [facility] WBC 8.36 3.80 - 9.90 K/cumm Hgb 12.8(L) 13.0 - 17.5 g/dL [facility] Hct 41.3 38.9 - 50.3 % [facility] Plt 310 150 - 400 K/cumm [facility] MPV 9.5 9.1 - 12.3 fL [facility] RBC 4.97 4.30 - 5.80 M/cumm [facility] MCV 83.1 81.3 - 96.4 fL [facility] MCH 25.8(L) 27.1 - 33.3 pg [facility] MCHC 31.0(L) 32.3 - 35.7 g/dL [facility] RDW CV 14.6 11.1 - 14.9 % [facility] RDW SD 44.2 35.7 - 48.1 fL [facility] NRBC abs 0.00 0.00 - 0.01 K/cumm [facility] Blood 02/15/2025 9:35 AM CDT 02/15/2025 9:38 AM CDT Aileen Mcdonald MD LAB BLOOD ORDERABLES Isabela l Result Performing Organization Address City/[facility]/ZIP Co de Phone Number ISSA[address] [place] [address] * (ABNORMAL) aPTT (02/15/2025 9:35 AM CDT) [facility] aPTT 41(H) 22 - 37 sec Comment: Ref Range High Interpretive data aPTT test has not been evaluated for monitoring heparin therapy. The anti-Xa is the preferred test. Current interpretive data was last revised on 2019. Blood 02/15/2025 9:35 AM CDT 02/15/2025 9:38 AM CDT Aileen Mcdonald MD LAB BLOOD ORDERABLES Isabela l Result Performing Organization Address [facility] de Phone Number [address] [place] [address] * (ABNORMAL) Protime-INR (02/15/2025 9:35 AM CDT) PT 16.00(H) 12.00 - 14.60 sec Comment:Ref Range High INR 1.26(H) 0.90 - 1.20 [facility] Comment: Ref Range High Interpretive data Oral [...] ORDERABLES Isabela l Result Performing Organization Address [facility] de Phone Number [address] [address] * (ABNORMAL) Basic metabolic panel (02/15/2025 9:35 AM CDT) Sodium 140 135 - 145 mmol/L Potassium, pl 4.0 3.3 - 4.9 mmol/L [facility] Chloride 104 97 - 110 mmol/L [facility] CO2 27 22 - 32 mmol/L [facility] Anion gap 9 2 - 15 mmol/L [facility] BUN 16 6 - 25 mg/dL [facility] Creatinine 0.75(L) 0.80 - 1.30 mg/dL [facility] Glucose 92 70 - 199 mg/dL [facility] Comment: Interpretive Data Fasting glucose >/= 126 [...] 2022. Calcium 8.9 8.5 - 10.3 mg/dL CLARISSA Blood 02/15/2025 9:35 AM CDT 02/15/2025 9:38 AM CDT us Aileen Mcdonald MD LAB BLOOD ORDERABLES Isabela l Result CLARISSA [address] [facility] [place] [address] * CT Chest WO Contrast (02/15/2025 9:07 [...] of the right upper lobe with thick pascual. Cavitary component measures 2.5 x 1.6 cm, [...] of the right upper lobe with thick pascual. Cavitary component measures 2.5 x 1.6 cm, [...] Rg Chavez M.D. MJ T: Report ID: [id number] [place] Location: [place] [address] Procedure Note Rg Chavez MD - 02/27/2025 [...] of the right upper lobe with thick pascual. Cavitary component measures 2.5 x 1.6 cm, [...] Rg Chavez M.D. MJ T: Report ID: [id number] [place] Location: [id number] us Aileen Mcdonald MD IMG CT PROCEDURES [...] by Ha Regalado M.D. T: Report ID: [id number] [place] Location: [id number] Procedure Note Ha Regalado Jr., MD - [...] by Ha Regalado M.D. T: Report ID: [id number] [place] Location: [place] [address] Aileen Mcdonald MD IM CT PROCEDURES Final R esult from Last 3 Months Insurance [facility] Advance Directives For more information, please contact: [phone] * Full Code (Latest Code Status on File) Date Activated Date Inactivated Comments 02/27/2025 7:49 PM 03/02/2025 9:08 PM * Full Code Date Activated Date Inactivated Comments 12/28/2024 5:17 PM 01/01/2025 7:55 PM Care Teams Service Consultant Relationship Specialty Start Date End Date Mike Ball MD [address] [facility] [address] [place] [address] PCP - General Family Medicine 03/31/24
--- OUTSIDE RECORDS SUMMARY | 2025-04-12 14:27 | XMS_ITS | Encounter Summary ---
Author Organization [facility] Healthcare Address [address] [place] [address] Care Team Providers Care Crop Or Grain Farmer Name Role Phone Mike Ball MD Primary Care Provider Encounter Details Date Type Department Care Team (Late st Contact Info) Description 02/19/2025 Results Follow-Up [facility] Pulmonology [address] [facility] [address] [place] [address] Aileen Mcdonald MD [address] [place] [address] [address] [place] [address] CBC with auto differential, Basic metabolic panel, Protime-INR, Additional followed-up results: 19 Social History Tobacco Use Types Packs/Day Years Used Date Smoking Tobacco: Former Cigarettes 1 30 S tarted: 1993 Passive Smoke Exposure: Past Smokeless Tobacco: Never [facility] Utilities Answer Date Recorded In the past 12 months has [employer], gas, oil, or water Issue threatened to shut off services in your [...] often do you attend chur ch or adventist services? Never 12/29/2024 Do you belong to any clubs o r organizations such as muslim groups, unions, fraternal or athletic groups, or [...] time in the past 12 m [facility], were you homeless or living in a long term (including now)? No 12/29/2024 Personal Safety Answer Date Recorded Have you ever been in or are you currently in a harmful physical or emotional relationship or is someone making you feel afraid or unsafe? Denies 02/15/2025 Sex and Gender Information Value Date Recorded Sex Assigned at Not on file Legal Sex Male 5:59 PM MEDICATION AID Gender Identity Not on file Sexual Orientation Not on file documented as of this encounter Plan of Treatment Not on file documented as of this encounter Visit Diagnoses Not on filedocumented in this encounter Care Teams Crop Or Grain Farmer Relationship Specialty Start Date End Date Mike Ball MD [address] [facility] [address] [place] [address] PCP - General Family Medicine 03/31/24 documented as of this encounter
--- OUTSIDE RECORDS SUMMARY | 2025-04-12 14:27 | XMS_ITS | Encounter Summary ---
Author Organization [facility] Healthcare Address [address] [place] [address] Care Team Providers Care Consumer Product Advisor Name Role Phone Mike Ball MD Primary Care Provider Encounter Details Date Type Department Care Team (Late st Contact Info) Description 07/05/2024 Documentation [facility] OP Occup Therapy [address] 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
[2025-04-12 15:18] LABS: Prothrombin Time 43.7 Seconds (11.1-14.7)
[2025-04-12 15:40] LABS: INR 5.0
== END 2025-04-12 14:22 | disposition home or self-care (01) ==
LOC: ANHLAB 14:22
PROVIDERS: PCP Family Medicine; Visit Provider Physician Assistant Medical
DX: D68.59 Other primary thrombophilia (principal); I26.99 Other pulmonary embolism without acute cor pulmonale; Z79.01 Long term (current) use of anticoagulants
CPT/HCPCS: 36415; 85610